=== PATIENT | male | born 1950 | race Caucasian/White ===

== ENCOUNTER 2017-08-14 18:59 | Inpatient (IN) | payer MEDICARE ==
[~2017-08-14] VITALS: Ht 370.8 cm; Wt 135.8 kg
[~2017-08-14 18:59] MED LIST: ASCORBIC ACID500 MG PO; ASPIR 8181 MG PO; AUGMENTIN 875-1 EACH PO; BACTRIM DS TAB1 EACH PO; CIPRO500 MG PO; CLINDAMYCIN HC150 MG PO; CLOPIDOGREL75 MG PO; COLCRYS0.6 MG PO; Calcium Carbonate PO; FAMOTIDINE40 MG PO; FUROSEMIDE40 MG PO; GABAPENTIN300 MG PO; GLIPIZIDE10 MG PO; HYDROCODON-ACE1 EAC9 PO; LISINOPRIL10 MG PO; LISINOPRIL2.5 MG PO; MAGNESIUM OXID400 MG PO; METHADONE HCL10 MG PO; METOPROLOL TART50 MG PO; MULTIPLE VITAM1 EAC1 PO; NEURONTIN400 MG PO; NITROGLYCERIN0.4 MG SL; OXYCONTIN10 MG PO; RIFAMPIN300 MG PO; STOOL SOFTENER50 MG PO; TIZANIDINE HCL4 MG PO; ULTRAM50 MG PO; ZINC SULFATE220 M1 PO
[2017-08-14] MEDS ORDERED: SODIUM CHLORIDE 0.9% 1000ML 1,000 ML IV STA (19:12)
[2017-08-14 19:34] LABS: BASOPHILS % 0.2 % (0.0-1.0); HEMATOCRIT 35.5 % (38.2-49.6); HEMOGLOBIN 11.9 g/dL (14.0-18.0); LYMPHOCYTES # (AUTO) 0.7 (1.0-3.2); LYMPHOCYTES % 3.2 % (18.0-39.1); MEAN CORPUSCULAR HEMOGLOBIN 28.1 pg (28-32); MEAN CORPUSCULAR HGB CONC 33.5 g/dL (31-35); MEAN CORPUSCULAR VOLUME 83.7 fL (81-99); MONOCYTES % 4.7 % (4.4-11.3); NEUTROPHILS # (AUTO) 18.9 (2.1-6.9); NEUTROPHILS % 91.2 % (38.7-80.0); PLATELET COUNT 210 x10e3/uL (140-360); RED BLOOD COUNT 4.24 x10e6/uL (4.3-5.7); RED CELL DISTRIBUTION WIDTH 14.4 % (11.7-14.4)
[2017-08-14] MEDS ORDERED: ONDANSETRON HCL INJ 2 MG/ML VIAL IV STA (19:39)
[2017-08-14] MEDS ORDERED: PANTOPRAZOLE 40 MG 10ML VIAL IV STA (19:39)
[2017-08-14] MEDS ORDERED: PIPER-TAZ 3.375 GM 50 ML IV STA (19:43)
[2017-08-14] MEDS ORDERED: VANCOMYCIN 1GM/NS 250 ML 250 ML IV STA (19:43)
[2017-08-14 19:44] LABS: INR 1.25; PARTIAL THROMBOPLASTIN TIME 32.3 seconds (23.8-35.5); PROTHROMBIN TIME 14.8 seconds (11.9-14.5)
[2017-08-14 19:44] LABS: BILIRUBIN,URINE NEGATIVE (NEGATIVE); CLARITY,URINE CLEAR (CLEAR); COLOR,URINE YELLOW (YELLOW); KETONES,URINE NEGATIVE (NEGATIVE); LEUKOCYTE ESTERASE ,URINE NEGATIVE (NEGATIVE); NITRITE,URINE NEGATIVE (NEGATIVE); PROTEIN,URINE DIPSTICK 3+ (NEGATIVE); URINE UROBILINOGEN 0.2 mg/dL (0.2 - 1)
[2017-08-14 19:54] LABS: ALBUMIN 3.3 g/dL (3.5-5.0); ALBUMIN/GLOBULIN RATIO 0.7 (0.8-2.0); ANION GAP 15.5 mmol/L (8-16); CALCIUM 8.6 mg/dL (8.4-10.2); CREATININE, SERUM 1.59 mg/dL (0.72-1.25); POTASSIUM 4.5 mmol/L (3.5-5.1)
[2017-08-14] MEDS ORDERED: VANCOMYCIN 1GM/NS 250 ML 250 ML ONE (19:54)
[2017-08-14] MEDS ORDERED: MAGNESIUM SULFATE 2GM/50ML 50 ML IV ONE ×2 (19:54→20:00)
[2017-08-14 19:58] LABS: WBC,URINE (MAN) 0-5 /HPF (0-5)
[2017-08-14 19:59] LABS: BACTERIA,URINE FEW /HPF; EPITHELIAL CELLS,URINE RARE /LPF
[2017-08-14 20:00] LABS: CREATINE KINASE MB 0.7 ng/mL (0-5.0)
[2017-08-14 20:01] LABS: TRANSITIONAL EPI CELLS,URINE RARE
--- NOTE | 2017-08-14 20:04 | Diagnostic Imaging Report ---
EXAMINATION: CHEST SINGLE (PORTABLE) INDICATION: Chest pain and fever. COMPARISON: 07/16/2016. FINDINGS: TUBES and LINES: Interval removal of right PICC line. LUNGS: Mild bibasilar subsegmental atelectasis. There is no evidence of pneumonia or pulmonary edema. PLEURA: No pleural effusion or pneumothorax. HEART AND MEDIASTINUM: The cardiac silhouette is mildly enlarged. BONES AND SOFT TISSUES: No acute osseous lesion. Soft tissues are unremarkable. UPPER ABDOMEN: No free air under the diaphragm. IMPRESSION: Bibasilar subsegmental atelectasis. Signed by: Dr. Obed Swann M.D. on 08/14/2017 8:01 PM
[2017-08-14] MEDS ORDERED: SODIUM CHLORIDE 0.9% 1000ML 1,000 ML ONE ×2 (20:25→21:29)
[2017-08-14] MEDS ORDERED: SODIUM CHLORIDE 0.9% 1000ML 1,000 ML IV SCH (20:30)
[2017-08-14] MEDS ORDERED: SODIUM CHLORIDE 0.9% 1000ML 1,000 ML IV ONE (20:45)
--- NOTE | 2017-08-14 20:48 | Diagnostic Imaging Report ---
FOOT LEFT COMPLETE - 3 views HISTORY: Pain. Heel ulcer. COMPARISON: 07/17/2016. FINDINGS: Bones: No acute displaced fracture. Subacute to chronic fracture of the proximal second and third metatarsal bone diaphysis. Status post amputation of the first toe. Joints: Severe valgus deformity of the metatarsophalangeal joints with mild subluxation. Degenerative changes of the tarsal and tarsometatarsal joints. Soft tissues: Approximately 3.8 cm ulcer in the plantar aspect of the heel. Plantar calcaneal enthesophyte. Achilles enthesopathy. Linear metallic densities about the second toe postoperative. IMPRESSION: Approximately 3.8 cm ulcer in the plantar aspect of the heel. No underlying acute osseous abnormality. Signed by: Dr. Obed Swann M.D. on 08/14/2017 8:45 PM
[2017-08-14 21:21] LABS: AMPHETAMINES SCREEN,URINE POSITIVE (NEGATIVE); BENZODIAZEPINES SCREEN,URINE POSITIVE (NEGATIVE); PHENCYCLIDINE SCREEN,URINE NEGATIVE (NEGATIVE)
[2017-08-14 21:28] LABS: ABG HCO3 23 mmol/L (23-28); ABG PCO2 37 mmHg (41-51); ABG PH 7.41 (7.31-7.41); ABG PO2 77 mmHg (80-105)
[2017-08-14] MEDS ORDERED: SODIUM CHLORIDE 0.9% 1000ML 500 ML IV ONE (21:45)
[2017-08-14] MEDS ORDERED: ONDANSETRON HCL INJ 2 MG/ML VIAL IV PRN (22:30)
[2017-08-14] MEDS ORDERED: DEXTROSE 50% SYRINGE 50 ML IV PRN (22:30)
[2017-08-14 22:33] LABS: BASOPHILS % 0.1 % (0.0-1.0); HEMATOCRIT 31.7 % (38.2-49.6); HEMOGLOBIN 10.5 g/dL (14.0-18.0); LYMPHOCYTES # (AUTO) 0.6 (1.0-3.2); LYMPHOCYTES % 3.8 % (18.0-39.1); MEAN CORPUSCULAR HEMOGLOBIN 28.2 pg (28-32); MEAN CORPUSCULAR HGB CONC 33.1 g/dL (31-35); MONOCYTES # (AUTO) 0.7 (0.2-0.8); MONOCYTES % 4.2 % (4.4-11.3); NEUTROPHILS # (AUTO) 14.9 (2.1-6.9); NEUTROPHILS % 90.5 % (38.7-80.0); PLATELET COUNT 176 x10e3/uL (140-360); RED BLOOD COUNT 3.73 x10e6/uL (4.3-5.7); RED CELL DISTRIBUTION WIDTH 14.6 % (11.7-14.4)
[2017-08-14] MEDS ORDERED: AMLODIPINE BESYL5 MG PO (22:34)
[2017-08-14] MEDS ORDERED: BENZONATATE100 MG PO (22:35)
[2017-08-14] MEDS ORDERED: CIPRO500 MG PO (22:36)
[2017-08-14] MEDS ORDERED: DOCUSATE SODIU100 MG PO (22:42)
[2017-08-14] MEDS ORDERED: DAKIN'S473 M1 TOP (22:42)
[2017-08-14] MEDS ORDERED: CYMBALTA20 MG PO (22:44)
[2017-08-14] MEDS ORDERED: GABAPENTIN300 MG PO (22:44)
[2017-08-14 22:45] LABS: ANION GAP 10.5 mmol/L (8-16); CALCIUM 7.2 mg/dL (8.4-10.2); CREATININE, SERUM 1.27 mg/dL (0.72-1.25); POTASSIUM 4.5 mmol/L (3.5-5.1)
[2017-08-14] MEDS ORDERED: GENTAMICIN SULFATE TOP (22:46)
[2017-08-14] MEDS ORDERED: HYDRALAZINE HCL10 MG PO (22:47)
[2017-08-14] MEDS ORDERED: LEVOCETIRIZINE D5 MG PO (22:51)
[2017-08-14] MEDS ORDERED: XOPENEX HFA15 GM INH (22:51)
[2017-08-14] MEDS ORDERED: NOVOLIN 70-30 SQ (22:51)
[2017-08-14] MEDS ORDERED: METFORMIN HCL850 MG PO (22:52)
[2017-08-14] MEDS ORDERED: PRAVASTATIN SOD20 MG PO (22:55)
[2017-08-14] MEDS ORDERED: ROPINIROLE HC0.25 MG PO (22:55)
[2017-08-14] MEDS ORDERED: TEMAZEPAM15 MG PO (22:55)
[2017-08-14 23:04] LABS: CREATINE KINASE MB 0.9 ng/mL (0-5.0)
[2017-08-14] MEDS: INSULIN REGULAR, HUMAN 100 UNIT/1 ML 3ML VIAL SQ SCH (23:16)
--- OUTSIDE RECORDS SUMMARY | 2017-08-14 23:19 | XMS REPORT ---
Author Author [facility] Address Unknown Phone Unavailable Care Team Providers Care Central Scheduler Name Role Phone JM QUICK Unavailable Unavailable Problems This patient has no known problems. Allergies, Adverse Reactions, Alerts This patient has no known allergies or adverse reactions. Medications This patient has no known medications. Results Test Description Test Time Test Comments Text Results Atomic Results Result Comments FOOT LEFT COMPLETE [place] [address] Patient Name: SG ARROYO MR #: [id number] : 1950 Age/Sex: 67/M Req #: [id number] [facility] Physician: Ordered by: JM QUICK MD Report #: [id number] Location: ER Room/Bed: Procedure: [id number] DX/FOOT LEFT COMPLETE Exam Date: 08/14/17 Exam Time : 1946 REPORT STATUS: Signed FOOT LEFT COMPLETE - 3 views HISTORY : Pain. Heel ulcer. COMPARISON: 07/17/2016. FINDINGS: Bones: No acute displaced fracture. Subacute to chronic fracture of the proximal second and third metatarsal bone diaphysis. Status post amputation of the first toe. Joints: Severe valgus deformity of the metatarsophalangeal joints with mild subluxation. Degenerative changes of the tarsal and tarsometatarsal joints. Soft tissues: Approximately 3.8 cm ulcer in the plantar aspect of the heel. Plantar calcaneal enthesophyte. Achilles enthesopathy. Linear metallic densities about the second toe postoperative. IMPRESSION: Approximately 3.8 cm ulcer in the plantar aspect of the heel. No underlying acute osseous abnormality. Signed by: Dr. Obed Flores M.D. on 08/14/2017 8:45 PM Dictated By: TAYLOR FLORES MD, MD 44 Transcribed By: JENNIFER on 08/14/172044 COPY TO: JM QUICK MD CHEST SINGLE (PORTABLE) [place] [address] Patient Name: SG ARROYO MR #: [id number] : 1950 Age/Sex: 67/M Req #: [id number] Adm Physician: Ordered by: CHANTEL CLIFTON PACKAGE WRAPPER Report #: [id number] Location: ER Room/Bed: Procedure: [id number] DX/CHEST SINGLE (PORTABLE) Exam Date: 08/14/17 Exam Time: 1946 REPORT STATUS: Signed EXAMINATION: CHEST SINGLE (PORTABLE) INDICATION: Chest pain and fever. COMPARISON: 07/16/2016. FINDINGS: TUBES and LINES: Interval removal of right PICC line. LUNGS: Mild bibasilar subsegmental atelectasis. There is no evidence of pneumonia or pulmonary edema. PLEURA : No pleural effusion or pneumothorax. HEART AND MEDIASTINUM: The cardiac silhouette is mildly enlarged. BONES AND SOFT TISSUES: No acute osseous lesion. Soft tissues are unremarkable. UPPER ABDOMEN: No free air under the diaphragm. IMPRESSION: Bibasilar subsegmental atelectasis. Signed by: Dr. Obed Flores M.D. on 08/14/2017 8:01 PM Dictated By: TAYLOR FLORES MD, MD 00 Transcribed By: JENNIFER on 08/14/172000 COPY TO: CHANTEL CLIFTON NP
[2017-08-14] MEDS: FAMOTIDINE 20 MG/2 ML VIAL IV SCH (23:20)
[2017-08-14 23:55] VITALS: BP 111/55
[2017-08-14] MEDS: PIPER-TAZ 3.375 GM 50 ML IV SCH (23:56)
[2017-08-15] VITALS (19 sets, daily range): BP systolic 97–164; BP diastolic 56–80
[2017-08-15] MEDS ORDERED: MAGNESIUM SULF 1GRAM/DEXTROSE 100 ML IV ONE (01:00)
[2017-08-15] MEDS ORDERED: OXYCODONE/ACETAMINOPHEN 5-325 1 EACH TABLET PO STA (02:32)
[2017-08-15] MEDS ORDERED: SODIUM CHLORIDE 0.9% 1000ML 1,000 ML IV SCH (02:45)
[2017-08-15 06:15] LABS: BASOPHILS % 0.2 % (0.0-1.0); EOSINOPHILS % 0.2 % (0.0-6.0); HEMATOCRIT 31.4 % (38.2-49.6); HEMOGLOBIN 10.2 g/dL (14.0-18.0); LYMPHOCYTES # (AUTO) 0.8 (1.0-3.2); LYMPHOCYTES % 6.7 % (18.0-39.1); MEAN CORPUSCULAR HEMOGLOBIN 27.7 pg (28-32); MEAN CORPUSCULAR HGB CONC 32.5 g/dL (31-35); MEAN CORPUSCULAR VOLUME 85.3 fL (81-99); MONOCYTES # (AUTO) 0.6 (0.2-0.8); MONOCYTES % 5.1 % (4.4-11.3); NEUTROPHILS # (AUTO) 10.3 (2.1-6.9); NEUTROPHILS % 87.2 % (38.7-80.0); PLATELET COUNT 152 x10e3/uL (140-360); RED BLOOD COUNT 3.68 x10e6/uL (4.3-5.7); RED CELL DISTRIBUTION WIDTH 14.6 % (11.7-14.4)
[2017-08-15] MEDS: PIPER-TAZ 3.375 GM 50 ML IV SCH ×2 (06:24→11:41)
[2017-08-15 06:47] LABS: CREATINE KINASE MB 1.2 ng/mL (0-5.0)
--- NOTE | 2017-08-15 06:58 | Diagnostic Imaging Report ---
CHEST SINGLE (PORTABLE), 08/15/2017 5:00 AM Technique: CHEST SINGLE (PORTABLE) Comparison: 08/14/2017 Clinical history: Hypotension Findings: Left costophrenic angle is excluded. Impression: 1. Stable/normal cardiomediastinal silhouette. 2. Stable bibasilar opacity which may be due to atelectasis/vascular crowding. No effusion or pneumothorax. Signed by: Dr Nadira Owen MD on 08/15/2017 6:54 AM
[2017-08-15 07:21] LABS: ALANINE AMINOTRANSFERASE 18 IU/L (0-55); ALBUMIN 2.7 g/dL (3.5-5.0); ALBUMIN/GLOBULIN RATIO 0.6 (0.8-2.0); ALKALINE PHOSPHATASE 45 IU/L (40-150); ANION GAP 10.7 mmol/L (8-16); BLOOD UREA NITROGEN 17 mg/dL (7-26); BUN/CREATININE RATIO 16 (6-25); CALCIUM 7.7 mg/dL (8.4-10.2); CARBON DIOXIDE 23 mmol/L (22-29); CHLORIDE 106 mmol/L (98-107); CHOL/HDL RATIO 2.9 (3.9-4.7); CHOLESTEROL 97 MD/DL (0-199); CREATININE, SERUM 1.06 mg/dL (0.72-1.25); EST GLOMERULAR FILTRATION RATE > 60 ML/MIN (60-); GLUCOSE 167 mg/dL (74-118); HDL CHOLESTEROL 34 MG/DL (40-60); LDL CHOLESTEROL 47 MG/DL (60-130); MAGNESIUM 1.4 MG/DL (1.3-2.1); POTASSIUM 3.7 mmol/L (3.5-5.1); SODIUM 136 mmol/L (136-145); TRIGLYCERIDES 78 MG/DL (0-149)
[2017-08-15] MEDS ORDERED: INSULIN REGULAR, HUMAN 100 UNIT/1 ML 3ML VIAL SQ SCH (07:30)
[2017-08-15] MEDS: ASPIRIN 81 MG ENTERIC COATED PO SCH (08:10)
[2017-08-15] MEDS ORDERED: GABAPENTIN 100 MG CAP PO SCH (09:00)
[2017-08-15] MEDS: INSULIN REGULAR, HUMAN 100 UNIT/1 ML 3ML VIAL SQ SCH ×4 (09:32→20:51)
[2017-08-15] MEDS: FAMOTIDINE 20 MG/2 ML VIAL IV SCH (09:51)
[2017-08-15] MEDS: OXYCODONE/ACETAMINOPHEN 5-325 1 EACH TABLET PO PRN ×2 (09:52→19:25)
[2017-08-15 13:52] LABS: CREATINE KINASE MB 1.1 ng/mL (0-5.0)
[2017-08-15] MEDS ORDERED: TIZANIDINE HCL 4 MG TAB PO PRN (14:00)
[2017-08-15] MEDS: OXYCODONE HCL 10 MG TAB CR PO SCH (14:54)
[2017-08-15] MEDS: METFORMIN HCL 850 MG TAB PO SCH (16:39)
[2017-08-15] MEDS: ROPINIROLE HCL 0.25 MG TAB PO SCH (20:50)
[2017-08-15] MEDS: DOCUSATE SODIUM 100 MG CAP PO SCH (20:50)
[2017-08-15] MEDS: HEPARIN SOD (PORCINE) 5,000 UNIT/ML VIAL SC SCH (20:50)
[2017-08-15] MEDS: GABAPENTIN 300 MG CAP PO SCH (20:50)
[2017-08-15] MEDS: TEMAZEPAM 15 MG CAP PO PRN (20:51)
[2017-08-15] MEDS ORDERED: GABAPENTIN 400 MG CAP PO SCH (21:00)
[2017-08-15] MEDS ORDERED: TEMAZEPAM 15 MG CAP PO SCH (21:00)
[2017-08-15] MEDS ORDERED: VANCOMYCIN 1GM/NS 250 ML 250 ML IV ONE (21:15)
[2017-08-16] MEDS: METOPROLOL TARTRATE 50 MG TAB PO SCH ×3 (00:06→16:54)
[2017-08-16 00:21] VITALS: BP 151/76
[2017-08-16] MEDS: OXYCODONE HCL 10 MG TAB CR PO SCH ×2 (02:10→14:02)
[2017-08-16 04:48] VITALS: BP 123/59
[2017-08-16 06:37] LABS: BASOPHILS % 0.3 % (0.0-1.0); EOSINOPHILS # (AUTO) 0.3 (0.0-0.4); EOSINOPHILS % 2.4 % (0.0-6.0); HEMATOCRIT 33.7 % (38.2-49.6); HEMOGLOBIN 10.7 g/dL (14.0-18.0); LYMPHOCYTES # (AUTO) 2.1 (1.0-3.2); LYMPHOCYTES % 16.6 % (18.0-39.1); MEAN CORPUSCULAR HEMOGLOBIN 28.1 pg (28-32); MEAN CORPUSCULAR HGB CONC 31.8 g/dL (31-35); MEAN CORPUSCULAR VOLUME 88.5 fL (81-99); MONOCYTES # (AUTO) 0.8 (0.2-0.8); MONOCYTES % 6.7 % (4.4-11.3); NEUTROPHILS # (AUTO) 9.2 (2.1-6.9); NEUTROPHILS % 73.3 % (38.7-80.0); PLATELET COUNT 181 x10e3/uL (140-360); RED BLOOD COUNT 3.81 x10e6/uL (4.3-5.7); RED CELL DISTRIBUTION WIDTH 14.8 % (11.7-14.4)
[2017-08-16 07:08] LABS: ANION GAP 9.1 mmol/L (8-16); BLOOD UREA NITROGEN 15 mg/dL (7-26); BUN/CREATININE RATIO 13 (6-25); CALCIUM 8.4 mg/dL (8.4-10.2); CARBON DIOXIDE 26 mmol/L (22-29); CHLORIDE 104 mmol/L (98-107); CREATININE, SERUM 1.18 mg/dL (0.72-1.25); EST GLOMERULAR FILTRATION RATE > 60 ML/MIN (60-); GLUCOSE 190 mg/dL (74-118); MAGNESIUM 1.6 MG/DL (1.3-2.1); POTASSIUM 4.1 mmol/L (3.5-5.1); SODIUM 135 mmol/L (136-145)
[2017-08-16 08:00] VITALS: BP 131/74
[2017-08-16] MEDS: METFORMIN HCL 850 MG TAB PO SCH ×2 (08:04→16:53)
[2017-08-16] MEDS: INSULIN REGULAR, HUMAN 100 UNIT/1 ML 3ML VIAL SQ SCH ×4 (08:04→23:44)
[2017-08-16] MEDS: ASPIRIN 81 MG ENTERIC COATED PO SCH (08:04)
[2017-08-16] MEDS: DULOXETINE HCL 20 MG DELAYED RELEASE PO SCH (08:04)
[2017-08-16] MEDS: COLCHICINE 0.6 MG TAB PO SCH (08:04)
[2017-08-16] MEDS: GABAPENTIN 300 MG CAP PO SCH ×2 (08:04→21:38)
[2017-08-16] MEDS: HEPARIN SOD (PORCINE) 5,000 UNIT/ML VIAL SC SCH ×2 (08:05→23:43)
--- NOTE | 2017-08-16 10:49 | Cardiology Report ---
DATE OF STUDY: ECHOCARDIOGRAM M-MODE: Dilated left atrium. Left ventricular hypertrophy. Normal contractility. Aortic sclerosis suggestive of stenosis. Normal mitral and tricuspid valves. No pericardial effusion. SECTOR SCAN: Dilated left atrium. Left ventricular hypertrophy. Normal contractility. Ejection fraction is approximately 70%. Aortic valve sclerotic and cannot exclude stenosis. Normal mitral and tricuspid valves. No pericardial effusion. CARDIAC DOPPLER STUDY WITH COLOR: Trace mitral and tricuspid regurgitation. The aortic velocity is 2.5 meters per second. CONCLUSIONS 1. Mild aortic stenosis with aortic velocity 2.5 meters per second. 2. Left ventricular hypertrophy with ejection fraction of approximately 70%. 3. Trace mitral regurgitation with mildly dilated left atrium. 4. Trace tricuspid regurgitation. Job#: [id number] RI cc: DEXTER HOLLAND MD
[2017-08-16] MEDS ORDERED: VANCOMYCIN 1GM/NS 250 ML 250 ML IV ONE (11:30)
[2017-08-16] MEDS ORDERED: CEFTRIAXONE SOD 1 GM VIAL IV SCH (11:30)
[2017-08-16] MEDS ORDERED: SODIUM CHLORIDE 0.9% 250ML 250 ML ONE (11:47)
[2017-08-16 12:00] VITALS: BP_SYST 116; BP_SYST 143; BP_DIAS 53; BP_DIAS 72
[2017-08-16] MEDS: CLINDAMYCIN 600MG/D5W 50ML 50 ML IV SCH ×2 (12:00→16:54)
[2017-08-16] MEDS: ROPINIROLE HCL 0.25 MG TAB PO SCH (14:02)
[2017-08-16] MEDS ORDERED: SODIUM CHLORIDE 0.9% 50ML 50 ML ONE (14:30)
[2017-08-16] MEDS ORDERED: IOPAMIDOL 370 MG/ML 200 ML INFUS..BTL INJ ONE (14:31)
--- NOTE | 2017-08-16 15:54 | Diagnostic Imaging Report ---
TECHNIQUE: Computed tomography imaging of the LEFT lower extremity was performed with injected contrast. 100 cc of Isovue-370 HISTORY: Pain and swelling COMPARISON: None available. FINDINGS: No fracture. No CT finding of osteomyelitis. Circumferential skin thickening and subcutaneous edema of the left lower extremity. No organized abscess. No soft tissue gas. No thickened fascial enhancement. IMPRESSION: Diffuse left lower extremity edema/cellulitis. No abscess or CT findings of osteomyelitis. Signed by: Dr. Joon Pickering M.D. on 08/16/2017 3:51 PM
[2017-08-16 16:00] VITALS: BP 160/81
[2017-08-16] MEDS: OXYCODONE/ACETAMINOPHEN 5-325 1 EACH TABLET PO PRN (16:53)
[2017-08-16] MEDS: ACETAMINOPHEN 325 MG TAB PO PRN ×2 (17:37)
[2017-08-16 20:00] VITALS: BP 158/74
[2017-08-16] MEDS: DOCUSATE SODIUM 100 MG CAP PO SCH (21:38)
[2017-08-17] VITALS (8 sets, daily range): BP systolic 133–160; BP diastolic 70–85
[2017-08-17] MEDS: CLINDAMYCIN 600MG/D5W 50ML 50 ML IV SCH ×2 (00:36→05:31)
[2017-08-17] MEDS: OXYCODONE HCL 10 MG TAB CR PO SCH ×2 (02:00→13:56)
[2017-08-17] MEDS: INSULIN REGULAR, HUMAN 100 UNIT/1 ML 3ML VIAL SQ SCH ×4 (07:30→21:00)
[2017-08-17] MEDS: MUPIROCIN 2% OINT 22 GM TUBE TOP SCH (09:00)
[2017-08-17] MEDS: COLCHICINE 0.6 MG TAB PO SCH (09:45)
[2017-08-17] MEDS: HEPARIN SOD (PORCINE) 5,000 UNIT/ML VIAL SC SCH (09:45)
[2017-08-17] MEDS: GABAPENTIN 300 MG CAP PO SCH ×2 (09:45→21:30)
[2017-08-17] MEDS: METOPROLOL TARTRATE 50 MG TAB PO SCH ×2 (09:45→17:00)
[2017-08-17] MEDS: METFORMIN HCL 850 MG TAB PO SCH ×2 (09:45→17:00)
[2017-08-17] MEDS: DULOXETINE HCL 20 MG DELAYED RELEASE PO SCH (09:45)
[2017-08-17] MEDS: ASPIRIN 81 MG ENTERIC COATED PO SCH (09:45)
[2017-08-17 09:59] LABS: BASOPHILS % 0.3 % (0.0-1.0); EOSINOPHILS # (AUTO) 0.3 (0.0-0.4); EOSINOPHILS % 3.9 % (0.0-6.0); HEMATOCRIT 30.8 % (38.2-49.6); HEMOGLOBIN 9.9 g/dL (14.0-18.0); LYMPHOCYTES # (AUTO) 1.5 (1.0-3.2); LYMPHOCYTES % 18.4 % (18.0-39.1); MEAN CORPUSCULAR HEMOGLOBIN 27.8 pg (28-32); MEAN CORPUSCULAR HGB CONC 32.1 g/dL (31-35); MEAN CORPUSCULAR VOLUME 86.5 fL (81-99); MONOCYTES # (AUTO) 0.5 (0.2-0.8); MONOCYTES % 6.4 % (4.4-11.3); NEUTROPHILS # (AUTO) 5.6 (2.1-6.9); NEUTROPHILS % 70.4 % (38.7-80.0); PLATELET COUNT 159 x10e3/uL (140-360); RED BLOOD COUNT 3.56 x10e6/uL (4.3-5.7); RED CELL DISTRIBUTION WIDTH 14.7 % (11.7-14.4)
[2017-08-17 10:15] LABS: BLOOD UREA NITROGEN 10 mg/dL (7-26); BUN/CREATININE RATIO 9 (6-25); CALCIUM 8.8 mg/dL (8.4-10.2); CARBON DIOXIDE 25 mmol/L (22-29); CHLORIDE 99 mmol/L (98-107); CREATININE, SERUM 1.07 mg/dL (0.72-1.25); EST GLOMERULAR FILTRATION RATE > 60 ML/MIN (60-); GLUCOSE 233 mg/dL (74-118); SODIUM 130 mmol/L (136-145)
[2017-08-17] MEDS: FAMOTIDINE 20 MG TAB PO SCH ×2 (13:52→16:30)
[2017-08-17] MEDS: VANCOMYCIN HCL 1.25 GM in SODIUM CHLORIDE 0.9% 250ML 300 ML IV SCH (15:15)
[2017-08-17] MEDS: ENOXAPARIN SOD INJ 40 MG/0.4 ML SYR SC SCH (17:09)
[2017-08-17] MEDS: DOCUSATE SODIUM 100 MG CAP PO SCH (21:30)
[2017-08-17] MEDS: ROPINIROLE HCL 0.25 MG TAB PO SCH (21:30)
[2017-08-18] VITALS: BP 177/74
[2017-08-18] MEDS: VANCOMYCIN HCL 1.25 GM in SODIUM CHLORIDE 0.9% 250ML 300 ML IV SCH ×2 (00:20→14:00)
[2017-08-18] MEDS: OXYCODONE/ACETAMINOPHEN 5-325 1 EACH TABLET PO PRN ×2 (00:20→23:30)
[2017-08-18] MEDS: OXYCODONE HCL 10 MG TAB CR PO SCH (02:03)
[2017-08-18 04:00] VITALS: BP 130/62
[2017-08-18 08:00] VITALS: BP 118/63
[2017-08-18] MEDS: INSULIN REGULAR, HUMAN 100 UNIT/1 ML 3ML VIAL SQ SCH ×4 (08:30→21:35)
[2017-08-18] MEDS: FAMOTIDINE 20 MG TAB PO SCH ×2 (08:30→16:44)
[2017-08-18] MEDS: DULOXETINE HCL 20 MG DELAYED RELEASE PO SCH (09:00)
[2017-08-18] MEDS: GABAPENTIN 300 MG CAP PO SCH ×2 (09:00→21:28)
[2017-08-18] MEDS: METOPROLOL TARTRATE 50 MG TAB PO SCH ×2 (09:00→17:36)
[2017-08-18] MEDS: COLCHICINE 0.6 MG TAB PO SCH (09:00)
[2017-08-18] MEDS: ASPIRIN 81 MG ENTERIC COATED PO SCH (09:00)
[2017-08-18] MEDS: METFORMIN HCL 850 MG TAB PO SCH ×2 (09:00→17:36)
[2017-08-18] MEDS: MUPIROCIN 2% OINT 22 GM TUBE TOP SCH (09:00)
[2017-08-18] MEDS ORDERED: FUROSEMIDE INJ 10 MG/ML 4 ML VIAL IV SCH (10:30)
[2017-08-18 12:00] VITALS: BP 188/88
[2017-08-18] MEDS ORDERED: OXYCODONE HCL 10 MG TAB CR PO SCH ×2 (16:45→21:00)
[2017-08-18] MEDS: LACTOBACILLUS ACIDOPHILUS CAPSULE PO SCH (17:35)
[2017-08-18] MEDS: ENOXAPARIN SOD INJ 40 MG/0.4 ML SYR SC SCH (17:35)
[2017-08-18 20:00] VITALS: BP 165/77
[2017-08-18] MEDS: ROPINIROLE HCL 0.25 MG TAB PO SCH (21:28)
[2017-08-18] MEDS: DOCUSATE SODIUM 100 MG CAP PO SCH (21:28)
[2017-08-19] VITALS (8 sets, daily range): BP systolic 146–179; BP diastolic 72–81
[2017-08-19] MEDS: VANCOMYCIN HCL 1.25 GM in SODIUM CHLORIDE 0.9% 250ML 300 ML IV SCH ×2 (01:00→12:54)
[2017-08-19] MEDS: OXYCODONE HCL 10 MG TAB CR PO SCH ×2 (04:52→17:01)
[2017-08-19] MEDS: FAMOTIDINE 20 MG TAB PO SCH ×2 (08:01→17:01)
[2017-08-19] MEDS: INSULIN REGULAR, HUMAN 100 UNIT/1 ML 3ML VIAL SQ SCH ×4 (08:01→21:25)
[2017-08-19] MEDS: DULOXETINE HCL 20 MG DELAYED RELEASE PO SCH (08:02)
[2017-08-19] MEDS: MUPIROCIN 2% OINT 22 GM TUBE TOP SCH (08:02)
[2017-08-19] MEDS: ASPIRIN 81 MG ENTERIC COATED PO SCH (08:02)
[2017-08-19] MEDS: METOPROLOL TARTRATE 50 MG TAB PO SCH ×2 (08:02→16:12)
[2017-08-19] MEDS: GABAPENTIN 300 MG CAP PO SCH ×2 (08:02→21:24)
[2017-08-19] MEDS: COLCHICINE 0.6 MG TAB PO SCH (08:02)
[2017-08-19] MEDS: LACTOBACILLUS ACIDOPHILUS CAPSULE PO SCH ×2 (08:02→17:01)
[2017-08-19] MEDS: METFORMIN HCL 850 MG TAB PO SCH ×2 (08:02→17:01)
[2017-08-19] MEDS: ENOXAPARIN SOD INJ 40 MG/0.4 ML SYR SC SCH (17:01)
[2017-08-19] MEDS: DOCUSATE SODIUM 100 MG CAP PO SCH (21:24)
[2017-08-19] MEDS: ROPINIROLE HCL 0.25 MG TAB PO SCH (21:24)
[2017-08-19] MEDS: OXYCODONE/ACETAMINOPHEN 5-325 1 EACH TABLET PO PRN (21:30)
[2017-08-20] MEDS: VANCOMYCIN HCL 1.25 GM in SODIUM CHLORIDE 0.9% 250ML 300 ML IV SCH ×2 (00:52→13:19)
[2017-08-20] MEDS: TEMAZEPAM 15 MG CAP PO PRN (01:12)
[2017-08-20 01:26] VITALS: BP 170/94
[2017-08-20 05:06] VITALS: BP 169/79
[2017-08-20] MEDS: OXYCODONE HCL 10 MG TAB CR PO SCH ×2 (05:22→16:53)
[2017-08-20 06:19] LABS: BASOPHILS # (AUTO) 0.1 (0.0-0.1); BASOPHILS % 0.7 % (0.0-1.0); EOSINOPHILS # (AUTO) 0.3 (0.0-0.4); EOSINOPHILS % 3.9 % (0.0-6.0); HEMATOCRIT 30.8 % (38.2-49.6); HEMOGLOBIN 9.9 g/dL (14.0-18.0); LYMPHOCYTES # (AUTO) 2.5 (1.0-3.2); LYMPHOCYTES % 28.5 % (18.0-39.1); MEAN CORPUSCULAR HEMOGLOBIN 27.7 pg (28-32); MEAN CORPUSCULAR HGB CONC 32.1 g/dL (31-35); MEAN CORPUSCULAR VOLUME 86.3 fL (81-99); MONOCYTES # (AUTO) 0.8 (0.2-0.8); MONOCYTES % 8.6 % (4.4-11.3); NEUTROPHILS # (AUTO) 4.8 (2.1-6.9); NEUTROPHILS % 54.7 % (38.7-80.0); PLATELET COUNT 234 x10e3/uL (140-360); RED BLOOD COUNT 3.57 x10e6/uL (4.3-5.7); RED CELL DISTRIBUTION WIDTH 14.5 % (11.7-14.4)
[2017-08-20 06:40] LABS: ANION GAP 11.7 mmol/L (8-16); BLOOD UREA NITROGEN 9 mg/dL (7-26); BUN/CREATININE RATIO 10 (6-25); CALCIUM 8.7 mg/dL (8.4-10.2); CARBON DIOXIDE 26 mmol/L (22-29); CHLORIDE 103 mmol/L (98-107); CREATININE, SERUM 0.92 mg/dL (0.72-1.25); EST GLOMERULAR FILTRATION RATE > 60 ML/MIN (60-); GLUCOSE 132 mg/dL (74-118); POTASSIUM 3.7 mmol/L (3.5-5.1); SODIUM 137 mmol/L (136-145)
[2017-08-20 07:53] LABS: BAND NEUTROPHILS % (MANUAL) 1 %; EOSINOPHILS % (MANUAL) 6 % (0-7); LYMPHOCYTES % (MANUAL) 35 % (19-48); MONOCYTES % (MANUAL) 5 % (3.4-9.0); NEUTROPHILS % (MANUAL) 52 % (40-74); PLATELET ESTIMATE ADEQUATE; RBC MORPHOLOGY COMMENT NORMAL
[2017-08-20 07:54] LABS: PLATELET MORPHOLOGY COMMENT NORMAL
[2017-08-20 08:00] VITALS: BP 189/84
[2017-08-20] MEDS: COLCHICINE 0.6 MG TAB PO SCH (08:03)
[2017-08-20] MEDS: ASPIRIN 81 MG ENTERIC COATED PO SCH (08:03)
[2017-08-20] MEDS: METFORMIN HCL 850 MG TAB PO SCH ×2 (08:03→16:53)
[2017-08-20] MEDS: FAMOTIDINE 20 MG TAB PO SCH ×2 (08:03→16:53)
[2017-08-20] MEDS: GABAPENTIN 300 MG CAP PO SCH ×2 (08:04→21:39)
[2017-08-20] MEDS: MUPIROCIN 2% OINT 22 GM TUBE TOP SCH (08:04)
[2017-08-20] MEDS: DULOXETINE HCL 20 MG DELAYED RELEASE PO SCH (08:04)
[2017-08-20] MEDS: METOPROLOL TARTRATE 50 MG TAB PO SCH ×2 (08:04→16:53)
[2017-08-20] MEDS: LACTOBACILLUS ACIDOPHILUS CAPSULE PO SCH ×2 (08:04→16:53)
[2017-08-20] MEDS: INSULIN REGULAR, HUMAN 100 UNIT/1 ML 3ML VIAL SQ SCH ×4 (08:07→22:48)
[2017-08-20] MEDS ORDERED: DIPHENHYDRAMINE HCL 25 MG CAP PO PRN (08:30)
[2017-08-20 09:43] VITALS: BP 189/84
[2017-08-20 12:00] VITALS: BP 178/81
[2017-08-20] MEDS ORDERED: MAGNESIUM SULFATE 2GM/50ML 50 ML IV ONE (13:30)
[2017-08-20] MEDS ORDERED: FUROSEMIDE INJ 10 MG/ML 4 ML VIAL IV ONE (14:00)
[2017-08-20] MEDS: DIPHENHYDRAMINE HCL 25 MG CAP PO PRN ×2 (14:50→21:46)
[2017-08-20] MEDS: ENOXAPARIN SOD INJ 40 MG/0.4 ML SYR SC SCH (16:53)
[2017-08-20] MEDS: CLINDAMYCIN 600MG/D5W 50ML 50 ML IV SCH (16:53)
--- NOTE | 2017-08-20 18:45 | Diagnostic Imaging Report ---
PROCEDURE:X-RAY ABDOMEN - KUB COMPARISON:[facility], DX, CHEST SINGLE (PORTABLE), 08/15/2017, 5:40. INDICATIONS:VOMITING, DEHYDRATION FINDINGS: There is a non-obstructed bowel-gas pattern. No air-filled, dilated loops of bowel. Large amount of retained stool in the colon. There are no calcifications projected over the renal shadows, expected course of the ureters or bladder. There are no acute osseous abnormalities. Degenerative disc changes in the lumbosacral spine. CONCLUSION: Nonobstructive bowel gas pattern with large amount of retained stool in the colon suggesting constipation. Timmy Young M.D. Dictated by: Timmy Young M.D. on 08/20/2017 at 18:46 Electronically approved by: Timmy Young M.D. on 08/20/2017 at 18:46
[2017-08-20 20:00] VITALS: BP 171/81
[2017-08-20] MEDS: ROPINIROLE HCL 0.25 MG TAB PO SCH (21:39)
[2017-08-20] MEDS: DOCUSATE SODIUM 100 MG CAP PO SCH (21:39)
[2017-08-21] VITALS: BP 175/83
[2017-08-21] MEDS: CLINDAMYCIN 600MG/D5W 50ML 50 ML IV SCH ×4 (00:42→13:17)
[2017-08-21] MEDS: VANCOMYCIN HCL 1.25 GM in SODIUM CHLORIDE 0.9% 250ML 300 ML IV SCH ×2 (01:30→13:17)
[2017-08-21] MEDS ORDERED: SODIUM CHLORIDE 0.9% 250ML 250 ML ONE (03:49)
[2017-08-21 04:00] VITALS: BP 174/79
[2017-08-21] MEDS: ACETAMINOPHEN 325 MG TAB PO PRN (04:22)
[2017-08-21] MEDS: OXYCODONE HCL 10 MG TAB CR PO SCH ×2 (04:22→17:19)
[2017-08-21] MEDS: INSULIN REGULAR, HUMAN 100 UNIT/1 ML 3ML VIAL SQ SCH ×4 (07:30→21:07)
[2017-08-21 07:38] VITALS: BP 178/97
[2017-08-21] MEDS: METFORMIN HCL 850 MG TAB PO SCH ×2 (08:00→17:19)
[2017-08-21] MEDS: FAMOTIDINE 20 MG TAB PO SCH ×2 (08:01→17:17)
[2017-08-21] MEDS: MUPIROCIN 2% OINT 22 GM TUBE TOP SCH (08:36)
[2017-08-21] MEDS: LACTOBACILLUS ACIDOPHILUS CAPSULE PO SCH ×2 (09:14→17:20)
[2017-08-21] MEDS: ASPIRIN 81 MG ENTERIC COATED PO SCH (09:14)
[2017-08-21] MEDS: GABAPENTIN 300 MG CAP PO SCH ×2 (09:14→21:13)
[2017-08-21] MEDS: COLCHICINE 0.6 MG TAB PO SCH (09:14)
[2017-08-21] MEDS: METOPROLOL TARTRATE 50 MG TAB PO SCH ×2 (09:14→17:20)
[2017-08-21] MEDS: DULOXETINE HCL 20 MG DELAYED RELEASE PO SCH (09:14)
[2017-08-21] MEDS ORDERED: FUROSEMIDE INJ 10 MG/ML 4 ML VIAL IV ONE (14:15)
[2017-08-21] MEDS ORDERED: CITRATE OF MAGNESIA 300ML BOTTLE PO ONE (14:20)
[2017-08-21] MEDS: TRIMETHOPRIM/SULFAMETHOXAZOLE 160-800 MG TAB PO SCH ×2 (14:27→21:13)
[2017-08-21] MEDS: ENOXAPARIN SOD INJ 40 MG/0.4 ML SYR SC SCH (17:20)
[2017-08-21] MEDS: LISINOPRIL 20 MG TAB PO SCH (17:20)
[2017-08-21] MEDS: DOCUSATE SODIUM 100 MG CAP PO SCH (21:13)
[2017-08-21] MEDS: ROPINIROLE HCL 0.25 MG TAB PO SCH (21:13)
[2017-08-21] MEDS: DIPHENHYDRAMINE HCL 25 MG CAP PO PRN (21:13)
[2017-08-22 06:19] VITALS: BP 178/97
[2017-08-22] MEDS: INSULIN REGULAR, HUMAN 100 UNIT/1 ML 3ML VIAL SQ SCH ×2 (07:30→12:31)
[2017-08-22 08:00] VITALS: BP 170/84
[2017-08-22] MEDS: ASPIRIN 81 MG ENTERIC COATED PO SCH (08:37)
[2017-08-22] MEDS: FAMOTIDINE 20 MG TAB PO SCH (08:37)
[2017-08-22] MEDS: METFORMIN HCL 850 MG TAB PO SCH (08:37)
[2017-08-22] MEDS: TRIMETHOPRIM/SULFAMETHOXAZOLE 160-800 MG TAB PO SCH (08:37)
[2017-08-22] MEDS: DULOXETINE HCL 20 MG DELAYED RELEASE PO SCH (08:37)
[2017-08-22] MEDS: COLCHICINE 0.6 MG TAB PO SCH (08:37)
[2017-08-22] MEDS: MUPIROCIN 2% OINT 22 GM TUBE TOP SCH (08:38)
[2017-08-22] MEDS: METOPROLOL TARTRATE 50 MG TAB PO SCH (08:38)
[2017-08-22] MEDS: LISINOPRIL 20 MG TAB PO SCH (08:38)
[2017-08-22] MEDS: GABAPENTIN 300 MG CAP PO SCH (08:38)
[2017-08-22] MEDS: LACTOBACILLUS ACIDOPHILUS CAPSULE PO SCH (08:38)
[2017-08-22] MEDS ORDERED: OXYCODONE HCL 20 MG TAB CR PO STA (10:04)
[2017-08-22 12:00] VITALS: BP 174/87
--- NOTE | 2017-08-22 15:52 | Discharge Summary ---
NO DICTATION, LENGTH 9 SECONDS. DEXTER HOLLAND M.D. Job#: [id number] MH
--- NOTE | 2017-08-22 15:58 | Discharge Summary ---
PRIMARY CARE DOCTOR: Isabel Bliss M.D. FINAL DIAGNOSES 1. Sepsis present on admission due to left leg cellulitis due to chronic venous insufficiency. 2. Acute renal failure, resolved. 3. Chronic pain syndrome. 4. Uncontrolled hypertension, resolved. 5. Uncontrolled diabetes, resolved. 6. Dehydration, resolved. SENIOR ASSOCIATE: None. PROCEDURES/STUDIES PERFORMED: CT of the leg, which did not show any abscess or osteomyelitis. HISTORY: Per [facility] and [facility]. HOSPITAL COURSE: The patient's white count normalized. His fever normalized as well. His creatinine normalized as well. Initially, the patient was put on IV vancomycin. He did well. However, it took a while due to the fact that this is due to chronic venous insufficiency. IV Lasix was also given to help diurese his leg edema. The day prior to discharge, the patient was switched to oral Bactrim, and he tolerated it well. Today, his leg is looking much better. I continued to advise him to elevate his legs if he is not on his feet. He received Lovenox for DVT prophylaxis. CONDITION ON DISCHARGE: Stable. DISCHARGE MEDICATIONS: Please see medication reconciliation form. The patient was seen and examined today. It took 32 minutes total to discharge this patient today. DEXTER HOLLAND M.D. Job#: [id number] cc:ISABEL BLISS M.D.
[2017-08-22 16:00] VITALS: BP 164/87
== END 2017-08-22 17:51 | disposition home health service (06) | DRG 872 ==
LOC: ER 18:59 → ICU 23:15 → MED/SURG2 08-15 16:01
PROVIDERS: ADMIT Internal Medicine; ATTEND Internal Medicine
DX: A41.9 Sepsis, unspecified organism (principal); N17.9 Acute kidney failure, unspecified; E11.51 Type 2 diabetes mellitus with diabetic peripheral angiopathy without gangrene; E11.65 Type 2 diabetes mellitus with hyperglycemia; L03.116 Cellulitis of left lower limb; B95.5 Unspecified streptococcus as the cause of diseases classified elsewhere; E86.0 Dehydration; I87.2 Venous insufficiency (chronic) (peripheral); G89.4 Chronic pain syndrome; I25.10 Atherosclerotic heart disease of native coronary artery without angina pectoris; K59.00 Constipation, unspecified
CPT/HCPCS: 36415; 36600; 51700; 71045; 73701; 74018; 80048; 80053; 80061; 80202; 80307; 80320; 81001; 82550; 82553; 82805; 82948; 83605; 83735; 83880; 84484; 85025; 85610; 85730; 87040; 87071; 87086; 87205; 87400; 93005; 93306; 96372; 99284; J0696; J1644; J1650; J1940; J2405; J2543; J3370; J3475; J7030; J7050; Q9967

== ENCOUNTER 2018-05-01 21:34 | Observation (INO) | payer MEDICARE ==
[~2018-05-01] VITALS: Ht 188 cm; Wt 123.6 kg
[~2018-05-01 21:34] MED LIST changes: +AMLODIPINE BESYL5 MG PO; +BENZONATATE100 MG PO; +CYMBALTA20 MG PO; +DAKIN'S473 M1 TOP; +DOCUSATE SODIU100 MG PO; +GENTAMICIN SULFATE TOP; +HYDRALAZINE HCL10 MG PO; +LEVOCETIRIZINE D5 MG PO; +METFORMIN HCL850 MG PO; +NIFEDIPINE ER30 M1 PO; +NOVOLIN 70-30 SQ; +PRAVASTATIN SOD20 MG PO; +ROPINIROLE HC0.25 MG PO; +TEMAZEPAM15 MG PO; +XOPENEX HFA15 GM INH
[2018-05-01 22:27] LABS: BASOPHILS % 0.5 % (0.0-1.0); EOSINOPHILS # (AUTO) 0.3 (0.0-0.4); EOSINOPHILS % 4.6 % (0.0-6.0); HEMATOCRIT 33.6 % (38.2-49.6); HEMOGLOBIN 10.4 g/dL (14.0-18.0); LYMPHOCYTES # (AUTO) 2.1 (1.0-3.2); LYMPHOCYTES % 31.9 % (18.0-39.1); MEAN CORPUSCULAR HEMOGLOBIN 24.3 pg (28-32); MEAN CORPUSCULAR VOLUME 78.5 fL (81-99); MONOCYTES # (AUTO) 0.5 (0.2-0.8); MONOCYTES % 7.3 % (4.4-11.3); NEUTROPHILS # (AUTO) 3.6 (2.1-6.9); NEUTROPHILS % 55.5 % (38.7-80.0); PLATELET COUNT 236 x10e3/uL (140-360); RED BLOOD COUNT 4.28 x10e6/uL (4.3-5.7); RED CELL DISTRIBUTION WIDTH 15.7 % (11.7-14.4)
[2018-05-01 22:35] LABS: INR 0.94; PARTIAL THROMBOPLASTIN TIME 29.9 seconds (23.8-35.5); PROTHROMBIN TIME 13.4 seconds (11.9-14.5)
[2018-05-01 22:41] LABS: BILIRUBIN,URINE NEGATIVE (NEGATIVE); CLARITY,URINE CLEAR (CLEAR); COLOR,URINE YELLOW (YELLOW); KETONES,URINE NEGATIVE (NEGATIVE); LEUKOCYTE ESTERASE ,URINE NEGATIVE (NEGATIVE); NITRITE,URINE NEGATIVE (NEGATIVE); PROTEIN,URINE DIPSTICK 2+ (NEGATIVE); URINE UROBILINOGEN 0.2 mg/dL (0.2 - 1)
[2018-05-01 22:43] LABS: EPITHELIAL CELLS,URINE FEW /LPF; RBC,URINE 0-5 /HPF (0-5); WBC,URINE (MAN) 0-5 /HPF (0-5)
[2018-05-01 22:45] LABS: ALBUMIN 3.5 g/dL (3.5-5.0); ALBUMIN/GLOBULIN RATIO 0.7 (0.8-2.0); ANION GAP 15.5 mmol/L (8-16); CALCIUM 9.6 mg/dL (8.4-10.2); CREATININE, SERUM 1.34 mg/dL (0.72-1.25); MAGNESIUM 1.9 MG/DL (1.3-2.1); POTASSIUM 3.5 mmol/L (3.5-5.1)
--- NOTE | 2018-05-01 22:47 | Diagnostic Imaging Report ---
EXAM: CHEST 2 VIEWS, PA and lateral INDICATION: Shortness of breath, chest pain COMPARISON: None FINDINGS: LINES/TUBES: None LUNGS: No consolidations or edema. Stable bibasilar vascular crowding. PLEURA: No effusions or pneumothorax. HEART AND MEDIASTINUM: Normal size and contour. Stable mediastinal surgical clips. BONES AND SOFT TISSUES: No acute findings. Degenerative changes of the thoracic spine. IMPRESSION: No acute thoracic abnormality. Signed by: Dr. Gabby Hartman M.D. on 05/01/2018 10:44 PM
[2018-05-01 22:52] LABS: CREATINE KINASE MB 0.9 ng/mL (0-5.0)
[2018-05-02] MEDS ORDERED: ROPINIROLE HCL 2 MG TAB PO ONE ×3 (00:15→06:45)
[2018-05-02] MEDS ORDERED: HYDROCODONE/APAP 10MG-325MG TAB PO ONE (00:15)
[2018-05-02] MEDS ORDERED: SODIUM CHLORIDE 0.9% 500ML 500 ML IV ONE (01:45)
[2018-05-02] MEDS ORDERED: MORPHINE SULFATE 2 MG/ML SYR IV PRN (01:45)
[2018-05-02] MEDS ORDERED: DEXTROSE 50% SYRINGE 50 ML IV PRN (01:45)
[2018-05-02] MEDS ORDERED: HYDROMORPHONE 2MG/ML 2 MG/ML ML IV ONE (01:45)
[2018-05-02] MEDS ORDERED: ENOXAPARIN SODIUM INJ 100 MG/ML SYR SC ONE (01:45)
[2018-05-02 06:30] LABS: CREATINE KINASE MB 0.6 ng/mL (0-5.0)
[2018-05-02] MEDS: INSULIN LISPRO 100 UNIT/1 ML 3ML VIAL SQ SCH ×4 (07:55→20:39)
[2018-05-02] MEDS ORDERED: FAMOTIDINE 20 MG/2 ML VIAL IV SCH (09:00)
[2018-05-02] MEDS ORDERED: TIZANIDINE HCL 4 MG TAB PO PRN (12:00)
[2018-05-02] MEDS ORDERED: METOPROLOL TARTRATE 50 MG TAB PO ONE (12:00)
[2018-05-02] MEDS: MORPHINE SULFATE INJ 4 MG/ML INJ IV PRN ×4 (13:12→21:41)
[2018-05-02] MEDS: OXYCODONE HCL 10 MG TAB CR PO SCH ×3 (13:49→23:00)
--- NOTE | 2018-05-02 14:04 | Diagnostic Imaging Report ---
EXAM: CT Chest WITHOUT contrast INDICATION: Chest pain. COMPARISON: Radiograph 05/01/2018 TECHNIQUE: Chest was scanned utilizing a multidetector helical scanner from the lung apex through the level of the adrenal glands without administration of IV contrast. Absence of intravenous contrast decreases sensitivity for detection of lymphadenopathy and vascular pathology. Coronal and sagittal reformations were obtained. Routine protocol was performed. IV CONTRAST: None COMPLICATIONS: None RADIATION DOSE: Total DLP: 417.73 mGy*cm Estimated effective dose: (DLP x 0.014 x size factor) mSv CTDIvol has been reviewed. It is below the limits set by the Radiation Protocol Committee (RPC). FINDINGS: LINES/ TUBES: None. LUNGS AND AIRWAYS: Patchy groundglass with tree-in-bud opacity in the right upper lung could be due to early pneumonia. No focal consolidation. Punctate calcified granuloma in the posterior right lower lobe. Several other punctate calcified granulomas are seen. Airways are normal. PLEURA: The pleural spaces are clear. HEART AND MEDIASTINUM: The thyroid gland is normal. No mediastinal, hilar or axillary lymphadenopathy. The heart is normal in size. Extensive atherosclerotic calcification in the coronary arteries with what appear to be vascular stents. Postsurgical change to the heart. There is a small pericardial effusion. UPPER ABDOMEN: Fatty atrophy of the pancreas. BONES: Sternal defect with irregularity consistent with prior heart surgery. No sternal wires are seen. SOFT TISSUES: Gynecomastia. IMPRESSION: Postsurgical change to the heart with extensive atherosclerotic calcification in the coronary arteries with what appear to be vascular stents. Sternal defect with irregularity consistent with prior heart surgery. Patchy groundglass with tree-in-bud opacity in the right upper lung could be due to early pneumonia. No focal consolidation. Signed by: Dr. Brigido Garrett M.D. on 05/02/2018 2:00 PM
[2018-05-02] MEDS: ROPINIROLE HCL 2 MG TAB PO SCH (16:52)
[2018-05-02] MEDS: METOPROLOL TARTRATE 50 MG TAB PO SCH (16:52)
[2018-05-02] MEDS ORDERED: ROPINIROLE HCL 0.25 MG TAB PO SCH (17:00)
[2018-05-02 17:40] LABS: ABG HCO3 25 mmol/L (23-28); ABG PCO2 44 mmHg (41-51); ABG PH 7.37 (7.31-7.41); ABG PO2 80 mmHg (80-105)
[2018-05-02 18:30] VITALS: BP 180/88
[2018-05-02 18:38] VITALS: BP 180/88
[2018-05-02 20:00] VITALS: BP 151/77
--- NOTE | 2018-05-02 20:11 | Consultation ---
DATE OF CONSULTATION: PULMONARY CONSULTATION REASON FOR THE CONSULT: Abnormal CT chest. CHIEF COMPLAINT: Generalized weakness and difficulty breathing for a few days. HPI: Mr. Mittal is a 68-year-old male who presented with 3 weeks' history of shortness of breath and fatigue along with chest discomfort. He had a coronary artery bypass surgery in January 2018, complicated by chest wall infection and hardware infection, resulting in prolonged longstanding antibiotic. He had a PICC line, which was just removed 3 days ago when he finished his vancomycin. He reports that he feels extremely fatigue and he is unable to do his regular activity, which he was doing. He was almost in the hospital for more than a month. He denies any nausea or vomiting. He denies any history of smoking, never smoked. He denies any focal weakness. He is off oxygen and he is saturating 99% in the emergency room. I reviewed his CT of the chest, which is showing evidence of previous CABG surgery that showing small area of focal ground glass opacity along with some tree-in-bud opacities, which are very nonspecific. REVIEW OF SYSTEMS GENERAL: Denies any fever or chills. HEAD: Denies any head trauma. ENT: Denies any earache. CV: Denies any severe chest discomfort. RESPIRATORY: Fatigue, shortness of breath. GI: Denies any nausea or vomiting. MUSCULOSKELETAL: Denies any arthralgias or myalgias. NEUROLOGIC: Denies any focal weakness. The rest of the review systems are negative except as in HPI. PAST MEDICAL HISTORY: Coronary artery disease, hypertension, hyperlipidemia, recent bypass surgery complicated by chest wall infection and received prolonged IV antibiotics, diabetic neuropathy, chronic venous stasis and cellulitis of the leg. Also had peripheral arterial disease. PAST SURGICAL HISTORY: Surgeries on the leg where he has lost his toes. Patient is having difficulty walking. FAMILY HISTORY: Denies any family history of heart disease. SOCIAL HISTORY: Never smoked. PHYSICAL EXAMINATION VITAL SIGNS: Temperature 97.4, pulse of 98, blood pressure 145/85, respiratory rate of 18. HEENT: Head atraumatic, normocephalic. NECK: Supple. CHEST: No wheezing, no crackles. HEART: S1, S2 audible. CABG scar. ABDOMEN: Soft, nontender, nondistended. EXTREMITIES: Chronic venous stasis changes and discoloration of the skin. NEUROLOGICAL: Awake, alert. No focal neurologic deficits. LABS: White count of 6000, hemoglobin 10.4, platelets 236. Chemistry; sodium 133, potassium 3.5, chloride 96, BUN 23, creatinine 1.34. Patient was recently discharged from the hospital in November 2017 when he was admitted with lower leg cellulitis and chronic venous stasis. CT of the chest; I have reviewed the images. It is showing a very small area of ground glass and small area of tree-in-bud in right upper lobe, which are generally a nonspecific finding in viral infection. Possibility of pneumonia cannot be ruled out. However, definitely cannot explain the shortness of breath with this small finding. ASSESSMENT/PLAN: Mr. Mittal is a 68-year-old male who presented with fatigue, shortness of breath, underwent a chest CT which showed small areas of ground glass and tree-in-bud opacity in the right upper lobe. This small area does not explain the shortness of breath. It is nonspecific and can be due to viral infection. Early pneumonia cannot be ruled out and early pneumonia as a possibility. He is a nonsmoker, so any ground glass nodule is a low risk nodule in his case. RECOMMENDATIONS 1. I will check an ABG to make sure that he is not hypoxic. 2. We will hold off the antibiotics. Likelihood of pneumonia is less. 3. Influenza screen is negative. 4. Deconditioning and fatigue should also be considered in shortness of breath as patient has a prolonged hospitalization and a rough hospital course after CABG; however, he has not received any rehabilitation. Also, he has amputation of his toes and has chronic venous stasis changes, which also impairs his movement. 5. Patient will need a follow up CT scan in 3 months to document the resolution of these findings. Thank you for this consult. Job#: [id number] CARMITA
[2018-05-02] MEDS: TEMAZEPAM 15 MG CAP PO SCH (20:38)
[2018-05-02] MEDS: PRAVASTATIN 20 MG TAB PO SCH (20:38)
[2018-05-02] MEDS ORDERED: PRAVASTATIN 20 MG TAB PO SCH (21:00)
[2018-05-03] VITALS (7 sets, daily range): BP systolic 143–177; BP diastolic 70–95
[2018-05-03 02:55] LABS: CREATINE KINASE 39 IU/L (30-200)
[2018-05-03 05:13] LABS: BASOPHILS % 0.4 % (0.0-1.0); EOSINOPHILS # (AUTO) 0.3 (0.0-0.4); EOSINOPHILS % 4.1 % (0.0-6.0); HEMOGLOBIN 10.6 g/dL (14.0-18.0); LYMPHOCYTES # (AUTO) 3.1 (1.0-3.2); LYMPHOCYTES % 36.7 % (18.0-39.1); MEAN CORPUSCULAR HEMOGLOBIN 24.1 pg (28-32); MEAN CORPUSCULAR HGB CONC 30.3 g/dL (31-35); MEAN CORPUSCULAR VOLUME 79.5 fL (81-99); MONOCYTES # (AUTO) 0.5 (0.2-0.8); MONOCYTES % 6.1 % (4.4-11.3); NEUTROPHILS # (AUTO) 4.4 (2.1-6.9); NEUTROPHILS % 52.3 % (38.7-80.0); PLATELET COUNT 253 x10e3/uL (140-360); RED CELL DISTRIBUTION WIDTH 15.6 % (11.7-14.4)
[2018-05-03 05:43] LABS: ALANINE AMINOTRANSFERASE 25 IU/L (0-55); ALBUMIN 3.5 g/dL (3.5-5.0); ALBUMIN/GLOBULIN RATIO 0.6 (0.8-2.0); ALKALINE PHOSPHATASE 89 IU/L (40-150); ANION GAP 12.7 mmol/L (8-16); BLOOD UREA NITROGEN 15 mg/dL (7-26); BUN/CREATININE RATIO 14 (6-25); CALCIUM 9.8 mg/dL (8.4-10.2); CARBON DIOXIDE 27 mmol/L (22-29); CHLORIDE 100 mmol/L (98-107); CHOLESTEROL 182 MD/DL (0-199); EST GLOMERULAR FILTRATION RATE > 60 ML/MIN (60-); GLUCOSE 166 mg/dL (74-118); POTASSIUM 3.7 mmol/L (3.5-5.1); SODIUM 136 mmol/L (136-145)
[2018-05-03 06:18] LABS: CHOL/HDL RATIO 3.8 (3.9-4.7); HDL CHOLESTEROL 47 MG/DL (40-60); LDL CHOLESTEROL 81 MG/DL (60-130); TRIGLYCERIDES 251 MG/DL (0-149)
[2018-05-03] MEDS: INSULIN LISPRO 100 UNIT/1 ML 3ML VIAL SQ SCH ×4 (08:59→20:50)
[2018-05-03] MEDS ORDERED: AMLODIPINE BESYLATE 5 MG TAB PO SCH (09:00)
[2018-05-03] MEDS ORDERED: LISINOPRIL 10 MG TAB PO SCH (09:00)
[2018-05-03] MEDS: ASPIRIN 81 MG CHEW TAB PO SCH (09:10)
[2018-05-03] MEDS: DULOXETINE HCL 20 MG DELAYED RELEASE PO SCH (09:10)
[2018-05-03] MEDS: COLCHICINE 0.6 MG TAB PO SCH (09:10)
[2018-05-03] MEDS: ROPINIROLE HCL 2 MG TAB PO SCH ×2 (09:11→16:51)
[2018-05-03] MEDS: LISINOPRIL 20 MG TAB PO SCH (09:11)
[2018-05-03] MEDS: METOPROLOL TARTRATE 50 MG TAB PO SCH (09:11)
[2018-05-03] MEDS: ZINC SULFATE 220 MG CAP PO SCH (09:11)
[2018-05-03] MEDS: OXYCODONE HCL 10 MG TAB CR PO SCH (10:56)
[2018-05-03] MEDS: CARVEDILOL 12.5 MG TAB PO SCH ×2 (15:41→16:51)
[2018-05-03] MEDS: AMLODIPINE BESYLATE 5 MG TAB PO SCH (16:51)
--- NOTE | 2018-05-03 18:45 | Consultation ---
DATE OF CONSULTATION: May 03, 2018 REASON FOR CONSULTATION: Evaluate cardiac status in this complex individual. HISTORY OF PRESENT ILLNESS: Mr. Mittal is a 68-year-old gentleman with past medical history of hypertension, essential type 2 diabetes with complications, hypercholesterolemia, coronary artery disease with prior history of heart attacks in 1994 and 1997, and had been on known 3-vessel CAD, managed medically, who ended up getting cath back in November of 2017, confirming 3-vessel CAD. He underwent subsequent 3-vessel bypass with what seems to be also superimposed endarterectomy of the coronary arteries with Dr. Fallon; however, postoperative course was complicated by sternal wound infection requiring debridement, prolonged IV antibiotic therapy for which he recently just stopped several days ago. He also has a history of severe bilateral infrapopliteal artery disease, who has had nonhealing ulceration of his left heel and underwent successful revascularization in November of 2017. He has also advanced venous insufficiency and venous stasis changes of the bilateral lower extremities for which he intermittently gets local infections on his legs. Nonetheless, the patient has been slowly recuperating from his complicated bypass surgery and had an outpatient CT scan ordered by his cardiothoracic surgeon and while there had complained that he has been having episodes of labile hypertension with malaise, exertional dyspnea and just not feeling quite as energetic. He reports that his blood pressure fluctuates and commonly sees blood pressure in the 190s, 220s, and 230 millimeter range. This information was referred back to his doctors who then advised him to come to the closest local Emergency Room for further optimization. On my visit currently, patient currently feels more or less okay at the present time. He denies any chest pain or discomfort. He reports he has been slowly recuperating from his bypass operation and endorses about class 3 dyspnea that seems to be reasonably stable with periods of worsening and improvement. Upon probing, his dietary and medical history, the patient does not seem to be compliant to any salt restriction diet and in terms of his medications at times he feels that he is on too much medications. He "throw" his medications in the trash and then have to redig them out of the trash and restart them. Overall, suspect maybe an element of medication confusion or medication compliance issues. PAST MEDICAL HISTORY 1. Hypertension, essential. 2. Type 2 diabetes. 3. Hypercholesterolemia. 4. Coronary artery disease with prior history of heart attacks in 1994 and 1997 and had 3-vessel CAD, that most recently is status post 3-vessel bypass operation in the late part of 2018, complicated by sternal wound infection by Dr. Fallon and had to have re-sternotomy debridement. 5. Peripheral artery disease with prior history of bilateral great toe amputations and has had pervious left lower extremity revascularization due to a non-healing ulceration in the heel region. 6. Prior history of bilateral vega venous stasis and previous cellulitis infections. FAMILY HISTORY: Mother at the age 62 from breast cancer. Father at the age of 69 with a heart attack. SOCIAL HISTORY: He is a current nonsmoker, used to drink heavily back 25 years ago, but has long quit. Denies any illicit drug use. ALLERGIES: NO KNOWN DRUG ALLERGIES. HOME MEDICATIONS: According to him has been recently updated and re-updated multiples times would include 1. Colchicine 0.6 mg daily. 2. Metoprolol 50 mg b.i.d. 3. Aspirin 81 mg daily. 4. Plavix 75 mg daily. 5. Pepcid 40 mg daily. 6. Glipizide 10 mg b.i.d. 7. Multivitamin 1 tablet daily. 8. Colace 50 mg p.r.n. 9. Tizanidine 4 mg q. 8 hours p.r.n. 10. Gabapentin 300 mg b.i.d. 11. OxyContin 10 mg b.i.d. 12. Lisinopril 40 mg daily. 13. Amlodipine 5 mg daily. 14. Insulin 70/30, 45 units subcu t.i.d. 15. Xopenex q. 4 hours p.r.n. 16. Metformin 850 mg b.i.d. 17. Pravastatin 20 mg at bedtime. REVIEW OF SYSTEMS GENERAL: Denies any fever, chills currently and reports 50 pounds weight loss in the past 6 months. HEENT: Denies any current headache, visual complaints, no sore throat or stuffy nose. RESPIRATORY: Denies any pleuritic chest pain, has class 3 exertional dyspnea. His chest wall sternal pain has largely resolved at the present time. CARDIOVASCULAR: Denies any typical angina symptoms, but has exercise limitations with class 3 dyspnea, utilizes 2 pillow at night. No PND or no edema. GASTROINTESTINAL: Denies any abdominal pain, bright red blood per rectum, melena, hematemesis. GENITOURINARY: Denies any dysuria or pyuria. Does have urinary frequency. MUSCULOSKELETAL: Has chronic lower back pain, has severe arthritis in the right knee region on account of 3 traumatic injuries in the past with limitation in the range of motion. The left knee hurts, but not as bad as the right and does have severe peripheral neuropathy sensations in his arms and legs particularly below the knee. SKIN: Positive for off and on ulcerations in his bilateral vega regions and with likely to mild sclerotic changes and as well as a healing ulceration in his left heel and an ulceration on the ball of his right foot. NEUROLOGIC: Denies any focal weakness, seizures or headache, does have severe neuropathy as noted above. ENDOCRINE: Positive for complicated diabetes. The remainder of the review of systems is negative, otherwise mentioned. PHYSICAL EXAMINATION VITAL SIGNS: Height of 6 foot 2 inches, weight of 272 pounds. BMI is 35. Temperature of 97.3, pulse of 78, respiratory rate 16, blood pressure of 167/80, and O2 sat 96% on room air. GENERAL: This is a large well-nourished gentleman, who is currently in no apparent distress. HEENT: Pupils are equal, round and reactive to light. Extraocular movements are intact. Oropharynx is clear. NECK: No elevation of jugular venous pulsation. Faint bruit. CARDIOVASCULAR: Regular rate and rhythm. Normal S1 and S2, 2/6 systolic ejection murmur at the right upper sternal border. LUNGS: Shows a midline sternotomy that is healed. Lungs are largely clear to auscultation bilaterally. ABDOMEN: Soft, nontender, obese. Normoactive bowel sounds. No hepatosplenomegaly. BACK: No costovertebral angle tenderness. EXTREMITIES: Warm with 3+ bilateral femoral pulses, 3+ bilateral posterior tibial pulses, diminished dorsalis pedis pulses bilaterally, notable severe dermatoscleotic changes below the knees with small erosions up to 1-2 cm, left more so than the right and notable 1-2 cm healing ulceration in his left heel and 2 cm ulceration on the ball of his right foot and bilateral great toe amputations. NEUROLOGIC: Cranial nerves II through XII are intact. Strength is 5/5, has diminished sensation below his knees. LABORATORY DATA: White count of 8.4, hemoglobin 10.6, hematocrit 35.0, platelets of 253. Sodium 136, potassium 3.7, chloride 100, bicarb 27, BUN 15, creatinine 1.1, glucose of 166, calcium of 9.8. AST 25, ALT 25, alk phos 89, total protein of 9.0, albumin of 3.5. Lipid profile shows total cholesterol of 182, HDL of 47, LDL of 81. Troponin is less than 0.001. INR is 0.94. UA shows 0-5 white cells. ABG reveals pH of 7.37, pCO2 of 44, pO2 of 80. O2 sat 95% on room air. Chest x-rays shows midline sternotomy and no acute abnormalities. Chest CT shows post surgical changes in the sternum of prior CABG and there is patchy ground glass opacity in the right upper lung, but no focal consolidations. EKG reveals sinus rhythm, right bundle branch block and no ST-T wave changes concerning for ischemia. DIAGNOSES 1. Labile hypertension. 2. Coronary artery disease with prior bypass, complicated by post sternal wound infection. 3. Exertional dyspnea. 4. Abnormal EKG. 5. Hypercholesterolemia. 6. Peripheral artery disease with prior history of non-healing ulcerations of the bilateral lower extremities, improved on the left leg post revascularization. 7. Mild anemia. PLAN AND RECOMMENDATIONS 1. From cardiovascular standpoint we will grossly evaluate his heart to reevaluate his left ventricular function postoperatively from his CABG. 2. The patient does not endorse any angina symptoms, we will hold off from any risk stratification or ischemic evaluation at this time. 3. We will go ahead and titrate his anti-hypertensive therapies which is a beta-luis to Coreg and titrate his JOE inhibitor and calcium channel luis therapy. 4. Monitory on telemetry. 5. Continue statin therapy. 6. Aggressive risk modification medical therapy. 7. We will continue to follow this patient. Job#: [id number] SUB MTDD
[2018-05-03] MEDS: ONDANSETRON HCL INJ 2 MG/ML VIAL IV PRN (19:50)
[2018-05-03] MEDS: MORPHINE SULFATE INJ 4 MG/ML INJ IV PRN (19:50)
[2018-05-03] MEDS: PRAVASTATIN 20 MG TAB PO SCH (20:50)
[2018-05-03] MEDS: TEMAZEPAM 15 MG CAP PO SCH (20:50)
[2018-05-04] VITALS: BP 158/75
[2018-05-04 04:00] VITALS: BP 163/74
[2018-05-04] MEDS: MORPHINE SULFATE INJ 4 MG/ML INJ IV PRN (04:15)
[2018-05-04] MEDS: ONDANSETRON HCL INJ 2 MG/ML VIAL IV PRN (04:15)
[2018-05-04] MEDS: ASPIRIN 81 MG CHEW TAB PO SCH (07:33)
[2018-05-04] MEDS: ZINC SULFATE 220 MG CAP PO SCH (07:33)
[2018-05-04] MEDS: DULOXETINE HCL 20 MG DELAYED RELEASE PO SCH (07:33)
[2018-05-04] MEDS: ROPINIROLE HCL 2 MG TAB PO SCH (07:33)
[2018-05-04] MEDS: AMLODIPINE BESYLATE 5 MG TAB PO SCH (07:33)
[2018-05-04] MEDS: COLCHICINE 0.6 MG TAB PO SCH (07:33)
[2018-05-04] MEDS: OXYCODONE HCL 10 MG TAB CR PO SCH (07:34)
[2018-05-04] MEDS: LISINOPRIL 20 MG TAB PO SCH (07:35)
[2018-05-04] MEDS: CARVEDILOL 12.5 MG TAB PO SCH (07:35)
[2018-05-04 07:37] VITALS: BP 174/89
[2018-05-04] MEDS: INSULIN LISPRO 100 UNIT/1 ML 3ML VIAL SQ SCH ×2 (07:57→13:24)
[2018-05-04 12:17] VITALS: BP 132/71
[2018-05-04] MEDS ORDERED: COREG12.5 MG PO (15:20)
[2018-05-04] MEDS ORDERED: LISINOPRIL10 MG PO (15:21)
[2018-05-04] MEDS ORDERED: NORVASC5 MG PO (15:22)
[2018-05-04] MEDS ORDERED: ZANAFLEX4 M1 PO (15:23)
--- NOTE | 2018-05-04 17:01 | Discharge Summary ---
PRIMARY CARE DOCTOR: Dr. Isabel Bliss with [facility]. FINAL DIAGNOSIS: Dyspnea on exertion with uncontrolled hypertension. SECONDARY DIAGNOSES 1. Coronary artery disease with recent coronary artery bypass graft complicated by sternal wound infection, just finished a long course of IV antibiotics. 2. Diabetes. 3. Gout. 4. Chronic pain. 5. Diabetic neuropathy. 6. Peripheral vascular disease. CONSULTANTS 1. Dr. Russell, supply chain engineer. 2. Dr. Eisenberg, cardiology. PROCEDURE/STUDIES PERFORMED: Chest CT. HISTORY: Per H and P. HOSPITAL COURSE: Patient was admitted with dyspnea on exertion and uncontrolled hypertension. Cardiology evaluated the patient and his blood pressure medicines were adjusted. Currently, his dyspnea on exertion is much better, and he is stable for going home. Patient was also found to have patchy ground glass with tree-in-bud opacity in the right upper lung. This was evaluated by supply chain engineer and did not feel that this is the reason why he had shortness of breath. Per recommendation, he will need a repeat chest CT in 3 months to make sure that this is better. Patient was seen and examined today. CONDITION ON DISCHARGE: Stable. DISCHARGE MEDICATIONS: Please see medication reconciliation form. DEXTER HOLLAND M.D. Job#: [id number] LPA cc:ISABEL BLISS MD
== END 2018-05-04 15:49 | disposition home or self-care (01) ==
LOC: ER 21:34 → ERHOLD 05-02 01:39 → IMCU 05-02 18:04
PROVIDERS: ADMIT Internal Medicine; ATTEND Internal Medicine
DX: R06.00 Dyspnea, unspecified (principal); I12.9 Hypertensive chronic kidney disease with stage 1 through stage 4 chronic kidney disease, or unspecified chronic kidney disease; E11.22 Type 2 diabetes mellitus with diabetic chronic kidney disease; N18.3 Chronic kidney disease, stage 3 (moderate); E11.42 Type 2 diabetes mellitus with diabetic polyneuropathy; E11.51 Type 2 diabetes mellitus with diabetic peripheral angiopathy without gangrene; Z79.84 Long term (current) use of oral hypoglycemic drugs; R07.89 Other chest pain; E87.1 Hypo-osmolality and hyponatremia; I25.10 Atherosclerotic heart disease of native coronary artery without angina pectoris; Z95.1 Presence of aortocoronary bypass graft; M10.9 Gout, unspecified; G89.29 Other chronic pain; R91.8 Other nonspecific abnormal finding of lung field; E78.00 Pure hypercholesterolemia, unspecified; R94.31 Abnormal electrocardiogram [ECG] [EKG]; D64.9 Anemia, unspecified; R53.81 Other malaise; R53.83 Other fatigue; I87.8 Other specified disorders of veins; Z87.891 Personal history of nicotine dependence; Z89.429 Acquired absence of other toe(s), unspecified side; I25.2 Old myocardial infarction; Z79.02 Long term (current) use of antithrombotics/antiplatelets; Z79.82 Long term (current) use of aspirin
CPT/HCPCS: 36415 ×4; 36600; 71046; 71250; 80053 ×2; 80061; 81001; 82550 ×3; 82553 ×3; 82805; 82948 ×3; 83735; 83880; 84484 ×3; 85025 ×2; 85379; 85610; 85730; 86140; 87086; 93005; 93306; 99285; G0378 ×3; J1170; J1650; J2270 ×4; J2405 ×2; J7040

== ENCOUNTER 2018-05-13 14:50 | Inpatient (IN) | payer MEDICARE ==
[~2018-05-13] VITALS: Ht 188 cm; Wt 127.5 kg
[~2018-05-13 14:50] MED LIST changes: +COREG12.5 MG PO; +NORVASC5 MG PO; +ZANAFLEX4 M1 PO
[2018-05-13] MEDS ORDERED: ACETAMINOPHEN 1000 MG/100 ML IV STA (15:24)
[2018-05-13] MEDS ORDERED: SODIUM CHLORIDE 0.9% 1000ML 1,000 ML IV ONE ×2 (15:30→15:45)
[2018-05-13] MEDS ORDERED: METOPROLOL TARTRATE INJ 1 MG/ML VIAL IV ONE (15:30)
[2018-05-13] MEDS ORDERED: ONDANSETRON HCL INJ 2 MG/ML VIAL IV NR ×2 (15:39→16:00)
[2018-05-13 15:41] LABS: BASOPHILS % 0.1 % (0.0-1.0); EOSINOPHILS % 0.1 % (0.0-6.0); HEMATOCRIT 37.2 % (38.2-49.6); HEMOGLOBIN 11.5 g/dL (14.0-18.0); LYMPHOCYTES # (AUTO) 0.6 (1.0-3.2); LYMPHOCYTES % 4.5 % (18.0-39.1); MEAN CORPUSCULAR HGB CONC 30.9 g/dL (31-35); MEAN CORPUSCULAR VOLUME 77.5 fL (81-99); MONOCYTES # (AUTO) 0.6 (0.2-0.8); MONOCYTES % 4.8 % (4.4-11.3); NEUTROPHILS # (AUTO) 12.1 (2.1-6.9); NEUTROPHILS % 89.8 % (38.7-80.0); PLATELET COUNT 217 x10e3/uL (140-360); RED CELL DISTRIBUTION WIDTH 15.9 % (11.7-14.4)
[2018-05-13] MEDS ORDERED: PIPER-TAZ 3.375 GM 50 ML IV ONE (15:45)
[2018-05-13 15:51] LABS: BILIRUBIN,URINE NEGATIVE (NEGATIVE); CLARITY,URINE CLEAR (CLEAR); COLOR,URINE YELLOW (YELLOW); KETONES,URINE NEGATIVE (NEGATIVE); LEUKOCYTE ESTERASE ,URINE NEGATIVE (NEGATIVE); NITRITE,URINE NEGATIVE (NEGATIVE); PROTEIN,URINE DIPSTICK 2+ (NEGATIVE); URINE UROBILINOGEN 0.2 mg/dL (0.2 - 1)
[2018-05-13 15:55] LABS: ALBUMIN 3.8 g/dL (3.5-5.0); ALBUMIN/GLOBULIN RATIO 0.6 (0.8-2.0); ANION GAP 17.4 mmol/L (8-16); CREATININE, SERUM 1.41 mg/dL (0.72-1.25); POTASSIUM 3.4 mmol/L (3.5-5.1)
[2018-05-13 15:58] LABS: BACTERIA,URINE RARE /HPF; EPITHELIAL CELLS,URINE RARE /LPF; RBC,URINE 0-5 /HPF (0-5); WBC,URINE (MAN) 0-5 /HPF (0-5)
[2018-05-13] MEDS ORDERED: FAMOTIDINE 20 MG/2 ML VIAL IV ONE (16:00)
[2018-05-13 16:14] LABS: B-TYPE NATRIURETIC PEPTIDE2 234.3 pg/mL (0-100)
[2018-05-13] MEDS ORDERED: SODIUM CHLORIDE 0.9% IV NR (16:30)
[2018-05-13] MEDS ORDERED: VANCOMYCIN HCL IV NR (16:30)
[2018-05-13] MEDS ORDERED: DEXTROSE 50% SYRINGE 50 ML IV PRN (16:45)
[2018-05-13] MEDS ORDERED: ACETAMINOPHEN 1000 MG/100 ML IV PRN (16:45)
[2018-05-13] MEDS ORDERED: SODIUM CHLORIDE FLUSH 10 ML SYR INJ PRN (16:45)
--- NOTE | 2018-05-13 18:02 | Diagnostic Imaging Report ---
EXAMINATION: CHEST 2 VIEWS INDICATION: ^SOB, fever ^[id number] ^[id number] COMPARISON: CT chest 05/02/2018 and chest radiograph 05/01/2018 FINDINGS: PA and lateral views TUBES and LINES: None. LUNGS: Lungs are well inflated. Increased interstitial lung markings in both lung bases. Previously noted groundglass opacity in the right upper lobe is not well-seen on this exam. No lobar consolidations. Surgical clips overlying the left upper chest. PLEURA: No pleural effusion or pneumothorax. HEART AND MEDIASTINUM: Mild enlargement of the cardiac silhouette. BONES AND SOFT TISSUES: No acute osseous lesion. Soft tissues are unremarkable. UPPER ABDOMEN: No free air under the diaphragm. IMPRESSION: No new consolidations. Mild bilateral lower lobe predominant increased interstitial lung markings may relate to edema or viral infection. Signed by: Dr. Nafisa Beverly M.D. on 05/13/2018 5:59 PM
[2018-05-13 18:06] LABS: CHOL/HDL RATIO 3.6 (3.9-4.7)
[2018-05-13] MEDS: FAMOTIDINE 20 MG/2 ML VIAL IV SCH (18:27)
[2018-05-13] MEDS ORDERED: KETOROLAC TROMETHAMINE 30 MG/ML VIAL IV ONE (19:00)
[2018-05-13 20:00] VITALS: BP 138/71
[2018-05-13] MEDS: OXYCODONE HCL 10 MG TAB CR PO SCH (20:40)
[2018-05-13] MEDS: TIZANIDINE HCL 4 MG TAB PO PRN (20:43)
[2018-05-13] MEDS ORDERED: SODIUM CHLORIDE 0.9% 250ML 250 ML ONE (21:38)
[2018-05-13] MEDS: INSULIN REGULAR, HUMAN 100 UNIT/1 ML 3ML VIAL SQ SCH (21:46)
[2018-05-13] MEDS ORDERED: PIPER-TAZ 3.375 GM 50 ML IV SCH (22:00)
[2018-05-14] VITALS (8 sets, daily range): BP systolic 90–133; BP diastolic 47–61
[2018-05-14] MEDS ORDERED: MORPHINE SULFATE 2 MG/ML SYR IV PRN
[2018-05-14] MEDS: MORPHINE SULFATE INJ 4 MG/ML INJ IV PRN ×2 (00:25→03:24)
--- NOTE | 2018-05-14 00:25 | NUR ---
pt with orders for po pain med, continue with c/o pain requesting iv pain medication, Dr. Hoskins called and notified and new orders received
[2018-05-14] MEDS ORDERED: VANCOMYCIN 1GM/NS 250 ML 250 ML IV SCH ×3 (04:00→18:00)
--- NOTE | 2018-05-14 04:00 | NUR ---
pt complaining of unrelieved pain with current pain med order, banging hand against side rails, restless and fidgety, Dr. Hoskins called and notified and new orders received
[2018-05-14] MEDS: HYDROMORPHONE 2MG/ML 2 MG/ML ML IV PRN ×3 (04:25→14:50)
[2018-05-14 05:11] LABS: BASOPHILS % 0.2 % (0.0-1.0); HEMATOCRIT 30.7 % (38.2-49.6); HEMOGLOBIN 9.3 g/dL (14.0-18.0); LYMPHOCYTES # (AUTO) 0.7 (1.0-3.2); LYMPHOCYTES % 5.3 % (18.0-39.1); MEAN CORPUSCULAR HEMOGLOBIN 23.7 pg (28-32); MEAN CORPUSCULAR HGB CONC 30.3 g/dL (31-35); MEAN CORPUSCULAR VOLUME 78.1 fL (81-99); MONOCYTES # (AUTO) 0.7 (0.2-0.8); MONOCYTES % 5.5 % (4.4-11.3); NEUTROPHILS % 88.2 % (38.7-80.0); PLATELET COUNT 162 x10e3/uL (140-360); RED BLOOD COUNT 3.93 x10e6/uL (4.3-5.7); RED CELL DISTRIBUTION WIDTH 16.1 % (11.7-14.4)
--- NOTE | 2018-05-14 06:26 | Diagnostic Imaging Report ---
EXAMINATION: CHEST SINGLE (PORTABLE) INDICATION: Chest pain. COMPARISON: Chest x-ray 05/13/2018, chest CT 05/02/2018 FINDINGS: AP view TUBES and LINES: None. LUNGS: Lungs are well inflated. Central pulmonary venous congestion. No consolidations. PLEURA: No pleural effusion or pneumothorax. HEART AND MEDIASTINUM: Stable moderate enlargement of the cardiac silhouette. CABG clips. BONES AND SOFT TISSUES: No acute osseous lesion. Soft tissues are unremarkable. UPPER ABDOMEN: No free air under the diaphragm. IMPRESSION: Mild cardiomegaly with central pulmonary venous congestion. Signed by: DR. Samson Castro MD on 05/14/2018 6:23 AM
[2018-05-14 06:35] LABS: ALBUMIN 2.8 g/dL (3.5-5.0); ALBUMIN/GLOBULIN RATIO 0.6 (0.8-2.0); ANION GAP 15.5 mmol/L (8-16); CALCIUM 8.4 mg/dL (8.4-10.2); CHOL/HDL RATIO 3.3 (3.9-4.7); CREATININE, SERUM 1.5 mg/dL (0.72-1.25); MAGNESIUM 1.2 MG/DL (1.3-2.1); PHOSPHORUS 2.2 MG/DL (2.3-4.7); POTASSIUM 3.5 mmol/L (3.5-5.1)
--- NOTE | 2018-05-14 07:02 | NUR ---
Received patient mid fowlers position, side rails upx2, call light within reach. AAOX3 to time, person, place. Respirations even and unlabored. Dressing to left foot clean, dry, and intact. Instructed patient to use call light for assistance. Voiced understanding
[2018-05-14 07:03] LABS: CREATINE KINASE MB 0.4 ng/mL (0-5.0)
[2018-05-14] MEDS: INSULIN REGULAR, HUMAN 100 UNIT/1 ML 3ML VIAL SQ SCH (07:30)
[2018-05-14] MEDS ORDERED: PIPER-TAZ 3.375 GM 50 ML IV SCH (08:00)
[2018-05-14] MEDS ORDERED: ASPIRIN 325 MG TAB EC PO SCH (09:00)
[2018-05-14] MEDS: OXYCODONE HCL 10 MG TAB CR PO SCH ×2 (09:45→21:38)
[2018-05-14] MEDS: FAMOTIDINE 20 MG/2 ML VIAL IV SCH (09:45)
[2018-05-14] MEDS ORDERED: MAGNESIUM SULFATE 2GM/50ML 50 ML IV ONE (11:30)
[2018-05-14] MEDS ORDERED: LACTATED RINGER'S 1,000 ML IV ONE (11:30)
--- NOTE | 2018-05-14 11:32 | NUR ---
Strap Cutting Machine Operator to bedside to discuss plan of care with patient/family. CM/SW role and care transitions discussed. Anticipated discharge plan discussed along with duration of care. CM/SW discussed patients right to make decisions in care. CM/SW work hours given. Patient lives: with M[facility] Admit/Transfer: thru ED, from home POA/Emergency contact: janet Waters [phone] Current/Previous Home Health: none PCP/Follow-up Care: Dr. Johana Wolfe Current/Previous DME: uses cane; also has wheelchair, scooter, BSC, shower chair but doesn't use Other Services: none Employment Status: retired Areas of Concerns: none Referral Needs: none Education Needs: none IMM/NARAYANAN given and signed (if applicable): none Goal for discharge: home; or cousin will provide transportation CM/SW left business card at the bedside with contact information. Name and number was also written on the patients whiteboard. Patient verbalized understanding of discussion. CM will follow-up with ongoing discharge and transition of care needs.
[2018-05-14] MEDS: INSULIN LISPRO 100 UNIT/1 ML 3ML VIAL SQ SCH ×3 (12:14→21:38)
[2018-05-14] MEDS: TIZANIDINE HCL 4 MG TAB PO PRN ×2 (14:50→23:45)
[2018-05-14] MEDS: ACETAMINOPHEN 325 MG TAB PO PRN ×2 (14:50→23:45)
[2018-05-14] MEDS ORDERED: NITROGLYCERIN9 MG PO (15:22)
[2018-05-14] MEDS ORDERED: DOXAZOSIN MESYLA2 MG PO (15:22)
[2018-05-14] MEDS ORDERED: GLIPIZIDE5 MG PO (15:22)
[2018-05-14] MEDS ORDERED: METFORMIN HCL850 MG PO (15:22)
[2018-05-14] MEDS ORDERED: ENOXAPARIN SOD INJ 40 MG/0.4 ML SYR SC SCH (17:00)
[2018-05-14] MEDS ORDERED: ROPINIROLE HCL 0.25 MG TAB PO SCH (17:00)
[2018-05-14] MEDS: ENOXAPARIN 30 MG/0.3 ML SYR SC SCH (17:06)
[2018-05-14] MEDS: LACTOBACILLUS ACIDOPHILUS CAPSULE PO SCH (17:06)
--- NOTE | 2018-05-14 17:16 | NUR ---
Nutrition Screen Note RD Recommendation for Physician: -Continue ADA diet as ordered Plan of Care: RD following, monitoring for tolerance and adequacy Nutrition reason for involvement: Nutrition Risk Trigger MST Primary Diagnose(s): Cellulitis of RLE, Sepsis PMH: DM Ht: 74in Wt: 272lb BMI: 34.9kg/m2 IBW: 190lb RD Assessment: (05/14) Chart reviewed. Labs and meds reviewed. 68 yo M, who is admitted for cellulitis of RLE. HbA1c 8.6%. Pt reports no appetite but RN recorded 50-100% meal intake since admission. No GI complains noted at this time. Pt denies any chewing or swallowing difficulty. Pt reports eating less than usual since his heart attack in Jan 2018. Pt states sometimes, I am not hungry. Pt reports of ~60lbs weight loss over a year period. 18% weight loss over a year doesnt meet criteria for malnutrition. Pt appears obese with no physical sign of malnutrition at this time. Will continue to monitor and follow. Current Diet: ADA diet Malnutrition Evaluation (05/14) The patient does not meet criteria for a specified degree of malnutrition at this time. Will re-evaluate at follow-up as appropriate. Weight loss: 18% weight loss in 1 year insignificant Fat loss: none Muscle loss: none Supporting Evidence: Fluid accumulation: unable to evaluate Functional Status: no changes Diet Education Needs Assessment: Diet education not indicated. Nutrition Care Level: low Signed: Margarita Jacome, MS, RD, LD
--- NOTE | 2018-05-14 18:41 | NUR ---
Resting in bed. No s/s of acute distress noted. Report to be given to oncoming nurse
--- NOTE | 2018-05-14 19:25 | NUR ---
Received patient asleep on bed, with ongoing IV fluids, not in distress, no complaints of pain at this time. Call light within reached, at the bedside, advised to call when needed, verbalized understanding. Will continue to monitor
[2018-05-14] MEDS ORDERED: PRAVASTATIN 20 MG TAB PO SCH (21:00)
[2018-05-14] MEDS: TEMAZEPAM 15 MG CAP PO SCH (21:38)
[2018-05-14] MEDS: PIPER-TAZ 3.375 GM 50 ML IV SCH (21:38)
[2018-05-15] VITALS (8 sets, daily range): BP systolic 101–139; BP diastolic 49–72
[2018-05-15 05:01] LABS: BASOPHILS % 0.3 % (0.0-1.0); EOSINOPHILS # (AUTO) 0.1 (0.0-0.4); HEMATOCRIT 28.6 % (38.2-49.6); HEMOGLOBIN 8.5 g/dL (14.0-18.0); LYMPHOCYTES # (AUTO) 1.2 (1.0-3.2); LYMPHOCYTES % 13.2 % (18.0-39.1); MEAN CORPUSCULAR HEMOGLOBIN 23.5 pg (28-32); MEAN CORPUSCULAR HGB CONC 29.7 g/dL (31-35); MONOCYTES # (AUTO) 0.7 (0.2-0.8); MONOCYTES % 8.3 % (4.4-11.3); NEUTROPHILS # (AUTO) 6.9 (2.1-6.9); NEUTROPHILS % 76.8 % (38.7-80.0); PLATELET COUNT 131 x10e3/uL (140-360); RED BLOOD COUNT 3.62 x10e6/uL (4.3-5.7); RED CELL DISTRIBUTION WIDTH 16.4 % (11.7-14.4)
[2018-05-15 05:19] LABS: ANION GAP 14.3 mmol/L (8-16); BLOOD UREA NITROGEN 37 mg/dL (7-26); BUN/CREATININE RATIO 19 (6-25); CALCIUM 8.5 mg/dL (8.4-10.2); CARBON DIOXIDE 22 mmol/L (22-29); CHLORIDE 97 mmol/L (98-107); EST GLOMERULAR FILTRATION RATE 33 ML/MIN (60-); GLUCOSE 165 mg/dL (74-118); MAGNESIUM 1.9 MG/DL (1.3-2.1); POTASSIUM 3.3 mmol/L (3.5-5.1); SODIUM 130 mmol/L (136-145); TOTAL IRON BINDING CAPACITY 272 ug/dL (261-478); TRANSFERRIN 194 mg/dL (174-364)
[2018-05-15 05:22] LABS: % IRON SATURATION 2 % (15-50); IRON < 5 ug/dL (65-175)
--- NOTE | 2018-05-15 07:05 | NUR ---
Received patient resting in bed, side rails upx2, call light within reach. AAOX3 to time, person, place. Respirations even and unlabored. Instructed patient to use call light for assistance. Voiced understanding.
[2018-05-15] MEDS: VANCOMYCIN 1GM/NS 250 ML 250 ML IV SCH (08:00)
[2018-05-15] MEDS: OXYCODONE HCL 10 MG TAB CR PO SCH ×2 (09:00→21:38)
[2018-05-15] MEDS ORDERED: FUROSEMIDE 40 MG TAB PO SCH (09:00)
[2018-05-15] MEDS: DULOXETINE HCL 20 MG DELAYED RELEASE PO SCH (09:00)
[2018-05-15] MEDS: INSULIN LISPRO 100 UNIT/1 ML 3ML VIAL SQ SCH ×4 (09:00→21:57)
[2018-05-15] MEDS ORDERED: COLCHICINE 0.6 MG TAB PO SCH (09:00)
[2018-05-15] MEDS ORDERED: ASPIRIN 325 MG TAB EC PO SCH (09:00)
[2018-05-15] MEDS: PIPER-TAZ 3.375 GM 50 ML IV SCH ×2 (09:00→21:38)
[2018-05-15] MEDS: ASPIRIN 81 MG ENTERIC COATED PO SCH (09:00)
[2018-05-15] MEDS: ZINC SULFATE 220 MG CAP PO SCH (09:00)
[2018-05-15] MEDS: ROPINIROLE HCL 2 MG TAB PO SCH ×2 (09:00→16:00)
[2018-05-15] MEDS: LACTOBACILLUS ACIDOPHILUS CAPSULE PO SCH ×2 (09:00→16:00)
[2018-05-15] MEDS: CLOPIDOGREL BISULFATE 75 MG TAB PO SCH (09:00)
[2018-05-15] MEDS ORDERED: SODIUM CHLORIDE 0.9% 250ML 250 ML ONE (09:15)
--- NOTE | 2018-05-15 09:20 | NUR ---
WOUND CARE CONSULTATION. 68 YEAR OLD MALE ADMITTED TO [facility] WITH DX OF CELLULITIS TO RIGHT LOWER EXTREMITY AND SEPSIS. PT HAS BEEN ADMITTED MULTIPLE TIMES THIS YEAR WITH THE SAME PROBLEM. HE IS NON-COMPLIANT WITH STOCKINGS " STATES IT HURTS TOO MUCH". HEAD TO TOE SKIN ASSESSMENT PERFORMED TODAY, PT PRESENTS WITH CELLULITIS FROM MID THIGH TO DORSAL ASPECT OF THE FOOT. 3+ PITTING EDEMA TO RIGHT LOWER LEG. MULTIPLE DRY AND STABLE ESCHARS TO BILATERAL LOWER EXTREMITIES. 2X1CM CALLUS TO RIGHT PLANTAR FOOT, 1X0.5XCM CALLUS TO LEFT HEEL, 1X1 CALLUS TO LEFT 4TH TOE, AND A 2X1X0.1CM ABRASION TO LEFT SECOND TOE. " STATES A WRENCH FELL ON TOP OF HIS TOE CAUSING TOE FRACTURE AND ABRASION. THERE ARE NO OTHER AREAS OF CONCERN NOTED AT THIS TIME. NO S//S OF INFECTION. LABS: WBC: 8.94 GLUCOSE: 230 HGB A1C: 8.6 ALB: 2.8 BLOOD CX PENDING. RECOMMENDATIONS: APPLY VENELEX TO RIGHT LOWER EXTREMITY, BILATERAL LOWER EXTREMITIES ESCHARS, AND LEFT 2ND TOE. COVER TOE WITH 4X4 GAUZE AND LEAVE THE REST OF THE AFFECTED AREAS OPEN TO AIR AND MONITOR DAILY. MONITOR CALLUS TO RIGHT PLANTAR FOOT, RIGHT HEEL AND RIGHT 4TH TOE DAILY FOR S/S OF INFECTION. CONTINUE WITH ALTERNATING LOW AIR LOSS MATTRESS PROVIDE PT WITH BILATERAL HEEL PROTECTORS. ENCOURAGE PT TO REPOSITION EVERY TWO HOURS AND PRN. THANKS FOR THIS CONSULTATION. Addendum: 05/15/18 at 0934 by Sangeeta Bocanegra RN Amended: Links added.
[2018-05-15] MEDS: ACETAMINOPHEN 325 MG TAB PO PRN (09:59)
[2018-05-15] MEDS: TIZANIDINE HCL 4 MG TAB PO PRN ×2 (09:59→21:39)
[2018-05-15] MEDS ORDERED: POTASSIUM CHLORIDE 20 MEQ TAB CR PO ONE (15:00)
[2018-05-15] MEDS: IRON SUCROSE 100 MG in SODIUM CHLORIDE 0.9% 100 ML 100 ML IV SCH (16:00)
[2018-05-15] MEDS: ENOXAPARIN 30 MG/0.3 ML SYR SC SCH (16:00)
[2018-05-15] MEDS: LACTATED RINGER'S 1,000 ML IV SCH (16:00)
[2018-05-15] MEDS: ONDANSETRON HCL INJ 2 MG/ML VIAL IV PRN ×2 (17:43→21:39)
--- NOTE | 2018-05-15 18:29 | NUR ---
Resting in bed, side rails upx2, call light within reach. No s/s of acute distress noted. Report to be given to oncoming nurse.
--- NOTE | 2018-05-15 19:30 | NUR ---
Received awake on bed, with ongoing IVF, not in distress, no complaints of pain at this time. Call light within reached, advised to call for assistance when needed. Need urine sample, patient is aware and verbalized understanding. Will continue to monitor
--- NOTE | 2018-05-15 20:00 | NUR ---
patient refused pink boots
--- NOTE | 2018-05-15 20:43 | Diagnostic Imaging Report ---
EXAM: Renal Ultrasound INDICATION: ^DEVAUGHN ^[id number] ^[id number] COMPARISON: None TECHNIQUE: Transverse and longitudinal images of the kidneys and bladder were obtained. FINDINGS: Right Kidney: Length: 11.5 cm Appearance: Normal echogenicity. Collecting system: No hydronephrosis Stones: None Cyst/Mass: None Left Kidney: Length: 12.6 cm Appearance: Normal echogenicity. Collecting system: No hydronephrosis Stones: 1.1 cm hyperechoic focus in the interpolar region Cyst/Mass: None Bladder: Normal IMPRESSION: Nonobstructing left nephrolithiasis. Signed by: Dr. Nafisa Beverly M.D. on 05/15/2018 8:40 PM
[2018-05-15] MEDS: TEMAZEPAM 15 MG CAP PO SCH (21:38)
[2018-05-15] MEDS: SIMVASTATIN 20 MG TAB PO SCH (21:39)
[2018-05-15 21:56] LABS: BILIRUBIN,URINE NEGATIVE (NEGATIVE); CLARITY,URINE CLEAR (CLEAR); COLOR,URINE YELLOW (YELLOW); KETONES,URINE NEGATIVE (NEGATIVE); LEUKOCYTE ESTERASE ,URINE NEGATIVE (NEGATIVE); NITRITE,URINE NEGATIVE (NEGATIVE); PROTEIN,URINE DIPSTICK 2+ (NEGATIVE); URINE UROBILINOGEN 0.2 mg/dL (0.2 - 1)
[2018-05-15 22:15] LABS: EPITHELIAL CELLS,URINE MODERATE /LPF
[2018-05-15 22:16] LABS: CREATININE,URINE RANDOM 96.49 mg/dL (63-166)
[2018-05-15 22:17] LABS: WBC,URINE (MAN) 0-5 /HPF (0-5)
[2018-05-15 22:18] LABS: AMORPHOUS SEDIMENT,URINE FEW (FEW); BACTERIA,URINE FEW /HPF
[2018-05-16] VITALS (9 sets, daily range): BP systolic 114–133; BP diastolic 57–77
[2018-05-16] MEDS: LACTATED RINGER'S 1,000 ML IV SCH ×2 (02:46→07:00)
[2018-05-16 05:05] LABS: BASOPHILS % 0.3 % (0.0-1.0); EOSINOPHILS # (AUTO) 0.2 (0.0-0.4); EOSINOPHILS % 2.7 % (0.0-6.0); HEMATOCRIT 27.6 % (38.2-49.6); HEMOGLOBIN 8.4 g/dL (14.0-18.0); LYMPHOCYTES # (AUTO) 1.4 (1.0-3.2); LYMPHOCYTES % 20.5 % (18.0-39.1); MEAN CORPUSCULAR HEMOGLOBIN 24.1 pg (28-32); MEAN CORPUSCULAR HGB CONC 30.4 g/dL (31-35); MEAN CORPUSCULAR VOLUME 79.1 fL (81-99); MONOCYTES # (AUTO) 0.7 (0.2-0.8); MONOCYTES % 10.2 % (4.4-11.3); NEUTROPHILS # (AUTO) 4.5 (2.1-6.9); PLATELET COUNT 133 x10e3/uL (140-360); RED BLOOD COUNT 3.49 x10e6/uL (4.3-5.7); RED CELL DISTRIBUTION WIDTH 16.4 % (11.7-14.4)
[2018-05-16 05:25] LABS: ALBUMIN 2.4 g/dL (3.5-5.0); ALBUMIN/GLOBULIN RATIO 0.5 (0.8-2.0); ANION GAP 12.6 mmol/L (8-16); CALCIUM 8.6 mg/dL (8.4-10.2); CREATININE, SERUM 1.28 mg/dL (0.72-1.25); POTASSIUM 3.6 mmol/L (3.5-5.1)
[2018-05-16] MEDS: INSULIN LISPRO 100 UNIT/1 ML 3ML VIAL SQ SCH ×4 (07:30→21:00)
[2018-05-16] MEDS: VANCOMYCIN 1GM/NS 250 ML 250 ML IV SCH (07:50)
[2018-05-16 07:51] LABS: ANISOCYTOSIS SLIGHT; BAND NEUTROPHILS % (MANUAL) 1 %; EOSINOPHILS % (MANUAL) 7 % (0-7); HYPOCHROMASIA SLIGHT; LYMPHOCYTES % (MANUAL) 21 % (19-48); MONOCYTES % (MANUAL) 9 % (3.4-9.0); NEUTROPHILS % (MANUAL) 60 % (40-74); PLATELET ESTIMATE SLIGHTLY DECREASED; RBC MORPHOLOGY COMMENT NORMAL
[2018-05-16 07:52] LABS: PLATELET MORPHOLOGY COMMENT NORMAL
[2018-05-16] MEDS: TIZANIDINE HCL 4 MG TAB PO PRN (08:15)
[2018-05-16] MEDS: OXYCODONE HCL 10 MG TAB CR PO SCH ×3 (08:30→21:41)
[2018-05-16] MEDS: ONDANSETRON HCL INJ 2 MG/ML VIAL IV PRN ×2 (09:05→17:56)
[2018-05-16] MEDS: ZINC SULFATE 220 MG CAP PO SCH (09:15)
[2018-05-16] MEDS: ROPINIROLE HCL 2 MG TAB PO SCH ×2 (09:15→17:30)
[2018-05-16] MEDS: ASPIRIN 81 MG ENTERIC COATED PO SCH (09:15)
[2018-05-16] MEDS: DULOXETINE HCL 20 MG DELAYED RELEASE PO SCH (09:15)
[2018-05-16] MEDS: CLOPIDOGREL BISULFATE 75 MG TAB PO SCH (09:15)
[2018-05-16] MEDS: LACTOBACILLUS ACIDOPHILUS CAPSULE PO SCH ×2 (09:15→17:30)
--- NOTE | 2018-05-16 09:30 | NUR ---
Pt c/o not feeling well. Vitals rechecked and WNL. Respiratory Therapist called, Pt O2 sat 98% with 2L per NC. Pt placed in the bed with HOB ^45 degrees. Call light in reach.
[2018-05-16] MEDS: PIPER-TAZ 3.375 GM 50 ML IV SCH ×2 (10:00→21:41)
--- NOTE | 2018-05-16 11:41 | Consultation ---
DATE OF CONSULTATION: May 16, 2018 RENAL CONSULT HISTORY OF PRESENT ILLNESS: This is a 68-year-old gentleman, a Robbie patient, follows up with [facility] [employer] primary. Long-standing history of diabetes, at least 5 years' duration but probably has had diabetes much longer than that. History of diabetic neuropathy, peripheral vascular disease. Admitted with cellulitis of the right lower extremity. He has got some toe amputations done because of peripheral ischemia and peripheral vascular disease. Underlying history of hypertension. He denies prior history of any kidney stone disease, prostate enlargement or prostate cancer. Denies any other malignancy. He is currently awake, alert, lying supine, no apparent distress. HOME MEDICATIONS: His home medications include metformin, glipizide, doxazosin, colchicine, carvedilol and aspirin. SOCIAL HISTORY: Does not smoke or drink. FAMILY HISTORY: Significant for diabetes. CURRENT MEDICATIONS: Zinc sulfate once a day, Zanaflex for muscle spasms p.r.n., temazepam 15 mg at bedtime, simvastatin 10 mg at bedtime, Requip 4 mg p.o. b.i.d. He is on oxycodone 30 mg p.o. q.12. He is on lactobacillus, insulin, hydromorphone p.r.n. He is on Cymbalta 20 mg daily, enoxaparin, colchicine 0.6 mg p.o. daily. He is on Plavix 75 mg daily, aspirin 81 mg daily, Tylenol p.r.n. Apparently received 1 dose of vancomycin. He is on piptazo 3.375 g IV q.24. He is on Ringer's lactate for some reason at 125 mL an hour. I have sent some laboratory work on him yesterday. His urine protein is 77, urine creatinine 96. In addition, I had ordered an ultrasound prior to my arrival, shows 11.5 and 12.6 cm kidneys with a nonobstructing left nephrolithiasis. A chest x-ray official report shows mild cardiomegaly with central pulmonary venous congestion. Microbiology, blood cultures no growth. Current labs show urinalysis __1.025 with 2+ protein, 6-10 RBC, 0-5 WBC. Chemistry: Sodium 132, potassium 3.6, bicarbonate 24, BUN 26, creatinine 1.8, total protein 7.1, globulin is elevated 4.7. PHYSICAL EXAMINATION GENERAL: Awake, alert, lying supine. No apparent distress. VITAL SIGNS: Blood pressure 133/69, pulse rate 72, afebrile, respiratory rate 20, oxygen saturation 97% on 2 liters nasal cannula. HEAD AND NECK: Cornea clear. Oral mucosa moist. LUNGS: Relatively clear. HEART: S1 and S2 audible. ABDOMEN: Otherwise soft, nontender. LOWER EXTREMITIES: Show some missing toes both feet with evidence of cellulitis medial aspect of the right calf and extending on medially to anteromedial aspect of the thigh. No edema noted. IMPRESSION/PLAN 1. Elevated globulin. 2. Acute kidney injury. 3. Nonnephrotic proteinuria. 4. Fairly concentrated urine. 5. History of gout. 6. Multiple comorbids. 7. Probable prostatic enlargement until proven otherwise. I will discontinue the colchicine at this point in time. I will not renew his Cardura. Has underlying history of hypertension which is fairly stable. Will start Flomax. Obtain uric acid, intact PTH. Has a nonobstructing nephrolithiasis of left kidney. Serum urine protein electrophoresis with immunofixation. We do not have an option to send kappa-lambda chain here. Last vancomycin level 9.1. Consider infectious disease consultation. On exam has evidence of __gynecomastia. Patient not on any medication which can potentially cause these side effects to my knowledge. Nevertheless, will recommend close followup. Job#: [id number] PAM
[2018-05-16 13:26] LABS: ANION GAP 12.8 mmol/L (8-16); BLOOD UREA NITROGEN 23 mg/dL (7-26); BUN/CREATININE RATIO 20 (6-25); CALCIUM 8.4 mg/dL (8.4-10.2); CARBON DIOXIDE 23 mmol/L (22-29); CHLORIDE 99 mmol/L (98-107); CREATININE, SERUM 1.13 mg/dL (0.72-1.25); EST GLOMERULAR FILTRATION RATE > 60 ML/MIN (60-); GLUCOSE 177 mg/dL (74-118); POTASSIUM 3.8 mmol/L (3.5-5.1); SODIUM 131 mmol/L (136-145)
[2018-05-16] MEDS: BALSAM PERU/CASTOR OIL 60 GM OINT...G. TP SCH (14:19)
[2018-05-16] MEDS: IRON SUCROSE 100 MG in SODIUM CHLORIDE 0.9% 100 ML 100 ML IV SCH (14:51)
[2018-05-16] MEDS: ENOXAPARIN 30 MG/0.3 ML SYR SC SCH (17:30)
[2018-05-16] MEDS: SIMVASTATIN 20 MG TAB PO SCH (21:41)
[2018-05-16] MEDS: TEMAZEPAM 15 MG CAP PO SCH (21:41)
[2018-05-16] MEDS: TAMSULOSIN HCL 0.4 MG CAP PO SCH (21:41)
[2018-05-17] VITALS (8 sets, daily range): BP systolic 112–159; BP diastolic 55–76
[2018-05-17] MEDS: HYDROMORPHONE 2MG/ML 2 MG/ML ML IV PRN (05:27)
[2018-05-17] MEDS: ONDANSETRON HCL INJ 2 MG/ML VIAL IV PRN ×3 (05:27→18:23)
[2018-05-17 05:30] LABS: ALANINE AMINOTRANSFERASE 20 IU/L (0-55); ALBUMIN 2.4 g/dL (3.5-5.0); ALBUMIN/GLOBULIN RATIO 0.5 (0.8-2.0); ALKALINE PHOSPHATASE 130 IU/L (40-150); ANION GAP 13.8 mmol/L (8-16); BLOOD UREA NITROGEN 19 mg/dL (7-26); BUN/CREATININE RATIO 18 (6-25); CALCIUM 8.7 mg/dL (8.4-10.2); CARBON DIOXIDE 24 mmol/L (22-29); CHLORIDE 101 mmol/L (98-107); CREATININE, SERUM 1.07 mg/dL (0.72-1.25); EST GLOMERULAR FILTRATION RATE > 60 ML/MIN (60-); GLUCOSE 156 mg/dL (74-118); POTASSIUM 3.8 mmol/L (3.5-5.1); SODIUM 135 mmol/L (136-145)
--- NOTE | 2018-05-17 07:24 | NUR ---
RECEIVED PATIENT LYING IN BED. ALERT AND VERBAL. ORIENTED TO TIME, PLACE AND PERSONS.
--- NOTE | 2018-05-17 07:38 | Progress Note ---
DATE: May 16, 2018 SUBJECTIVE: Mr. Mittal was seen and examined at bedside. He continues to have slightly decreased pain. His leg is still very red, 2+ right leg edema is still present. According to the family, it has not really gone down substantially. He is on Lactated Ringer's at 125 mL per hour. REVIEW OF SYSTEMS: No bleeding, no chest pain. OBJECTIVE VITAL SIGNS: Afebrile. Vital signs noted per electronic record. GENERAL: In no acute distress, alert and calm, talkative. HEENT: Normocephalic, atraumatic. NECK: Supple. Throat midline. LUNGS: Bilateral air entry, decreased breath sounds, and decreased effort. CARDIOVASCULAR: S1 and S2. No murmurs, rubs, or gallops. ABDOMEN: Soft and nontender. EXTREMITIES: No clubbing. No cyanosis. There is 2+ right leg edema and trace left leg edema. INTEGUMENT: No rash or purpura. LABS: Potassium 3.6, BUN 26, and creatinine 1.3. White count 7, hematocrit 27, and platelets 133. IMPRESSION 1. Severe cellulitis, leg. 2. Mild central venous pulmonary congestion. 3. Acute kidney injury. 4. History of gout. 5. Diabetes. 6. History of multiple toe amputations and peripheral vascular disease. PLAN: Followup on antibiotics. The patient can start to have better diuresis. The patient with renal consult pending. Continue leg elevation. DVT prophylaxis to be continued. We will follow along closely. Job#: [id number] PSO
[2018-05-17] MEDS: BALSAM PERU/CASTOR OIL 60 GM OINT...G. TP SCH (09:00)
[2018-05-17] MEDS: CLOPIDOGREL BISULFATE 75 MG TAB PO SCH (09:12)
[2018-05-17] MEDS: ZINC SULFATE 220 MG CAP PO SCH (09:13)
[2018-05-17] MEDS: ROPINIROLE HCL 2 MG TAB PO SCH ×2 (09:13→17:34)
[2018-05-17] MEDS: LACTOBACILLUS ACIDOPHILUS CAPSULE PO SCH ×2 (09:13→17:34)
[2018-05-17] MEDS: ASPIRIN 81 MG ENTERIC COATED PO SCH (09:13)
[2018-05-17] MEDS: DULOXETINE HCL 20 MG DELAYED RELEASE PO SCH (09:13)
[2018-05-17] MEDS: OXYCODONE HCL 10 MG TAB CR PO SCH ×2 (10:02→21:06)
[2018-05-17] MEDS: TIZANIDINE HCL 4 MG TAB PO PRN (10:03)
[2018-05-17] MEDS: VANCOMYCIN 1GM/NS 250 ML 250 ML IV SCH (10:05)
[2018-05-17] MEDS: INSULIN LISPRO 100 UNIT/1 ML 3ML VIAL SQ SCH ×4 (10:07→21:11)
--- NOTE | 2018-05-17 10:33 | NUR ---
PT COMPLAINT OF LEFT SHOULDER PAIN IN A SCALE OF 8. REQUESTED FOR PAIN MEDICATION. PAIN MEDICATION GIVEN, PT WAS RELIEVED WITH PAIN OF 4 AFTER 30 MINUTES.
[2018-05-17] MEDS: PIPER-TAZ 3.375 GM 50 ML IV SCH ×2 (10:47→21:07)
[2018-05-17] MEDS ORDERED: MAGNESIUM HYDROXIDE 30 ML UDC PO NR (13:45)
[2018-05-17] MEDS: IRON SUCROSE 100 MG in SODIUM CHLORIDE 0.9% 100 ML 100 ML IV SCH (15:41)
--- NOTE | 2018-05-17 16:22 | NUR ---
Nutrition Screen Note RD Recommendation for Physician: - Continue ADA diet as ordered and will provide Glucerna shakes TID with meals Plan of Care: RD following, monitoring for tolerance and adequacy Nutrition reason for involvement: MD consult Primary Diagnose(s): Cellulitis of RLE, Sepsis PMH: DM Ht: 74in Wt: 275.31lb BMI: 35.3kg/m2 IBW: 190lb RD Assessment: 05/17 Pt with C/O not liking the food. Pt also has had a decreased appetite and has some mouth sores. Pt was given Glucerna Shake and likes it and has been drinking at least three a day. Green Lumber Grader to visit patient for food preferences. Will provide Glucerna Shake TID with meals (05/14) Chart reviewed. Labs and meds reviewed. 68 yo M, who is admitted for cellulitis of RLE. HbA1c 8.6%. Pt reports no appetite but RN recorded 50-100% meal intake since admission. No GI complains noted at this time. Pt denies any chewing or swallowing difficulty. Pt reports eating less than usual since his heart attack in Jan 2018. Pt states sometimes, I am not hungry. Pt reports of ~60lbs weight loss over a year period. 18% weight loss over a year doesnt meet criteria for malnutrition. Pt appears obese with no physical sign of malnutrition at this time. Will continue to monitor and follow. Current Diet: ADA diet Malnutrition Evaluation (05/14) The patient does not meet criteria for a specified degree of malnutrition at this time. Will re-evaluate at follow-up as appropriate. Weight loss: 18% weight loss in 1 year insignificant Fat loss: none Muscle loss: none Supporting Evidence: Fluid accumulation: unable to evaluate Functional Status: no changes Diet Education Needs Assessment: Diet education not indicated. Nutrition Care Level: conchita Collazo RD, LD, [facility]
[2018-05-17] MEDS: ENOXAPARIN 30 MG/0.3 ML SYR SC SCH (17:34)
[2018-05-17] MEDS: DOCUSATE SODIUM 100 MG CAP PO SCH (17:35)
[2018-05-17] MEDS: ACETAMINOPHEN 325 MG TAB PO PRN (17:36)
--- NOTE | 2018-05-17 18:02 | NUR ---
PATIENT REFUSED VENELEX, DRESSING AND HEEL PROTECTOR.
--- NOTE | 2018-05-17 18:03 | NUR ---
PT IS TAKING FUROSEMIDE 40 MG 1 TAB DAILY AT HOME AND REQUESTED TO RESUME. PAGED DR. HOLLAND TO NOTIFY THAT AND MESSAGE WAS LEFT.
--- NOTE | 2018-05-17 18:45 | NUR ---
PATIENT COMPLAINT OF NAUSEA. PRN MEDICATION GIVEN. VOICED OUT RELIEF.
--- NOTE | 2018-05-17 18:45 | NUR ---
PT IS ALERT AND ORIENTED. LYING ON BED. ENDORSED TO LICENSE ISSUER NURSE
--- NOTE | 2018-05-17 20:30 | NUR ---
Received patient in bed, introduced self to patient, patient is alert and oriented x 3, cellulitis on legs, patient denies any pain at this time, safety and fall precautions maintained as per hospital protocol: bed in lowest position and locked, needed items beside bed and claire watts placed within patient reach, patient instructed to use it to call nurses for any assistance needed, patient verbalized understanding. patient is currently stable will continue to monitor.
[2018-05-17] MEDS: TEMAZEPAM 15 MG CAP PO SCH (21:06)
[2018-05-17] MEDS: SIMVASTATIN 20 MG TAB PO SCH (21:06)
[2018-05-17] MEDS: TAMSULOSIN HCL 0.4 MG CAP PO SCH (21:07)
--- NOTE | 2018-05-17 21:32 | NUR ---
Violetat Ann for lasix order, patient states he takes lasix at home. Addendum: 05/17/18 at 2133 by Costa Sanchez RN spoke to Xin, the staff at Dr. Ann office
[2018-05-18] VITALS (9 sets, daily range): BP systolic 113–165; BP diastolic 53–80
--- NOTE | 2018-05-18 04:49 | Progress Note ---
DATE: May 17, 2018 INTERNAL MEDICINE PROGRESS NOTE. COVERAGE FOR: Dr. Joon Hoskins. SUBJECTIVE: Mr. Mittal was seen and examined at bedside. He leg is slightly better in terms of receding margins. Very poor p.o. intake. No bowel movement right now. He feels constipated with swelling in the legs. REVIEW OF SYSTEMS: No headaches, no sneezing. OBJECTIVE VITAL SIGNS: Afebrile. Vital signs noted per electronic record. GENERAL: In no acute distress, alert and calm. HEENT: Normocephalic, atraumatic. NECK: Supple. Throat midline. LUNGS: Bilateral air entry, mildly decreased breath sounds but overall mostly clear. CARDIOVASCULAR: S1 and S2. No murmurs, rubs, or gallops. ABDOMEN: Soft and obese. EXTREMITIES: No clubbing. No cyanosis. There is the 1 and 2+ leg edema. INTEGUMENT: No rash on the majority of his body, although he has stasis changes in legs. LABS: BUN 19, creatinine 1.1, and potassium 2.8. White count 10, hematocrit 27. IMPRESSION 1. Severe cellulitis, right leg. 2. Mild pulmonary venous congestion. 3. Mild acute kidney injury. 4. History of gout. 5. Diabetes. 6. History of peripheral vascular disease. PLAN: The patient's condition has gotten better. Make sure vancomycin levels be checked. If there is convincing improvement, we will consider stopping the vancomycin. Medicines ordered to try to promote bowel movements. Continue elevation when feasible. DVT prophylaxis is on. Job#: [id number] PSO
[2018-05-18 05:01] LABS: BASOPHILS % 0.4 % (0.0-1.0); EOSINOPHILS # (AUTO) 0.3 (0.0-0.4); EOSINOPHILS % 4.9 % (0.0-6.0); HEMATOCRIT 27.3 % (38.2-49.6); HEMOGLOBIN 8.1 g/dL (14.0-18.0); LYMPHOCYTES # (AUTO) 1.4 (1.0-3.2); LYMPHOCYTES % 26.8 % (18.0-39.1); MEAN CORPUSCULAR HEMOGLOBIN 23.5 pg (28-32); MEAN CORPUSCULAR HGB CONC 29.7 g/dL (31-35); MEAN CORPUSCULAR VOLUME 79.4 fL (81-99); MONOCYTES # (AUTO) 0.6 (0.2-0.8); MONOCYTES % 11.4 % (4.4-11.3); NEUTROPHILS # (AUTO) 2.9 (2.1-6.9); NEUTROPHILS % 54.1 % (38.7-80.0); PLATELET COUNT 147 x10e3/uL (140-360); RED BLOOD COUNT 3.44 x10e6/uL (4.3-5.7); RED CELL DISTRIBUTION WIDTH 15.9 % (11.7-14.4)
[2018-05-18] MEDS: ONDANSETRON HCL INJ 2 MG/ML VIAL IV PRN (05:08)
[2018-05-18] MEDS: HYDROMORPHONE 2MG/ML 2 MG/ML ML IV PRN (05:08)
[2018-05-18 05:22] LABS: ALANINE AMINOTRANSFERASE 19 IU/L (0-55); ALBUMIN 2.4 g/dL (3.5-5.0); ALBUMIN/GLOBULIN RATIO 0.5 (0.8-2.0); ALKALINE PHOSPHATASE 123 IU/L (40-150); ANION GAP 12.2 mmol/L (8-16); BLOOD UREA NITROGEN 14 mg/dL (7-26); BUN/CREATININE RATIO 13 (6-25); CALCIUM 8.9 mg/dL (8.4-10.2); CARBON DIOXIDE 27 mmol/L (22-29); CHLORIDE 101 mmol/L (98-107); CREATININE, SERUM 1.09 mg/dL (0.72-1.25); EST GLOMERULAR FILTRATION RATE > 60 ML/MIN (60-); GLUCOSE 141 mg/dL (74-118); MAGNESIUM 1.8 MG/DL (1.3-2.1); PHOSPHORUS 3.5 MG/DL (2.3-4.7); POTASSIUM 4.2 mmol/L (3.5-5.1); SODIUM 136 mmol/L (136-145)
[2018-05-18 07:21] LABS: EOSINOPHILS % (MANUAL) 5 % (0-7); LYMPHOCYTES % (MANUAL) 24 % (19-48); MONOCYTES % (MANUAL) 18 % (3.4-9.0); NEUTROPHILS % (MANUAL) 51 % (40-74); PLATELET ESTIMATE ADEQUATE; PLATELET MORPHOLOGY COMMENT NORMAL; RBC MORPHOLOGY COMMENT NORMAL
--- NOTE | 2018-05-18 07:30 | NUR ---
patient endorsed to next shift for continuity of care.
--- NOTE | 2018-05-18 07:53 | NUR ---
RECEIVED PATIENT IN BED. ALERT AND ORIENTED.
[2018-05-18] MEDS: VANCOMYCIN 1GM/NS 250 ML 250 ML IV SCH (08:44)
[2018-05-18] MEDS: BALSAM PERU/CASTOR OIL 60 GM OINT...G. TP SCH (09:00)
[2018-05-18] MEDS: INSULIN LISPRO 100 UNIT/1 ML 3ML VIAL SQ SCH ×4 (09:57→21:35)
[2018-05-18] MEDS: ROPINIROLE HCL 2 MG TAB PO SCH ×2 (09:58→17:00)
[2018-05-18] MEDS: ZINC SULFATE 220 MG CAP PO SCH (09:58)
[2018-05-18] MEDS: OXYCODONE HCL 10 MG TAB CR PO SCH ×2 (09:58→21:30)
[2018-05-18] MEDS: ASPIRIN 81 MG ENTERIC COATED PO SCH (09:58)
[2018-05-18] MEDS: LACTOBACILLUS ACIDOPHILUS CAPSULE PO SCH ×2 (09:58→17:00)
[2018-05-18] MEDS: DOCUSATE SODIUM 100 MG CAP PO SCH ×2 (09:58→17:00)
[2018-05-18] MEDS: DULOXETINE HCL 20 MG DELAYED RELEASE PO SCH (09:58)
[2018-05-18] MEDS: CLOPIDOGREL BISULFATE 75 MG TAB PO SCH (09:58)
[2018-05-18] MEDS: PIPER-TAZ 3.375 GM 50 ML IV SCH ×2 (10:46→22:21)
[2018-05-18] MEDS: TIZANIDINE HCL 4 MG TAB PO PRN ×2 (10:47→21:51)
--- NOTE | 2018-05-18 13:00 | NUR ---
DR. OLEARY SEEN PATIENT. NO NEW ORDER FOR FUROSEMIDE HE SAID TO CALL PROPOSAL DEVELOPMENT MANAGER TO RENEW THE MEDICATION.
--- NOTE | 2018-05-18 13:00 | NUR ---
PT REFUSED THE DRESSING. NOTIFIED DR. BELLA.
--- NOTE | 2018-05-18 14:40 | NUR ---
PAGED TO DR. FLAHERTY TO GET THE ORDER TO RENEW FUROSEMIDE 40 MG 1 TAB DAILY.
--- NOTE | 2018-05-18 14:48 | NUR ---
DR GONZALEZ RETURNED CALL AND GOT THE ORDER TO RENEW.
[2018-05-18] MEDS: FUROSEMIDE 40 MG TAB PO SCH (15:30)
--- NOTE | 2018-05-18 16:55 | Progress Note ---
DATE: May 18, 2018 INTERNAL MEDICINE PROGRESS NOTE COVERAGE FOR: Dr. Eugenia Hoskins. SUBJECTIVE: Mr. Mittal was seen and examined at bedside. Margins continue to prevail close to previous boundaries regarding the cellulitis. There is mild warmth as well. No jeramy weeping, but remains swollen in both legs. He is not having anymore nausea. He is not having signs of systemic sepsis anymore. REVIEW OF SYSTEMS: No bleeding. No diarrhea. OBJECTIVE VITAL SIGNS: Afebrile. Vital signs noted per electronic record. GENERAL: No distress, calm. HEENT: Normocephalic, atraumatic. NECK: Supple. Throat midline. LUNGS: Bilateral air entry, limited but clear. CARDIOVASCULAR: S1, S2. No murmurs, rubs, or gallops. ABDOMEN: Soft, nontender. EXTREMITIES: No clubbing, no cyanosis. There is persistent edema especially in the legs. INTEGUMENT: Generalized rash throughout the body, but he does have the erythematous and warm mildly areas in the legs. IMPRESSION AND PLAN 1. Severe cellulitis with systemic signs of evolving severe sepsis and possibly septicemia, although blood cultures no growth to date so far. 2. Diabetes. 3. Mild central venous congestion on chest x-ray. 4. Acute chronic kidney disease. 5. History of gout. 6. History of peripheral vascular disease. Continue antibiotics. We want to update a vancomycin level today. Continue to optimize nutrition. Fluid status per renal as both kidneys do show signs that they are better. Patient has deferred some of wound care's recommendations and this is noted. Good news is that his white count continues to improve. We will give a dose of Lasix today in the meanwhile as his creatinine continues to improve. Job#: [id number] PKU
[2018-05-18] MEDS: ENOXAPARIN 30 MG/0.3 ML SYR SC SCH (17:00)
[2018-05-18] MEDS: SIMVASTATIN 20 MG TAB PO SCH (21:30)
[2018-05-18] MEDS: TAMSULOSIN HCL 0.4 MG CAP PO SCH (21:30)
[2018-05-18] MEDS: TEMAZEPAM 15 MG CAP PO SCH (21:30)
[2018-05-19] VITALS (8 sets, daily range): BP systolic 132–164; BP diastolic 63–74
[2018-05-19] MEDS: HYDROMORPHONE 2MG/ML 2 MG/ML ML IV PRN ×3 (03:00→14:02)
[2018-05-19] MEDS: PIPER-TAZ 3.375 GM 50 ML IV SCH ×3 (06:42→22:30)
--- NOTE | 2018-05-19 06:47 | Diagnostic Imaging Report ---
EXAMINATION: CHEST SINGLE (PORTABLE) INDICATION: chf COMPARISON: Chest x-ray 05/14/2018. FINDINGS: AP view TUBES and LINES: None. LUNGS: Lungs are well inflated. Stable central pulmonary venous congestion. No focal consolidations. PLEURA: No pleural effusion or pneumothorax. HEART AND MEDIASTINUM: Stable enlargement of the cardiac silhouette. CABG clips. BONES AND SOFT TISSUES: No acute osseous lesion. Soft tissues are unremarkable. UPPER ABDOMEN: No free air under the diaphragm. IMPRESSION: Stable cardiomegaly and central pulmonary venous congestion. Signed by: DR. Samson Castro MD on 05/19/2018 6:44 AM
--- NOTE | 2018-05-19 07:00 | NUR ---
Patient is resting in bed complains of right leg pain. Bedside rounding completed. The patient has a red and edematous right calf. He is receiving antibiotic in the right arm via a 20g PIV.
--- NOTE | 2018-05-19 07:01 | NUR ---
patient endorsed to next shift for continuity of care.
[2018-05-19] MEDS: ONDANSETRON HCL INJ 2 MG/ML VIAL IV PRN ×2 (09:25→14:02)
[2018-05-19] MEDS: VANCOMYCIN 1GM/NS 250 ML 250 ML IV SCH (09:41)
[2018-05-19] MEDS: INSULIN LISPRO 100 UNIT/1 ML 3ML VIAL SQ SCH ×4 (09:42→21:00)
[2018-05-19] MEDS: FUROSEMIDE 40 MG TAB PO SCH (09:43)
[2018-05-19] MEDS: DULOXETINE HCL 20 MG DELAYED RELEASE PO SCH (09:43)
[2018-05-19] MEDS: DOCUSATE SODIUM 100 MG CAP PO SCH ×2 (09:43→19:08)
[2018-05-19] MEDS: ASPIRIN 81 MG ENTERIC COATED PO SCH (09:43)
[2018-05-19] MEDS: BALSAM PERU/CASTOR OIL 60 GM OINT...G. TP SCH (09:45)
[2018-05-19] MEDS: ROPINIROLE HCL 2 MG TAB PO SCH ×2 (09:45→19:07)
[2018-05-19] MEDS: ZINC SULFATE 220 MG CAP PO SCH (09:45)
[2018-05-19] MEDS: LACTOBACILLUS ACIDOPHILUS CAPSULE PO SCH ×2 (09:45→19:07)
[2018-05-19] MEDS: CLOPIDOGREL BISULFATE 75 MG TAB PO SCH (09:45)
[2018-05-19] MEDS: OXYCODONE HCL 10 MG TAB CR PO SCH ×2 (09:45→20:19)
--- NOTE | 2018-05-19 10:55 | NUR ---
The patient is going to CT for a CT of the right lower extremity.
--- NOTE | 2018-05-19 13:39 | Diagnostic Imaging Report ---
CT scan of the RIGHT Leg, WITHOUT injected contrast. TECHNIQUE: Standard departmental protocols were used. Sagittal and coronal reformatted images were obtained. HISTORY: Cellulitis, redness, fever, rule out abscess/gas COMPARISON: None available FINDINGS: Bones: Diffusely decreased mineralization of the osseous structures limits bone detail. No acute displaced fracture. No aggressive osseous lesion. Joints: Tricompartmental degenerative changes of the knee, severe medial compartment predominance. Soft Tissues: Diffuse prominent soft tissue edema. No soft tissue emphysema. No discrete drainable fluid collection, within the limitations of noncontrast enhanced CT. Scattered atherosclerotic vascular calcifications. Diffuse muscle atrophy. IMPRESSION: 1. Diffuse nonspecific soft tissue edema. 2. No evidence of a soft tissue abscess or subcutaneous emphysema. Signed by: Gladis Mulligan.O., M.M.M. on 05/19/2018 1:35 PM
--- NOTE | 2018-05-19 16:00 | NUR ---
Patient is able to walk but has increased edema in right leg. He was instructed to elevate leg to relieve the edema and the pain.
--- NOTE | 2018-05-19 18:00 | NUR ---
The patient is comfortable in bed and has been getting pain medication every 4 hours. He is elevating his right leg at this time.
[2018-05-19] MEDS: CARVEDILOL 3.125 MG TAB PO SCH (19:08)
--- NOTE | 2018-05-19 19:15 | NUR ---
Received patient from day nurse, patient stable, no complains.
[2018-05-19] MEDS: TAMSULOSIN HCL 0.4 MG CAP PO SCH (20:18)
[2018-05-19] MEDS: TEMAZEPAM 15 MG CAP PO SCH (20:19)
[2018-05-19] MEDS: TIZANIDINE HCL 4 MG TAB PO PRN (20:19)
[2018-05-19] MEDS: SIMVASTATIN 20 MG TAB PO SCH (20:19)
[2018-05-20] VITALS (8 sets, daily range): BP systolic 112–172; BP diastolic 58–75
[2018-05-20] MEDS: HYDROMORPHONE 2MG/ML 2 MG/ML ML IV PRN ×2 (04:46→16:09)
[2018-05-20] MEDS: ONDANSETRON HCL INJ 2 MG/ML VIAL IV PRN ×2 (04:46→16:09)
[2018-05-20 05:04] LABS: BASOPHILS % 0.3 % (0.0-1.0); EOSINOPHILS # (AUTO) 0.3 (0.0-0.4); EOSINOPHILS % 4.4 % (0.0-6.0); HEMATOCRIT 28.2 % (38.2-49.6); HEMOGLOBIN 8.4 g/dL (14.0-18.0); LYMPHOCYTES # (AUTO) 1.8 (1.0-3.2); LYMPHOCYTES % 24.8 % (18.0-39.1); MEAN CORPUSCULAR HEMOGLOBIN 23.8 pg (28-32); MEAN CORPUSCULAR HGB CONC 29.8 g/dL (31-35); MEAN CORPUSCULAR VOLUME 79.9 fL (81-99); MONOCYTES # (AUTO) 0.8 (0.2-0.8); MONOCYTES % 10.7 % (4.4-11.3); NEUTROPHILS # (AUTO) 4.1 (2.1-6.9); NEUTROPHILS % 56.5 % (38.7-80.0); PLATELET COUNT 235 x10e3/uL (140-360); RED BLOOD COUNT 3.53 x10e6/uL (4.3-5.7); RED CELL DISTRIBUTION WIDTH 16.3 % (11.7-14.4)
[2018-05-20 05:27] LABS: ANION GAP 14.1 mmol/L (8-16); CALCIUM 9.1 mg/dL (8.4-10.2); CREATININE, SERUM 1.25 mg/dL (0.72-1.25); POTASSIUM 4.1 mmol/L (3.5-5.1)
[2018-05-20] MEDS: PIPER-TAZ 3.375 GM 50 ML IV SCH ×4 (06:30→21:26)
--- NOTE | 2018-05-20 07:41 | NUR ---
patient endorsed to next shift for continuity of care.
--- NOTE | 2018-05-20 07:55 | NUR ---
RECEIVED REPORT AT BEDSIDE PATIENT IS ALERT AND ORIENTED
[2018-05-20] MEDS: VANCOMYCIN 1GM/NS 250 ML 250 ML IV SCH ×2 (08:15→10:05)
[2018-05-20] MEDS: DULOXETINE HCL 20 MG DELAYED RELEASE PO SCH ×2 (09:00→10:07)
[2018-05-20] MEDS: FUROSEMIDE 40 MG TAB PO SCH ×2 (09:00→10:07)
[2018-05-20] MEDS: DOCUSATE SODIUM 100 MG CAP PO SCH ×3 (09:00→17:30)
[2018-05-20] MEDS: ZINC SULFATE 220 MG CAP PO SCH ×2 (09:00→10:08)
[2018-05-20] MEDS: BALSAM PERU/CASTOR OIL 60 GM OINT...G. TP SCH ×2 (09:00→10:08)
[2018-05-20] MEDS: OXYCODONE HCL 10 MG TAB CR PO SCH ×3 (09:00→21:26)
[2018-05-20] MEDS: TIZANIDINE HCL 4 MG TAB PO PRN ×3 (09:00→21:58)
[2018-05-20] MEDS: ASPIRIN 81 MG ENTERIC COATED PO SCH ×2 (09:00→10:05)
[2018-05-20] MEDS: LACTOBACILLUS ACIDOPHILUS CAPSULE PO SCH ×3 (09:00→17:30)
[2018-05-20] MEDS: CLOPIDOGREL BISULFATE 75 MG TAB PO SCH ×2 (09:00→10:08)
[2018-05-20] MEDS: CARVEDILOL 3.125 MG TAB PO SCH ×3 (09:00→17:30)
[2018-05-20] MEDS: ROPINIROLE HCL 2 MG TAB PO SCH ×3 (09:00→17:30)
[2018-05-20] MEDS: INSULIN LISPRO 100 UNIT/1 ML 3ML VIAL SQ SCH ×4 (10:05→21:26)
--- NOTE | 2018-05-20 12:25 | NUR ---
DR HOLLAND MADE NEW ORDER FOR INFECTIOUS DISEASE CONSULTATION.
--- NOTE | 2018-05-20 12:25 | NUR ---
DR. HOLLAND MADE ROUNDS SEEN AND EXAMINE PATIENT. NEW ORDERS RECEIVED TO DO CBC WITH DIFFERENTIAL, BMP AND VANCOMYCIN TROUGH 30 MINS BEFORE THE NEXT DOSE.
--- NOTE | 2018-05-20 13:00 | NUR ---
DR. HANEY TO CHANGE SUPRAPUBIC CATHETER TOMORROW. SUPPLIES GATHERED PER DR. LOTT. Addendum: 05/20/18 at 1710 by Suzanne Erickson RN DISREGARD THIS NOTE. CHARTED ON THE WRONG PATIENT
[2018-05-20] MEDS: SIMVASTATIN 20 MG TAB PO SCH (21:26)
[2018-05-20] MEDS: TEMAZEPAM 15 MG CAP PO SCH (21:26)
[2018-05-20] MEDS: TAMSULOSIN HCL 0.4 MG CAP PO SCH (21:26)
[2018-05-21] VITALS (8 sets, daily range): BP systolic 125–151; BP diastolic 63–76
[2018-05-21] MEDS ORDERED: HYDROMORPHONE 1MG/1ML INJ IV PRN (05:00)
[2018-05-21 05:17] LABS: BASOPHILS % 0.4 % (0.0-1.0); EOSINOPHILS # (AUTO) 0.3 (0.0-0.4); EOSINOPHILS % 4.8 % (0.0-6.0); HEMOGLOBIN 8.9 g/dL (14.0-18.0); LYMPHOCYTES # (AUTO) 2.2 (1.0-3.2); LYMPHOCYTES % 32.1 % (18.0-39.1); MEAN CORPUSCULAR HEMOGLOBIN 24.4 pg (28-32); MEAN CORPUSCULAR HGB CONC 30.7 g/dL (31-35); MEAN CORPUSCULAR VOLUME 79.5 fL (81-99); MONOCYTES # (AUTO) 0.7 (0.2-0.8); MONOCYTES % 9.6 % (4.4-11.3); NEUTROPHILS # (AUTO) 3.5 (2.1-6.9); NEUTROPHILS % 50.8 % (38.7-80.0); PLATELET COUNT 297 x10e3/uL (140-360); RED BLOOD COUNT 3.65 x10e6/uL (4.3-5.7); RED CELL DISTRIBUTION WIDTH 16.4 % (11.7-14.4)
[2018-05-21] MEDS: PIPER-TAZ 3.375 GM 50 ML IV SCH (05:20)
[2018-05-21] MEDS: ONDANSETRON HCL INJ 2 MG/ML VIAL IV PRN ×2 (05:21→18:28)
[2018-05-21 05:40] LABS: CALCIUM 9.2 mg/dL (8.4-10.2); CREATININE, SERUM 1.25 mg/dL (0.72-1.25)
[2018-05-21] MEDS: INSULIN LISPRO 100 UNIT/1 ML 3ML VIAL SQ SCH ×4 (07:30→22:25)
[2018-05-21 07:45] LABS: BAND NEUTROPHILS % (MANUAL) 1 %; EOSINOPHILS % (MANUAL) 9 % (0-7); LYMPHOCYTES % (MANUAL) 23 % (19-48); MONOCYTES % (MANUAL) 13 % (3.4-9.0); MYELOCYTES % (MANUAL) 1 % (0-0); NEUTROPHILS % (MANUAL) 53 % (40-74)
[2018-05-21 07:47] LABS: ANISOCYTOSIS SLIGHT; HYPOCHROMASIA SLIGHT; PLATELET ESTIMATE ADEQUATE; PLATELET MORPHOLOGY COMMENT FEW LARGE; POIKILOCYTOSIS SLIGHT; RBC MORPHOLOGY COMMENT NORMAL
[2018-05-21] MEDS: ASPIRIN 81 MG ENTERIC COATED PO SCH (10:03)
[2018-05-21] MEDS: DOCUSATE SODIUM 100 MG CAP PO SCH ×2 (10:04→18:04)
[2018-05-21] MEDS: ROPINIROLE HCL 2 MG TAB PO SCH ×2 (10:04→18:04)
[2018-05-21] MEDS: BALSAM PERU/CASTOR OIL 60 GM OINT...G. TP SCH (10:04)
[2018-05-21] MEDS: ZINC SULFATE 220 MG CAP PO SCH (10:04)
[2018-05-21] MEDS: CARVEDILOL 3.125 MG TAB PO SCH ×2 (10:04→18:05)
[2018-05-21] MEDS: DULOXETINE HCL 20 MG DELAYED RELEASE PO SCH (10:04)
[2018-05-21] MEDS: OXYCODONE HCL 10 MG TAB CR PO SCH ×2 (10:04→20:10)
[2018-05-21] MEDS: FUROSEMIDE 40 MG TAB PO SCH (10:04)
[2018-05-21] MEDS: LACTOBACILLUS ACIDOPHILUS CAPSULE PO SCH ×2 (10:04→18:04)
[2018-05-21] MEDS: CLOPIDOGREL BISULFATE 75 MG TAB PO SCH (10:04)
[2018-05-21] MEDS: VANCOMYCIN 1GM/NS 250 ML 250 ML IV SCH ×2 (10:04→22:20)
[2018-05-21] MEDS: TIZANIDINE HCL 4 MG TAB PO PRN ×2 (10:05→18:29)
[2018-05-21] MEDS ORDERED: CEFEPIME HCL 1 GM VIAL IV SCH (11:30)
[2018-05-21] MEDS: CEFEPIME 1GM/NS 0.9% 50 ML 50 ML IV SCH ×2 (13:12→23:50)
--- NOTE | 2018-05-21 14:23 | Consultation ---
DATE OF CONSULTATION: May 21, 2018 I would like to thank you for this kind consult. Mr. Mittal is a pleasant 68-year-old male known to infectious disease with multiple admissions with infection of bilateral lower extremities. Apparently, he hit his right leg anteriorly to the bumper of his car about 10 days ago. Shortly after, maybe a day or 2, started getting red and progressively getting worse. Started running some redness, pain and swelling running up his thigh on the medial side on the right lower extremity. The patient reported to [facility] emergency room. PAST MEDICAL HISTORY: Includes diabetes, diabetic neuropathy, peripheral vascular disease, cellulitis of the lower extremities, multiple amputations of the digits, peripheral ischemic and vascular disorders, hypertension, severe debility, hyperlipidemia, electrolyte abnormalities. ALLERGIES: NO KNOWN ALLERGIES. MEDICATIONS: List has been reviewed. As far as infectious disease point of view, the patient is on vancomycin IV and Zosyn. LABORATORY STUDIES: White count 6.88, hemoglobin 8.9 and platelet count 297,000. Creatinine is 1.25. It has been as high as 2 back on May 15, 2018, which is about a week ago pretty much at the time of admission. His vancomycin trough is 7.5. His influenza A and B screen came back negative. Blood cultures negative. Had a CT scan of the right lower extremity that came back with diffuse nonspecific soft tissue edema. No evidence of soft tissue abscess or subcutaneous emphysema. He had a chest x-ray done showing stable cardiomegaly and central pulmonary venous congestion. Renal ultrasound showed nonobstructive left nephrolithiasis. Venous Doppler apparently has been done. The only thing I have access to is the preliminary results on the right leg, which showed no evidence of a DVT. REVIEW OF SYSTEMS: No nausea, vomiting, fever, chills, chest pain, shortness of breath. PHYSICAL EXAMINATION GENERAL: Alert, oriented in bed in supine position. VITALS: Temperature is 98.2. It had reached 99.5 in the past 72 hours. Pulse 66, respirations 20, blood pressure 141/70. CV: S1 and S2. CHEST: Equal expansion. Clear to auscultation. No acute distress. ABDOMEN: Soft, obese and nontender. Bowel sounds positive in all 4 quadrants. HEENT: Moist. No pallor. No JVD. EXTREMITIES: Right lower extremity cellulitis from the ankle pretty much to the thigh on the medial side. Not much tender. The site seems warm and swollen mostly on the lateral side of the tib/fib area right below the knee area. The CT scan was negative for abscess so far. The patient has a right plantar dry wound on his foot, which has some black more like a scab over it. No drainage. No malodorous. He has multiple amputations of the toes and some arthritic deformities, which shows that is compromises his ambulation. ASSESSMENT AND PLAN: This is a pleasant 68-year-old gentleman admitted with cellulitis of the right lower extremity. Computerized tomography did not show any abscess. Seems better overall. Antibiotics noted of vancomycin and Zosyn. Will change to Zosyn to cefepime. Patient also has a history of renal insufficiency. Adjust antibiotics based on kidney function. His vancomycin trough was low at 7.5 this morning at 4 o'clock. This case was discussed with Dr. Alba in detail. I want to thank you for this kind consult, and allowing us to participate in the medical needs of this gentleman. DICTATED BY ALEXANDR LIU Job#: [id number]
[2018-05-21 15:25] LABS: ALPHA 2 GLOBULIN URINE PEP 2.9 % (.)
--- NOTE | 2018-05-21 19:15 | NUR ---
RECEIVED PATIENT AAOX4, STABLE CONDITION, RESTING IN BED WITH AT BEDSIDE. NO NEEDS AT THIS TIME. ENCOURAGED TO CALL FOR ASSISTANCE, PATIENT VERBALIZED UNDERSTANDING. BED LOCKED AND IN LOWEST POSITION, CALL LIGHT WITHIN EASY REACH.
[2018-05-21] MEDS: TAMSULOSIN HCL 0.4 MG CAP PO SCH (20:09)
[2018-05-21] MEDS: SIMVASTATIN 20 MG TAB PO SCH (20:10)
[2018-05-21] MEDS: TEMAZEPAM 15 MG CAP PO SCH (22:20)
[2018-05-22] VITALS (8 sets, daily range): BP systolic 142–163; BP diastolic 74–93
[2018-05-22] MEDS: ONDANSETRON HCL INJ 2 MG/ML VIAL IV PRN ×3 (00:43→16:48)
[2018-05-22] MEDS: HYDROMORPHONE 2MG/ML 2 MG/ML ML IV PRN ×2 (00:43→16:56)
[2018-05-22] MEDS: INSULIN LISPRO 100 UNIT/1 ML 3ML VIAL SQ SCH ×4 (07:30→21:27)
[2018-05-22] MEDS: DOCUSATE SODIUM 100 MG CAP PO SCH ×2 (09:33→16:47)
[2018-05-22] MEDS: OXYCODONE HCL 10 MG TAB CR PO SCH ×2 (09:33→21:27)
[2018-05-22] MEDS: LACTOBACILLUS ACIDOPHILUS CAPSULE PO SCH ×2 (09:33→16:47)
[2018-05-22] MEDS: CLOPIDOGREL BISULFATE 75 MG TAB PO SCH (09:33)
[2018-05-22] MEDS: DULOXETINE HCL 20 MG DELAYED RELEASE PO SCH (09:33)
[2018-05-22] MEDS: ROPINIROLE HCL 2 MG TAB PO SCH ×2 (09:33→16:47)
[2018-05-22] MEDS: VANCOMYCIN 1GM/NS 250 ML 250 ML IV SCH ×2 (09:33→20:51)
[2018-05-22] MEDS: ZINC SULFATE 220 MG CAP PO SCH (09:33)
[2018-05-22] MEDS: BALSAM PERU/CASTOR OIL 60 GM OINT...G. TP SCH (09:33)
[2018-05-22] MEDS: ASPIRIN 81 MG ENTERIC COATED PO SCH (09:33)
[2018-05-22] MEDS: FUROSEMIDE 40 MG TAB PO SCH (09:33)
[2018-05-22] MEDS: CARVEDILOL 3.125 MG TAB PO SCH ×2 (09:34→16:47)
[2018-05-22] MEDS: TIZANIDINE HCL 4 MG TAB PO PRN ×2 (09:34→16:48)
[2018-05-22] MEDS: CEFEPIME 1GM/NS 0.9% 50 ML 50 ML IV SCH (11:52)
--- NOTE | 2018-05-22 20:52 | NUR ---
ORDERS IN EMR TO HOLD NEXT DOSE OF VANCOMYCIN IF TROUGH >16, VANC TROUGH AT THIS TIME IS 18.1. 2100 DOSE HELD.
[2018-05-22] MEDS: SIMVASTATIN 20 MG TAB PO SCH (21:27)
[2018-05-22] MEDS: TEMAZEPAM 15 MG CAP PO SCH (21:27)
[2018-05-22] MEDS: TAMSULOSIN HCL 0.4 MG CAP PO SCH (21:27)
[2018-05-23] VITALS (8 sets, daily range): BP systolic 132–173; BP diastolic 60–91
[2018-05-23] MEDS: ONDANSETRON HCL INJ 2 MG/ML VIAL IV PRN ×5 (00:39→23:42)
[2018-05-23] MEDS: CEFEPIME 1GM/NS 0.9% 50 ML 50 ML IV SCH ×3 (00:39→23:42)
[2018-05-23] MEDS: HYDROMORPHONE 2MG/ML 2 MG/ML ML IV PRN ×5 (00:39→23:42)
[2018-05-23 05:46] LABS: ALBUMIN 2.7 g/dL (3.5-5.0); ALBUMIN/GLOBULIN RATIO 0.5 (0.8-2.0); ANION GAP 15.1 mmol/L (8-16); CALCIUM 9.1 mg/dL (8.4-10.2); CREATININE, SERUM 1.35 mg/dL (0.72-1.25); POTASSIUM 4.1 mmol/L (3.5-5.1)
--- NOTE | 2018-05-23 07:25 | NUR ---
RECEIVED PT FROM OUT GOING NURSE, NO DISTRESS NOTED
[2018-05-23] MEDS: INSULIN LISPRO 100 UNIT/1 ML 3ML VIAL SQ SCH ×4 (07:30→22:04)
[2018-05-23] MEDS: DOCUSATE SODIUM 100 MG CAP PO SCH ×2 (09:18→17:10)
[2018-05-23] MEDS: ASPIRIN 81 MG ENTERIC COATED PO SCH (09:18)
[2018-05-23] MEDS: FUROSEMIDE 40 MG TAB PO SCH (09:19)
[2018-05-23] MEDS: ZINC SULFATE 220 MG CAP PO SCH (09:19)
[2018-05-23] MEDS: CLOPIDOGREL BISULFATE 75 MG TAB PO SCH (09:19)
[2018-05-23] MEDS: OXYCODONE HCL 10 MG TAB CR PO SCH ×2 (09:19→21:31)
[2018-05-23] MEDS: ROPINIROLE HCL 2 MG TAB PO SCH ×2 (09:19→17:11)
[2018-05-23] MEDS: DULOXETINE HCL 20 MG DELAYED RELEASE PO SCH (09:19)
[2018-05-23] MEDS: CARVEDILOL 3.125 MG TAB PO SCH ×2 (09:19→17:11)
[2018-05-23] MEDS: LACTOBACILLUS ACIDOPHILUS CAPSULE PO SCH ×2 (09:19→17:11)
--- NOTE | 2018-05-23 10:38 | NUR ---
VANCO TROUGH 14.[address] STEVENS, ORDERS TO ADMINISTER VANCOMYCIN A/O.
[2018-05-23] MEDS: VANCOMYCIN 1GM/NS 250 ML 250 ML IV SCH ×2 (11:01→21:31)
--- NOTE | 2018-05-23 11:01 | NUR ---
VANCOMYCIN ADMINISTERED AT THIS TIME A/O BY DR. STEVENS.
--- NOTE | 2018-05-23 12:39 | NUR ---
Spoke with Dr. Ho regarding plan of care for pt. He thinks pt would benefit from SNF, but does not think pt would agree. Asked CM to speak with pt. CM spoke with pt at bedside and explained what halfway facilities can offer. Pt stated he was not sure if he wants to go to one or not, but will talk to his when she gets to the hospital this afternoon. CM left pt with business card and asked that he call once he's made a decision.
[2018-05-23] MEDS: BALSAM PERU/CASTOR OIL 60 GM OINT...G. TP SCH (13:31)
[2018-05-23 15:40] LABS: ANION GAP 14.5 mmol/L (8-16); CALCIUM 9.4 mg/dL (8.4-10.2); CREATININE, SERUM 1.33 mg/dL (0.72-1.25); POTASSIUM 4.5 mmol/L (3.5-5.1)
--- NOTE | 2018-05-23 17:59 | NUR ---
PT REMAINED STABLE, CONTINUE ON IV ANTIBIOTICS AND PAIN MANAGEMENT. NO S/S OF DISTRESS NOTED
--- NOTE | 2018-05-23 18:11 | NUR ---
Nutrition Screen Note RD Recommendation for Physician: - Continue ADA diet as ordered - Rec to resume Glucerna order (Notified LEN Bruner) Plan of Care: RD following, monitoring for tolerance and adequacy Nutrition reason for involvement: Follow up Primary Diagnose(s): Cellulitis of RLE, Sepsis PMH: DM Ht: 74in Wt: 275.31lb 05/16; 277lb 05/22 BMI: 35.3kg/m2 IBW: 190lb RD Assessment: 05/23 Chart reviewed. Pt reports of improved appetite since admission. RN recorded ~25-50% PO intake. Family has been bringing outside foods and Glucerna for pt. Pt drinks at least 1 Glucerna shake a day. Pt reports of being nauseated everyday and meds been given. No vomiting episode. LBM 04/23. Glucerna order was discontinued; pt requested Glucerna. Notified LEN Bruner to reorder. Will continue to monitor and follow. 05/17 Pt with C/O not liking the food. Pt also has had a decreased appetite and has some mouth sores. Pt was given Glucerna Shake and likes it and has been drinking at least three a day. Real Estate Executive Assistant to visit patient for food preferences. Will provide Glucerna Shake TID with meals (05/14) Chart reviewed. Labs and meds reviewed. 68 yo M, who is admitted for cellulitis of RLE. HbA1c 8.6%. Pt reports no appetite but RN recorded 50-100% meal intake since admission. No GI complains noted at this time. Pt denies any chewing or swallowing difficulty. Pt reports eating less than usual since his heart attack in Jan 2018. Pt states sometimes, I am not hungry. Pt reports of ~60lbs weight loss over a year period. 18% weight loss over a year doesnt meet criteria for malnutrition. Pt appears obese with no physical sign of malnutrition at this time. Will continue to monitor and follow. Current Diet: ADA diet Malnutrition Evaluation (05/14) The patient does not meet criteria for a specified degree of malnutrition at this time. Will re-evaluate at follow-up as appropriate. Weight loss: 18% weight loss in 1 year insignificant Fat loss: none Muscle loss: none Supporting Evidence: Fluid accumulation: unable to evaluate Functional Status: no changes Diet Education Needs Assessment: Diet education not indicated. Nutrition Care Level: low Margarita Jacome, MS, RD, LD
[2018-05-23] MEDS: TAMSULOSIN HCL 0.4 MG CAP PO SCH (21:31)
[2018-05-23] MEDS: TEMAZEPAM 15 MG CAP PO SCH (21:31)
[2018-05-23] MEDS: SIMVASTATIN 20 MG TAB PO SCH (21:31)
[2018-05-24 02:58] VITALS: BP 125/68
[2018-05-24] MEDS: HYDROMORPHONE 2MG/ML 2 MG/ML ML IV PRN ×2 (04:19→15:10)
[2018-05-24] MEDS: ONDANSETRON HCL INJ 2 MG/ML VIAL IV PRN ×4 (04:20→18:30)
[2018-05-24 06:46] VITALS: BP 109/65
--- NOTE | 2018-05-24 07:51 | NUR ---
REPORT RECEIVED FROM OUT GOING NURSE, PT IN BED NO DISTRESS NOTED
[2018-05-24 08:00] VITALS: BP 146/86
[2018-05-24] MEDS: INSULIN LISPRO 100 UNIT/1 ML 3ML VIAL SQ SCH ×4 (08:15→21:30)
[2018-05-24 08:30] VITALS: BP 146/86
[2018-05-24] MEDS: VANCOMYCIN 1GM/NS 250 ML 250 ML IV SCH (10:03)
[2018-05-24] MEDS: DOCUSATE SODIUM 100 MG CAP PO SCH ×2 (10:03→16:58)
[2018-05-24] MEDS: CARVEDILOL 3.125 MG TAB PO SCH ×2 (10:03→16:59)
[2018-05-24] MEDS: ASPIRIN 81 MG ENTERIC COATED PO SCH (10:03)
[2018-05-24] MEDS: DULOXETINE HCL 20 MG DELAYED RELEASE PO SCH (10:03)
[2018-05-24] MEDS: OXYCODONE HCL 10 MG TAB CR PO SCH ×2 (10:04→22:05)
[2018-05-24] MEDS: ROPINIROLE HCL 2 MG TAB PO SCH ×2 (10:04→16:59)
[2018-05-24] MEDS: ZINC SULFATE 220 MG CAP PO SCH (10:04)
[2018-05-24] MEDS: CLOPIDOGREL BISULFATE 75 MG TAB PO SCH (10:04)
[2018-05-24] MEDS: LACTOBACILLUS ACIDOPHILUS CAPSULE PO SCH ×2 (10:04→16:59)
[2018-05-24] MEDS: BALSAM PERU/CASTOR OIL 60 GM OINT...G. TP SCH (10:04)
[2018-05-24] MEDS: CEFEPIME 1GM/NS 0.9% 50 ML 50 ML IV SCH (11:50)
[2018-05-24 12:00] VITALS: BP 108/77
[2018-05-24] MEDS: LINEZOLID 600 MG/D5W 300ML 300 ML IV SCH (14:45)
[2018-05-24 16:01] LABS: AMYLASE 50 U/L (25-125); LIPASE 44 U/L (8-78)
--- NOTE | 2018-05-24 17:57 | NUR ---
PT CONTINUE WITH PAIN MANAGEMENT AND ANTIBIOTIC THERAPY, NO S/S OF DISTRESS NOTED. ABDOMINAL ULTRASOUND DONE THIS EVENING. PT AMBULATED IN HALLWAY WITH STEADY GAIT. SAFETY PRECAUTION MAINTAINED.
[2018-05-24 20:00] VITALS: BP 125/71
--- NOTE | 2018-05-24 20:31 | Consultation ---
DATE OF CONSULTATION: May 24, 2018 GI CONSULT NOTE REFERRING PHYSICIAN: Raymundo Ho MD REASON FOR CONSULT 1. Intermittently persistent nausea for couple of months. 2. No vomiting. HISTORY OF PRESENT ILLNESS: A 68-year-old white male with poorly controlled type 2 diabetes, coronary artery disease status post CABG, recurrent diabetic foot ulcer status post bilateral greater toe amputation, recurrent right leg cellulitis. He has had 6 to 8 episodes of right leg cellulitis so far. He accidentally hit his right leg with a car bumper. Two days later, his right leg became again red, swollen, hot, and tender to touch. Patient arrived in the emergency room. He was seen by infectious disease service. He has been started on broad-spectrum IV intravenous antibiotic. He got admitted with working diagnosis of right leg cellulitis. On further questioning, patient stated that he had been on intravenous vancomycin for more than about a year. He finished intravenous vancomycin late last month. He used to have a PICC line, which was pulled out last month. Patient stated that the reason he was continued on intravenous vancomycin for about a year due to recurrent leg cellulitis as well as infection of thoracotomy wound after open heart surgery. The GI is being consulted because he has been having nausea for last 2 months. Denies any associated vomiting. No abdominal pain. Regular BM. No dysphagia, odynophagia, early sedation. He does admit to have some chest burning, likely due to reflux. REVIEW OF SYSTEMS: Twelve-point systems reviewed. Symptomatology is limited as per HPI. PAST MEDICAL HISTORY: Type 2 diabetes, diabetic nephropathy, peripheral vascular disease, recurrent cellulitis of both lower extremities more on the right than the left, bilateral big toe amputation, hypertension, hyperlipidemia. PAST SURGICAL HISTORY: Bilateral toe amputation, CABG. FAMILY HISTORY: Noncontributory. SOCIAL HISTORY: . Lives with his . No smoking alcohol or any illicit drug use. HOME MEDICATIONS: Amlodipine, aspirin, carvedilol, clopidogrel, colchicine, docusate sodium, doxazosin, duloxetine, furosemide, glipizide, hydralazine, levocetirizine, lisinopril, metformin, multivitamin, sublingual nitroglycerin, oxycodone, pravastatin, ropinirole, temazepam, tizanidine, zinc sulfate. INPATIENT MEDICATIONS: Reviewed as per AUG. He is on intravenous cefepime, intravenous linezolid, intravenous vancomycin along with other medications. ALLERGIES: NO KNOWN DRUG ALLERGIES. PHYSICAL EXAMINATION VITALS: Temperature 98, pulse 82, respirations 20, blood pressure 108/77, oxygen saturation 96% on room air. GENERAL: Obese body habitus, not in any acute distress. HEENT: Oral mucosa is moist. Anicteric sclerae. CVS: S1, S2 regular. LUNGS: Bilaterally grossly clear. ABDOMEN: Obese, soft, nondistended, nontender. No mass or hernia. Positive bowel sounds. EXTREMITIES: Diffuse erythema from the foot to just below the knee on the right side, left leg is relatively spared. LABORATORY DATA: WBC 6.88, hemoglobin 8.9, hematocrit 29, MCV 79.5, platelet count 297. Sodium 131, potassium 4.5, chloride 95, bicarb 26, BUN 17, creatinine 1.33, glucose 197. Liver enzymes normal. IMAGING DATA 1. CT of the lower extremities showed diffuse nonspecific soft tissue edema. 2. No evidence of soft tissue abscess or subcutaneous emphysema. IMPRESSION 1. Right leg cellulitis, this is a recurrent on multiple intravenous antibiotic. 2. Anemia of chronic disease. 3. Intermittently persistent nausea for 2 months. PLAN: Nausea is most likely due to medication as well as possible underlying reflux. I will put him on trial of PPI daily. Continue antiemetics. I do not suspect any structural cause in the upper GI tract causing nausea. Check iron profile to categorize the type of anemia. Stool for occult blood. Rest of the antibiotic as per primary team. We will defer any endoscopy at this time. Monitor him clinically. Job#: [id number] RTY
[2018-05-24] MEDS: TAMSULOSIN HCL 0.4 MG CAP PO SCH (22:05)
[2018-05-24] MEDS: TEMAZEPAM 15 MG CAP PO SCH (22:05)
[2018-05-24] MEDS: SIMVASTATIN 20 MG TAB PO SCH (22:05)
[2018-05-24] MEDS: TIZANIDINE HCL 4 MG TAB PO PRN (23:39)
[2018-05-25] VITALS (7 sets, daily range): BP systolic 131–168; BP diastolic 69–83
--- NOTE | 2018-05-25 01:16 | NUR ---
PATIENT RECEIVED. PATIENT IS RESTING IN BED, AAOX4. RESP EVEN AND UNLABORED. NO ACUTE DISTRESS NOTED. PATIENT DENIES OF ANY PAIN OR DISCOMFORT. TELE IN PLACE. FAMILY AT BED SIDE. CALL LIGHT WITHIN REACH. INSTRUCT TO CALL FOR ASSISTANCE. BED LOW/LOCKED. CONTINUE TO MONITOR CLOSELY
[2018-05-25] MEDS: LINEZOLID 600 MG/D5W 300ML 300 ML IV SCH ×2 (02:51→15:52)
[2018-05-25] MEDS: HYDROMORPHONE 2MG/ML 2 MG/ML ML IV PRN ×4 (02:51→23:49)
[2018-05-25] MEDS: ONDANSETRON HCL INJ 2 MG/ML VIAL IV PRN ×4 (02:51→23:49)
--- NOTE | 2018-05-25 06:42 | Diagnostic Imaging Report ---
EXAM: US ABDOMEN COMPLETE DATE: 05/24/2018 12:00 AM INDICATION: , Nausea COMPARISON: None TECHNIQUE: Transverse and longitudinal echols scale and color doppler sonographic images of the upper abdomen were obtained. FINDINGS: LIVER 20.2 cm in the right midclavicular line. Increased echogenicity, slightly nodular contour, no masses. SPLEEN 16.5 cm in maximum diameter. GALLBLADDER Cholelithiasis with borderline/slight gallbladder wall thickening, 0.3 cm. No pericholecystic fluid. Negative sonographic Linares's sign. BILE DUCTS No intra nor extra-hepatic biliary dilation. Common bile duct measures 0.4 cm PANCREAS: Not well-visualized. RIGHT KIDNEY: 11.5 cm Echogenicity: Normal Collecting System: No hydronephrosis Stones: None Cyst/Mass: None LEFT KIDNEY: 11.9 cm Echogenicity: Normal Collecting System: No hydronephrosis Stones: Left renal calculus measuring up to 1.2 cm. Cyst/Mass: Left interpolar renal cyst measuring 2.6 x 1.8 x 1.5 cm with layering echogenic material VESSELS: Aorta: Not well seen Inferior Vena Cava: Visualized portions are normal Main Portal Vein: 0.9 cm, normal size with hepatopetal flow. FREE FLUID: None IMPRESSION: 1. Hepatomegaly with hepatic steatosis. Slightly nodular contour raises the possibility of developing cirrhosis. 2. Splenomegaly which could indicate portal hypertension. 3. Mildly complex left renal cyst with suspected layering milk of calcium. 4. Cholelithiasis with nonspecific gallbladder wall thickening but no pericholecystic fluid or Linares's sign. If there is concern for acute cholecystitis, consider follow-up HIDA. Signed by: Dr Nadira Owen MD on 05/25/2018 6:39 AM
[2018-05-25] MEDS: INSULIN LISPRO 100 UNIT/1 ML 3ML VIAL SQ SCH ×4 (08:20→20:27)
[2018-05-25] MEDS: ASPIRIN 81 MG ENTERIC COATED PO SCH (09:43)
[2018-05-25] MEDS: DOCUSATE SODIUM 100 MG CAP PO SCH ×2 (09:43→17:40)
[2018-05-25] MEDS: PANTOPRAZOLE SOD 40 MG TABEC PO SCH (09:44)
[2018-05-25] MEDS: ROPINIROLE HCL 2 MG TAB PO SCH ×2 (09:44→17:40)
[2018-05-25] MEDS: CLOPIDOGREL BISULFATE 75 MG TAB PO SCH (09:44)
[2018-05-25] MEDS: ZINC SULFATE 220 MG CAP PO SCH (09:44)
[2018-05-25] MEDS: DULOXETINE HCL 20 MG DELAYED RELEASE PO SCH (09:44)
[2018-05-25] MEDS: CARVEDILOL 3.125 MG TAB PO SCH ×2 (09:44→17:40)
[2018-05-25] MEDS: OXYCODONE HCL 10 MG TAB CR PO SCH ×2 (09:44→20:45)
[2018-05-25] MEDS: LACTOBACILLUS ACIDOPHILUS CAPSULE PO SCH ×2 (09:44→17:40)
[2018-05-25] MEDS: BALSAM PERU/CASTOR OIL 60 GM OINT...G. TP SCH (09:55)
--- NOTE | 2018-05-25 13:39 | NUR ---
PT RECEIVED FROM OUT GOING NURSE, DURING WALKING ROUNDS, PT ALERT AND NO DISTRESS NOTED.
--- NOTE | 2018-05-25 18:29 | NUR ---
PT IN BED NO DISTRESS NOTED, CONTINUE WITH PAIN MANAGEMENT AND IV ANTIBIOTIC THERAPY.
[2018-05-25] MEDS: TEMAZEPAM 15 MG CAP PO SCH (20:16)
[2018-05-25] MEDS: SIMVASTATIN 20 MG TAB PO SCH (20:16)
[2018-05-25] MEDS: TAMSULOSIN HCL 0.4 MG CAP PO SCH (20:16)
[2018-05-25] MEDS: TIZANIDINE HCL 4 MG TAB PO PRN (20:16)
--- NOTE | 2018-05-25 21:35 | NUR ---
COMPLETED DRESSING CHANGE TO RIGHT FOOT AND LEFT 4TH TOE PER MD ORDER. CONTINUE TO MONITOR CLOSELY
--- NOTE | 2018-05-25 23:24 | Progress Note ---
DATE: May 25, 2018 SUBJECTIVE: Patient reports some improvement in nausea, tolerating oral feeds, has had a good bowel movement last night. No abdominal pain. REVIEW OF SYSTEMS CVS: No chest pain palpitation. GENERAL: No fever or chills. RESPIRATORY: No cough or expectoration. MEDICATIONS: Reviewed as per [facility]. PHYSICAL EXAMINATION VITAL SIGNS: Temperature 97.2, pulse 86, respiration 20, blood pressure 161/77, 265/78, oxygen saturation 96% on room air. GENERAL: Not in any acute distress. HEENT: Oral mucosa is moist. ABDOMEN: Soft, nondistended, nontender, obese. Bowel sounds present. LABS: WBC 6.88, hemoglobin 8.9, hematocrit 29, MCV 79.5, platelet count 297,000. ASSESSMENT 1. Right leg cellulitis, on broad-spectrum intravenous antibiotic. 2. Anemia of chronic disease. 3. Intermittent persistent nausea, which has improved after starting the PPI. PLAN: Continue present medical management. May increase PPI daily if nausea continues to persist. Patient's nausea is definitely improved with 1 dose of PPI. The rest of the care as per primary team. Job#: [id number]
[2018-05-26] VITALS (8 sets, daily range): BP systolic 121–165; BP diastolic 58–84
[2018-05-26] MEDS: LINEZOLID 600 MG/D5W 300ML 300 ML IV SCH ×2 (02:54→15:20)
[2018-05-26] MEDS: PANTOPRAZOLE SOD 40 MG TABEC PO SCH (09:23)
[2018-05-26] MEDS: ASPIRIN 81 MG ENTERIC COATED PO SCH (09:24)
[2018-05-26] MEDS: DULOXETINE HCL 20 MG DELAYED RELEASE PO SCH (09:24)
[2018-05-26] MEDS: DOCUSATE SODIUM 100 MG CAP PO SCH ×2 (09:24→17:11)
[2018-05-26] MEDS: CARVEDILOL 3.125 MG TAB PO SCH ×2 (09:24→17:12)
[2018-05-26] MEDS: INSULIN LISPRO 100 UNIT/1 ML 3ML VIAL SQ SCH ×4 (09:24→21:00)
[2018-05-26] MEDS: BALSAM PERU/CASTOR OIL 60 GM OINT...G. TP SCH (09:25)
[2018-05-26] MEDS: LACTOBACILLUS ACIDOPHILUS CAPSULE PO SCH ×2 (09:25→17:12)
[2018-05-26] MEDS: CLOPIDOGREL BISULFATE 75 MG TAB PO SCH (09:25)
[2018-05-26] MEDS: ZINC SULFATE 220 MG CAP PO SCH (09:25)
[2018-05-26] MEDS: ROPINIROLE HCL 2 MG TAB PO SCH ×2 (09:25→17:12)
[2018-05-26 10:48] LABS: BASOPHILS % 0.3 % (0.0-1.0); EOSINOPHILS # (AUTO) 0.2 (0.0-0.4); EOSINOPHILS % 2.2 % (0.0-6.0); HEMATOCRIT 32.5 % (38.2-49.6); HEMOGLOBIN 9.7 g/dL (14.0-18.0); LYMPHOCYTES # (AUTO) 1.8 (1.0-3.2); LYMPHOCYTES % 19.4 % (18.0-39.1); MEAN CORPUSCULAR HEMOGLOBIN 24.1 pg (28-32); MEAN CORPUSCULAR HGB CONC 29.8 g/dL (31-35); MEAN CORPUSCULAR VOLUME 80.6 fL (81-99); MONOCYTES # (AUTO) 0.6 (0.2-0.8); MONOCYTES % 6.6 % (4.4-11.3); NEUTROPHILS # (AUTO) 6.6 (2.1-6.9); NEUTROPHILS % 71.1 % (38.7-80.0); PLATELET COUNT 339 x10e3/uL (140-360); RED BLOOD COUNT 4.03 x10e6/uL (4.3-5.7); RED CELL DISTRIBUTION WIDTH 16.4 % (11.7-14.4)
[2018-05-26 11:18] LABS: ALBUMIN/GLOBULIN RATIO 0.5 (0.8-2.0); ANION GAP 13.3 mmol/L (8-16); CALCIUM 9.4 mg/dL (8.4-10.2); CREATININE, SERUM 1.27 mg/dL (0.72-1.25); POTASSIUM 4.3 mmol/L (3.5-5.1)
[2018-05-26] MEDS: OXYCODONE HCL 20 MG TAB CR PO SCH ×2 (12:38→22:02)
--- NOTE | 2018-05-26 13:25 | NUR ---
PT CONTINUE WITH PAIN MANAGEMENT, LET THE NURSE CHANGED HIS DRESSINGB ON RT GREAT TOE, NO DRAINAGE NOTED, NO ODOR, DRESSING INTACT.
[2018-05-26] MEDS: ONDANSETRON HCL INJ 2 MG/ML VIAL IV PRN ×2 (16:45→20:28)
--- NOTE | 2018-05-26 18:03 | Progress Note ---
DATE: May 26, 2018 GI PROGRESS REPORT SUBJECTIVE: Patient reports improvement in nausea. No abdominal pain. Tolerating oral feeds. Regular bowel movement. REVIEW OF SYSTEMS GENERAL: No fever or chills. RESPIRATORY: No cough or expectoration. CVS: No chest pain or palpitations. MEDICATIONS: Reviewed as per MAR. He is on pantoprazole 40 mg daily along with intravenous antibiotics. PHYSICAL EXAMINATION VITAL SIGNS: Temperature 98.9, pulse 87, respirations 19, blood pressure 153/75, oxygen saturation 96% on room air. GENERAL: Not in any acute distress. Oral mucosa is moist. ABDOMEN: Obese, soft, nondistended, nontender. No mass or hernia. Positive bowel sound. LABS: WBC 9.35, hemoglobin 9.7 up from 8.9, hematocrit 32.5, and platelet count 339. Sodium 132, potassium 4.3, chloride 99, bicarb 24, BUN 16, creatinine 1.27, glucose 135. Abdominal ultrasound done on May 24, 2018 showed: 1. Hepatomegaly with hepatic steatosis, slightly nodular contour raises the possibility of developing cirrhosis. 2. Splenomegaly, which could indicates portal hypertension. 3. Mildly complex left renal cyst with suspected layering milk of calcium. 4. Cholelithiasis with nonspecific gallbladder wall thickening, but no pericholecystic fluid collection. Sonographic Linares sign is negative. IMPRESSION 1. Nausea has improved with proton pump inhibitor. 2. Compensated nonalcoholic steatohepatitis liver cirrhosis. PLAN: Will increase PPI to twice daily. Continue antibiotic for right leg cellulitis. Patient would need outpatient management for further outpatient workup and management for liver cirrhosis. Job#: [id number] SHARONDA
--- NOTE | 2018-05-26 19:25 | NUR ---
PATIENT RECEIVED. PATIENT IS RESTING IN BED, AAOX4. RESP EVEN AND UNLABORED. PATIENT C/O NAUSEA. WILL MEDICATE PER AUG. TELE IN PLACE. FAMILY AT BED SIDE. CALL LIGHT WITHIN REACH. INSTRUCT TO CALL FOR ASSISTANCE. BED LOW/LOCKED. CONTINUE TO MONITOR CLOSELY
--- NOTE | 2018-05-26 21:40 | NUR ---
SPOKE TO DR MACHADO ABOUT PATIENT C/O NAUSEA. NEW ORDER RECEIVED.
[2018-05-26] MEDS: TAMSULOSIN HCL 0.4 MG CAP PO SCH (22:02)
[2018-05-26] MEDS: TEMAZEPAM 15 MG CAP PO SCH (22:02)
[2018-05-26] MEDS: SIMVASTATIN 20 MG TAB PO SCH (22:02)
[2018-05-26] MEDS: TIZANIDINE HCL 4 MG TAB PO PRN (22:03)
[2018-05-26] MEDS: PROMETHAZINE 25MG/ NS 50ML (IV) IV PRN (22:25)
[2018-05-27] VITALS (7 sets, daily range): BP systolic 121–176; BP diastolic 66–99
[2018-05-27] MEDS: LINEZOLID 600 MG/D5W 300ML 300 ML IV SCH ×2 (03:41→15:35)
--- NOTE | 2018-05-27 07:20 | NUR ---
PT UP IN BED AWAKE,DENIES PAIN,NO DISTRESS NOTED
[2018-05-27] MEDS: PANTOPRAZOLE SOD 40 MG TABEC PO SCH ×3 (07:30→17:35)
[2018-05-27] MEDS: CLOPIDOGREL BISULFATE 75 MG TAB PO SCH (08:30)
[2018-05-27] MEDS: NIFEDIPINE CR 30 MG TAB PO SCH (08:30)
[2018-05-27] MEDS: OXYCODONE HCL 20 MG TAB CR PO SCH ×2 (08:30→20:07)
[2018-05-27] MEDS: ZINC SULFATE 220 MG CAP PO SCH (08:30)
[2018-05-27] MEDS: INSULIN LISPRO 100 UNIT/1 ML 3ML VIAL SQ SCH ×4 (08:30→21:30)
[2018-05-27] MEDS: ASPIRIN 81 MG ENTERIC COATED PO SCH (08:30)
[2018-05-27] MEDS: DULOXETINE HCL 20 MG DELAYED RELEASE PO SCH (08:30)
[2018-05-27] MEDS: DOCUSATE SODIUM 100 MG CAP PO SCH ×2 (08:30→17:36)
[2018-05-27] MEDS: CARVEDILOL 3.125 MG TAB PO SCH ×2 (08:30→17:36)
[2018-05-27] MEDS: LACTOBACILLUS ACIDOPHILUS CAPSULE PO SCH ×2 (08:30→17:37)
[2018-05-27] MEDS: ROPINIROLE HCL 2 MG TAB PO SCH ×2 (08:30→17:37)
--- NOTE | 2018-05-27 10:30 | NUR ---
IV LEAKING ,DCD .RESTARTED TO RT FA 20 GA
[2018-05-27] MEDS: PROMETHAZINE 25MG/ NS 50ML (IV) IV PRN (10:50)
--- NOTE | 2018-05-27 10:50 | NUR ---
PT C/O NAUSEA MEDICATED
--- NOTE | 2018-05-27 11:15 | Progress Note ---
DATE: SUBJECTIVE: Patient had some increased nausea last night. He required Phenergan in addition to his usual Zofran. He has no recurrent fevers. PHYSICAL EXAMINATION GENERAL: The patient is afebrile. VITAL SIGNS: Stable. HEENT: Shows no facial swelling or erythema. The nasal mucosa is normal. The oropharynx is normal. LYMPHATIC: Shows no submandibular, cervical, or supraclavicular adenopathy. CARDIAC: Regular rate and rhythm with normal S1 and S2. There are no murmurs or rubs. LUNGS: Auscultation of lungs reveals clear breath sounds bilaterally. There is no wheezing. ABDOMEN: Soft and nontender. There is no rebound or guarding. EXTREMITIES: Show 2+ edema. There is erythema in the right lower extremity. There is a wound on the plantar aspect of the right foot. IMPRESSION 1. Persistent nausea of unclear etiology. 2. Cellulitis with sepsis, present on admission. 3. Diabetes and diabetic neuropathy. 4. Peripheral vascular disease. PLAN 1. Continue current antibiotics. 2. Continue antiemetics. 3. Discuss case with gastroenterology to see if any further evaluation is required. Job#: [id number]
[2018-05-27] MEDS: BALSAM PERU/CASTOR OIL 60 GM OINT...G. TP SCH (12:00)
--- NOTE | 2018-05-27 17:58 | NUR ---
PT UP IN BED DENIES PAIN NO DISTRESS NOTED,
--- NOTE | 2018-05-27 19:20 | NUR ---
PATIENT RECEIVED. PATIENT IS RESTING IN BED, AAOX3. RESP EVEN AND UNLABORED. NO ACUTE DISTRESS NOTED. PATIENT DENIES OF ANY PAIN OR DISCOMFORT. TELE IN PLACE. CALL LIGHT WITHIN REACH. INSTRUCT TO CALL FOR ASSISTANCE. BED LOW/LOCKED. CONTINUE TO MONITOR CLOSELY
[2018-05-27] MEDS: HYDROMORPHONE 2MG/ML 2 MG/ML ML IV PRN (20:05)
[2018-05-27] MEDS: ONDANSETRON HCL INJ 2 MG/ML VIAL IV PRN (20:06)
[2018-05-27] MEDS: TAMSULOSIN HCL 0.4 MG CAP PO SCH (20:06)
[2018-05-27] MEDS: TEMAZEPAM 15 MG CAP PO SCH (20:07)
[2018-05-27] MEDS: SIMVASTATIN 20 MG TAB PO SCH (20:07)
[2018-05-28] VITALS: BP_SYST 160; BP_SYST 181; BP_DIAS 96; BP_DIAS 99
[2018-05-28] MEDS: HYDROMORPHONE 2MG/ML 2 MG/ML ML IV PRN (00:25)
[2018-05-28] MEDS: ONDANSETRON HCL INJ 2 MG/ML VIAL IV PRN (00:30)
[2018-05-28] MEDS: LINEZOLID 600 MG/D5W 300ML 300 ML IV SCH (03:30)
[2018-05-28 04:00] VITALS: BP 159/83
--- NOTE | 2018-05-28 07:46 | NUR ---
PT RECEIVED IN BED, NO DISTRESS NOTED
[2018-05-28 08:02] VITALS: BP 159/83
[2018-05-28 08:36] VITALS: BP 134/75
[2018-05-28] MEDS: DOCUSATE SODIUM 100 MG CAP PO SCH (09:03)
[2018-05-28] MEDS: PANTOPRAZOLE SOD 40 MG TABEC PO SCH (09:03)
[2018-05-28] MEDS: ASPIRIN 81 MG ENTERIC COATED PO SCH (09:03)
[2018-05-28] MEDS: OXYCODONE HCL 20 MG TAB CR PO SCH (09:04)
[2018-05-28] MEDS: CLOPIDOGREL BISULFATE 75 MG TAB PO SCH (09:04)
[2018-05-28] MEDS: LACTOBACILLUS ACIDOPHILUS CAPSULE PO SCH (09:04)
[2018-05-28] MEDS: NIFEDIPINE CR 30 MG TAB PO SCH (09:04)
[2018-05-28] MEDS: DULOXETINE HCL 20 MG DELAYED RELEASE PO SCH (09:04)
[2018-05-28] MEDS: CARVEDILOL 3.125 MG TAB PO SCH (09:04)
[2018-05-28] MEDS: ZINC SULFATE 220 MG CAP PO SCH (09:04)
[2018-05-28] MEDS: ROPINIROLE HCL 2 MG TAB PO SCH (09:04)
[2018-05-28] MEDS: BALSAM PERU/CASTOR OIL 60 GM OINT...G. TP SCH (09:05)
--- NOTE | 2018-05-28 10:17 | NUR ---
CM spoke with Dr. Alba who stated that pt can go home on oral abx. CM spoke to pt at bedside. Discussed Medicare Rights. Pt verbalized understanding, stated he is ready to go home. Signed copy placed in chart. Copy to pt. Pt stated that he has [facility] for wound care and would like to resume with their services on discharge. Choice letter signed and placed in chart. Copy to pt. CM notified Dr. Ho (covering for Dr. Hoskins) that Dr. Alba stated pt can go home on oral abx. He said he will be back to round on pt.
--- NOTE | 2018-05-28 10:28 | Progress Note ---
DATE: SUBJECTIVE: Mr. Mittal is doing better. There are no new complaints. REVIEW OF SYSTEMS: Nothing new at the present time. PHYSICAL EXAMINATION GENERAL: He is currently alert and oriented, does not seem to be in acute distress. VITAL SIGNS: Stable, afebrile. HEENT: He is not icteric. NECK: Supple. CHEST: Clear. HEART: S1 and S2, no murmur. ABDOMEN: Soft. Bowel sounds present. No tenderness. EXTREMITIES: Distal edema. IMPRESSION: Cellulitis in a patient who has underlying history of venous stasis dermatitis, diabetes mellitus, neuropathy, peripheral vascular disease. Improving. Discharge planning per internal medicine. Cellulitis of the right lower extremity is improving. Can discharge home with oral doxycycline 100 mg p.o. b.i.d. Other medical problems are neuropathy, chronic kidney disease, peripheral vascular disease per internal medicine, seem to be stable. Job#: [id number]
--- NOTE | 2018-05-28 11:00 | NUR ---
CM spoke with Dr. Ho who is concerned about discharging pt due to him being out of pain medication. Pt to call his pain MD to ask for refill.
[2018-05-28] MEDS: INSULIN LISPRO 100 UNIT/1 ML 3ML VIAL SQ SCH (11:36)
[2018-05-28 11:56] VITALS: BP 184/99
--- NOTE | 2018-05-28 14:50 | NUR ---
Pt called his pharmacy in front of CM. They verified that they have received prescription and medication will be ready in a few hrs. CM notified Dr. Ho and pt's nurse LEN Bruner.
--- NOTE | 2018-05-28 15:42 | NUR ---
Home health orders faxed to [facility] [id number] [address] P [phone] F [phone] CM called and informed them that pt will be discharging today.
[2018-05-28 16:49] VITALS: BP 163/83
--- NOTE | 2018-05-28 17:16 | Discharge Summary ---
DISCHARGE DIAGNOSES 1. Cellulitis with sepsis present on admission. 2. Diabetes. 3. Neuropathy. 4. Peripheral vascular disease. 5. Nonalcoholic steatohepatitis. DISCHARGE MEDICATIONS 1. Doxycycline 100 mg p.o. b.i.d. 2. Carvedilol 12.5 mg p.o. b.i.d. 3. Plavix 75 mg p.o. daily. 4. Aspirin 81 mg p.o. daily. 5. Doxazosin 2 mg p.o. daily. 6. Cymbalta 20 mg p.o. daily. 7. Glipizide 10 mg p.o. b.i.d. 8. Lisinopril 40 mg p.o. daily. 9. Metformin 85 mg p.o. b.i.d. 10. Multivitamins. 11. OxyContin 30 mg p.o. q.8. 12. Requip 1 mg p.o. t.i.d. 13. Amlodipine 5 mg p.o. daily. RADIOGRAPHIC DATA 1. Abdominal ultrasound shows hepatosplenomegaly with some possible hepatic steatosis. There was cholelithiasis with nonspecific gallbladder wall thickening, but no pericholecystic fluid. 2. The lower extremity CT scan shows diffuse nonspecific soft tissue edema. There was no evidence of abscess or subcutaneous emphysema. 3. Chest x-ray shows cardiomegaly and mild central venous congestion. 4. Venous duplex shows no deep vein thrombosis. CONSULTING PHYSICIANS 1. Dr. Alcaraz of gastroenterology. 2. Dr. Alba of infectious diseases. 3. Dr. Ann of nephrology. HISTORY OF PRESENT ILLNESS: The patient has a known bilateral lower extremity edema and had prior problems with cellulitis. He came to the hospital complaining of redness and pain in his leg. He has increased swelling. HOSPITAL COURSE: The patient was admitted. He was started on IV antibiotics. A CT scan of the leg was obtained along with a venous duplex. There is no evidence of abscess or deep vein thrombosis. The diagnosis of cellulitis was confirmed. During the hospitalization, he continued to receive narcotic medication for his chronic back pain. He complained of nausea and required Zofran along with Phenergan. He was subsequently seen by gastroenterology, who diagnosed steatotic hepatitis. Patient has improved and was switched to oral IV antibiotics. DISPOSITION: The patient will be discharged home. He should follow up with Dr. Gupta as well as Dr. Alba of infectious disease. PRUDENCIO MACHADO MD Job#: [id number] CQ
--- NOTE | 2018-05-28 18:16 | NUR ---
PT DISCHARGED HOME WITH PRESCRIPTIONS AND WRITTEN INSTRUCTIONS. D/C TEACHING DONE AND PT VERBALIZED UNDERSTANDING. IV TAKEN OUT SITE LOOKS DRY AND INTACT.NO REDNESS OR SWELLING. TREATMENT ON RT FOOT DONE, SLIGHT DRAINAGE NOTED.
[2018-05-28] MEDS ORDERED: NIFEDIPINE CR 30 MG TAB PO SCH (21:00)
--- NOTE | 2018-05-30 15:09 | NUR ---
Received call from Royce at [facility] saying they are unable to accept pts with payer insurance at this time. They're only accepting Medicare. CM called pt to discuss choice for another company. Left VM for pt to call CM back.
== END 2018-05-28 18:14 | disposition home health service (06) | DRG 872 ==
LOC: ER 14:50 → ERHOLD 17:08 → MED/SURG2 19:26
PROVIDERS: ADMIT Internal Medicine; ATTEND Internal Medicine
DX: A41.9 Sepsis, unspecified organism (principal); L03.115 Cellulitis of right lower limb; N17.9 Acute kidney failure, unspecified; E11.42 Type 2 diabetes mellitus with diabetic polyneuropathy; E11.51 Type 2 diabetes mellitus with diabetic peripheral angiopathy without gangrene; Z79.4 Long term (current) use of insulin; K75.81 Nonalcoholic steatohepatitis (NASH); I25.10 Atherosclerotic heart disease of native coronary artery without angina pectoris; Z95.1 Presence of aortocoronary bypass graft; D63.8 Anemia in other chronic diseases classified elsewhere; R77.1 Abnormality of globulin; M1A.9XX0 Chronic gout, unspecified, without tophus (tophi); N40.0 Benign prostatic hyperplasia without lower urinary tract symptoms; E83.42 Hypomagnesemia
CPT/HCPCS: 36415; 71045; 71046; 76700; 76770; 80048; 80053; 80061; 80202; 81001; 82150; 82550; 82553; 82570; 82948; 83036; 83540; 83605; 83690; 83735; 83880; 84100; 84156; 84165; 84166; 84466; 84484; 84550; 85025; 86335; 87040; 87400; 93005; 93971; 96361; 96372; 99284; J0692; J1650; J1756; J1885; J2020; J2270; J2405; J2543; J2550; J3370; J3475; J7030; J7040; J7050; J7120

== ENCOUNTER 2018-08-23 22:33 | Emergency (ER) | payer MEDICARE ==
[~2018-08-23] VITALS: Ht 188 cm; Wt 127.5 kg
[~2018-08-23 22:33] MED LIST changes: +DOXAZOSIN MESYLA2 MG PO; +GLIPIZIDE5 MG PO; +NITROGLYCERIN9 MG PO
[2018-08-23] MEDS ORDERED: VANCOMYCIN 1GM/NS 250 ML 250 ML IV STA (23:07)
[2018-08-23] MEDS ORDERED: SODIUM CHLORIDE 0.9% 1000ML 1,000 ML IV STA (23:07)
[2018-08-23] MEDS ORDERED: ACETAMINOPHEN 325 MG TAB PO ONE (23:15)
[2018-08-23] MEDS ORDERED: CEFEPIME HCL 1 GM VIAL IV SCH (23:15)
[2018-08-23 23:24] LABS: BASOPHILS % 0.4 % (0.0-1.0); EOSINOPHILS # (AUTO) 0.1 (0.0-0.4); EOSINOPHILS % 1.9 % (0.0-6.0); HEMATOCRIT 34.9 % (38.2-49.6); HEMOGLOBIN 11.2 g/dL (14.0-18.0); LYMPHOCYTES # (AUTO) 1.3 (1.0-3.2); LYMPHOCYTES % 24.3 % (18.0-39.1); MEAN CORPUSCULAR HEMOGLOBIN 27.1 pg (28-32); MEAN CORPUSCULAR HGB CONC 32.1 g/dL (31-35); MEAN CORPUSCULAR VOLUME 84.3 fL (81-99); MONOCYTES # (AUTO) 0.6 (0.2-0.8); NEUTROPHILS # (AUTO) 3.2 (2.1-6.9); PLATELET COUNT 182 x10e3/uL (140-360); RED BLOOD COUNT 4.14 x10e6/uL (4.3-5.7); RED CELL DISTRIBUTION WIDTH 16.8 % (11.7-14.4)
[2018-08-23 23:28] LABS: INR 0.94; PROTHROMBIN TIME 13.1 seconds (11.9-14.5)
[2018-08-23 23:29] LABS: PARTIAL THROMBOPLASTIN TIME 32.8 seconds (23.8-35.5)
[2018-08-23 23:35] LABS: ALBUMIN 3.5 g/dL (3.5-5.0); ALBUMIN/GLOBULIN RATIO 0.9 (0.8-2.0); ANION GAP 12.8 mmol/L (8-16); CREATININE, SERUM 1.41 mg/dL (0.72-1.25); POTASSIUM 3.8 mmol/L (3.5-5.1)
[2018-08-24 00:05] LABS: CALCIUM 8.8 mg/dL (8.4-10.2)
--- NOTE | 2018-08-24 00:15 | Diagnostic Imaging Report ---
Examination: Single AP view of the chest. COMPARISON: Portable chest 05/19/2018 INDICATION: chest pain, status post fall and landing on chest IMPRESSION: 1. Lines and Tubes: None 2. Lungs are grossly clear. No consolidation or effusion. 3. Stable enlargement of the cardiac silhouette. Pulmonary vasculature is normal. 4. No acute bony abnormalities in this single AP view. Signed by: Dr. Timmy Young M.D. on 08/24/2018 12:11 AM
[2018-08-24 00:20] LABS: CREATINE KINASE MB 1.7 ng/mL (0-5.0)
[2018-08-24] MEDS ORDERED: CEFEPIME 1GM/NS 0.9% 50 ML 50 ML IV ONE (00:21)
--- NOTE | 2018-08-24 03:55 | Diagnostic Imaging Report ---
Exam: Right Knee Series. History: Status post fall, edema Comparison: None. Findings: 3 views of the right knee. There is decreased bone mineralization, which limits evaluation of the bony structures.. Negative for acute, displaced fracture or dislocation. Marked tricompartmental degenerative joint disease, with osteophytosis and marked joint space narrowing in the medial femoral tibial compartment, with mild subluxation. Vascular calcifications are noted. No suprapatellar effusion. Impression: 1. Generalized osteopenia, which limits evaluation of the bony structures. No acute, displaced fracture or dislocation, within the limitations of the study. 2. Marked tricompartmental degenerative joint disease. Signed by: Dr. Timmy Young M.D. on 08/24/2018 3:51 AM
[2018-08-24 04:36] VITALS: BP 107/63
[2018-08-24] MEDS ORDERED: CEFEPIME 1GM/NS 0.9% 50 ML 50 ML IV SCH (12:00)
== END 2018-08-24 04:45 | disposition home or self-care (01) ==
LOC: ER 22:33
DX: R07.89 Other chest pain (principal); M25.561 Pain in right knee; M25.461 Effusion, right knee; W01.0XXA Fall on same level from slipping, tripping and stumbling without subsequent striking against object, initial encounter; Y93.01 Activity, walking, marching and hiking; Y92.89 Other specified places as the place of occurrence of the external cause; I10 Essential (primary) hypertension; E11.9 Type 2 diabetes mellitus without complications; E78.5 Hyperlipidemia, unspecified; I25.2 Old myocardial infarction; Z86.73 Personal history of transient ischemic attack (TIA), and cerebral infarction without residual deficits
CPT/HCPCS: 36415; 71045; 73562; 80053; 82550; 82553; 83605; 84484; 85025; 85610; 85730; 87040; 87086; 99284; J0692; J3370; J7030

== ENCOUNTER 2018-11-05 14:53 | Emergency (ER) | payer MEDICARE ==
[~2018-11-05] VITALS: Ht 188 cm; Wt 127.5 kg
[2018-11-05] MEDS ORDERED: SODIUM CHLORIDE 0.9% 1000ML 1,000 ML IV STA (15:21)
[2018-11-05 15:53] LABS: BASOPHILS % 0.5 % (0.0-1.0); EOSINOPHILS # (AUTO) 0.3 (0.0-0.4); EOSINOPHILS % 3.5 % (0.0-6.0); HEMATOCRIT 36.9 % (38.2-49.6); HEMOGLOBIN 11.9 g/dL (14.0-18.0); LYMPHOCYTES # (AUTO) 1.9 (1.0-3.2); LYMPHOCYTES % 24.5 % (18.0-39.1); MEAN CORPUSCULAR HEMOGLOBIN 27.3 pg (28-32); MEAN CORPUSCULAR HGB CONC 32.2 g/dL (31-35); MEAN CORPUSCULAR VOLUME 84.6 fL (81-99); MONOCYTES # (AUTO) 0.5 (0.2-0.8); MONOCYTES % 6.7 % (4.4-11.3); NEUTROPHILS # (AUTO) 4.9 (2.1-6.9); NEUTROPHILS % 64.4 % (38.7-80.0); PLATELET COUNT 204 x10e3/uL (140-360); RED BLOOD COUNT 4.36 x10e6/uL (4.3-5.7); RED CELL DISTRIBUTION WIDTH 14.8 % (11.7-14.4)
[2018-11-05 15:56] LABS: BILIRUBIN,URINE NEGATIVE (NEGATIVE); CLARITY,URINE CLEAR (CLEAR); COLOR,URINE YELLOW (YELLOW); KETONES,URINE NEGATIVE (NEGATIVE); LEUKOCYTE ESTERASE ,URINE NEGATIVE (NEGATIVE); NITRITE,URINE NEGATIVE (NEGATIVE); PROTEIN,URINE DIPSTICK 1+ (NEGATIVE); URINE UROBILINOGEN 0.2 mg/dL (0.2 - 1)
[2018-11-05 16:10] LABS: ALBUMIN 3.2 g/dL (3.5-5.0); ALBUMIN/GLOBULIN RATIO 0.6 (0.8-2.0); ANION GAP 12.2 mmol/L (8-16); CALCIUM 9.7 mg/dL (8.4-10.2); CREATININE, SERUM 1.45 mg/dL (0.72-1.25); POTASSIUM 4.2 mmol/L (3.5-5.1)
[2018-11-05 16:11] LABS: BACTERIA,URINE FEW /HPF; EPITHELIAL CELLS,URINE MODERATE /LPF
[2018-11-05] MEDS ORDERED: INSULIN REGULAR, HUMAN 100 UNIT/1 ML 3ML VIAL IV ONE (16:30)
== END 2018-11-05 18:56 | disposition home or self-care (01) ==
LOC: ER 14:53
DX: E11.65 Type 2 diabetes mellitus with hyperglycemia (principal); E11.40 Type 2 diabetes mellitus with diabetic neuropathy, unspecified; Z86.73 Personal history of transient ischemic attack (TIA), and cerebral infarction without residual deficits; I25.2 Old myocardial infarction; Z89.412 Acquired absence of left great toe; Z89.411 Acquired absence of right great toe; I10 Essential (primary) hypertension; E78.5 Hyperlipidemia, unspecified; E11.621 Type 2 diabetes mellitus with foot ulcer
CPT/HCPCS: 36415; 80053; 81001; 82550; 82553; 82948; 84484; 85025; 87086; 93005; 99284; J1817; J7030

== ENCOUNTER 2018-12-02 16:28 | Observation (INO) | payer MEDICARE ==
[~2018-12-02] VITALS: Ht 188 cm; Wt 132.1 kg
--- NOTE | 2018-12-02 19:05 | NUR ---
PATIENT BROUGHT TO TRIAGE FOR EVALUATION PER DR. GERBER
--- NOTE | 2018-12-02 19:06 | NUR ---
PATIENT REMOVED HIS OWN C-COLLAR EVEN AFTER TOLD HE SHOULD KEEP IN ON
--- NOTE | 2018-12-02 19:52 | NUR ---
upon entering room, inquired as to why c-collar was removed by patient, " patient states i do not want it", pt is aware of risks. he assumes risks
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
[2018-12-02] MEDS ORDERED: ENALAPRILAT IV INJ 1.25 MG/ML VIAL IV PRN (21:15)
[2018-12-02] MEDS ORDERED: ACETAMINOPHEN 325 MG TAB PO PRN (21:15)
[2018-12-02] MEDS ORDERED: ZOLPIDEM TARTRATE 5 MG TAB PO PRN (21:15)
[2018-12-02] MEDS ORDERED: IBUPROFEN 200 MG TAB PO PRN (21:15)
[2018-12-02] MEDS ORDERED: DIPHENHYDRAMINE HCL INJ 50 MG/ML VIAL IV PRN (21:15)
[2018-12-02] MEDS: MORPHINE SULFATE INJ 4 MG/ML INJ 1ML IV PRN (21:27)
[2018-12-02 21:31] LABS: BASOPHILS % 0.3 % (0.0-1.0); EOSINOPHILS # (AUTO) 0.1 (0.0-0.4); EOSINOPHILS % 0.9 % (0.0-6.0); HEMATOCRIT 35.8 % (38.2-49.6); HEMOGLOBIN 11.8 g/dL (14.0-18.0); LYMPHOCYTES # (AUTO) 1.6 (1.0-3.2); LYMPHOCYTES % 13.4 % (18.0-39.1); MEAN CORPUSCULAR HEMOGLOBIN 27.8 pg (28-32); MEAN CORPUSCULAR VOLUME 84.2 fL (81-99); MONOCYTES # (AUTO) 0.7 (0.2-0.8); MONOCYTES % 6.3 % (4.4-11.3); NEUTROPHILS # (AUTO) 9.2 (2.1-6.9); NEUTROPHILS % 78.8 % (38.7-80.0); PLATELET COUNT 194 x10e3/uL (140-360); RED BLOOD COUNT 4.25 x10e6/uL (4.3-5.7)
[2018-12-02] MEDS ORDERED: SODIUM CHLORIDE FLUSH 10 ML SYR INJ PRN (21:45)
[2018-12-02] MEDS ORDERED: DEXTROSE 50% SYRINGE 50 ML IV PRN (21:45)
[2018-12-02 21:48] LABS: ALBUMIN 3.2 g/dL (3.5-5.0); ALBUMIN/GLOBULIN RATIO 0.6 (0.8-2.0); ANION GAP 16.4 mmol/L (8-16); CALCIUM 9.3 mg/dL (8.4-10.2); CREATININE, SERUM 1.4 mg/dL (0.72-1.25); POTASSIUM 4.4 mmol/L (3.5-5.1)
[2018-12-02] MEDS: HYDROCODONE/APAP 7.5MG-325MG 1 EA TAB PO PRN (22:41)
[2018-12-02] MEDS: VANCOMYCIN 1GM/NS 250 ML 250 ML IV SCH (22:41)
[2018-12-02] MEDS ORDERED: SODIUM CHLORIDE 0.45% 1,000 ML IV ONE (23:16)
[2018-12-03] MEDS: PIPER-TAZ 3.375 GM 50 ML IV SCH ×2 (00:32→06:43)
[2018-12-03] MEDS: MORPHINE SULFATE INJ 4 MG/ML INJ 1ML IV PRN (04:38)
[2018-12-03] MEDS: HYDROCODONE/APAP 7.5MG-325MG 1 EA TAB PO PRN ×2 (06:16→20:52)
--- NOTE | 2018-12-03 06:44 | NUR ---
bg 228 bedside check
--- NOTE | 2018-12-03 07:25 | NUR ---
report endorsed to freddy you
--- NOTE | 2018-12-03 07:25 | NUR ---
snack provided to patient
[2018-12-03] MEDS ORDERED: INSULIN LISPRO 100 UNIT/1 ML 3ML VIAL SQ SCH (07:30)
[2018-12-03] MEDS: GABAPENTIN 300 MG CAP PO SCH ×2 (08:50→17:10)
[2018-12-03] MEDS: VANCOMYCIN 1GM/NS 250 ML 250 ML IV SCH ×2 (08:50→21:25)
[2018-12-03] MEDS ORDERED: FAMOTIDINE 20 MG/2 ML VIAL IV SCH (09:00)
--- NOTE | 2018-12-03 10:06 | NUR ---
patient arrived to unit via wheelchair, alert and oriented with friend at bedside. call watts within reach and bed in lowest position.
[2018-12-03 10:15] VITALS: BP 122/66
[2018-12-03] MEDS ORDERED: IBUPROFEN 400 MG TAB PO PRN (10:45)
[2018-12-03 12:17] VITALS: BP 122/66
[2018-12-03] MEDS: INSULIN LISPRO 100 UNIT/1 ML 3ML VIAL SQ SCH ×3 (12:30→21:05)
[2018-12-03] MEDS: OXYCODONE HCL 10 MG TAB CR PO SCH ×2 (14:41→22:48)
[2018-12-03] MEDS: ROPINIROLE HCL 0.25 MG TAB PO SCH ×2 (14:42→20:52)
--- NOTE | 2018-12-03 14:52 | NUR ---
PT HAVING EVER CATH TODAY
[2018-12-03 16:11] VITALS: BP 141/75
[2018-12-03] MEDS: METFORMIN HCL 850 MG TAB PO SCH (17:10)
[2018-12-03] MEDS: CARVEDILOL 12.5 MG TAB PO SCH (17:10)
--- NOTE | 2018-12-03 17:20 | NUR ---
WOUND CARE NURSE INITIAL CONSULTATION. 68 YEAR OLD MALE ADMITTED TO [facility] WITH DX OF CELLULITIS TO RIGHT LOWER LEG. HEAD TO TOE SKIN ASSESSMENT PERFORMED TODAY. PT PRESENTS WITH A DIABETIC FOOT ULCER WAGNERS II TO RIGHT PLANTAR FOOT. MEASURES APPROXIMATELY 1.2X1X0.9, CALLUS TO PERIWOUND PER PT ULCER HAS BEEN PRESENT FOR 3 YEARS. PT ALSO PRESENTS WITH A DFU WAGNERS I TO LEFT 3RD TOE. NO S/S OF INFECTION. PT EDUCATED ON PLAN OF CARE. DRESSING CHANGES AND DIABETES CONTROL LABS: WBC: 11.70 ALB: 3.2 TOTAL PROTEIN: 8.3 GLUCOSE: 327 RECOMMENDATIONS: CLEAN BILATERAL FOOT ULCERS WITH NS, APPLY MEDIHONEY AND COVER WITH 4X4 GAUZE, KELIX AND TAPE. CHANGE DRESSING DAILY. THANKS FOR THIS CONSULTATION. Addendum: 12/03/18 at 1748 by Sangeeta Bocanegra RN Amended: Links added.
[2018-12-03 19:45] VITALS: BP 162/93
[2018-12-03] MEDS: PRAVASTATIN 20 MG TAB PO SCH (20:52)
--- NOTE | 2018-12-03 21:42 | NUR ---
IV SITE OBSERVED RED AND PATIENT ITCHING AT THE SITE, IV REMOVED WITH TIP INTACT. IV #20 GAUGE INSERTED TO THE RIGHT HAND, PROCEDURE TOLERATED WELL. VANCOMYCIN INFUSING ORDERED, ASSISTED WITH ADLS, CALL LIGHT WITHIN EASY REACH.
[2018-12-03] MEDS: TEMAZEPAM 15 MG CAP PO SCH (22:48)
[2018-12-04] VITALS (8 sets, daily range): BP systolic 112–154; BP diastolic 66–87
--- NOTE | 2018-12-04 01:15 | NUR ---
PATIENT AMBULATING IN THE [place], HE STATES HE CANNOT SLEEP AND HE REQUESTED SNACKS.
--- NOTE | 2018-12-04 04:23 | NUR ---
ROUNDS MADE, PATIENT OBSERVED SOUNDLY ASLEEP. DRESSINGS INTACT TO BOTH FEET, CALL LIGHT WITHIN EASY REACH.
[2018-12-04] MEDS: OXYCODONE HCL 10 MG TAB CR PO SCH ×3 (06:20→22:19)
[2018-12-04 07:25] LABS: BASOPHILS % 0.6 % (0.0-1.0); EOSINOPHILS # (AUTO) 0.3 (0.0-0.4); EOSINOPHILS % 5.7 % (0.0-6.0); LYMPHOCYTES # (AUTO) 1.9 (1.0-3.2); LYMPHOCYTES % 37.5 % (18.0-39.1); MEAN CORPUSCULAR HEMOGLOBIN 26.9 pg (28-32); MEAN CORPUSCULAR HGB CONC 31.3 g/dL (31-35); MONOCYTES # (AUTO) 0.7 (0.2-0.8); MONOCYTES % 13.6 % (4.4-11.3); NEUTROPHILS # (AUTO) 2.1 (2.1-6.9); NEUTROPHILS % 42.2 % (38.7-80.0); PLATELET COUNT 141 x10e3/uL (140-360); RED BLOOD COUNT 3.72 x10e6/uL (4.3-5.7)
[2018-12-04 08:08] LABS: ANION GAP 12.6 mmol/L (8-16); CREATININE, SERUM 1.27 mg/dL (0.72-1.25); POTASSIUM 4.6 mmol/L (3.5-5.1)
--- NOTE | 2018-12-04 08:13 | NUR ---
critical lab for vanc trough of 12.0, Dr Hoskins notified, per MD clinton to give next dose
[2018-12-04] MEDS ORDERED: SODIUM CHLORIDE 0.9% 250ML 250 ML ONE (08:26)
[2018-12-04] MEDS: ROPINIROLE HCL 0.25 MG TAB PO SCH ×3 (08:30→22:19)
[2018-12-04] MEDS: INSULIN LISPRO 100 UNIT/1 ML 3ML VIAL SQ SCH ×4 (08:30→22:19)
[2018-12-04] MEDS: GABAPENTIN 300 MG CAP PO SCH ×2 (08:30→16:42)
[2018-12-04] MEDS: METFORMIN HCL 850 MG TAB PO SCH ×2 (08:30→16:42)
[2018-12-04] MEDS: VANCOMYCIN 1GM/NS 250 ML 250 ML IV SCH (08:30)
[2018-12-04] MEDS: ASPIRIN 81 MG CHEW TAB PO SCH (08:30)
[2018-12-04] MEDS: CLOPIDOGREL BISULFATE 75 MG TAB PO SCH (08:30)
[2018-12-04] MEDS: CARVEDILOL 12.5 MG TAB PO SCH ×2 (08:30→16:42)
[2018-12-04] MEDS: AMLODIPINE BESYLATE 5 MG TAB PO SCH (08:30)
--- NOTE | 2018-12-04 11:53 | NUR ---
RECEIVED REPORT ON PATIENT. PATIENT IS IN STABLE CONDITION WITH NO S/S OF RESPIRATORY DISTRESS. NO PAIN VOICED. DRESSING TO BLE FEET IS DRY AND INTACT. CALL LIGHT IS WITHIN REACH, PATIENT INSTRUCTED TO CALL FOR ASSISTANCE NEEDED. REPORT GIVEN TO ONCOMING NURSE.
[2018-12-04] MEDS: ONDANSETRON HCL INJ 2MG/ML 2ML 2 MG/ML VIAL IV PRN ×2 (13:32→19:59)
[2018-12-04] MEDS: GLIPIZIDE 5 MG TAB PO SCH (16:42)
[2018-12-04] MEDS ORDERED: ENOXAPARIN SOD INJ 40 MG/0.4 ML SYR SC SCH (17:00)
--- NOTE | 2018-12-04 18:46 | NUR ---
PATIENT IS IN STABLE CONDITION WITH NO S/S OF RESPIRATORY DISTRESS- NO PAIN VOICED. DRESSING INTACT TO BILATERAL FEET- NO DRAINAGE NOTED. CALL LIGHT IS WITHIN REACH, PATIENT INSTRUCTED TO CALL FOR ASSISTANCE NEEDED. REPORT GIVEN TO ONCOMING NURSE.
--- NOTE | 2018-12-04 21:05 | NUR ---
RECEIVED PATIENT FROM OBS UNIT VIA HOSPITAL BED. PATIENT STABLE AT THIS TIME. PAIN REPORTED 7/10, BUT MANAGEABLE. LUNG SOUNDS CLEAR. BOWEL SOUNDS ACTIVE. SKIN INTACT EXCEPT FOR BILATERAL FOOT DIABETIC ULCERS. DRESSING C/D/I. PATIENT REQUESTS SHOWER, WILL DO WOUND CARE AFTER. IV SITE ASYMPTOMATIC, INTACT, AND PATENT. NO S&S OF DISTRESS NOTED AT THIS TIME. PATIENT NOTED STANDING AND AMBULATING, STEADY GAIT NOTED. BED LOCKED IN LOWEST POSITION, SIDE RAILS UPX2, CALL LIGHT IN REACH.
[2018-12-04] MEDS: TEMAZEPAM 15 MG CAP PO SCH (22:19)
[2018-12-04] MEDS: PRAVASTATIN 20 MG TAB PO SCH (22:19)
[2018-12-04] MEDS: VANCOMYCIN HCL 1.25 GM in SODIUM CHLORIDE 0.9% 250ML 250 ML IV SCH (23:00)
[2018-12-05] VITALS: BP 114/70
[2018-12-05 04:00] VITALS: BP 130/80
[2018-12-05] MEDS: OXYCODONE HCL 10 MG TAB CR PO SCH (06:00)
[2018-12-05 07:30] VITALS: BP 165/75
[2018-12-05] MEDS: GLIPIZIDE 5 MG TAB PO SCH (07:30)
[2018-12-05] MEDS: INSULIN LISPRO 100 UNIT/1 ML 3ML VIAL SQ SCH ×2 (07:30→11:30)
--- NOTE | 2018-12-05 07:30 | NUR ---
REC'D PT AAOX3, NO S/S OF DISTRESS, ON ROOM AIR, IV TO RIGHT HAND IS PATENT AND CLEAN. SIDE RAILS UP X2, BED IN LOWEST POSITION, AND CALL MADDEN WITHIN REACH.
[2018-12-05 08:31] VITALS: BP 165/75
[2018-12-05] MEDS: VANCOMYCIN HCL 1.25 GM in SODIUM CHLORIDE 0.9% 250ML 250 ML IV SCH (09:30)
[2018-12-05] MEDS: GABAPENTIN 300 MG CAP PO SCH (10:08)
[2018-12-05] MEDS: CARVEDILOL 12.5 MG TAB PO SCH (10:08)
[2018-12-05] MEDS: ROPINIROLE HCL 0.25 MG TAB PO SCH (10:08)
[2018-12-05] MEDS: METFORMIN HCL 850 MG TAB PO SCH (10:08)
[2018-12-05] MEDS: ASPIRIN 81 MG CHEW TAB PO SCH (10:08)
[2018-12-05] MEDS: AMLODIPINE BESYLATE 5 MG TAB PO SCH (10:08)
[2018-12-05] MEDS: CLOPIDOGREL BISULFATE 75 MG TAB PO SCH (10:08)
[2018-12-05] MEDS: HYDROCODONE/APAP 7.5MG-325MG 1 EA TAB PO PRN (10:41)
[2018-12-05 11:50] VITALS: BP 165/93
[2018-12-05] MEDS ORDERED: ONDANSETRON HCL 4 MG ORAL DISINTEGRATING TAB PO PRN (12:15)
[2018-12-05] MEDS ORDERED: DOXYCYCLINE HY100 MG PO (15:08)
[2018-12-05] MEDS ORDERED: ZOFRAN4 MG SL (15:09)
--- NOTE | 2018-12-05 15:40 | NUR ---
REMOVED IV WITHOUT ANY COMPLICATIONS TO THE SITE. DISCHARGE AND PRESCRIPTIONS GIVEN AND EXPLAINED TO PATIENT. PATIENT UNDERSTOOD. NO S/S OF DISTRESS. ESCORTED PATIENT DOWNSTAIRS AND INTO FAMILY MEMBER'S CAR.
--- NOTE | 2018-12-05 15:40 | NUR ---
DISCUSSED IN ROUNDS, PLAN IS TO SWITCH TO PO ABX AND SEND HOME, NO CM NEEDS.
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
== END 2018-12-05 15:45 | disposition home or self-care (01) ==
LOC: ER 16:28 → ERHOLD 22:03 → INTOOBSV 22:03 → IMCU 12-03 10:07 → MED/SURG3 12-04 21:05
PROVIDERS: ADMIT Internal Medicine; ATTEND Internal Medicine
DX: L03.115 Cellulitis of right lower limb (principal); M54.2 Cervicalgia; E11.42 Type 2 diabetes mellitus with diabetic polyneuropathy; E11.621 Type 2 diabetes mellitus with foot ulcer; V53.5XXA Driver of pick-up truck or van injured in collision with car, pick-up truck or van in traffic accident, initial encounter; Y93.89 Activity, other specified; Y92.410 Unspecified street and highway as the place of occurrence of the external cause; Z86.73 Personal history of transient ischemic attack (TIA), and cerebral infarction without residual deficits; I25.2 Old myocardial infarction; E78.5 Hyperlipidemia, unspecified; Z95.1 Presence of aortocoronary bypass graft; E11.22 Type 2 diabetes mellitus with diabetic chronic kidney disease; I12.9 Hypertensive chronic kidney disease with stage 1 through stage 4 chronic kidney disease, or unspecified chronic kidney disease; N18.3 Chronic kidney disease, stage 3 (moderate); I25.10 Atherosclerotic heart disease of native coronary artery without angina pectoris; Z82.49 Family history of ischemic heart disease and other diseases of the circulatory system; Z80.9 Family history of malignant neoplasm, unspecified; G89.4 Chronic pain syndrome; Z79.891 Long term (current) use of opiate analgesic; E87.1 Hypo-osmolality and hyponatremia; M79.651 Pain in right thigh; Z79.82 Long term (current) use of aspirin; Z79.84 Long term (current) use of oral hypoglycemic drugs
CPT/HCPCS: 36415 ×4; 70450; 72125; 80048; 80053; 80202; 82948 ×3; 85025 ×2; 96365; 96367; 96372; 99284; G0378 ×4; J1650; J2270 ×2; J2405 ×2; J2543; J3370 ×5; J7050 ×2; Q0162

== ENCOUNTER 2018-12-31 19:05 | Inpatient (IN) | payer MEDICARE ==
[~2018-12-31] VITALS: Ht 188 cm; Wt 130.6 kg
[~2018-12-31 19:05] MED LIST changes: +DOXYCYCLINE HY100 MG PO; +ZOFRAN4 MG SL
[2018-12-31] MEDS ORDERED: DEXTROSE 50% SYRINGE 50 ML IV ONE (19:18)
[2018-12-31] MEDS ORDERED: SODIUM CHLORIDE 0.9% 500ML 500 ML IV STA (19:19)
[2018-12-31] MEDS ORDERED: ACETAMINOPHEN 1000 MG/100 ML 100 ML IV ONE (19:22)
[2018-12-31] MEDS ORDERED: ACETAMINOPHEN 1000 MG/100 ML IV STA (19:25)
[2018-12-31 19:43] LABS: BASOPHILS % 0.3 % (0.0-1.0); EOSINOPHILS # (AUTO) 0.1 (0.0-0.4); EOSINOPHILS % 0.6 % (0.0-6.0); HEMATOCRIT 38.6 % (38.2-49.6); HEMOGLOBIN 12.6 g/dL (14.0-18.0); LYMPHOCYTES # (AUTO) 1.5 (1.0-3.2); LYMPHOCYTES % 10.2 % (18.0-39.1); MEAN CORPUSCULAR HEMOGLOBIN 27.6 pg (28-32); MEAN CORPUSCULAR HGB CONC 32.6 g/dL (31-35); MEAN CORPUSCULAR VOLUME 84.5 fL (81-99); MONOCYTES % 6.9 % (4.4-11.3); NEUTROPHILS # (AUTO) 11.6 (2.1-6.9); NEUTROPHILS % 81.4 % (38.7-80.0); PLATELET COUNT 202 x10e3/uL (140-360); RED BLOOD COUNT 4.57 x10e6/uL (4.3-5.7); RED CELL DISTRIBUTION WIDTH 14.8 % (11.7-14.4)
[2018-12-31 20:05] LABS: ALBUMIN 3.5 g/dL (3.5-5.0); ALBUMIN/GLOBULIN RATIO 0.6 (0.8-2.0); ANION GAP 16.6 mmol/L (8-16); CALCIUM 9.3 mg/dL (8.4-10.2); CREATININE, SERUM 1.33 mg/dL (0.72-1.25); POTASSIUM 3.6 mmol/L (3.5-5.1)
[2018-12-31 20:11] LABS: CREATINE KINASE MB 0.4 ng/mL (0-5.0)
--- NOTE | 2018-12-31 20:14 | Diagnostic Imaging Report ---
EXAMINATION: Head CT without contrast. HISTORY:Altered mental status. COMPARISON:CT brain from 12/02/2018. TECHNIQUE: Multidetector axial images were obtained from the foramen magnum to the vertex without contrast. The images were reconstructed using brain and bone algorithms. Thin section brain images were reformatted into coronal and sagittal planes. Dose modulation, iterative reconstruction, and/or weight based adjustment of the mA/kV was utilized to reduce the radiation dose to as low as reasonably achievable. Intravenous contrast: None IMAGE QUALITY: Acceptable. FINDINGS: Skull/scalp: No lytic or blastic. lesions. No surgical changes. Unchanged punctate radiopaque foreign body in superficial mid frontal scalp. Parenchyma: Nonspecific few, scattered supratentorial white matter hypodensity are likely related to chronic small vessel ischemic changes. No acute hemorrhage, mass or acute major vascular territorial infarct. Arteries: No density suggestive of thrombosis. Atherosclerotic calcification in bilateral carotid siphon and V4 segment of left vertebral artery. Dural sinuses: No abnormal density suggestive of thrombosis. Ventricles: No hydrocephalus or displacement. Extra-axial spaces: Unchanged 8 mm linear dystrophic calcification in the anterior aspect of the falx. Brain volume: Normal for age. Craniocervical junction: No mass, Chiari malformation, or basilar invagination. Sella: No mass. Paranasal/mastoid sinuses: Mild mucosal thickening in left sphenoid sinus. IMPRESSION: No acute intracranial abnormality. No change since CT head from 12/02/2018. Chronic findings: Mild supratentorial white matter microvascular ischemic changes. Signed by: Dr. Claudette Katz M.D. on 12/31/2018 8:11 PM
[2018-12-31] MEDS ORDERED: SODIUM CHLORIDE 0.9% 1000ML 1,000 ML IV ONE (20:22)
[2018-12-31] MEDS ORDERED: CEFTRIAXONE SOD 1 GM VIAL IV ONE (20:30)
[2018-12-31] MEDS ORDERED: CEFTRIAXONE SOD 2 GM/NS 100 ML 100 ML IV ONE (20:30)
[2018-12-31] MEDS ORDERED: VANCOMYCIN 1GM/NS 250 ML 250 ML IV ONE ×2 (20:30)
--- NOTE | 2018-12-31 20:59 | Diagnostic Imaging Report ---
A single frontal view of the chest. HISTORY: Sepsis, query pneumonia, effusions COMPARISON: None available. DISCUSSION: Portable technique, limits sensitivity of the exam. Soft tissue attenuation partially limits sensitivity of the exam. Metallic surgical clips project at the left upper thorax. Tubes/Lines: None Lungs and pleura: No evidence of a consolidative pneumonia or pulmonary alveolar edema. No definite pleural effusion or pneumothorax is identified. Heart and mediastinum: The cardiomediastinal silhouette appears unremarkable. Bones and soft tissues: Appear unremarkable, given this limited exam. IMPRESSION: No acute radiographic abnormality. Signed by: Dr. Bayron Olguin D.O., M.M.M. on 12/31/2018 8:56 PM
[2018-12-31 22:03] LABS: BILIRUBIN,URINE NEGATIVE (NEGATIVE); CLARITY,URINE CLEAR (CLEAR); COLOR,URINE YELLOW (YELLOW); KETONES,URINE NEGATIVE (NEGATIVE); LEUKOCYTE ESTERASE ,URINE NEGATIVE (NEGATIVE); NITRITE,URINE NEGATIVE (NEGATIVE); PROTEIN,URINE DIPSTICK 2+ (NEGATIVE); URINE UROBILINOGEN 0.2 mg/dL (0.2 - 1)
[2018-12-31] MEDS ORDERED: SODIUM CHLORIDE 0.9% 1000ML 1,000 ML IV STA (22:10)
[2018-12-31 22:14] LABS: BACTERIA,URINE RARE /HPF; RBC,URINE 0-5 /HPF (0-5); WBC,URINE (MAN) 0-5 /HPF (0-5)
[2018-12-31 22:15] LABS: EPITHELIAL CELLS,URINE RARE /LPF
[2018-12-31] MEDS ORDERED: LIDOCAINE HCL 1% LOCAL INJ 20 ML VIAL ONE (22:59)
--- NOTE | 2018-12-31 23:00 | NUR ---
consent obtained for spinal tap. procedure started with pt leaning on the bedside table. prepped with betadine. pt able to make needs known at this time
--- NOTE | 2018-12-31 23:17 | NUR ---
procedure complete. unable to obtain fluid at this time. pt/spouse updated on poc/pending admit
[2019-01-01] VITALS (8 sets, daily range): BP systolic 129–148; BP diastolic 60–70
[2019-01-01] MEDS ORDERED: IBUPROFEN 200 MG TAB PO PRN
[2019-01-01] MEDS ORDERED: ONDANSETRON HCL INJ 2MG/ML 2ML 2 MG/ML VIAL IV PRN
[2019-01-01] MEDS ORDERED: ZOLPIDEM TARTRATE 5 MG TAB PO PRN
[2019-01-01] MEDS: LACTATED RINGER'S 1,000 ML IV SCH ×2 (00:29→12:54)
--- NOTE | 2019-01-01 00:30 | NUR ---
pt states he "doesnt know his home meds, family will bring it in am"
--- NOTE | 2019-01-01 01:43 | NUR ---
pt placed on tele box 25
[2019-01-01] MEDS ORDERED: DEXTROSE 50% SYRINGE 50 ML IV PRN (01:45)
--- NOTE | 2019-01-01 02:25 | NUR ---
PT RESTING IN BED WITH NO S/S OF DISTRESS.RESPIRATIONS EVEN/NON LABORED.ADMISSION HX,FAMILY HX AND ASSESSMENT DONE.UNABLE TO VERIFY HOME MEDICATIONS AT THIS TIME,PT DOES NOT KNOW THE DOSAGES AND FREQUENCY OF HIS MEDICATIONS,PT DOES NOT HAVE A LIST WITH HIM AT THIS TIME.PT STATED THAT HIS CAN BRING IT TO THE HOSPITAL IN THE MORNING.BED IN THE LOWEST/LOCKED POSITION.BED ALARM ACTIVATED.INSTRUCTED PT TO CALL FOR ASSISTANCE NEEDED BY PRESSING THE CALL LIGHT.PT VERBALIZED UNDERSTANDING.CALL LIGHT WITHIN EASY REACH.
[2019-01-01] MEDS: VANCOMYCIN 1GM/NS 250 ML 250 ML IV SCH ×2 (03:25→15:15)
[2019-01-01 05:33] LABS: BASOPHILS % 0.3 % (0.0-1.0); EOSINOPHILS # (AUTO) 0.3 (0.0-0.4); EOSINOPHILS % 2.7 % (0.0-6.0); HEMATOCRIT 37.9 % (38.2-49.6); LYMPHOCYTES # (AUTO) 2.7 (1.0-3.2); LYMPHOCYTES % 24.8 % (18.0-39.1); MEAN CORPUSCULAR HEMOGLOBIN 27.3 pg (28-32); MEAN CORPUSCULAR HGB CONC 31.7 g/dL (31-35); MEAN CORPUSCULAR VOLUME 86.1 fL (81-99); MONOCYTES % 8.8 % (4.4-11.3); NEUTROPHILS # (AUTO) 6.8 (2.1-6.9); NEUTROPHILS % 62.9 % (38.7-80.0); PLATELET COUNT 157 x10e3/uL (140-360); RED CELL DISTRIBUTION WIDTH 14.9 % (11.7-14.4)
[2019-01-01 05:54] LABS: ANION GAP 15.5 mmol/L (8-16); CALCIUM 8.6 mg/dL (8.4-10.2); CREATININE, SERUM 1.24 mg/dL (0.72-1.25); POTASSIUM 3.5 mmol/L (3.5-5.1)
--- NOTE | 2019-01-01 06:15 | NUR ---
PT'S IV TO LEFT AC CAME OUT,CATH TIP NOTED INTACT.DRESSING APPLIED.NEW IV STARTED TO LEFT FA 20 G.
--- NOTE | 2019-01-01 07:10 | NUR ---
REPORT GIVEN TO ONCOMING NURSE,WALKING ROUNDS MADE.PT RESTING IN BED WITH NO S/S OF DISTRESS.
[2019-01-01] MEDS: INSULIN REGULAR, HUMAN 100 UNIT/1 ML 3ML VIAL SQ SCH ×4 (07:30→21:09)
[2019-01-01 07:44] LABS: EOSINOPHILS % (MANUAL) 2 % (0-7); LYMPHOCYTES % (MANUAL) 25 % (19-48); MONOCYTES % (MANUAL) 8 % (3.4-9.0); NEUTROPHILS % (MANUAL) 65 % (40-74); PLATELET ESTIMATE ADEQUATE; PLATELET MORPHOLOGY COMMENT NORMAL; RBC MORPHOLOGY COMMENT NORMAL
[2019-01-01] MEDS ORDERED: VANCOMYCIN 1GM/NS 250 ML 250 ML IV SCH (09:00)
[2019-01-01] MEDS ORDERED: CEFTRIAXONE SOD 1 GM VIAL IV SCH (09:00)
[2019-01-01] MEDS: FAMOTIDINE 20 MG/2 ML VIAL IV SCH ×2 (09:26→16:53)
[2019-01-01] MEDS: CEFTRIAXONE SOD 1 GM/NS 50 ML 50 ML IV SCH ×2 (10:51→21:33)
[2019-01-01] MEDS ORDERED: NON-FORMULARY MEDICATION (Levocetirizine Dihydrochloride 5 MG) PO PRN (13:45)
[2019-01-01] MEDS ORDERED: NITROGLYCERIN 0.4 MG SUBL SL SCH (13:45)
[2019-01-01] MEDS ORDERED: HYDRALAZINE HCL 10 MG TAB PO PRN (13:45)
[2019-01-01] MEDS ORDERED: LORATADINE 10 MG TAB PO PRN (14:00)
[2019-01-01] MEDS: OXYCODONE HCL 10 MG TAB CR PO SCH ×2 (14:39→23:00)
--- NOTE | 2019-01-01 14:55 | NUR ---
WOUND CARE NURSE INITIAL CONSULTATION. 68 YEAR OLD MALE ADMITTED TO [facility] WITH DX OF DIABETIC FOOT ULCER, SEPSIS AND SKIN INFECTION. HEAD TO TOE SKIN ASSESSMENT PERFORMED TODAY. PT PRESENTS WITH LEFT 2ND TOE ABRASION. 1X0.1X0.3X0.1CM, LEFT 4TH TOE 100% ESCHAR, 0.5X1X0.1CM, BLOOD BLISTER TO LEFT PLANTAR FOOT, WELL WITH 1X0.8X0.7 ULCER TO RIGHT PLANTAR FOOT. DR. KOWALSKI HAS BEEN CONSULTED. CELLULITIS TO LEFT FOOT IS ALSO NOTED. YEAST PRESENT TO RIGHT GROIN. THERE ARE NO OTHER AREAS OF CONCERN NOTED AT THIS TIME. LABS: WBC: 10.76 ALB: 3.5 URINE AND BLOOD CX RESULTS ARE PENDING AT THIS TIME. RECOMMENDATIONS: THANKS FOR THIS CONSULTATION. Addendum: 01/01/19 at 1508 by Sangeeta Bocanegra RN Amended: Links added.
[2019-01-01] MEDS ORDERED: ROPINIROLE HCL 0.25 MG TAB PO SCH (15:00)
--- NOTE | 2019-01-01 15:02 | NUR ---
Nutrition Screen Note RD Recommendation for Physician: -Continue diet as ordered -Rec to obtain HbA1c Plan of Care: RD following, monitoring for tolerance and adequacy Nutrition reason for involvement: Nutrition Risk Trigger MST Primary Diagnose(s): diabetic foot ulcer, sepsis affecting skin PMH: Diabetes, Neuropathy, Peripheral vascular disease, Nonalcoholic steatohepatitis. Ht: 74in Wt: 291lb BMI: 37.4kg/m2 IBW: 190lb +/- 10% RD Assessment: (01/01) Chart reviewed. Labs and meds reviewed. 68yo M, who was admitted for diabetic foot ulcer. Pt had multiple admissions for similar complain in the past. Visited pt in the room. Pt reported good appetite. No GI complains reported. Pt denied any chewing or swallowing difficulty. Weight has been stable. Will continue to monitor and follow. Current Diet: ADA 1800 + Glucerna Malnutrition Evaluation (01/01/2019) The patient does not meet criteria for a specified degree of malnutrition at this time. Will re-evaluate at follow-up as appropriate. Diet Education Needs Assessment: Diet education indicated, pt is not interested. Nutrition Care Level: low Signed: Margarita Jacome, MS, RD, LD
[2019-01-01] MEDS: ROPINIROLE HCL 1 MG TAB PO SCH ×2 (15:15→21:08)
[2019-01-01] MEDS: GLIPIZIDE 5 MG TAB PO SCH (16:53)
[2019-01-01] MEDS: METFORMIN HCL 850 MG TAB PO SCH (16:53)
[2019-01-01] MEDS: CARVEDILOL 12.5 MG TAB PO SCH (16:53)
--- NOTE | 2019-01-01 19:32 | NUR ---
report given to oncoming nurse, pt stable at this time.
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
[2019-01-01] MEDS: PRAVASTATIN 20 MG TAB PO SCH (21:08)
[2019-01-01] MEDS: TEMAZEPAM 15 MG CAP PO SCH (21:08)
[2019-01-01] MEDS: TIZANIDINE HCL 4 MG TAB PO PRN (21:33)
[2019-01-01] MEDS: ACETAMINOPHEN 325 MG TAB PO PRN (22:11)
[2019-01-02] VITALS (8 sets, daily range): BP systolic 107–158; BP diastolic 58–84
[2019-01-02] MEDS: LACTATED RINGER'S 1,000 ML IV SCH ×2 (02:09→15:48)
[2019-01-02] MEDS: VANCOMYCIN 1GM/NS 250 ML 250 ML IV SCH ×2 (03:15→17:35)
[2019-01-02] MEDS: OXYCODONE HCL 10 MG TAB CR PO SCH ×3 (06:40→21:05)
--- NOTE | 2019-01-02 07:10 | NUR ---
REPORT GIVEN TO ONCOMING NURSE.WALKING ROUNDS MADE.PT RESTING IN BED WITH NO S/S OF DISTRESS.
[2019-01-02] MEDS: INSULIN REGULAR, HUMAN 100 UNIT/1 ML 3ML VIAL SQ SCH ×4 (07:30→21:21)
[2019-01-02] MEDS: METFORMIN HCL 850 MG TAB PO SCH (08:00)
[2019-01-02] MEDS: GLIPIZIDE 5 MG TAB PO SCH (08:00)
[2019-01-02] MEDS: ASPIRIN 81 MG CHEW TAB PO SCH (08:39)
[2019-01-02] MEDS: FAMOTIDINE 20 MG/2 ML VIAL IV SCH ×2 (08:39→17:33)
[2019-01-02] MEDS: DOXAZOSIN MESYLATE 2 MG TAB PO SCH (08:40)
[2019-01-02] MEDS: CARVEDILOL 12.5 MG TAB PO SCH ×2 (08:41→17:34)
[2019-01-02] MEDS: DULOXETINE HCL 20 MG DELAYED RELEASE PO SCH (08:41)
[2019-01-02] MEDS: CLOPIDOGREL BISULFATE 75 MG TAB PO SCH (08:45)
[2019-01-02] MEDS: ZINC SULFATE 220 MG CAP PO SCH (08:47)
[2019-01-02] MEDS: NYSTATIN 15 GM POWDER UD BTL TOP SCH (08:47)
[2019-01-02] MEDS: CEFTRIAXONE SOD 1 GM/NS 50 ML 50 ML IV SCH ×2 (08:47→21:03)
[2019-01-02] MEDS: ROPINIROLE HCL 1 MG TAB PO SCH ×3 (08:47→21:03)
[2019-01-02] MEDS: FUROSEMIDE 40 MG TAB PO SCH (08:57)
[2019-01-02] MEDS: DOCUSATE SODIUM 100 MG CAP PO SCH (08:58)
[2019-01-02] MEDS ORDERED: LISINOPRIL 20 MG TAB PO SCH ×2 (09:00→17:00)
[2019-01-02] MEDS ORDERED: DOCUSATE SODIUM 100 MG PO SCH (09:00)
[2019-01-02] MEDS ORDERED: LISINOPRIL 10 MG TAB PO SCH (09:00)
[2019-01-02] MEDS ORDERED: AMLODIPINE BESYLATE 5 MG TAB PO SCH (09:00)
[2019-01-02] MEDS ORDERED: AMLODIPINE BESYLATE 10 MG TAB PO SCH ×2 (09:00→17:00)
[2019-01-02] MEDS ORDERED: GADOBENATE DIMEGLUMINE 1 ML IV ONE (16:05)
[2019-01-02] MEDS: ACETAMINOPHEN 325 MG TAB PO PRN (16:11)
--- NOTE | 2019-01-02 17:40 | Diagnostic Imaging Report ---
TECHNIQUE: Magnetic resonance imaging of the LEFT foot (forefoot) was performed WITH and WITHOUT injected contrast, 20 cc of intravenous MultiHance. HISTORY: Diabetic foot ulcer, toes and ball of foot, red and swollen, broke second toe 2 months ago COMPARISON: Left foot radiographs August 14, 2017. DISCUSSION: Susceptibility artifacts and inhomogeneous fat saturation most notably in the region of the first metatarsophalangeal joint and interspace between the third and fourth metatarsophalangeal joint. Bone: Status post amputation of the first metatarsal bone at the level of the proximal metaphysis. Decreased fatty marrow signal within the distal aspect of the second proximal phalanx and adjacent base of the second middle phalanx, relative paucity of bone marrow edema. Decreased fatty marrow signal of the fourth middle and distal phalanges, with possibly of associated bone marrow edema. Joints: Severe second greater than third metatarsophalangeal valgus deformities. Severe varus deformity at the second proximal interphalangeal joint. Severe arthropathy of the visualized midfoot. Soft Tissues: Diffuse edema and hyperemia of the distal residual forefoot, without a drainable fluid collection. IMPRESSION: 1. Findings involving the distal aspect of the second proximal phalanx, base of the second middle phalanx, middle phalanx of the fourth digit, and distal phalanx of the fourth digit may reflect the sequela of late subacute to chronic osteomyelitis. When allowing for the differences in modalities, these changes have likely progressed since August 2017. 2. No drainable abscess. Signed by: Dr. Bayron Olguin D.O., M.M.M. on 01/02/2019 5:37 PM
[2019-01-02] MEDS ORDERED: GABAPENTIN300 MG PO (17:41)
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
--- NOTE | 2019-01-02 19:15 | NUR ---
Dr. York here to see the patient. Bedside debridement done of left plantar surface near great toe of abscess. Wound culture sent to lab. Patient tolerated well. New wound care instructions given. Updated wound care orders under interventions. Orders received for bilateral xrays to feet. Orders implemented. maintenance technician 2nd shift nurse received patient. Patient in no distress. at bedside. Call watts within reach.
--- NOTE | 2019-01-02 19:45 | NUR ---
Received patient from day nurse, patient is alert and oriented, safety and fall precautions maintained as per hospital protocol: bed in lowest postion and locked, needed items beside bed, call watts close to patient and patient instructed to use it to call nurses for any assistance needed, patient verbalized understanding. patient is currently stable will continue to monitor. Dressing change done by MD with rn at bed side.
--- NOTE | 2019-01-02 19:46 | Diagnostic Imaging Report ---
A single frontal view of the chest. HISTORY: Check line placement COMPARISON: Chest radiograph December 31, 2018. DISCUSSION: Portable technique, limits sensitivity of the exam. Soft tissue attenuation partially limits sensitivity of the exam. Metallic surgical clips project at the left upper thorax. Tubes/Lines: Interval placement of a right upper extremity PICC line, the tip of the catheter projects in the region of the proximal superior vena cava. Lungs and pleura: Low lung volumes result in bibasilar vascular crowding, accentuation of the pulmonary interstitial markings, central pulmonary vasculature, and the cardiac silhouette. Allowing for these limitations, the findings are as follows: No evidence of a consolidative pneumonia or pulmonary alveolar edema. No definite pleural effusion or pneumothorax is identified. Heart and mediastinum: The cardiomediastinal silhouette appears unremarkable. Bones and soft tissues: Appear unremarkable, given this limited exam. IMPRESSION: Status post right upper extremity PICC line placement. Signed by: Dr. Bayron Olguin D.O., M.M.M. on 01/02/2019 7:43 PM
--- NOTE | 2019-01-02 20:38 | Diagnostic Imaging Report ---
BILATERAL FEET - 3 Image(s) HISTORY: Diabetic foot ulcer COMPARISON: MRI of the left foot from earlier the same date. Left foot radiographs August 14, 2017. FINDINGS: Bones: Right: Status post amputation of the right great toe. Second through fifth claw toe deformities. Left: Status post amputation of the left first metatarsal bone at the level of the proximal metaphysis. Subacute to chronic appearing erosions about the second proximal interphalangeal joint and of the tuft of the fourth distal phalanx. Second through fifth claw toe deformities. Joints: Moderate to severe arthropathy of the left midfoot. Soft tissues: Bilateral soft tissue swelling. Multiple small metallic densities projecting at the left distal forefoot. IMPRESSION: 1. Left foot findings about the second proximal interphalangeal joint and of the fourth distal phalanx compatible with osteomyelitis, likely subacute to chronic given the MRI findings. 2. No radiographic evidence of osteomyelitis involving the right foot. Signed by: Dr. Bayron Olguin D.O., M.M.M. on 01/02/2019 8:35 PM
[2019-01-02] MEDS: PRAVASTATIN 20 MG TAB PO SCH (21:03)
--- NOTE | 2019-01-02 22:14 | NUR ---
Dressing reinforced, spots of blood seen on dressing, will continue to monitor.
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
[2019-01-02] MEDS: TEMAZEPAM 15 MG CAP PO SCH (23:51)
[2019-01-03] VITALS (8 sets, daily range): BP systolic 114–167; BP diastolic 58–76
[2019-01-03] MEDS: TIZANIDINE HCL 4 MG TAB PO PRN
--- NOTE | 2019-01-03 01:42 | Consultation ---
DATE OF CONSULTATION: 01/02/2019 REASON FOR CONSULTATION: Cellulitis with multiple grade 2 and 3 ulcerations with an abscess to the forefoot aspect of the left lower extremity with the patient being an insulin-dependent diabetic. HISTORY OF PRESENT ILLNESS: This is a pleasant 68-year-old white male, who was seen accompanied by , who presented through the emergency room Saturday night after suffering from a couple of bouts of fever and chills. The patient relates he has had an ulceration to the plantar aspect of the right foot for more than 6 months and started getting very swollen left lower extremity several weeks ago. PAST MEDICAL HISTORY: Remarkable for insulin-dependent diabetes, hypertension, gout with peripheral arterial disease and diabetic neuropathy. PAST SURGICAL HISTORY: Remarkable for bilateral great toe amputations, 2 hernia surgeries, right knee surgery. ALLERGIES: THE PATIENT DENIES. CURRENT MEDICATIONS: Note listed in the chart including IV vancomycin and ceftriaxone. SOCIAL HISTORY: Stopped drinking 30 years ago, does not drink, do cigarettes, or recreational drug use. Lives with his . FAMILY HISTORY: Noncontributory. REVIEW OF SYSTEMS: CARDIAC: Denies any palpitations or arrhythmias. RESPIRATORY: Denies any shortness of breath or productive cough. GASTROINTESTINAL: Denies any diarrhea or constipation. GENITOURINARY: Denies any problems voiding or hematuria. PHYSICAL EXAMINATION: VITAL SIGNS: Afebrile, pulse rate 74, respirations 18, blood pressure 158/84, and O2 saturation 95%. PODIATRIC: Reveals the following. Vasculature, pedal pulses of both the DP and PT are palpable, but diminished. CFT to all toes less than 5 seconds. Skin temperature warm to touch. NEUROLOGIC: Reveals a complete loss of protective sensation when utilizing Harwood-Sharee 5.07 monofilament wire. MUSCULOSKELETAL: Shows muscle mass to be asymmetrical, some swelling noted to the forefoot aspect of both lower extremities, left worse than right with an abscess formation noted to the plantar aspect with a grade 3 ulcer. DERMATOLOGICAL: There is a grade 2 ulcer, right foot measuring 3 cm in diameter. Has an ulceration with an abscessed in the plantar and lateral aspect of the left foot. LABORATORY DATA: Labs show a white blood cell count of 10.7, dropping from 14.2, hemoglobin 12.0 with a platelet count of 157. ASSESSMENT: Abscess cellulitis of the left foot with a grade 2 ulcer on the right and grade 3 ulcer on the left, measuring more than 3 cm in diameter when debrided. PLAN: Sharp excisional debridement of both ulcerations were done at bedside utilizing a sterile 10 blade. The ulcerations were debrided down to subcutaneous tissue and muscle to the right and left foot respectively. Abscess was encountered and purulent drain was drained and cultured for aerobic and anaerobic growth. Debridement of the ulcers was carried down to good viable bleeding tissue. TheraHoney was then applied followed by diluted wet-to-dry Betadine. We will continue TheraHoney, diluted wet-to-dry Betadine. X-rays of both feet will be ordered to rule out any type of osteomyelitic changes. We will continue to treat conservatively with local wound care and IV. VALENTINA Eric/REYNALDOL /[id number]
[2019-01-03] MEDS: VANCOMYCIN 1GM/NS 250 ML 250 ML IV SCH ×2 (02:36→15:11)
[2019-01-03] MEDS: OXYCODONE HCL 10 MG TAB CR PO SCH ×3 (05:27→22:00)
[2019-01-03 08:18] LABS: ANION GAP 14.8 mmol/L (8-16); BLOOD UREA NITROGEN 12 mg/dL (7-26); BUN/CREATININE RATIO 11 (6-25); CALCIUM 8.6 mg/dL (8.4-10.2); CARBON DIOXIDE 23 mmol/L (22-29); CHLORIDE 99 mmol/L (98-107); CREATININE, SERUM 1.11 mg/dL (0.72-1.25); EST GLOMERULAR FILTRATION RATE > 60 ML/MIN (60-); GLUCOSE 171 mg/dL (74-118); MAGNESIUM 1.7 MG/DL (1.3-2.1); POTASSIUM 3.8 mmol/L (3.5-5.1); SODIUM 133 mmol/L (136-145)
[2019-01-03] MEDS: FAMOTIDINE 20 MG/2 ML VIAL IV SCH ×2 (08:42→17:41)
[2019-01-03] MEDS: ASPIRIN 81 MG CHEW TAB PO SCH (08:42)
[2019-01-03] MEDS: DOCUSATE SODIUM 100 MG CAP PO SCH (08:43)
[2019-01-03] MEDS: DOXAZOSIN MESYLATE 2 MG TAB PO SCH (08:43)
[2019-01-03] MEDS: CLOPIDOGREL BISULFATE 75 MG TAB PO SCH (08:43)
[2019-01-03] MEDS: DULOXETINE HCL 20 MG DELAYED RELEASE PO SCH (08:43)
[2019-01-03] MEDS: CARVEDILOL 12.5 MG TAB PO SCH ×2 (08:43→17:42)
[2019-01-03] MEDS: ROPINIROLE HCL 1 MG TAB PO SCH ×3 (08:44→20:57)
[2019-01-03] MEDS: ZINC SULFATE 220 MG CAP PO SCH (08:44)
[2019-01-03] MEDS: NYSTATIN 15 GM POWDER UD BTL TOP SCH (08:44)
[2019-01-03] MEDS: INSULIN REGULAR, HUMAN 100 UNIT/1 ML 3ML VIAL SQ SCH ×4 (08:44→20:42)
[2019-01-03] MEDS: CEFTRIAXONE SOD 1 GM/NS 50 ML 50 ML IV SCH ×2 (08:44→20:57)
[2019-01-03] MEDS: FUROSEMIDE 40 MG TAB PO SCH (08:58)
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
--- NOTE | 2019-01-03 15:29 | Progress Note ---
DATE: 01/03/2019 SUBJECTIVE: The patient is seen at bedside, doing better. Ulcerations to both lower extremity improving. Denies any history of fever, chills, nausea, or vomiting. OBJECTIVE: VITAL SIGNS: Afebrile, pulse rate 92, respirations 19, blood pressure 133/61, and O2 saturation 98%. EXTREMITIES: Ulcerations to both lower extremities looking better, granular fibrotic base noted. Left ulceration tracking to muscle, had a lot of bleeding yesterday, which was good to flush out the wound. Ulceration right foot also looking better, less than 2 cm in diameter. There is still positive cellulitis and edema in left foot. X-rays were evaluated. No tissue or periosteal reaction. Does have 3 foreign bodies to the left lower extremity consistent with hypodermic insulin needles. Pedal pulses palpable. ASSESSMENT: Grade 3 ulcer, left foot, possible osteo with a grade 2 ulcer, right deep foreign bodies x3, left lower extremity. PLAN: We will continue to treat conservatively. Continue local wound care with TheraHoney, followed by diluted wet-to-dry. Continue IV antibiotics. Foreign bodies may need to be removed depending on how ulcerations starts healing. VALENTINA Eric/VENESSA /[id number]
[2019-01-03] MEDS: LISINOPRIL 20 MG TAB PO SCH (17:42)
[2019-01-03] MEDS: AMLODIPINE BESYLATE 10 MG TAB PO SCH (17:42)
[2019-01-03] MEDS: DIPHENHYDRAMINE HCL INJ 50 MG/ML VIAL IV PRN ×2 (17:49)
--- NOTE | 2019-01-03 19:22 | NUR ---
Patient received sitting up in bed. AAO x 4. Family at bedside. Patient had no complaints of pain. No signs of respiratory distress. Dressing to bilateral feet CDI. Fall precautions implemented. Patient instructed to call for assistance when needed. Call light within reach.
[2019-01-03] MEDS: PRAVASTATIN 20 MG TAB PO SCH (20:57)
[2019-01-03] MEDS: TEMAZEPAM 15 MG CAP PO SCH (20:57)
[2019-01-04] VITALS (7 sets, daily range): BP systolic 100–166; BP diastolic 55–71
--- NOTE | 2019-01-04 02:30 | NUR ---
Blood specimen sent to the lab for analysis of Vancomycin trough level.
[2019-01-04] MEDS: VANCOMYCIN 1GM/NS 250 ML 250 ML IV SCH ×2 (03:00→15:16)
--- NOTE | 2019-01-04 03:45 | NUR ---
general technician called with Vancomycin trough level of 17. Dr. Alba paged. Awaiting call back.
[2019-01-04] MEDS: OXYCODONE HCL 10 MG TAB CR PO SCH ×3 (06:05→22:04)
--- NOTE | 2019-01-04 06:34 | NUR ---
Wound dressing performed on right foot per MD's orders. Patient tolerated well.
--- NOTE | 2019-01-04 06:49 | NUR ---
Shift report given to oncoming nurse.
[2019-01-04] MEDS: FAMOTIDINE 20 MG/2 ML VIAL IV SCH ×2 (08:25→17:04)
[2019-01-04] MEDS: DULOXETINE HCL 20 MG DELAYED RELEASE PO SCH (08:26)
[2019-01-04] MEDS: FUROSEMIDE 40 MG TAB PO SCH (08:26)
[2019-01-04] MEDS: ASPIRIN 81 MG CHEW TAB PO SCH (08:26)
[2019-01-04] MEDS: CARVEDILOL 12.5 MG TAB PO SCH ×2 (08:26→17:00)
[2019-01-04] MEDS: DOCUSATE SODIUM 100 MG CAP PO SCH (08:26)
[2019-01-04] MEDS: DOXAZOSIN MESYLATE 2 MG TAB PO SCH (08:26)
[2019-01-04] MEDS: CLOPIDOGREL BISULFATE 75 MG TAB PO SCH (08:27)
[2019-01-04] MEDS: NYSTATIN 15 GM POWDER UD BTL TOP SCH (08:27)
[2019-01-04] MEDS: CEFTRIAXONE SOD 1 GM/NS 50 ML 50 ML IV SCH ×2 (08:27→22:04)
[2019-01-04] MEDS: ZINC SULFATE 220 MG CAP PO SCH (08:27)
[2019-01-04] MEDS: ROPINIROLE HCL 1 MG TAB PO SCH ×3 (08:27→22:04)
[2019-01-04] MEDS: INSULIN REGULAR, HUMAN 100 UNIT/1 ML 3ML VIAL SQ SCH ×4 (08:29→21:00)
[2019-01-04] MEDS ORDERED: SODIUM CHLORIDE 0.9% 250ML 250 ML ONE (08:40)
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
[2019-01-04] MEDS: AMLODIPINE BESYLATE 10 MG TAB PO SCH (17:00)
[2019-01-04] MEDS: LISINOPRIL 20 MG TAB PO SCH (17:00)
--- NOTE | 2019-01-04 19:25 | NUR ---
Patient received sitting up in bed. AAO x 4. Family at bedside. No acute distress noted. Dressing to Bilateral feet . Call light within reach.
--- NOTE | 2019-01-04 21:45 | Progress Note ---
DATE: 01/04/2019 AGE: 68 years. SUBJECTIVE: The patient at bedside, doing somewhat better. Still has swelling and redness of the left lower extremity, worse than the right. He is denying any history of fever, chills, nausea, or vomiting. OBJECTIVE: VITAL SIGNS: Afebrile, pulse rate 68, respirations 19, blood pressure 119/57, O2 saturation 98%. LABORATORY DATA: Labs noted as a blood glucose of 164. Still cellulitis with a grade 3 ulceration, left foot noted, tracking down to muscle. No bone exposed. Ulceration to the right foot is less than 2 cm in diameter. Some necrosis noted down the subcutaneous tissue, but decreased cellulitis. There is still some drainage to the left lower extremity with negative foul smell. Pedal pulses are palpable. ASSESSMENT: 1. Multiple foreign bodies, left lower extremity including the 4th digit and 2nd metatarsal head x2. 2. Grade 3 ulcer, left. 3. Grade 2 ulcer, right with diabetic neuropathy and possible osteomyelitis. PLAN: Continue IV antibiotics. Continue local wound care. If he does not get any better by Saturday or Saturday, foreign bodies may need to be removed. VALENTINA Eric/VENESSA /[id number]
[2019-01-04] MEDS: PRAVASTATIN 20 MG TAB PO SCH (22:04)
[2019-01-04] MEDS: TEMAZEPAM 15 MG CAP PO SCH (22:04)
[2019-01-04] MEDS: TIZANIDINE HCL 4 MG TAB PO PRN (22:05)
[2019-01-05] VITALS (9 sets, daily range): BP systolic 106–151; BP diastolic 58–83
[2019-01-05] MEDS: VANCOMYCIN 1GM/NS 250 ML 250 ML IV SCH ×2 (03:20→15:00)
--- NOTE | 2019-01-05 03:58 | NUR ---
Wound dressing performed on bilateral feet per MD's orders. No drainage noted. Patient tolerated well.
[2019-01-05] MEDS: OXYCODONE HCL 10 MG TAB CR PO SCH ×3 (06:02→22:08)
--- NOTE | 2019-01-05 07:00 | NUR ---
Walking rounds done. Shift report given to oncoming nurse regarding patient.
--- NOTE | 2019-01-05 07:10 | NUR ---
RCD PT AT BED PT IS ALERT AND ORIENTED RESTING ON BED NO SIGNS OF ANY DISTRESS NOTED IV PATENT BY SALINE FLUSH BED LOW AND LOCKED CALL LIGHT IN REACH
[2019-01-05] MEDS: INSULIN REGULAR, HUMAN 100 UNIT/1 ML 3ML VIAL SQ SCH ×4 (07:30→21:00)
[2019-01-05] MEDS: ASPIRIN 81 MG CHEW TAB PO SCH (09:00)
[2019-01-05] MEDS: NYSTATIN 15 GM POWDER UD BTL TOP SCH (09:00)
[2019-01-05] MEDS: DOXAZOSIN MESYLATE 2 MG TAB PO SCH (09:00)
[2019-01-05] MEDS: DULOXETINE HCL 20 MG DELAYED RELEASE PO SCH (09:00)
[2019-01-05] MEDS: ROPINIROLE HCL 1 MG TAB PO SCH ×3 (09:00→22:08)
[2019-01-05] MEDS: DOCUSATE SODIUM 100 MG CAP PO SCH (09:00)
[2019-01-05] MEDS: FUROSEMIDE 40 MG TAB PO SCH (09:00)
[2019-01-05] MEDS: FAMOTIDINE 20 MG/2 ML VIAL IV SCH (09:00)
[2019-01-05] MEDS: CARVEDILOL 12.5 MG TAB PO SCH ×2 (09:00→16:52)
[2019-01-05] MEDS: ZINC SULFATE 220 MG CAP PO SCH (09:00)
[2019-01-05] MEDS: CLOPIDOGREL BISULFATE 75 MG TAB PO SCH (09:00)
[2019-01-05] MEDS: CEFTRIAXONE SOD 1 GM/NS 50 ML 50 ML IV SCH ×2 (09:30→22:08)
--- NOTE | 2019-01-05 13:26 | NUR ---
CM called and spoke to intake at [facility] and they verified they take pt's insurance. IV antibiotic orders were faxed to [facility].
--- NOTE | 2019-01-05 14:24 | NUR ---
Received call from Sherron at [facility]. She stated they have ran pt's benefits. He will owe $10.71 prior to discharging home from hospital. They will reach out to pt and let him know. She also informed CM that she needs abx order signed by . Will fax once Dr. Parth manzano.
--- NOTE | 2019-01-05 15:15 | NUR ---
Signed abx order faxed to [facility] at [phone]
[2019-01-05] MEDS: FAMOTIDINE 20 MG TAB PO SCH (16:30)
[2019-01-05] MEDS: AMLODIPINE BESYLATE 10 MG TAB PO SCH (16:53)
[2019-01-05] MEDS: LISINOPRIL 20 MG TAB PO SCH (16:53)
--- NOTE | 2019-01-05 19:11 | NUR ---
PT RESTING ON BED BED SIDE REPORT GIVEN TO ONCOMING NURSE
--- NOTE | 2019-01-05 19:15 | NUR ---
Patient received sitting up in bed. AAO x 4. at bedside. No acute distress noted. Call light within reach.
--- NOTE | 2019-01-05 20:25 | Progress Note ---
DATE: 01/05/2019 SUBJECTIVE: The patient at bedside, accompanied by multiple family members. Still concerned the fact that his foot and leg is still red. Denies any history of fever, chills, nausea, or vomiting. OBJECTIVE: VITAL SIGNS: Afebrile, pulse rate 77, respirations 19, blood pressure 151/83, and O2 saturation 96%. EXTREMITIES: He has positive cellulitis noted to both lower extremities with the left being worse than the right. Pedal pulses are diminished. Ulceration healing very slowly. Some drainage noted. Negative foul smell, but very swollen when compared to contralateral side. Ulceration to the plantar aspect of the right foot is getting better. LABORATORY DATA: Labs noted. ASSESSMENT: Grade 3 ulcer left, grade 2 ulcer right with deformed bodies left foot, diabetic neuropathy, and cellulitis with possible osteo. PLAN: We will continue IV antibiotics. Noninvasive arterial Dopplers will be ordered. CBC with diff in a.m. The patient instructed he should possibly consider possible TMA if not any better by the end of the week or removal of foreign bodies. We will continue IV antibiotics, local wound care. Dressings were changed. VALENTINA Eric/VENESSA /[id number]
[2019-01-05] MEDS: PRAVASTATIN 20 MG TAB PO SCH (22:08)
[2019-01-05] MEDS: TEMAZEPAM 15 MG CAP PO SCH (22:08)
[2019-01-05] MEDS: TIZANIDINE HCL 4 MG TAB PO PRN (22:20)
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
--- NOTE | 2019-01-06 01:15 | NUR ---
Patient was desmond from sleep by a sharp pain that felt like 'nerve pain' to his left foot. Patient described it as "stabbing pain" . Motrin 400 mg administered. Patient stated he would need something stronger. Dr. Chela frank. New order received from on-call MD---Jina Hightower ([place]).
[2019-01-06] MEDS: IBUPROFEN 400 MG TAB PO PRN (01:46)
[2019-01-06] MEDS: DIPHENHYDRAMINE HCL INJ 50 MG/ML VIAL IV PRN (03:12)
--- NOTE | 2019-01-06 03:12 | NUR ---
Patient complained of still having pain in his left foot---ankle region (02/10) despite administration of Motrin [address] Jina Dietrich ([facility]) paged. No new orders received. Dr. Muro instructed that dressing on left foot be loosened and patient's left foot be elevated on pillows. Furthermore, Dr.J. York will come and see patient in the morning.
[2019-01-06] MEDS: VANCOMYCIN 1GM/NS 250 ML 250 ML IV SCH ×2 (03:27→15:00)
[2019-01-06 03:40] VITALS: BP 112/59
[2019-01-06 05:42] LABS: BASOPHILS % 0.3 % (0.0-1.0); EOSINOPHILS # (AUTO) 0.3 (0.0-0.4); EOSINOPHILS % 4.5 % (0.0-6.0); HEMATOCRIT 30.2 % (38.2-49.6); HEMOGLOBIN 9.3 g/dL (14.0-18.0); LYMPHOCYTES # (AUTO) 1.7 (1.0-3.2); LYMPHOCYTES % 23.7 % (18.0-39.1); MEAN CORPUSCULAR HEMOGLOBIN 26.6 pg (28-32); MEAN CORPUSCULAR HGB CONC 30.8 g/dL (31-35); MEAN CORPUSCULAR VOLUME 86.3 fL (81-99); MONOCYTES # (AUTO) 0.6 (0.2-0.8); MONOCYTES % 8.2 % (4.4-11.3); NEUTROPHILS # (AUTO) 4.4 (2.1-6.9); NEUTROPHILS % 62.7 % (38.7-80.0); PLATELET COUNT 201 x10e3/uL (140-360); RED CELL DISTRIBUTION WIDTH 14.6 % (11.7-14.4)
[2019-01-06] MEDS: OXYCODONE HCL 10 MG TAB CR PO SCH ×3 (06:00→22:00)
[2019-01-06 06:03] LABS: ANION GAP 14.2 mmol/L (8-16); BLOOD UREA NITROGEN 12 mg/dL (7-26); BUN/CREATININE RATIO 11 (6-25); CALCIUM 8.8 mg/dL (8.4-10.2); CARBON DIOXIDE 25 mmol/L (22-29); CHLORIDE 101 mmol/L (98-107); CREATININE, SERUM 1.06 mg/dL (0.72-1.25); EST GLOMERULAR FILTRATION RATE > 60 ML/MIN (60-); GLUCOSE 154 mg/dL (74-118); POTASSIUM 4.2 mmol/L (3.5-5.1); SODIUM 136 mmol/L (136-145)
--- NOTE | 2019-01-06 07:00 | NUR ---
Patient resting comfortably. Walking rounds done. Shift report given to oncoming nurse.
[2019-01-06] MEDS: FAMOTIDINE 20 MG TAB PO SCH ×2 (07:30→16:30)
[2019-01-06] MEDS: INSULIN REGULAR, HUMAN 100 UNIT/1 ML 3ML VIAL SQ SCH ×4 (07:30→21:00)
[2019-01-06 07:54] VITALS: BP 112/55
[2019-01-06] MEDS: ROPINIROLE HCL 1 MG TAB PO SCH ×3 (09:00→20:50)
[2019-01-06] MEDS: DOXAZOSIN MESYLATE 2 MG TAB PO SCH (09:00)
[2019-01-06] MEDS: ZINC SULFATE 220 MG CAP PO SCH (09:00)
[2019-01-06] MEDS: DULOXETINE HCL 20 MG DELAYED RELEASE PO SCH (09:00)
[2019-01-06] MEDS: CLOPIDOGREL BISULFATE 75 MG TAB PO SCH (09:00)
[2019-01-06] MEDS: CARVEDILOL 12.5 MG TAB PO SCH ×2 (09:00→16:36)
[2019-01-06] MEDS: DOCUSATE SODIUM 100 MG CAP PO SCH (09:00)
[2019-01-06] MEDS: ASPIRIN 81 MG CHEW TAB PO SCH (09:00)
[2019-01-06] MEDS: FUROSEMIDE 40 MG TAB PO SCH (09:00)
[2019-01-06] MEDS: NYSTATIN 15 GM POWDER UD BTL TOP SCH (09:00)
[2019-01-06] MEDS: CEFTRIAXONE SOD 1 GM/NS 50 ML 50 ML IV SCH ×2 (09:03→21:30)
[2019-01-06 09:07] VITALS: BP 112/55
--- NOTE | 2019-01-06 10:00 | NUR ---
DRESSING CHANGED ON BOTH FOOT
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
[2019-01-06 12:00] VITALS: BP 140/84
--- NOTE | 2019-01-06 14:44 | Progress Note ---
DATE: 01/06/2019 SUBJECTIVE: The patient is seen at bedside, doing somewhat better. He was having lot of pain and cramping to the left lower extremity. Yesterday, he was not able to sleep. He is feeling somewhat better now. Denies any history of fever, chills, nausea, or vomiting. OBJECTIVE: VITAL SIGNS: Afebrile, pulse rate 66, respiration 18, blood pressure 112/55, and O2 saturation 96%. EXTREMITIES: Both lower extremities looking somewhat better. Still some positive cellulitis of the left lower extremity with a grade 2 ulceration with some drainage noted. Increased skin temperature all the way up to the mid leg, left foot when compared to the right. Ulceration to the right lower extremity, less than 2 cm in diameter. Granulation tissue noted with no drainage. ASSESSMENT: Grade 2 ulcer right, grade 2/3 ulcer left, cellulitis with also equinus deformity with decreased dorsiflexion with the knee extended opposed to knee flexed. PLAN: We will continue IV antibiotics. The patient relates that he is tending to have a transmetatarsal amputation to try to prevent this from happening again. We will continue to treat with conservatively for now with IV antibiotics, but the cellulitis resolved before any definitive procedure will be done. The patient is instructed he may need to have his Achilles tendon lengthening. We will do a transmetatarsal to ulceration to offload the forefoot aspect of the right foot. We will continue local wound care, IV antibiotics. Continue to follow. VALENTINA Eric/VENESSA /[id number]
[2019-01-06 15:53] VITALS: BP 125/64
[2019-01-06] MEDS: LISINOPRIL 20 MG TAB PO SCH (16:36)
[2019-01-06] MEDS: AMLODIPINE BESYLATE 10 MG TAB PO SCH (16:36)
--- NOTE | 2019-01-06 18:51 | NUR ---
PT RESTING ON BED BED SIDE REPORT GIVEN TO ONCOMING NURSE
--- NOTE | 2019-01-06 19:47 | NUR ---
Received change of shift report from AM nurse. Walking rounds completed.
[2019-01-06 20:14] VITALS: BP 130/63
[2019-01-06] MEDS: PRAVASTATIN 20 MG TAB PO SCH (20:50)
[2019-01-06] MEDS: TEMAZEPAM 15 MG CAP PO SCH (20:56)
[2019-01-06] MEDS: TIZANIDINE HCL 4 MG TAB PO PRN (21:39)
[2019-01-07] VITALS (7 sets, daily range): BP systolic 132–162; BP diastolic 60–77
--- NOTE | 2019-01-07 | NUR ---
Patient received continuous pain meds. Continue monitor.
[2019-01-07] MEDS: VANCOMYCIN 1GM/NS 250 ML 250 ML IV SCH ×2 (03:00→15:22)
[2019-01-07] MEDS: OXYCODONE HCL 10 MG TAB CR PO SCH ×3 (05:51→21:54)
--- NOTE | 2019-01-07 06:00 | NUR ---
Patient resting quitly at this time.
[2019-01-07] MEDS: ASPIRIN 81 MG CHEW TAB PO SCH (09:40)
[2019-01-07] MEDS: CLOPIDOGREL BISULFATE 75 MG TAB PO SCH (09:40)
[2019-01-07] MEDS: DULOXETINE HCL 20 MG DELAYED RELEASE PO SCH (09:40)
[2019-01-07] MEDS: DOCUSATE SODIUM 100 MG CAP PO SCH (09:40)
[2019-01-07] MEDS: FAMOTIDINE 20 MG TAB PO SCH ×2 (09:40→16:35)
[2019-01-07] MEDS: CEFTRIAXONE SOD 1 GM/NS 50 ML 50 ML IV SCH ×2 (09:40→20:44)
[2019-01-07] MEDS: ZINC SULFATE 220 MG CAP PO SCH (09:40)
[2019-01-07] MEDS: INSULIN REGULAR, HUMAN 100 UNIT/1 ML 3ML VIAL SQ SCH ×4 (09:40→20:31)
[2019-01-07] MEDS: NYSTATIN 15 GM POWDER UD BTL TOP SCH (09:40)
[2019-01-07] MEDS: CARVEDILOL 12.5 MG TAB PO SCH ×2 (09:40→16:35)
[2019-01-07] MEDS: ROPINIROLE HCL 1 MG TAB PO SCH ×3 (09:40→20:33)
[2019-01-07] MEDS: DOXAZOSIN MESYLATE 2 MG TAB PO SCH (09:40)
[2019-01-07] MEDS: FUROSEMIDE 40 MG TAB PO SCH (10:04)
--- NOTE | 2019-01-07 15:10 | Progress Note ---
DATE: 01/07/2019 SUBJECTIVE: The patient is seen at bedside, doing somewhat better. Still has cellulitis to both lower extremities, left worse than right. Still some edema present. Denies any history of fever, chills, nausea, or vomiting. OBJECTIVE: VITAL SIGNS: Afebrile, pulse rate 80, respirations 20, blood pressure 162/77, O2 saturation 100%. Labs show white blood cell count of 7.04, hemoglobin 9.3 with a platelet count of 201. Has a blood glucose of 138. Ulcerations to both lower extremities improving, right improving much quicker than the left and some necrosis noted down to muscle, left lower extremity. No bone or tendon exposed. Still some cellulitis surrounding the 1st and 2nd metatarsophalangeal joints with cellulitis up to the mid foot with edema, left also worse than right. Decreased dorsiflexion with the knee extended opposed to knee flexed. A grade 2 ulceration plantar aspect of the right foot, less than 1.5 to 2 cm in diameter. Ulcer to the left lower extremity approximately 3-4 cm in diameter down to muscle. ASSESSMENT: Possible osteomyelitis of left foot, equines deformity foreign bodies x3, with a grade 2 ulcer to the right with diabetic neuropathy. PLAN: We will continue IV antibiotics. Continue local wound care. Continue to let the foot demarcate. Patient is scheduled for definitive procedure sometime on Saturday. VALENTINA Eric/VENESSA /[id number]
[2019-01-07] MEDS: LISINOPRIL 20 MG TAB PO SCH (16:35)
[2019-01-07] MEDS: AMLODIPINE BESYLATE 10 MG TAB PO SCH (16:35)
--- NOTE | 2019-01-07 19:59 | NUR ---
Received change of shift report from AM nurse. Walking rounds completed.
[2019-01-07] MEDS: TEMAZEPAM 15 MG CAP PO SCH (20:33)
[2019-01-07] MEDS: PRAVASTATIN 20 MG TAB PO SCH (20:33)
[2019-01-07] MEDS: TIZANIDINE HCL 4 MG TAB PO PRN (20:38)
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
--- NOTE | 2019-01-07 22:40 | NUR ---
Patient up walking in room with no difficulty noted. Given pain meds that are ordered. Patient states I am ready to go to bed.
[2019-01-08] VITALS (8 sets, daily range): BP systolic 114–145; BP diastolic 61–84
[2019-01-08] MEDS: VANCOMYCIN 1GM/NS 250 ML 250 ML IV SCH ×2 (03:00→15:00)
--- NOTE | 2019-01-08 05:00 | NUR ---
Patient continue to get pain meds around the clock as ordered by MD.
[2019-01-08] MEDS: OXYCODONE HCL 10 MG TAB CR PO SCH (06:00)
--- NOTE | 2019-01-08 07:00 | NUR ---
BEDSIDE SHIFT REPORT RECEIVED FROM THE RIPSAWYER RN. PT DENIES NEEDS AT THIS TIME.
[2019-01-08] MEDS: FAMOTIDINE 20 MG TAB PO SCH ×2 (08:00→17:55)
[2019-01-08] MEDS: INSULIN REGULAR, HUMAN 100 UNIT/1 ML 3ML VIAL SQ SCH ×4 (08:00→21:00)
--- NOTE | 2019-01-08 08:40 | NUR ---
DR. COLE AT BEDSIDE TO SEE THE PT. NEW ORDER RECEIVED. STOP PLAVIX AND ASPIRIN PER DR. COLE FOR THE PROCEDURE ON SATURDAY.
[2019-01-08] MEDS: NYSTATIN 15 GM POWDER UD BTL TOP SCH (09:00)
[2019-01-08] MEDS: CEFTRIAXONE SOD 1 GM/NS 50 ML 50 ML IV SCH ×2 (09:06→22:05)
[2019-01-08] MEDS: DOCUSATE SODIUM 100 MG CAP PO SCH (09:08)
[2019-01-08] MEDS: DULOXETINE HCL 20 MG DELAYED RELEASE PO SCH (09:09)
[2019-01-08] MEDS: CARVEDILOL 12.5 MG TAB PO SCH ×2 (09:09→18:00)
[2019-01-08] MEDS: FUROSEMIDE 40 MG TAB PO SCH (09:10)
[2019-01-08] MEDS: ZINC SULFATE 220 MG CAP PO SCH (09:10)
[2019-01-08] MEDS: ROPINIROLE HCL 1 MG TAB PO SCH ×3 (09:11→22:04)
[2019-01-08] MEDS: DOXAZOSIN MESYLATE 2 MG TAB PO SCH (09:11)
[2019-01-08 09:46] LABS: INR 0.93
[2019-01-08 09:47] LABS: PARTIAL THROMBOPLASTIN TIME 35.6 seconds (23.8-35.5)
--- NOTE | 2019-01-08 15:06 | Progress Note ---
DATE: 01/08/2019 SUBJECTIVE: The patient at bedside, doing somewhat better. Denies any history of fever, chills, nausea, or vomiting. OBJECTIVE: VITAL SIGNS: Afebrile, pulse rate 70, respirations 20, blood pressure 142/80, and O2 saturation 95% percent. EXTREMITIES: Both lower extremities looking a little bit better. Still some cellulitis and increased skin temperature of the left lower extremities. Has a grade 3 ulcer plantar forefoot aspect left lower extremity. No bone or tendon exposed. Some granulation tissue noted. Erythema with an increased skin temperature. Has a grade 2 ulceration plantar aspect right foot, healing less than 2 cm in diameter with necrosis noted down the subcutaneous tissue. Pedal pulse is palpable. Has decreased dorsiflexion with the knee extended opposed to knee flexed. ASSESSMENT: Osteomyelitis, foreign bodies, equinus deformity with a grade 3 ulcer left foot, possible abscess with a grade 2 ulcer right. PLAN: We will continue local wound care and IV antibiotics. The patient will be scheduled for definitive procedure on Saturday morning. We will hold the Plavix and aspirin for now. INR, PT, and PTT ordered. VALENTINA Eric/VENESSA /[id number]
--- NOTE | 2019-01-08 16:32 | NUR ---
Nutrition Follow-up Note RD Recommendation for Physician: - When medically feasible, rec ADA 1800 diet - Rec to obtain HbA1c Plan of Care: RD following, monitoring for tolerance and adequacy Nutrition reason for involvement: Follow up Primary Diagnose(s): Osteomyelitis, foreign bodies, equinus deformity with a grade 3 ulcer left foot, possible abscess with a grade 2 ulcer right. PMH: Diabetes, Neuropathy, Peripheral vascular disease, Nonalcoholic steatohepatitis. Ht: 74in Wt: 291lb; 295.56lb BMI: 37.4kg/m2 IBW: 190lb +/- 10% RD Assessment: (01/08) Pt with fair appetite. PCT recorded 50-100% meal intake. No GI complains reported. Current diet is adequate and appropriate. (01/01) Chart reviewed. Labs and meds reviewed. 68yo M, who was admitted for diabetic foot ulcer. Pt had multiple admissions for similar complain in the past. Visited pt in the room. Pt reported good appetite. No GI complains reported. Pt denied any chewing or swallowing difficulty. Weight has been stable. Will continue to monitor and follow. Current Diet: NPO Malnutrition Evaluation (01/01/2019) The patient does not meet criteria for a specified degree of malnutrition at this time. Will re-evaluate at follow-up as appropriate. Diet Education Needs Assessment: Diet education indicated, pt is not interested. Nutrition Care Level: low Signed: Margarita Jacome, MS, RD, LD
--- NOTE | 2019-01-08 16:45 | NUR ---
GEORGE STEVENS AND INFORMED PT VANC TROUGH LEVEL.
[2019-01-08] MEDS: LISINOPRIL 20 MG TAB PO SCH (18:00)
[2019-01-08] MEDS: AMLODIPINE BESYLATE 10 MG TAB PO SCH (18:00)
--- NOTE | 2019-01-08 19:00 | NUR ---
BEDSIDE SHIFT REPORT GIVEN TO THE CIVIL ENGINEERING PROJECT MANAGER RN. PT DENIES NEEDS AT THIS TIME.
--- NOTE | 2019-01-08 19:32 | NUR ---
Patient received sitting up in bed. AAO x 3. at bedside. No acute distress noted. Dressing to bilateral feet CDI. Call light within reach.
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
[2019-01-08] MEDS: HEPARIN SOD (PORCINE) 5,000 UNIT/ML VIAL SC SCH (21:00)
[2019-01-08] MEDS: PRAVASTATIN 20 MG TAB PO SCH (22:04)
[2019-01-08] MEDS: TIZANIDINE HCL 4 MG TAB PO PRN (22:09)
--- NOTE | 2019-01-08 23:10 | NUR ---
PICC line dressing changed. Patient tolerated well.
[2019-01-09] VITALS (9 sets, daily range): BP systolic 109–150; BP diastolic 55–77
[2019-01-09] MEDS: IBUPROFEN 400 MG TAB PO PRN (02:37)
[2019-01-09] MEDS ORDERED: VANCOMYCIN 1GM/NS 250 ML 250 ML IV SCH (03:00)
[2019-01-09] MEDS ORDERED: SODIUM CHLORIDE 0.9% 250ML 250 ML ONE (04:00)
--- NOTE | 2019-01-09 07:00 | NUR ---
BEDSIDE SHIFT REPORT RECEIVED FROM THE VALIDATION LEADER RN. PT DENIES NEEDS AT THIS TIME.
--- NOTE | 2019-01-09 07:00 | NUR ---
Patient resting comfortably . Walking rounds done. Shift report given to oncoming nurse.
[2019-01-09] MEDS: INSULIN REGULAR, HUMAN 100 UNIT/1 ML 3ML VIAL SQ SCH ×4 (08:00→22:41)
[2019-01-09] MEDS: FAMOTIDINE 20 MG TAB PO SCH ×2 (08:20→17:30)
--- NOTE | 2019-01-09 08:30 | NUR ---
DR. COLE AT BEDSIDE HARRY SEE THE PT. HOLD HEPARIN FROM TOMORROW 01/10/19 PER THE
[2019-01-09] MEDS: DOXAZOSIN MESYLATE 2 MG TAB PO SCH (09:45)
[2019-01-09] MEDS: DULOXETINE HCL 20 MG DELAYED RELEASE PO SCH (09:46)
[2019-01-09] MEDS: FUROSEMIDE 40 MG TAB PO SCH (09:46)
[2019-01-09] MEDS: DOCUSATE SODIUM 100 MG CAP PO SCH (09:46)
[2019-01-09] MEDS: CARVEDILOL 12.5 MG TAB PO SCH ×2 (09:46→17:31)
[2019-01-09] MEDS: CEFTRIAXONE SOD 1 GM/NS 50 ML 50 ML IV SCH ×2 (09:47→20:57)
[2019-01-09] MEDS: ROPINIROLE HCL 1 MG TAB PO SCH ×3 (09:47→20:57)
[2019-01-09] MEDS: ZINC SULFATE 220 MG CAP PO SCH (09:47)
[2019-01-09] MEDS: HEPARIN SOD (PORCINE) 5,000 UNIT/ML VIAL SC SCH ×2 (10:29→21:00)
--- NOTE | 2019-01-09 10:35 | NUR ---
HOLD ON HEPARIN INFORMED DR. HOLLAND PER DR. COLE.
--- NOTE | 2019-01-09 14:32 | Progress Note ---
DATE: 01/09/2019 SUBJECTIVE: The patient at bedside, doing better, having an echocardiogram done. He is denying palpitations, shortness of breath, or chest pain. Denies any history of fever, chills, nausea, or vomiting. OBJECTIVE: VITAL SIGNS: Afebrile, pulse rate 74, respirations 20, blood pressure 147/76, and O2 saturation 96%. EXTREMITIES: Ulcerations to both lower extremity improving. He has a grade 3 ulcer of left foot. Decreased cellulitis to the forefoot aspect of the right lower extremity. There is still some edema and increased skin temperature, left worse than right with a grade 2 ulcer right foot, grade 2 ulcer left. Grade 2 ulcer measuring 1.5 to 2 cm in diameter with some necrosis noted down to the subcutaneous tissue, necrosis noted down to muscle very close to bone and tendon of the left lower extremity with positive forefoot edema and increased skin temperature, with decreased dorsiflexion of the knee extended opposed to knee flexed, left worse than right. LABORATORY DATA: Labs noted, has an INR of 0.93. ASSESSMENT: Equines deformity, grade 3 ulcer and cellulitis with foreign body forefoot aspect right foot and possible osteomyelitis. PLAN: We will continue IV antibiotics for a couple more days. Definitive procedure will be scheduled on Saturday. We will continue IV antibiotics, local wound care, and offloading. VALENTINA Eric/VENESSA /[id number]
[2019-01-09] MEDS: LACTOBACILLUS ACIDOPHILUS CAPSULE PO SCH (17:30)
[2019-01-09] MEDS: AMLODIPINE BESYLATE 10 MG TAB PO SCH (17:30)
[2019-01-09] MEDS: LISINOPRIL 20 MG TAB PO SCH (17:30)
--- NOTE | 2019-01-09 19:00 | NUR ---
BEDSIDE SHIFT REPORT GIVEN TO THE SERGER RN. PT DENIES NEEDS AT THIS TIME.
[2019-01-09] MEDS: PRAVASTATIN 20 MG TAB PO SCH (20:57)
[2019-01-10] VITALS (9 sets, daily range): BP systolic 99–150; BP diastolic 62–98
[2019-01-10] MEDS: VANCOMYCIN 1GM/NS 250 ML 250 ML IV SCH (02:47)
[2019-01-10] MEDS: TIZANIDINE HCL 4 MG TAB PO PRN ×2 (02:48→23:18)
--- NOTE | 2019-01-10 07:00 | NUR ---
BEDSIDE SHIFT REPORT RECEIVED FROM THE RETIREMENT SALES CONSULTANT RN. PT DENIES NEEDS AT THIS TIME.
[2019-01-10] MEDS: INSULIN REGULAR, HUMAN 100 UNIT/1 ML 3ML VIAL SQ SCH ×4 (08:00→21:32)
[2019-01-10] MEDS: FAMOTIDINE 20 MG TAB PO SCH ×2 (08:10→17:30)
[2019-01-10] MEDS: DULOXETINE HCL 20 MG DELAYED RELEASE PO SCH (09:35)
[2019-01-10] MEDS: CARVEDILOL 12.5 MG TAB PO SCH ×2 (09:35→18:00)
[2019-01-10] MEDS: DOCUSATE SODIUM 100 MG CAP PO SCH (09:35)
[2019-01-10] MEDS: DOXAZOSIN MESYLATE 2 MG TAB PO SCH (09:35)
[2019-01-10] MEDS: FUROSEMIDE 40 MG TAB PO SCH (09:36)
[2019-01-10] MEDS: ZINC SULFATE 220 MG CAP PO SCH (09:36)
[2019-01-10] MEDS: ROPINIROLE HCL 1 MG TAB PO SCH ×3 (09:36→21:32)
[2019-01-10] MEDS: CEFTRIAXONE SOD 1 GM/NS 50 ML 50 ML IV SCH ×2 (09:36→21:32)
[2019-01-10] MEDS: LACTOBACILLUS ACIDOPHILUS CAPSULE PO SCH ×2 (09:58→17:55)
--- NOTE | 2019-01-10 13:10 | NUR ---
DR. COLE AT BEDSIDE . PER THE INSTRUCTION FROM DR. COLE, INFORMED CONSENT ORDER PLACED.
--- NOTE | 2019-01-10 14:02 | Progress Note ---
DATE: 01/10/2019 SUBJECTIVE: The patient seen at bedside, doing better, feeling much better. Denies any history of fever, chills, nausea, or vomiting. OBJECTIVE: VITAL SIGNS: Afebrile, pulse rate 74, respirations 18, blood pressure 142/69, O2 saturation 96%. EXTREMITIES: Cellulitis to both lower extremities continue to get better. Still has some cellulitis and edema, left lower extremity compared to the right. Ulceration to the right foot is healing. Has a grade 2 ulcer plantar aspect right foot, less than 1.5 cm in diameter. Has a grade 3 ulcer of the forefoot plantar aspect of the left lower extremity more than 3 cm in diameter with no tendon or bone exposed. There is cellulitis around the metatarsophalangeal joint area medially when compared laterally with cellulitis of the midfoot. Has decreased dorsiflexion with the knee extended as opposed to knee flexed to both lower extremities. LABORATORY DATA: Labs noted. Has an INR of 0.93. ASSESSMENT: Cellulitis, possible abscess with foreign body x3, equinus deformity with osteo. PLAN: We will continue IV antibiotics and local wound care. Definitive procedure will be scheduled for Saturday. Surgery will consist of an I and D, transmetatarsal amputation, Achilles tendon lengthening with rotational flap closure. The patient understands no guarantees can be given. VALENTINA Eric/VENESSA /[id number]
--- NOTE | 2019-01-10 16:38 | Progress Note ---
DATE: SUBJECTIVE: Mr. Shahram Mittal is doing well. REVIEW OF SYSTEMS: HEENT: Negative. PULMONARY: Negative. CARDIAC: Negative. : Negative. PHYSICAL EXAMINATION: GENERAL: He is currently alert, oriented, does not seem in acute distress. VITAL SIGNS: Stable, afebrile. HEENT: Not icteric. NECK: Supple. CHEST: Clear. HEART: S1 and S2. No murmur. ABDOMEN: Soft. Bowel sounds present. EXTREMITIES: No edema. LABORATORY DATA: Reviewed. Chart reviewed. IMPRESSION AND PLAN: 1. Hypertension. 2. Diabetes mellitus. 3. Coronary artery disease. 4. Peripheral vascular disease. 5. Bilateral great toe amputations. 6. Severe neuropathy, mainly [id number]-psi-qcdd. 7. Left partial ray amputation 2016. 8. Abscess of the foot, cellulitis of the foot, concerned about osteomyelitis. The patient is going for debridement on Saturday. Left foot osteo of the second middle phalanx as well as distal phalanx of the 4th digit subacute to chronic dislocation, surgery on Saturday. He is currently on Rocephin and vancomycin. Plan is to obtain intraoperative cultures to finish 14 days of antibiotic post surgery. Depending on the surgical finding, may have to extend the treatment, discussed with the patient. We will follow with you. MD MARVIN Vigil/VENESSA /[id number]
[2019-01-10] MEDS: AMLODIPINE BESYLATE 10 MG TAB PO SCH (17:55)
[2019-01-10] MEDS: LISINOPRIL 20 MG TAB PO SCH (17:55)
--- NOTE | 2019-01-10 19:00 | NUR ---
BEDSIDE SHIFT REPORT GIVEN TO THE MENTAL HEALTH NURSE PRACTITIONER RN. PT FAMILY AT BEDSIDE. PT DENIED FURTHER NEEDS.
[2019-01-10] MEDS: PRAVASTATIN 20 MG TAB PO SCH (21:32)
[2019-01-10] MEDS: TEMAZEPAM 15 MG CAP PO PRN (23:41)
[2019-01-11] VITALS (8 sets, daily range): BP systolic 111–174; BP diastolic 59–81
[2019-01-11] MEDS: VANCOMYCIN 1GM/NS 250 ML 250 ML IV SCH (03:23)
[2019-01-11] MEDS: INSULIN REGULAR, HUMAN 100 UNIT/1 ML 3ML VIAL SQ SCH ×4 (07:30→20:51)
[2019-01-11] MEDS: FAMOTIDINE 20 MG TAB PO SCH ×2 (07:30→16:30)
[2019-01-11] MEDS: DOXAZOSIN MESYLATE 2 MG TAB PO SCH (09:00)
[2019-01-11] MEDS: LACTOBACILLUS ACIDOPHILUS CAPSULE PO SCH ×2 (09:00→17:00)
[2019-01-11] MEDS: CARVEDILOL 12.5 MG TAB PO SCH ×2 (09:00→17:00)
[2019-01-11] MEDS: ZINC SULFATE 220 MG CAP PO SCH (09:00)
[2019-01-11] MEDS: DULOXETINE HCL 20 MG DELAYED RELEASE PO SCH (09:00)
[2019-01-11] MEDS: DOCUSATE SODIUM 100 MG CAP PO SCH (09:00)
[2019-01-11] MEDS: ROPINIROLE HCL 1 MG TAB PO SCH ×3 (09:00→20:51)
[2019-01-11] MEDS: FUROSEMIDE 40 MG TAB PO SCH (09:00)
--- NOTE | 2019-01-11 15:26 | NUR ---
[id number] AND PLAN: 1. Hypertension. 2. Diabetes mellitus. 3. Coronary artery disease. 4. Peripheral vascular disease. 5. Bilateral great toe amputations. 6. Severe neuropathy, mainly kmaah-rce-ajvj. 7. Left partial ray amputation 2016. 8. Abscess of the foot, cellulitis of the foot, concerned about osteomyelitis. The patient is going for debridement on Saturday. Left foot osteo of the second middle phalanx as well as distal phalanx of the 4th digit subacute to chronic dislocation, surgery on Saturday. He is currently on Rocephin and vancomycin. Plan is to obtain intraoperative cultures to finish 14 days of antibiotic post surgery. Depending on the surgical finding, may have to extend the treatment, discussed with the patient. We will follow with laine Damon
--- NOTE | 2019-01-11 16:18 | Progress Note ---
DATE: SUBJECTIVE: Mr. Shahram Mittal is doing well. No complaint. REVIEW OF SYSTEMS: HEENT: Negative. PULMONARY: Negative. CARDIAC: Negative. : Negative. His all other symptoms within normal limit. PHYSICAL EXAMINATION: GENERAL: He is currently alert, oriented, does not seem to be in acute distress. VITAL SIGNS: Stable. Currently afebrile. HEENT: He is not icteric. NECK: Supple. CHEST: Clear. HEART: S1, S2. No S3, S4, or murmur. ABDOMEN: Soft. Bowel sounds present. No tenderness. EXTREMITIES: No edema. IMPRESSION AND PLAN: 1. Osteomyelitis. 2. Obesity. 3. Diabetes mellitus. 4. Neuropathy. 5. Continue with IV antibiotic as ordered. 6. Surgery in the morning. MD MARVIN Vigil/VENESSA /[id number]
[2019-01-11] MEDS: IBUPROFEN 400 MG TAB PO PRN (16:35)
--- NOTE | 2019-01-11 16:59 | Progress Note ---
DATE: 01/11/2019 SUBJECTIVE: The patient is seen at bedside accompanied by and brother, ready for surgical intervention. He is denying any history of fever, chills, nausea, or vomiting. OBJECTIVE: VITAL SIGNS: Afebrile, pulse rate 92, respiration 19, blood pressure 136/74, O2 saturation 97. CHEST: Denies any shortness of breath. No chest pain or palpitations. EXTREMITIES: Cellulitis of the left foot is still positive, has a grade 3 ulceration. No bone or tendon exposed. Has decreased dorsiflexion with the knee extended, opposed any flex, relate some limitation, left worse than right, grade 2 ulcer, right foot, healing with no signs of infection down to subcutaneous tissue. ASSESSMENT: Equinus deformity, osteomyelitis left foot, foreign body x3, grade 3 ulcer with cellulitis and possible abscess. PLAN: The patient will be taken for surgical intervention tomorrow. Proposed surgery plus risks and complications reviewed in great detail. Both the patient and patient's family member were all given time to ask questions. All questions were answered. Consent was signed willingly. Proper postop instructions reviewed including nonweightbearing with the aid of a wheelchair or a knee walker. Procedure to be performed are I and D of abscess, transmetatarsal amputation, Achilles tendon lengthening with rotational flap closure, application of posterior splint will be done. The patient understands no guarantees or warrantees were given. VALENTINA Eric/VENESSA /[id number]
[2019-01-11] MEDS: LISINOPRIL 20 MG TAB PO SCH (17:00)
[2019-01-11] MEDS: AMLODIPINE BESYLATE 10 MG TAB PO SCH (17:00)
--- NOTE | 2019-01-11 19:04 | NUR ---
PT RESTING ON BED BED SIDE REPORT GIVEN TO ONCOMING NURSE
[2019-01-11] MEDS: PRAVASTATIN 20 MG TAB PO SCH (20:51)
[2019-01-11] MEDS: TEMAZEPAM 15 MG CAP PO PRN (22:37)
[2019-01-11] MEDS: TIZANIDINE HCL 4 MG TAB PO PRN (22:37)
[2019-01-12] VITALS: BP 121/66
[2019-01-12] MEDS: VANCOMYCIN 1GM/NS 250 ML 250 ML IV SCH (02:59)
[2019-01-12 04:00] VITALS: BP 127/70
[2019-01-12] MEDS: DIPHENHYDRAMINE HCL INJ 50 MG/ML VIAL IV PRN ×2 (05:09→13:17)
--- NOTE | 2019-01-12 07:00 | NUR ---
Received report from shift engineer. Patient taken for procedure
[2019-01-12] MEDS ORDERED: BETAMETHASONE DISODIUM PHOS 6 MG/ML VIAL ONE (07:03)
[2019-01-12] MEDS ORDERED: BUPIVACAINE HCL 0.5% INJ 30 ML VIAL INJ ONE (07:03)
[2019-01-12] MEDS ORDERED: MUPIROCIN 2% OINT 22 GM TUBE ONE (07:03)
[2019-01-12] MEDS ORDERED: LIDOCAINE HCL 1% LOCAL INJ 20 ML VIAL ONE (07:03)
[2019-01-12] MEDS ORDERED: BACITRACIN 50,000 UNIT VIAL ONE (07:04)
[2019-01-12] MEDS: INSULIN REGULAR, HUMAN 100 UNIT/1 ML 3ML VIAL SQ SCH ×4 (07:30→21:00)
--- NOTE | 2019-01-12 09:40 | NUR ---
Back from procedure. AAOX4 to time, person, place, situation. Respirations even and unlabored. Dressing to Left foot clean, dry, and intact. Elevated with pillows as ordered.
--- NOTE | 2019-01-12 09:43 | Diagnostic Imaging Report ---
EXAMINATION: FOOT LEFT AP LAT INDICATION: Postoperative COMPARISON: Foot radiographs of 01/02/2019 FINDINGS: Postoperative AP and lateral left foot radiographs demonstrate interval postoperative changes of transmetatarsal amputation of the second through fifth rays and prior proximal transmetatarsal first ray application. Alignment is unchanged. No unexpected acute fracture. Overlying gauze material obscures fine bony detail. Degenerative changes at the subtalar joint and midfoot. Achilles enthesopathy. Prominent plantar calcaneal spur. IMPRESSION: Postoperative changes of interval second through fifth ray transmetatarsal amputation. Signed by: Karina Leyva MD on 01/12/2019 9:40 AM
[2019-01-12 10:30] VITALS: BP 141/76
--- NOTE | 2019-01-12 10:30 | NUR ---
" I already have post two post op shoes. My doctor gave them to me a few days ago." Post op shoes noted at bedside
[2019-01-12] MEDS: FAMOTIDINE 20 MG TAB PO SCH ×2 (10:44→16:58)
[2019-01-12] MEDS: FUROSEMIDE 40 MG TAB PO SCH (10:45)
[2019-01-12] MEDS: CARVEDILOL 12.5 MG TAB PO SCH ×2 (10:45→16:57)
[2019-01-12] MEDS: LACTOBACILLUS ACIDOPHILUS CAPSULE PO SCH ×2 (10:45→16:58)
[2019-01-12] MEDS: DULOXETINE HCL 20 MG DELAYED RELEASE PO SCH (10:45)
[2019-01-12] MEDS: MORPHINE SULFATE 2 MG/ML SYR 1ML IV PRN ×3 (10:45→20:35)
[2019-01-12] MEDS: ROPINIROLE HCL 1 MG TAB PO SCH ×3 (10:45→20:29)
[2019-01-12] MEDS: DOXAZOSIN MESYLATE 2 MG TAB PO SCH (10:45)
[2019-01-12] MEDS: DOCUSATE SODIUM 100 MG CAP PO SCH (10:45)
[2019-01-12] MEDS: ZINC SULFATE 220 MG CAP PO SCH (10:45)
[2019-01-12 11:09] LABS: BASOPHILS % 0.4 % (0.0-1.0); EOSINOPHILS # (AUTO) 0.1 (0.0-0.4); EOSINOPHILS % 1.8 % (0.0-6.0); HEMATOCRIT 34.7 % (38.2-49.6); HEMOGLOBIN 10.9 g/dL (14.0-18.0); LYMPHOCYTES # (AUTO) 1.5 (1.0-3.2); LYMPHOCYTES % 18.4 % (18.0-39.1); MEAN CORPUSCULAR HEMOGLOBIN 27.2 pg (28-32); MEAN CORPUSCULAR HGB CONC 31.4 g/dL (31-35); MEAN CORPUSCULAR VOLUME 86.5 fL (81-99); MONOCYTES # (AUTO) 0.2 (0.2-0.8); MONOCYTES % 2.3 % (4.4-11.3); NEUTROPHILS # (AUTO) 6.1 (2.1-6.9); NEUTROPHILS % 76.2 % (38.7-80.0); PLATELET COUNT 221 x10e3/uL (140-360); RED BLOOD COUNT 4.01 x10e6/uL (4.3-5.7); RED CELL DISTRIBUTION WIDTH 14.8 % (11.7-14.4)
[2019-01-12 12:15] VITALS: BP 144/77
--- NOTE | 2019-01-12 12:15 | NUR ---
EDUCATED ABOUT IMM, SIGNED, FILED IN CHART, WITH COPY LEFT WITH FAMILY AT BEDSIDE.
[2019-01-12] MEDS: OXYCODONE HCL 10 MG TAB CR PO SCH ×2 (13:15→22:32)
[2019-01-12] MEDS: OXYCODONE HCL 20 MG TAB CR PO SCH ×2 (13:16→22:32)
[2019-01-12] MEDS ORDERED: OXYCODONE HCL 20 MG TAB CR PO SCH (14:00)
[2019-01-12] MEDS ORDERED: FENTANYL CITRATE/PF 100MCG/2 ML INJ ONE (14:36)
[2019-01-12] MEDS ORDERED: MIDAZOLAM HCL 2 MG/2 ML VIAL ONE (14:36)
--- NOTE | 2019-01-12 15:34 | Operative Report ---
DATE OF PROCEDURE: 01/12/2019 SURGEON: Joce York DPM PREOPERATIVE DIAGNOSES: 1. Cellulitis with abscess, left foot. 2. Osteomyelitis, left foot. 3. Equinus deformity, left foot. 4. Grade 3 ulcer, left foot. POSTOPERATIVE DIAGNOSES: Confirmed. OPERATIVE PROCEDURES: 1. I and D of abscess, left foot. 2. Achilles tendon lengthening, left foot. 3. Transmetatarsal amputation, left foot. 4. Rotational flap closure, left foot. 5. Intraoperative use of fluoroscopy. 6. Application of posterior splint. ANESTHESIA: General. HEMOSTASIS: Pneumatic thigh tourniquet at 350 mmHg. PROCEDURE IN DETAIL: The patient was taken into the operating room and placed on the operative table in supine position. Following induction of general anesthesia by the anesthesiologist, Webril wraps were placed on the patient's left thigh followed by application of left thigh tourniquet. The left lower extremity was then prepped and draped in the usual aseptic manner following procedures then performed. Procedure: #1 Achilles tendon lengthening, left foot: Attention was directed to the posterior aspect of the left leg, where three stab incisions were performed 2 cm from the insertion, proximal to the insertion of the Achilles tendon and 2 cm apart. The stab incisions were entered midline through the Achilles tendon. The most proximal and most distal stab incision were entered midline and exited medially. The middle stab incision was entered midline through the tendon and exited laterally. The foot was then dorsiflexed and passed 90 degrees and the Achilles tendon was felt to lengthen in a V type of fashion. Procedure #2: I and D of abscess, left foot: Attention was then directed to the anterior aspect of the left lower extremity, where incision was carried down to bone, abscess was encountered down to the 2nd metatarsal and the abscess was I and D'd and cultured for aerobic and anaerobic growth secondary to the extent of the abscess, a transmetatarsal was procedure was then performed. Procedure #3: A transmetatarsal amputation was performed: The incision was then carried proximal to the metatarsophalangeal joints in the racquet-shaped type of incision. The incision was deepened down to the metatarsal shaft utilizing a Periosteal Bruce Elevator, the soft tissue attachments to the midshaft area and distal shaft area of metatarsals 2nd through 5th were then freed. Preserving the metatarsal parabola utilizing an oscillating saw, the forefoot was then disarticulated and sent for pathological analysis. Procedure #4: Rotational flap closure: The incision was then carried proximal medially and proximally laterally to create a plantar flap to allow for proper closure. The flap was then dorsally displaced and utilizing 2-0 and 3-0 Vicryl, and 2-0 and 3-0 nylon. The flap was then reapproximated with minimal skin tension and closed after properly cauterizing and lighting all bleeders prior to the flap closure. The thigh tourniquet was released and all pumpers and bleeders were ligated or bovied as necessary. The patient did suffer from pretty good bleeding approximately 50 to 75 mL of blood with blood loss prior to being able to cauterize and Bovie, and ligate all bleeders. All areas were then copiously flushed with sterile antibiotic solution. Prior to the flap being closed, then the flap was then dorsally displaced and utilizing 2-0 and 3-0 Vicryl, and 2-0 and 3-0 nylon for subcutaneous tissue and skin respectively. The flap was then reapproximated with minimal skin tension. Procedure #5: Intraoperative use of fluoroscopy was then used to make sure proper metatarsal parabola was preserved. Procedure #6: Application of posterior splint. A properly placed posterior splint was then applied keeping the foot at 90 degrees with respect to the leg to prevent any type of postoperative complications. Approximately 15 mL of 0.5% plain Marcaine plus 10 mL of 1% Xylocaine plain were then used to achieve local anesthesia of the above-mentioned surgical area. Prior to the application of sterile dressing. The patient will be kept in the hospital for a couple of days for IV antibiotics and local wound care to the right lower extremity and is to remain strict nonweightbearing and the patient understands that no warrantees or guarantees were given, may need a more proximal amputation if not responsive. VALENTINA Eric/VENESSA /[id number]
[2019-01-12 16:00] VITALS: BP 134/67
[2019-01-12] MEDS ORDERED: ONDANSETRON HCL 4 MG ORAL DISINTEGRATING TAB PO PRN (16:30)
[2019-01-12] MEDS: AMLODIPINE BESYLATE 10 MG TAB PO SCH (16:57)
[2019-01-12] MEDS: LISINOPRIL 20 MG TAB PO SCH (16:57)
[2019-01-12] MEDS ORDERED: ONDANSETRON HCL INJ 2MG/ML 2ML 2 MG/ML VIAL ONE (18:32)
[2019-01-12] MEDS ORDERED: DEXAMETHASONE SOD PHOS INJ 4 MG/ML VIAL ONE (18:32)
[2019-01-12] MEDS ORDERED: PROPOFOL IV EMULSION 10 MG/ML 20 ML VIAL ONE (18:32)
[2019-01-12] MEDS ORDERED: SEVOFLURANE INHAL SOLN 250 ML PEN BTL ONE (18:32)
[2019-01-12] MEDS ORDERED: LIDOCAINE HCL 2% LOCAL INJ 5 ML SDV VIAL INJ ONE (18:32)
--- NOTE | 2019-01-12 19:20 | NUR ---
Report given to oncoming nurse of patient's status. Resting in bed. AAOX4 to time, person, place, situation. Respirations even and unlabored. Dressing to LLE clean, dry, and intact. Side rails upx2, call light within reach.
[2019-01-12 20:00] VITALS: BP_SYST 134; BP_SYST 151; BP_DIAS 67; BP_DIAS 83
[2019-01-12] MEDS: PRAVASTATIN 20 MG TAB PO SCH (20:29)
--- NOTE | 2019-01-12 20:37 | NUR ---
RECEIVED PT SITTING ON THE SIDE OF THE BED C/O PAIN .RESPIRATIONS ARE EVEN AND UNLABORED .CALL LIGHT WITH IN REACH .MEDICATED WITH MORPHINE FOR PAIN .CONTINUE TO MONITOR
[2019-01-12] MEDS: TEMAZEPAM 15 MG CAP PO PRN (22:42)
[2019-01-12] MEDS: TIZANIDINE HCL 4 MG TAB PO PRN (22:42)
[2019-01-13] VITALS (7 sets, daily range): BP systolic 103–135; BP diastolic 61–77
[2019-01-13] MEDS: VANCOMYCIN 1GM/NS 250 ML 250 ML IV SCH (04:00)
--- NOTE | 2019-01-13 05:26 | NUR ---
PT C/O PAIN AND GIVEN ORDERED PAIN MEDICATION /PT RESTING .CALL LIGHT WITH IN REACH .CONTINUE TO MONITOR
[2019-01-13 05:28] LABS: BASOPHILS % 0.2 % (0.0-1.0); EOSINOPHILS % 0.2 % (0.0-6.0); HEMATOCRIT 32.4 % (38.2-49.6); HEMOGLOBIN 10.1 g/dL (14.0-18.0); LYMPHOCYTES % 16.7 % (18.0-39.1); MEAN CORPUSCULAR HEMOGLOBIN 27.1 pg (28-32); MEAN CORPUSCULAR HGB CONC 31.2 g/dL (31-35); MEAN CORPUSCULAR VOLUME 86.9 fL (81-99); MONOCYTES # (AUTO) 0.6 (0.2-0.8); MONOCYTES % 5.1 % (4.4-11.3); NEUTROPHILS % 77.1 % (38.7-80.0); PLATELET COUNT 237 x10e3/uL (140-360); RED BLOOD COUNT 3.73 x10e6/uL (4.3-5.7); RED CELL DISTRIBUTION WIDTH 14.9 % (11.7-14.4)
[2019-01-13 05:42] LABS: ANION GAP 12.3 mmol/L (8-16); CALCIUM 9.1 mg/dL (8.4-10.2); CREATININE, SERUM 1.2 mg/dL (0.72-1.25); POTASSIUM 4.3 mmol/L (3.5-5.1)
[2019-01-13] MEDS: OXYCODONE HCL 20 MG TAB CR PO SCH ×3 (06:00→22:16)
[2019-01-13] MEDS: OXYCODONE HCL 10 MG TAB CR PO SCH ×3 (06:00→22:16)
--- NOTE | 2019-01-13 07:21 | NUR ---
BEDSIDE REPORT GIVEN TO THE ONCOMING NURSE
[2019-01-13] MEDS: DULOXETINE HCL 20 MG DELAYED RELEASE PO SCH (08:41)
[2019-01-13] MEDS: ZINC SULFATE 220 MG CAP PO SCH (08:41)
[2019-01-13] MEDS: FAMOTIDINE 20 MG TAB PO SCH ×2 (08:41→16:19)
[2019-01-13] MEDS: DOCUSATE SODIUM 100 MG CAP PO SCH (08:41)
[2019-01-13] MEDS: ROPINIROLE HCL 1 MG TAB PO SCH ×3 (08:41→22:03)
[2019-01-13] MEDS: INSULIN REGULAR, HUMAN 100 UNIT/1 ML 3ML VIAL SQ SCH ×4 (08:41→22:17)
[2019-01-13] MEDS: DOXAZOSIN MESYLATE 2 MG TAB PO SCH (08:42)
[2019-01-13] MEDS: CARVEDILOL 12.5 MG TAB PO SCH ×2 (08:43→16:20)
[2019-01-13] MEDS: LACTOBACILLUS ACIDOPHILUS CAPSULE PO SCH ×2 (08:47→16:20)
[2019-01-13] MEDS: FUROSEMIDE 40 MG TAB PO SCH (08:47)
--- NOTE | 2019-01-13 13:05 | NUR ---
Patient states " As I was heading to [facility] I heard a popping sound to my left foot. I know I have a splint. I don't know if it hurts since I don't have sensation there." Dressing appears clean, dry, and intact. Patient states " I did not put weight into my left foot. Paged Dr.Cuza Shrestha
--- NOTE | 2019-01-13 13:09 | NUR ---
aware of patient's status. States " Have supplies ready, Ill be changing dressing to left foot tomorrow"
--- NOTE | 2019-01-13 13:23 | NUR ---
Updated antibiotic order faxed to [facility] and notified of anticipated discharge for tomorrow.
[2019-01-13] MEDS ORDERED: SODIUM CHLORIDE 0.9% 250ML 250 ML ONE (14:17)
[2019-01-13] MEDS: CEFTRIAXONE SOD 2 GM/NS 100 ML 100 ML IV SCH (14:22)
--- NOTE | 2019-01-13 14:55 | Progress Note ---
DATE: 01/13/2019 Cardiology Progress Note SUBJECTIVE: Patient in bedside, doing well. Denies any history of fever, chills, nausea, or vomiting. PHYSICAL EXAMINATION: VITAL SIGNS: Afebrile, pulse rate 59, respirations 17, blood pressure 122/64, O2 saturation 100%. LABORATORY DATA: Labs noted as a white blood cell count of 11.6, hemoglobin 10.1, hematocrit 32.4 with a platelet count of 237. There was some bloody strike through the dressing of the left lower extremity, ulceration to the right foot continues to improve, less than 2 cm in diameter with some necrosis noted down the subcutaneous tissue. Periwound cellulitis present. No drainage. ASSESSMENT: Grade 2 ulceration right foot with diabetic neuropathy, unrelated to surgery, status post left foot surgery, multiple procedures, doing well. PLAN: Continue nonweightbearing. Continue local wound care to the right foot. Continue IV antibiotics. The patient will possibly be discharged tomorrow. VALENTINA Eric/VENESSA /[id number]
--- NOTE | 2019-01-13 15:28 | NUR ---
supplies left at bedside as ordered by
[2019-01-13] MEDS: LISINOPRIL 20 MG TAB PO SCH (16:20)
[2019-01-13] MEDS: AMLODIPINE BESYLATE 10 MG TAB PO SCH (16:20)
[2019-01-13] MEDS: MORPHINE SULFATE 2 MG/ML SYR 1ML IV PRN (16:20)
--- NOTE | 2019-01-13 19:05 | NUR ---
Bedside shift report received from previous nurse. Call light within reach. at bedside. patient in bed
--- NOTE | 2019-01-13 19:23 | NUR ---
Report given to oncoming nurse of patient's status. Resting in bed. No s/s of acute distress noted. Dressing to Left foot clean, dry, and intact. Side rails upx2, call light within reach, at bedside.
[2019-01-13] MEDS ORDERED: ALTEPLASE RECOMBINANT 2 MG/2 ML VIAL IV NR (20:00)
[2019-01-13] MEDS: TEMAZEPAM 15 MG CAP PO PRN (22:03)
[2019-01-13] MEDS: TIZANIDINE HCL 4 MG TAB PO PRN (22:03)
[2019-01-13] MEDS: PRAVASTATIN 20 MG TAB PO SCH (22:03)
[2019-01-14] VITALS: BP 135/61
[2019-01-14 00:47] VITALS: BP 123/58
[2019-01-14 06:01] VITALS: BP 110/68
[2019-01-14] MEDS: OXYCODONE HCL 10 MG TAB CR PO SCH ×2 (06:07→16:16)
[2019-01-14] MEDS: OXYCODONE HCL 20 MG TAB CR PO SCH ×2 (06:07→16:17)
--- NOTE | 2019-01-14 07:28 | NUR ---
GAVE BEDSHIFT REPORT TO ONCOMING NURSE. PATIENT ASLEEP IN BED. CALL LIGHT WITHIN REACH.
[2019-01-14] MEDS: INSULIN REGULAR, HUMAN 100 UNIT/1 ML 3ML VIAL SQ SCH ×2 (07:30→13:14)
[2019-01-14 08:00] VITALS: BP 128/87
--- NOTE | 2019-01-14 08:30 | NUR ---
Called and spoke with intake at [facility]. Informed that we are anticipating discharge today. They stated they received updated order sent yesterday. Will start processing and will reach out to pt with copay.
[2019-01-14 09:00] VITALS: BP 128/87
[2019-01-14] MEDS ORDERED: HEPARIN SOD (PORCINE) 5,000 UNIT/ML VIAL SC SCH (09:00)
[2019-01-14] MEDS ORDERED: ASPIRIN 81 MG CHEW TAB PO SCH (09:00)
[2019-01-14] MEDS: FUROSEMIDE 40 MG TAB PO SCH (09:08)
[2019-01-14] MEDS: DOCUSATE SODIUM 100 MG CAP PO SCH (09:08)
[2019-01-14] MEDS: ZINC SULFATE 220 MG CAP PO SCH (09:08)
[2019-01-14] MEDS: DULOXETINE HCL 20 MG DELAYED RELEASE PO SCH (09:08)
[2019-01-14] MEDS: CLOPIDOGREL BISULFATE 75 MG TAB PO SCH (09:08)
[2019-01-14] MEDS: ROPINIROLE HCL 1 MG TAB PO SCH ×2 (09:08→16:17)
[2019-01-14] MEDS: LACTOBACILLUS ACIDOPHILUS CAPSULE PO SCH ×2 (09:08→16:17)
[2019-01-14] MEDS: CARVEDILOL 12.5 MG TAB PO SCH ×2 (09:09→16:17)
[2019-01-14] MEDS: DOXAZOSIN MESYLATE 2 MG TAB PO SCH (09:09)
[2019-01-14] MEDS: FAMOTIDINE 20 MG TAB PO SCH ×2 (09:09→16:17)
--- NOTE | 2019-01-14 11:02 | NUR ---
Home health order faxed to [facility] Informed them that pt will discharge home today.
--- NOTE | 2019-01-14 11:06 | NUR ---
EDUCATED ABOUT IMM, SIGNED, FILED IN CHART, WITH COPY LEFT WITH FAMILY AT BEDSIDE.
[2019-01-14 11:53] VITALS: BP 129/87
--- NOTE | 2019-01-14 12:00 | NUR ---
patient noted ambulating and putting weight on left foot. reminded pt of NWB status to left foot and he states MD told him he can walk to restroom and thats it. encouraged use of walker and he refused continuing to walk towards restroom.
--- NOTE | 2019-01-14 12:27 | NUR ---
Called and spoke with Chayo with intake at [facility]. She states pt will be put on schedule to be seen tomorrow. ELMA also called and spoke to Barbara with intake at [facility]. She states they are waiting for pt's to call with credit card information. Once they have that, they can deliver medication tonight. ELMA spoke to pt at bedside. He states that his will call with credit card information when she goes on her lunch break.
--- NOTE | 2019-01-14 13:11 | Progress Note ---
DATE: 01/14/2019 SUBJECTIVE: The patient at bedside, doing well. Denies any history of fever, chills, nausea, or vomiting. OBJECTIVE: VITALS SIGNS: Afebrile, pulse rate 66, respiration 19, blood pressure 128/87, and O2 saturation 99%. EXTREMITIES: Incision site to the left lower extremity inspected. Flap is viable. Good skin color. Skin temperature warm to touch. The patient relates he is doing significantly better and he feels more motion after the Achilles tendon was lengthened. Ulceration to the right lower extremity, unrelated to surgery looking better, less than 2 cm in diameter down to subcutaneous tissue, healing slowly with periwound cellulitis. No signs of infection noted. ASSESSMENT: Diabetic neuropathy grade 2 ulcer, right foot, unrelated to surgery, status post left foot surgery, Achilles tendon lengthening, I and D, transmetatarsal amputation with rotational flap closure with flap viable. PLAN: Sterile dressing was reapplied to the left lower extremity. The patient put back in the posterior splint. Instructed on strict nonweightbearing with crutches or a knee walker. Right foot was also addressed. We will continue Santyl, followed by diluted wet-to-dry Betadine. The patient can be discharged when okay with Dr. Hoskins and the patient instructed upon discharge to follow up in the office next coming Saturday and strict nonweightbearing. VALENTINA Eric/VENESSA /[id number]
[2019-01-14] MEDS: CEFTRIAXONE SOD 2 GM/NS 100 ML 100 ML IV SCH (13:14)
[2019-01-14] MEDS: AMLODIPINE BESYLATE 10 MG TAB PO SCH (16:17)
[2019-01-14] MEDS: LISINOPRIL 20 MG TAB PO SCH (16:17)
--- NOTE | 2019-01-15 02:34 | Discharge Summary ---
PRIMARY CARE DOCTOR: Dr. Johana Wolfe. FINAL DIAGNOSIS: Left toe osteomyelitis with cellulitis. SECONDARY DIAGNOSES: 1. Obesity. 2. Diabetes. 3. Hypertension. 4. Peripheral vascular disease. 5. Coronary artery disease. 6. Chronic pain syndrome. CONSULTANTS: 1. DR. Alba, Infectious Disease. 2. Dr. Eisenberg, Cardiovascular Disease. 3. Dr. Joce York, herb doctor. PROCEDURE/STUDIES PERFORMED: 1. PICC line placement. 2. Head CT. 3. MRI of the foot. 4. Arterial Doppler ultrasound. 5. Left transmetatarsal amputation. HISTORY: Per [facility] HOSPITAL COURSE: The patient was admitted, was started on IV antibiotics. His cellulitis got better; however, on MRI, it also shows that he has osteomyelitis. The decision was made to proceed with left transmetatarsal amputation. A PICC line was placed. Prior to that, the patient was evaluated by Dr. Eisenberg to see about his perfusion for best possible wound healing. After the evaluation, this appears to be adequate. Today is postop day #2 for left transmetatarsal amputation. The patient will be going home with a PICC line and 10 more days of IV Rocephin per ID recommendation. The patient will follow up with Dr. York in 5 days. The patient will also follow up with Infectious Disease doctor. The patient was also told to follow up with his [facility] primary care doctor in 1 week. I have also updated the [facility] primary care doctor about this hospitalization. The patient was seen and examined today. It took 32 minutes total to discharge this patient. CONDITION ON DISCHARGE: Improved. DISCHARGE MEDICATIONS: Please see medication reconciliation form. Yiching MD PETER Quinones/VENESSA /[id number]
== END 2019-01-14 16:43 | disposition home or self-care (01) | DRG 853 ==
LOC: ER 19:05 → ERHOLD 01-01 00:26 → MED/SURG2 01-01 02:01 → UNDODISIN 01-07 14:02
PROVIDERS: ADMIT Internal Medicine; ATTEND Internal Medicine
PROC: 02HV33Z Insertion of Infusion Device into Superior Vena Cava, Percutaneous Approach (ICD-10-PCS; principal; 2019-01-02)
PROC: 0KBV0ZZ Excision of Right Foot Muscle, Open Approach (ICD-10-PCS; 2019-01-03)
PROC: 0KBW0ZZ Excision of Left Foot Muscle, Open Approach (ICD-10-PCS; 2019-01-03)
PROC: 0J9R0ZZ Drainage of Left Foot Subcutaneous Tissue and Fascia, Open Approach (ICD-10-PCS; 2019-01-12)
PROC: 0L8P0ZZ Division of Left Lower Leg Tendon, Open Approach (ICD-10-PCS; 2019-01-12)
PROC: 0Y6N0ZB Detachment at Left Foot, Partial 2nd Ray, Open Approach (ICD-10-PCS; 2019-01-12)
PROC: 0Y6N0ZC Detachment at Left Foot, Partial 3rd Ray, Open Approach (ICD-10-PCS; 2019-01-12)
PROC: 0Y6N0ZD Detachment at Left Foot, Partial 4th Ray, Open Approach (ICD-10-PCS; 2019-01-12)
PROC: 0Y6N0ZF Detachment at Left Foot, Partial 5th Ray, Open Approach (ICD-10-PCS; 2019-01-12)
PROC: 0HXNXZZ Transfer Left Foot Skin, External Approach (ICD-10-PCS; 2019-01-12)
DX: A41.9 Sepsis, unspecified organism (principal); G93.41 Metabolic encephalopathy; L03.115 Cellulitis of right lower limb; M86.8X7 Other osteomyelitis, ankle and foot; L97.518 Non-pressure chronic ulcer of other part of right foot with other specified severity; L97.528 Non-pressure chronic ulcer of other part of left foot with other specified severity; R65.20 Severe sepsis without septic shock; N18.3 Chronic kidney disease, stage 3 (moderate); E11.51 Type 2 diabetes mellitus with diabetic peripheral angiopathy without gangrene; Z79.4 Long term (current) use of insulin; E11.69 Type 2 diabetes mellitus with other specified complication; E78.5 Hyperlipidemia, unspecified; Z89.429 Acquired absence of other toe(s), unspecified side; E11.621 Type 2 diabetes mellitus with foot ulcer; I25.10 Atherosclerotic heart disease of native coronary artery without angina pectoris; Z95.1 Presence of aortocoronary bypass graft; Z79.2 Long term (current) use of antibiotics; I25.2 Old myocardial infarction; E66.9 Obesity, unspecified; Z68.37 Body mass index [BMI] 37.0-37.9, adult; I12.9 Hypertensive chronic kidney disease with stage 1 through stage 4 chronic kidney disease, or unspecified chronic kidney disease; E11.22 Type 2 diabetes mellitus with diabetic chronic kidney disease
CPT/HCPCS: 36415; 36569; 62270; 70450; 71045; 74470; 80048; 80053; 80202; 81001; 82550; 82553; 82948; 83605; 83735; 83880; 84484; 85025; 85610; 85730; 87040; 87071; 87075; 87086; 87205; 87400; 88304; 88307; 88311; 93005; 93306; 93925; 96365; 99284; J0696; J0720; J1100; J1200; J1644; J1817; J2001; J2250; J2270; J2405; J2997; J3010; J3370; J7030; J7040; J7050; J7121; J7799

== ENCOUNTER 2019-02-09 12:34 | Inpatient (IN) | payer MEDICARE ==
[~2019-02-09] VITALS: Ht 188 cm; Wt 133.4 kg
--- OUTSIDE RECORDS SUMMARY | 2019-02-09 12:38 | XMS REPORT | Clinical Summary ---
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 Active nitroglycerin (NITROSTAT) Place 0.4 mg 0 0.4 MG SL tablet under the tongue every 5 (five) minutes as needed for Chest pain Put 1 pill under tongue every 5min as needed for chest pain.No more than 3 doses in 15min.Call 911 if pain is unrelieved 5min after 1st dose . Active oxyCODONE (OXYCONTIN) 10 Take 20 mg by 0 MG 12 hr tablet mouth every 8 hours while awake . Active vancomycin (VANCOCIN) Inject 1,250 0 1250 mg in NS 250 mL mg (V2B) IVPB intravenously every 12 (twelve) hours. Active zinc sulfate (ZINCATE) Take 220 mg 0 220 (50) mg capsule by mouth daily. Active rOPINIRole (REQUIP) 0.25 Take 0.25 mg 0 MG tabletIndications: by mouth Restless Legs Syndrome every night as needed. Active geriatric Take 1 tablet 0 multivitamin-min tablet by mouth daily. 03/06/2019 Active docusate sodium (COLACE) Take 1 0 100 MG capsule capsule (100 8 mg total) by mouth 2 (two) times daily. 03/06/2019 Active gabapentin (NEURONTIN) Take 2 0 300 MG capsule capsules (600 8 mg total) by mouth every morning. 03/06/2019 Active gabapentin (NEURONTIN) Take 3 0 300 MG capsule capsules (900 8 mg total) by mouth nightly. 03/06/2019 Active glipiZIDE (GLUCOTROL) 5 Take 0.5 90 tablet 3 MG tablet tablets (2.5 8 mg total) by mouth 2 (two) times daily before meals. 03/06/2019 Active lisinopril Take 1 tablet 90 tablet 3 (PRINIVIL,ZESTRIL) 2.5 MG (2.5 mg 8 tablet total) by mouth daily. 03/06/2019 Active furosemide (LASIX) 20 MG Take 1 tablet 90 tablet 3 tablet (20 mg total) 8 by mouth daily. 03/06/2019 Active aspirin 81 MG EC tablet Take 1 tablet 90 tablet 3 (81 mg total) 8 by mouth daily. 03/06/2019 Active clopidogrel (PLAVIX) 75 Take 1 tablet 90 tablet 3 mg tablet (75 mg total) 8 by mouth daily. 03/06/2019 Active DULoxetine (CYMBALTA) 20 Take 1 90 capsule 3 MG capsule capsule (20 8 mg total) by mouth daily. 03/06/2019 Active famotidine (PEPCID) 20 MG Take 1 tablet 180 tablet 3 tablet (20 mg total) 8 by mouth 2 (two) times daily. 03/06/2019 Active magnesium oxide (MAG-OX) Take 1 tablet 180 tablet 3 400 mg tablet (400 mg 8 total) by mouth 2 (two) times daily. 03/06/2019 Active metoprolol (LOPRESSOR) 25 Take 1 tablet 180 tablet 3 MG tablet (25 mg total) 8 by mouth 2 (two) times daily. Active oxyCODONE-acetaminophen Take 1 tablet 0 (PERCOCET) 10-325 mg per by mouth 8 tablet every 4 (four) hours as needed for Pain. Max Daily Amount: 6 tablets 03/06/2019 Active polyethylene glycol Take 17 g by 0 (GLYCOLAX) 17 gram packet mouth daily 8 as needed (constipation ). 03/06/2019 Active pravastatin (PRAVACHOL) Take 1 tablet 90 tablet 3 20 MG tablet (20 mg total) 8 by mouth daily. 02/24/2018 Discontinued nitroglycerin (NITROSTAT) Place 0.4 mg 0 0.4 MG SL tablet under the tongue every 5 (five) minutes as needed for Chest pain Put 1 pill under tongue every 5min as needed for chest pain.No more than 3 doses in 15min.Call 911 if pain is unrelieved 5min after 1st dose . 02/24/2018 Discontinued pravastatin (PRAVACHOL) Take 20 mg by 0 20 MG tablet mouth every evening . 02/24/2018 Discontinued clopidogrel (PLAVIX) 75 Take 75 mg by 0 mg tablet mouth daily. 02/24/2018 Discontinued TiZANidine (ZANAFLEX) 4 Take 4 mg by 0 MG capsule mouth 3 (three) times daily Patient took one at 5am and another at 8am today and does not recall how many he took last night due to back pain ("a couple") . 02/24/2018 Discontinued metFORMIN (GLUMETZA) 500 Take 500 mg 0 MG (MOD) 24 hr tablet by mouth nightly. 02/24/2018 Discontinued glipiZIDE (GLUCOTROL) 10 Take 10 mg by 0 MG tablet mouth 2 (two) times daily before meals. 02/08/2018 Discontinued oxyCODONE (OXYCONTIN) 30 Take 10 mg by 0 MG Tb12 mouth 2 (two) times daily . 02/24/2018 Discontinued silver-foam bandage Apply 0 (AQUACEL AG FOAM) 1.2 %- topically. 10" X 12" Bndg 02/24/2018 Discontinued zinc acetate (AMERIGEL) Apply 0 Oint topically. 02/24/2018 Discontinued docusate sodium (COLACE) Take 100 mg 0 100 MG capsule by mouth 2 (two) times daily. 02/18/2018 aspirin 81 MG chewable Take 1 tablet 30 tablet 0 tablet (81 mg total) 8 by mouth daily for 30 days. 02/08/2018 Discontinued colchicine (COLCRYS) 0.6 Take 1 tablet 21 tablet 0 mg tablet (0.6 mg 8 total) by mouth daily for 21 days. 02/18/2018 furosemide (LASIX) 20 MG Take 1 tablet 30 tablet 0 tablet (20 mg total) 8 by mouth daily for 30 days. 02/18/2018 lisinopril Take 1 tablet 30 tablet 0 (PRINIVIL,ZESTRIL) 2.5 MG (2.5 mg 8 tablet total) by mouth daily for 30 days. 02/08/2018 Discontinued oxyCODONE (OXYCONTIN) 30 Take 30 mg by 30 each 0 mg TR12 mouth every 6 8 (six) hours as needed. Max Daily Amount: 120 mg 02/17/2018 metoprolol (LOPRESSOR) 25 Take 1 tablet 60 tablet 0 MG tablet (25 mg total) 8 by mouth 2 (two) times daily for 30 days. 02/24/2018 Discontinued DULoxetine (CYMBALTA) 20 Take 20 mg by 0 MG capsule mouth daily. 02/24/2018 Discontinued oxyCODONE (OXYCONTIN) 10 Take 20 mg by 0 MG 12 hr tablet mouth 3 (three) times daily . 02/08/2018 Discontinued vancomycin (VANCOCIN) Inject 250 0 IVPB 1250 mg in sodium mLs (1,250 mg 8 chloride 0.9% (NS) 250 mL total) intravenously every 12 (twelve) hours. 02/24/2018 Discontinued vancomycin (VANCOCIN) Inject 250 0 IVPB 1250 mg in sodium mLs (1,250 mg 8 chloride 0.9% (NS) 250 mL total) intravenously every 12 (twelve) hours for 36 days. 02/24/2018 Discontinued amLODIPine (NORVASC) 5 MG Take 5 mg by 0 tablet mouth daily . 02/24/2018 Discontinued aspirin 81 MG EC tablet Daily 0 02/24/2018 Discontinued sodium hypochlorite Apply to foot 0 (DAKINS) 0.125 % Soln with dressing 7 external solution change 02/24/2018 Discontinued famotidine (PEPCID) 20 MG TAKE TWO 0 tablet TABLETS BY 8 MOUTH TWICE A DAY 02/24/2018 Discontinued furosemide (LASIX) 40 MG Take 40 mg by 0 tablet mouth every morning . 02/24/2018 Discontinued gabapentin (NEURONTIN) Take 300 mg 0 300 MG capsule by mouth Take 2 capsules in the morning and 3 capsules by mouth in the evening every day. 02/24/2018 Discontinued hydrALAZINE (APRESOLINE) Take 10 mg by 0 10 MG tablet mouth as needed (for high blood pressure) . 02/24/2018 Discontinued insulin 70/30, insulin Inject 45 0 NPH-insulin regular, Units (HUMULIN 70/30) 100 subcutaneousl unit/mL (70-30) injection y. 02/24/2018 Discontinued levocetirizine (XYZAL) 5 TAKE ONE 0 MG tablet TABLET BY 8 MOUTH AT BEDTIME NEEDED FOR ALLERGIES and itching 02/24/2018 Discontinued lisinopril Take 2.5 mg 0 (PRINIVIL,ZESTRIL) 2.5 MG by mouth. tablet 02/24/2018 Discontinued metoprolol (LOPRESSOR) 25 Take 25 mg by 0 MG tablet mouth. 02/24/2018 Discontinued multivitamin per tablet Take by 0 mouth. 02/24/2018 Discontinued oxyCODONE-acetaminophen Take 1 tablet 0 (PERCOCET) 10-325 mg per by mouth. 8 tablet 02/24/2018 Discontinued rOPINIRole (REQUIP) 0.25 Take 0.25 mg 0 MG tablet by mouth. 02/24/2018 Discontinued temazepam (RESTORIL) 15 Take 15 mg by 0 mg capsule mouth. 02/24/2018 Discontinued zinc sulfate (ZINCATE) Take 220 mg 0 220 (50) mg capsule by mouth. 03/06/2018 Discontinued aspirin 81 MG EC tablet Take 81 mg by 0 mouth daily. 03/06/2018 Discontinued clopidogrel (PLAVIX) 75 Take 75 mg by 0 mg tablet mouth daily. 03/06/2018 Discontinued docusate sodium (COLACE) Take 100 mg 0 100 MG capsule by mouth 2 (two) times daily as needed for Constipation. 03/06/2018 Discontinued DULoxetine (CYMBALTA) 20 Take 20 mg by 0 MG capsule mouth daily. 03/06/2018 Discontinued furosemide (LASIX) 20 MG Take 20 mg by 0 tablet mouth daily. 03/06/2018 Discontinued glipiZIDE (GLUCOTROL) 10 Take 20 mg by 0 MG tablet mouth every morning before breakfast. 03/06/2018 Discontinued lisinopril Take 2.5 mg 0 (PRINIVIL,ZESTRIL) 2.5 MG by mouth tablet daily. 03/06/2018 Discontinued metoprolol (LOPRESSOR) 25 Take 25 mg by 0 MG tablet mouth 2 (two) times daily. 03/06/2018 Discontinued pravastatin (PRAVACHOL) Take 20 mg by 0 20 MG tablet mouth daily. 03/06/2018 Discontinued TiZANidine (ZANAFLEX) 4 Take 4 mg by 0 MG capsule mouth 3 (three) times daily as needed for Muscle spasms. 03/06/2018 Discontinued famotidine (PEPCID) 20 MG Take 20 mg by 0 tablet mouth 2 (two) times daily. 03/06/2018 Discontinued gabapentin (NEURONTIN) Take 300 mg 0 300 MG capsule by mouth every morning. 03/06/2018 Discontinued gabapentin (NEURONTIN) Take 900 mg 0 300 MG capsule by mouth nightly. 03/06/2018 Discontinued oxyCODONE-acetaminophen Take 1 tablet 0 (PERCOCET) 10-325 mg per by mouth tablet every 4 (four) hours as needed for Pain. 03/20/2018 bisacodyl (DULCOLAX) 10 Place 1 0 mg suppository suppository 8 (10 mg total) rectally daily as needed (For constipation. Take if you do not have a BM.) for up to 14 days. 04/08/2018 vancomycin (VANCOCIN) Inject 250 70480 mL 0 IVPB 1250 mg in sodium mLs (1,250 mg 8 chloride 0.9% (NS) 250 mL total) intravenously every 12 (twelve) hours for 32 days. 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 Acute blood loss anemia 03/05/2018 CKD stage 2 due to type 2 diabetes mellitus 03/05/2018 GERD (gastroesophageal reflux disease) 03/05/2018 MRSA Mediastinitis 02/26/2018 Postoperative infection of wound of sternum, initial encounter 02/24/2018 Acute on chronic diastolic heart failure 02/24/2018 Coronary artery disease involving coronary bypass graft of [place] heart 02/24/2018 without angina pectoris Chronic anemia 02/24/2018 Acute kidney injury superimposed on CKD 02/24/2018 Chronic back pain greater than 3 months duration 02/24/2018 Hyperlipidemia 02/24/2018 Chronic heel ulcer, left, with unspecified severity 02/24/2018 Acute chest wall pain 01/31/2018 Essential hypertension 05/05/2015 History of CVA (cerebrovascular accident)- 1990s 05/05/2015 Diabetes mellitus type 2, noninsulin dependent 05/05/2015 Resolved Problems Problem Noted Date Resolved Date S/P CABG (coronary artery bypass graft) 01/31/2018 02/24/2018 Fever 01/31/2018 02/24/2018 Nausea & vomiting 01/31/2018 02/24/2018 Bradycardia 07/06/2016 02/24/2018 Hyponatremia 05/09/2015 02/24/2018 Chronic ulcer of leg (HCC)- right, since 201105/05/2015 02/24/2018 History of myocardial infarction- x2; 1990s 05/05/2015 02/24/2018 Chronic pain- on methadone 05/05/2015 02/24/2018 Acute exacerbation of CHF (congestive heart failure) 05/05/2015 02/24/2018 Other hypervolemia 02/24/2018 Hyperglycemia 02/24/2018 Respiratory insufficiency 02/24/2018 Peripheral neuropathic pain 02/24/2018 Encounters Care Team Description Date Type Specialty Reggie Armas MD 02/26/2018 Anesthesia Event Zaki Jones MD DEBRIDEMENT/I&D,STERNUM 02/26/2018 Surgery Mynor Kim MD Quadri, Syed M., MD Mitchell, MD Danita Martinez Tuyen V., MD Chest pain, unspecified type (Primary Dx); Nausea and vomiting, intractability of vomiting not specified, unspecified vomiting type; S/P CABG (coronary artery bypass graft); Mediastinitis 02/24/2018 Hospital Cardiology - Encounter 03/06/2018 02/24/2018 Orders Only General Internal Medicine Rodríguez Marrero MD Mitchell, MD Germaine Martinez, Anu Aaron MD Precordial pain (Primary Dx); S/P CABG (coronary artery bypass graft); Fever, unspecified fever cause 01/31/2018 Hospital Cardiology - Encounter 02/08/2018 after 02/08/2018 Family History Medical History Relation Name Comments Diabetes Father Hypertension Father Relation Name Status Comments Father Social History Date Tobacco Use Types Packs/Day Years Used Never Smoker Smokeless Tobacco: Never Used Alcohol Use Drinks/Week oz/Week Comments No Sex Assigned at Date Recorded Not on file Industry Job Start Date Occupation Not on file Not on file Not on file Travel End Travel History Travel Start No recent travel history available. Last Filed Vital Signs Time Taken Vital Sign Reading 03/06/2018 11:00 AM CDT Blood Pressure 169/81 03/06/2018 11:00 AM CDT Pulse 57 03/06/2018 11:00 AM CDT Temperature 36.3 C (97.4 F) 03/06/2018 11:00 AM CDT Respiratory Rate 20 03/06/2018 11:00 AM CDT Oxygen Saturation 97% 03/04/2018 9:59 PM CDT Inhaled Oxygen 21% Concentration 03/06/2018 7:30 AM CDT Weight 125.1 kg (275 lb 11.2 oz) 02/26/2018 5:06 AM CDT Height 188 cm (6' 2") 03/06/2018 7:30 AM CDT Body Mass Index 35.4 Plan of Treatment Not on file Implants Device Identifier Shelf Expiration Date Model / Serial / Lot Implanted Type Area Manufactur er 08/31/2020 620-010 / / [id number] Bone Putty Stimulan 10 620-010 - Cement/Giovani N/A: Sternum BIOCOMPOSI [id number] ler/Adhesi [id number] Implanted: Qty: 1 on 02/26/2018 by Zaki Cutler MD 08/28/2020 [id number] / / [id number] Hemstas Mph Absorb Hemo 3gr Cement/Giovani N/A: Sternum MEDAFOR [id number] - [id number] ler/Adhesi HEMOSTATIC Implanted: Qty: 1 on 02/26/2018 by Zaki Keller MD ANDREW 10/28/2022 [id number] / / [id number] Patch Vasc [place] 1.65mm 1x6in Graft/Patc Chest CR [id number] - [id number] BARD:PERIP Implanted: Qty: 1 on 01/14/2018 by HERAL Reggie Guardado MD Procedures Comments Procedure Name Priority Date/Time Associated Diagnosis RHYTHM STRIP - SCAN 09/26/2018 10:20 AM CDT TRANSFUSE LEUKO-REDUCED Routine 07/10/2018 RED BLOOD CELLS 5:32 PM ASPHALT STILL OPERATOR RHYTHM STRIP - SCAN 03/10/2018 12:50 PM CDT POCT-GLUCOSE METER Routine 03/06/2018 1:31 PM CDT POCT-GLUCOSE METER Routine 03/06/2018 9:17 AM CDT POCT-GLUCOSE METER Routine 03/05/2018 9:08 PM CDT POCT-GLUCOSE METER Routine 03/05/2018 7:03 PM CDT TRANSFUSION SERVICE 03/05/2018 REPORT - SCAN 6:01 PM CDT POCT-GLUCOSE METER Routine 03/05/2018 5:35 PM CDT POCT-GLUCOSE METER Routine 03/05/2018 12:58 PM CDT POCT-GLUCOSE METER Routine 03/05/2018 9:13 AM CDT HEMOGLOBIN AND HEMATOCRIT Routine 03/05/2018 5:30 AM CDT PREPARE LEUKO-REDUCED RBC Routine 03/04/2018 11:54 PM CDT POCT-GLUCOSE METER Routine 03/04/2018 9:10 PM CDT TRANSFUSION SERVICE 03/04/2018 REPORT - SCAN 6:00 PM CDT POCT-GLUCOSE METER Routine 03/04/2018 5:43 PM CDT POCT-GLUCOSE METER Routine 03/04/2018 1:59 PM CDT POCT-GLUCOSE METER Routine 03/04/2018 9:00 AM CDT BASIC METABOLIC PANEL (7) Routine 03/04/2018 5:14 AM CDT HEMOGLOBIN AND HEMATOCRIT Routine 03/04/2018 5:14 AM CDT POCT-GLUCOSE METER Routine 03/03/2018 9:09 PM CDT POCT-GLUCOSE METER Routine 03/03/2018 4:34 PM CDT TYPE AND SCREEN, Routine 03/03/2018 AUTOMATED 12:03 PM CDT POCT-GLUCOSE METER Routine 03/03/2018 10:23 AM CDT CBC W/PLT COUNT & AUTO Routine 03/03/2018 DIFFERENTIAL 5:00 AM CDT PHOSPHORUS Routine 03/03/2018 5:00 AM CDT MAGNESIUM Routine 03/03/2018 5:00 AM CDT CBC W/PLT COUNT & AUTO Routine 03/03/2018 DIFFERENTIAL 5:00 AM CDT BASIC METABOLIC PANEL (7) Routine 03/03/2018 5:00 AM CDT POCT-GLUCOSE METER Routine 03/02/2018 9:31 PM CDT POCT-GLUCOSE METER Routine 03/02/2018 5:50 PM CDT POCT-GLUCOSE METER Routine 03/02/2018 5:31 PM CDT POCT-GLUCOSE METER Routine 03/02/2018 1:08 PM CDT POCT-GLUCOSE METER Routine 03/02/2018 9:20 AM CDT CBC W/PLT COUNT & AUTO Routine 03/02/2018 DIFFERENTIAL 5:40 AM CDT CBC W/PLT COUNT & AUTO Routine 03/02/2018 DIFFERENTIAL 5:40 AM CDT MAGNESIUM Routine 03/02/2018 5:40 AM CDT BASIC METABOLIC PANEL (7) Routine 03/02/2018 5:40 AM CDT POCT-GLUCOSE METER Routine 03/01/2018 8:55 PM CDT VANCOMYCIN LEVEL, TROUGH Timed 03/01/2018 8:43 PM CDT POCT-GLUCOSE METER Routine 03/01/2018 6:13 PM CDT POCT-GLUCOSE METER Routine 03/01/2018 1:30 PM CDT POCT-GLUCOSE METER Routine 03/01/2018 8:44 AM CDT HEMOGLOBIN Routine 03/01/2018 7:26 AM CDT CBC W/PLT COUNT & AUTO Routine 03/01/2018 DIFFERENTIAL 6:17 AM CDT CBC W/PLT COUNT & AUTO Routine 03/01/2018 DIFFERENTIAL 6:17 AM CDT MAGNESIUM Routine 03/01/2018 6:17 AM CDT BASIC METABOLIC PANEL (7) Routine 03/01/2018 6:17 AM CDT POCT-GLUCOSE METER Routine 02/28/2018 9:35 PM CDT POCT-GLUCOSE METER Routine 02/28/2018 6:30 PM CDT POCT-GLUCOSE METER Routine 02/28/2018 1:32 PM CDT POCT-GLUCOSE METER Routine 02/28/2018 10:01 AM CDT CBC W/PLT COUNT & AUTO Routine 02/28/2018 DIFFERENTIAL 4:55 AM CDT B-TYPE NATRIURETIC FACTOR Routine 02/28/2018 (BNP) 4:55 AM CDT CBC W/PLT COUNT & AUTO Routine 02/28/2018 DIFFERENTIAL 4:55 AM CDT MAGNESIUM Routine 02/28/2018 4:55 AM CDT BASIC METABOLIC PANEL (7) Routine 02/28/2018 4:55 AM CDT POCT-GLUCOSE METER Routine 02/27/2018 9:28 PM CDT TRANSFUSION SERVICE 02/27/2018 REPORT - SCAN 6:00 PM CDT POCT-GLUCOSE METER Routine 02/27/2018 12:35 PM CDT POCT-GLUCOSE METER Routine 02/27/2018 8:57 AM CDT CBC W/PLT COUNT & AUTO Routine 02/27/2018 DIFFERENTIAL 5:39 AM CDT B-TYPE NATRIURETIC FACTOR Routine 02/27/2018 (BNP) 5:39 AM CDT MAGNESIUM Routine 02/27/2018 5:39 AM CDT BASIC METABOLIC PANEL (7) Routine 02/27/2018 5:39 AM CDT CBC W/PLT COUNT & AUTO Routine 02/27/2018 DIFFERENTIAL 5:39 AM CDT POCT-GLUCOSE METER Routine 02/26/2018 9:23 PM CDT TRANSFUSION SERVICE 02/26/2018 REPORT - SCAN 6:00 PM CDT PREPARE RBC STAT 02/26/2018 4:01 PM CDT SURGICALLY OBTAINED Routine 02/26/2018 CULTURE + GRAM STAIN 3:35 PM CDT FUNGUS CULTURE + SMEAR Routine 02/26/2018 3:35 PM CDT ANAEROBIC CULTURE Routine 02/26/2018 3:35 PM CDT AFB CULTURE + SMEAR Routine 02/26/2018 3:35 PM CDT SURGICALLY OBTAINED Routine 02/26/2018 CULTURE + GRAM STAIN 3:34 PM CDT FUNGUS CULTURE + SMEAR Routine 02/26/2018 3:34 PM CDT ANAEROBIC CULTURE Routine 02/26/2018 3:34 PM CDT AFB CULTURE + SMEAR Routine 02/26/2018 3:34 PM CDT HGB/HCT (H&H) - STAT LAB STAT 02/26/2018 3:08 PM CDT TISSUE EXAM AP Routine 02/26/2018 2:58 PM CDT HEMATOCRIT-STAT LAB STAT 02/26/2018 2:22 PM CDT HEMOGLOBIN-STAT LAB STAT 02/26/2018 2:22 PM CDT POTASSIUM-STAT LAB STAT 02/26/2018 2:00 PM CDT HGB/HCT (H&H) - STAT LAB STAT 02/26/2018 2:00 PM CDT CALCIUM, IONIZED STAT 02/26/2018 2:00 PM CDT PH, VENOUS STAT 02/26/2018 2:00 PM CDT PLACEMENT,WOUND VAC 02/26/2018 Infection 1:00 PM CDT CLOSURE,STERNAL 02/26/2018 Infection 1:00 PM CDT DEBRIDEMENT/I&D,STERNUM 02/26/2018 Infection 1:00 PM CDT POCT-GLUCOSE METER Routine 02/26/2018 8:23 AM CDT CBC W/PLT COUNT & AUTO Routine 02/26/2018 DIFFERENTIAL 5:05 AM CDT PT/APTT Routine 02/26/2018 5:05 AM CDT MAGNESIUM Routine 02/26/2018 5:05 AM CDT B-TYPE NATRIURETIC FACTOR Routine 02/26/2018 (BNP) 5:05 AM CDT BASIC METABOLIC PANEL (7) Routine 02/26/2018 5:05 AM CDT CBC W/PLT COUNT & AUTO Routine 02/26/2018 DIFFERENTIAL 5:05 AM CDT POCT-GLUCOSE METER Routine 02/25/2018 9:27 PM CDT TYPE AND SCREEN, Routine 02/25/2018 AUTOMATED 8:24 PM CDT APTT Routine 02/25/2018 8:24 PM CDT PROTHROMBIN TIME/INR Routine 02/25/2018 8:24 PM CDT POCT-GLUCOSE METER Routine 02/25/2018 5:58 PM CDT POCT-GLUCOSE METER Routine 02/25/2018 12:52 PM CDT URINALYSIS W/ MICROSCOPIC Routine 02/25/2018 11:53 AM CDT POCT-GLUCOSE METER Routine 02/25/2018 10:25 AM CDT CBC W/PLT COUNT & AUTO Routine 02/25/2018 DIFFERENTIAL 5:45 AM CDT CREATINE KINASE (CK) Routine 02/25/2018 5:45 AM CDT HEPATIC FUNCTION PANEL Routine 02/25/2018 5:45 AM CDT HEMOGLOBIN A1C Routine 02/25/2018 5:45 AM CDT CBC W/PLT COUNT & AUTO Routine 02/25/2018 DIFFERENTIAL 5:45 AM CDT B-TYPE NATRIURETIC FACTOR Routine 02/25/2018 (BNP) 5:45 AM CDT MAGNESIUM Routine 02/25/2018 5:45 AM CDT BASIC METABOLIC PANEL (7) Routine 02/25/2018 5:45 AM CDT POCT-GLUCOSE METER Routine 02/24/2018 8:51 PM CDT POCT-GLUCOSE METER Routine 02/24/2018 6:21 PM CDT ECG 12-LEAD Routine 02/24/2018 6:05 PM CDT Procedure Note - Interface, External Ris In - 02/24/2018 6:10 PM CDT Ventricula r Rate 71 BPM Atrial Rate 71 BPM P-R Interval 146 ms QRS Duration 136 ms Q-T Interval 420 ms QTC Calculatio n(Bazett) 456 ms P Oss[place] 25 degrees R Oss[place] -44 degrees T [place]ss[place] -17 degrees Normal sinus rhythm Left axis deviation Right bundle branch block Moderate voltage criteria for LVH, may be normal variant Abnormal ECG When compared with ECG of 8 11:54, No significan t change was found ECG 12-LEAD Routine 02/24/2018 6:05 PM CDT TROPONIN I Routine 02/24/2018 5:46 PM CDT WOUND CULTURE + GRAM Routine 02/24/2018 STAIN 5:[address] CHEST WITHOUT IV STAT 02/24/2018 CONTRAST 2:41 PM CDT XR CHEST 1 VIEW STAT 02/24/2018 PORTABLE/BEDSIDE 12:43 PM CDT BLOOD CULTURE STAT 02/24/2018 12:30 PM CDT CBC W/PLT COUNT & AUTO STAT 02/24/2018 DIFFERENTIAL 12:13 PM CDT CBC W/PLT COUNT & AUTO STAT 02/24/2018 DIFFERENTIAL 12:13 PM CDT TROPONIN I STAT 02/24/2018 12:13 PM CDT B-TYPE NATRIURETIC FACTOR STAT 02/24/2018 (BNP) 12:13 PM CDT MAGNESIUM STAT 02/24/2018 12:13 PM CDT BASIC METABOLIC PANEL (7) STAT 02/24/2018 12:13 PM CDT BLOOD CULTURE STAT 02/24/2018 12:13 PM CDT ECG 12-LEAD Routine 02/24/2018 11:50 AM CDT Procedure Note - Interface, External Ris In - 02/24/2018 6:20 PM CDT Ventricula r Rate 77 BPM Atrial Rate 77 BPM P-R Interval 142 ms QRS Duration 134 ms Q-T Interval 410 ms QTC Calculatio n(Bazett) 463 ms P [place] 23 degrees R [place]ssian -46 degrees T [place] -7 degrees Normal sinus rhythm Right bundle branch block Left anterior fascicular block Bifascicul ar block Left ventricula r hypertroph y with QRS widening Abnormal ECG When compared with ECG of 8 11:54, No significan t change was found ECG 12-LEAD STAT 02/24/2018 11:50 AM CDT RHYTHM STRIP - SCAN 02/11/2018 8:10 AM CDT POCT-GLUCOSE METER Routine 02/08/2018 7:43 AM CDT CBC W/PLT COUNT & AUTO Routine 02/08/2018 DIFFERENTIAL 5:25 AM CDT CBC W/PLT COUNT & AUTO Routine 02/08/2018 DIFFERENTIAL 5:25 AM CDT BASIC METABOLIC PANEL (7) Routine 02/08/2018 5:25 AM CDT after 02/08/2018 Results * RHYTHM STRIP - SCAN (09/26/2018 10:20 AM CDT) Only the most recent of 3 results within the time period is included. Narrative Performed At * Transfuse Leuko-Red RBC (07/10/2018 5:32 PM ASPHALT STILL OPERATOR) Only the most recent of 2 results within the time period is included. * POC-Glucose meter (03/06/2018 1:31 PM CDT) Only the most recent of 39 results within the time period is included. POC-Glucose Meter 131 (H)Comment: TESTED AT 70 - 110 mg/dL [address] [address] Specimen Blood Performing Organization Address City/State/Zipcode Phone Number [address] [address] [phone] * TRANSFUSION SERVICE REPORT - SCAN (03/05/2018 6:01 PM CDT) Only the most recent of 4 results within the time period is included. Narrative Performed At * Hemoglobin and hematocrit (03/05/2018 5:30 AM CDT) Only the most recent of 2 results within the time period is included. Hemoglobin 7.3 (L) 13.7 - 17.5 GM/DL [facility] Hematocrit 24.3 (L) 40.1 - 51.0 % [facility] Specimen Blood Performing Organization Address City/State/Zipcode Phone Number [address] [address] [facility] * Prepare Leuko-Red RBC (03/04/2018 11:54 PM CDT) CROSSMATCH COMPATIBLE SAFETRACE TX Unit ABO A Pos SAFETRACE TX UNIT NUMBER [id number] SAFETRACE TX Status TRANSFUSED SAFETRACE TX Blood Bank Product RED BLOOD CELLS SAFETRACE TX PRODUCT CODE [id number] SAFETRACE TX Specimen Other Performing Organization Address [facility] [place] Phone Number SAFETRACE TX * Basic Metabolic Panel (03/04/2018 5:14 AM CDT) Only the most recent of 10 results within the time period is included. Sodium 137 136 - 145 meq/L [facility] Potassium 4.1 3.5 - 5.1 meq/L [facility] Chloride 105 98 - 107 meq/L [facility] CO2 23 22 - 29 meq/L [facility] BUN 16 7 - 21 mg/dL [facility] Creatinine 1.09 0.57 - 1.25 mg/dL [facility] Glucose 145 (H) 70 - 105 mg/dL [facility] Calcium 9.0 8.4 - 10.2 mg/dL [facility] EGFR 67Comment: ESTIMATED GFR IS mL/min/1.73 sq m [facility] NOT ACCURATE CREATININE [facility] CLEARANCE IN PREDICTING GLOMERULAR FILTRATION RATE. ESTIMATED GFR IS NOT APPLICABLE FOR DIALYSIS PATIENTS. Specimen Blood Performing Organization Address [facility] [place] Phone Number [address] [address] [facility] * Type and screen, automated (03/03/2018 12:03 PM CDT) Only the most recent of 2 results within the time period is included. ABO/RH AUTOMATED (BEAKER) A POSITIVE [facility] Ab Scrn NEGATIVE [facility] Specimen Blood Performing Organization Address City/[facility] Phone Number [address] [address] [phone] [place] [address] * CBC with platelet count + automated diff (03/03/2018 5:00 AM CDT) Only the most recent of 9 results within the time period is included. WBC 8.3 3.5 - 10.5 K/L [facility] RBC 2.80 (L) 4.63 - 6.08 M/L [facility] Hemoglobin 7.1 (L) 13.7 - 17.5 GM/DL [facility] Hematocrit 23.8 (L) 40.1 - 51.0 % [facility] MCV 85.0 79.0 - 92.2 fL [facility] MCH 25.4 (L) 25.7 - 32.2 pg [facility] MCHC 29.8 (L) 32.3 - 36.5 GM/DL [facility] RDW 15.1 (H) 11.6 - 14.4 % [facility] Platelets 272 150 - 450 K/CU MM [facility] MPV 9.7 9.4 - 12.4 fL [facility] nRBC 0 0 - 0 /100 WBC [facility] % Neutros 57 % [facility] % Lymphs 28 % [facility] % Monos 8 % [facility] % Eos 6 % [facility] % Baso 1 % [facility] # Neutros 4.73 1.78 - 5.38 K/L [facility] # Lymphs 2.34 1.32 - 3.57 K/L [facility] # Monos 0.69 0.30 - 0.82 K/L [facility] # Eos 0.47 0.04 - 0.54 K/L [facility] # Baso 0.04 0.01 - 0.08 K/L [facility] Immature 0 0 - 1 % [facility] Granulocytes-Relative [facility] Specimen Blood Performing Organization Address City[facility] Phone Number [address] * Phosphorus (03/03/2018 5:00 AM CDT) Phosphorus 3.9 2.3 - 4.7 mg/dL [facility] Specimen Blood Performing Organization Address [facility] Phone Number [address] * Magnesium (03/03/2018 5:00 AM CDT) Only the most recent of 8 results within the time period is included. Magnesium 1.8 1.6 - 2.6 mg/dL [facility] Specimen Blood Performing Organization Address [facility] Phone Number [address] * Vancomycin level, trough (03/01/2018 8:43 PM CDT) Vancomycin Tr 18.0 10.0 - 20.0 ug/mL [facility] Specimen Blood Performing Organization Address [facility] Phone Number [address] * Hemoglobin (03/01/2018 7:26 AM CDT) Hemoglobin 7.1 (L) 13.7 - 17.5 GM/DL [facility] Specimen Blood Performing Organization Address [facility] Phone Number [address] * B-type Natriuretic Factor (BNP) (02/28/2018 4:55 AM CDT) Only the most recent of 5 results within the time period is included. BNP 148 (H) 0 - 100 pg/mL [facility] Specimen Blood Performing Organization Address City/[facility] Phone Number [address] [address] [phone] [address] * Prepare RBC (02/26/2018 4:01 PM CDT) CROSSMATCH COMPATIBLE SAFETRACE TX Unit ABO A Pos SAFETRACE TX UNIT NUMBER [id number] [facility] [place] Status RETURNED FROM ISSUE SAFETRACE TX Blood Bank Product RED BLOOD CELLS SAFETRACE TX PRODUCT CODE [id number] SAFETRACE TX CROSSMATCH COMPATIBLE SAFETRACE TX Unit ABO A Pos SAFETRACE TX UNIT NUMBER [id number] [facility]ET[facility] TX Status RETURNED FROM ISSUE SAFETRACE TX Blood Bank Product RED BLOOD CELLS [facility] TX PRODUCT CODE [id number] [facility] [place] Performing Organization Address [facility] Phone Number [place] * AFB culture + smear (02/26/2018 3:35 PM CDT) Only the most recent of 2 results within the time period is included. Result No acid-fast bacilli isolated [facility] in 42 days [facility] AFB Smear No acid fast bacilli seen [facility] Specimen Tissue Performing Organization Address [facility] Phone Number [phone] [place] [address] * Anaerobic culture (02/26/2018 3:35 PM CDT) Only the most recent of 2 results within the time period is included. Result No anaerobes isolated [facility] Specimen Tissue Performing Organization Address [facility] Phone Number [address] [address] [facility] * Surgically obtained culture + gram stain (02/26/2018 3:35 PM CDT) Only the most recent of 2 results within the time period is included. Result No growth [facility] Gram Stain Result No WBCs [facility] Gram Stain Result No organisms seen [facility] Specimen Tissue Performing Organization Address City/[facility]/Zipcode Phone Number [address] [address] [facility] * Fungus culture + smear (02/26/2018 3:35 PM CDT) Only the most recent of 2 results within the time period is included. Result No fungus isolated in 28 days [facility] Fungus Smear No fungi seen [facility] Specimen Tissue Performing Organization Address [facility] Phone Number [address] [address] [facility] * HGB/HCT (H&H)-Stat Lab (02/26/2018 3:08 PM CDT) Only the most recent of 2 results within the time period is included. Hemoglobin 8.9 (L) 13.0 - 16.8 g/dL [facility] Hematocrit 26.0 (L) 40.0 - 50.0 % [facility] Specimen Blood, Arterial Performing Organization Address [facility] Phone Number [address] [address] [facility] * Tissue Exam (02/26/2018 2:58 PM CDT) Case Report Surgical Pathology [facility] Report [facility] Case: [id number] Authorizing Provider:Zaki Jones MDCollecte d: 02/26/2018 1458 Ordering Location: [facility] Received: 02/26/2018 1612 PERIOPERATIVE SERVICES Pathologist: Darling Morse MD Specimen:Bone, bone tissue (rule out osteomyelitis) DIAGNOSIS SOFT TISSUE AND BONE FROM [facility] STERNUM, LABELED "BONE" [facility] BIOPSY: - PREDOMINANTLY DENSE FIBROTIC CONNECTIVE TISSUE WITH GRANULATION TISSUE EFFECT - 2MM FRAGMENT OF CARTILAGE AND BONE, WITH OSTEOMYELITIS (SEE MICROSCOPIC SECTION) Signing Pathologist Direct Phone Line: [phone] CPT Code(s) [address] [facility] [address] [facility] CLINICAL HISTORY Sternal wound infection, rule [facility] out osteomyelitis [facility] SPECIMEN SOURCE Bone tissue [facility] GROSS DESCRIPTION Received fresh labeled "bone [facility] tissue" is a 1.2 x 1.0 x 0.2 [facility] cm aggregate of dark red rubbery bone and soft tissue. The specimen is entirely submitted in cassette A1 for decalcification. DB/pl MICROSCOPIC DESCRIPTION The initial slide in this case [facility] shows only soft tissue.Two [facility] recut slides with multiple sections show a fragment, 2 mm, including cartilage and bone. The bone shows ischemic and fragmented changes in multiple elements. There is also an acute and chronic inflammatory infiltrate associated with some bone destruction in these fragments, consistent with osteomyelitis. Specimen Tissue Performing Organization Address City/[facility] Cent[facility] [place] [address] [phone] [place] [address] * Hemoglobin-Stat Lab (02/26/2018 2:22 PM CDT) Hemoglobin 9.0 (L) 13.0 - 16.8 g/dL [facility] Specimen Blood, Arterial Performing Organization Address [facility] [place] [address] [phone] [address] * HEMATOCRIT-STAT LAB (02/26/2018 2:22 PM CDT) Hematocrit 26.0 (L) 40.0 - 50.0 % [facility] Specimen Blood, Arterial Performing Organization Address City/[facility] Phone Number [address] [address] [phone] [place] [address] * Potassium-Stat Lab (02/26/2018 2:00 PM CDT) Potassium 3.6 3.6 - 5.5 meq/L [facility] Specimen Blood, Arterial Performing Organization Address [facility] Phone Number [address] [address] [phone] [address] * Calcium, Ionized (02/26/2018 2:00 PM CDT) Calcium, Ion 1.06 (L) 1.12 - 1.27 mmol/L [facility] pH, Blood 7.42 [facility] Specimen Blood Performing Organization Address City/[facility] [address] [facility] * pH, venous (02/26/2018 2:00 PM CDT) pH, Valdo 7.43 (H) 7.32 - 7.42 [facility] Specimen Blood Performing Organization Address [facility] [place] [address] [phone] [place] [address] * PT/aPTT (02/26/2018 5:05 AM CDT) Protime 15.5 (H) 11.7 - 14.7 seconds [facility] INR 1.2 <=5.9 [facility] PTT 33.1 22.5 - 36.0 seconds [facility] Specimen Blood Narrative Performed At RECOMMENDED COUMADIN/WARFARIN INR THERAPY RANGES [facility] STANDARD DOSE: 2.0 - 3.0 Includes: PROPHYLAXIS for venous thrombosis, [facility] systemic embolization; TREATMENT for venous thrombosis and/or pulmonary embolus. HIGH RISK: Target INR is 2.5-3.5 for patients with mechanical heart valves. Performing Organization Address City/[facility] Phone Number [address] [address] [phone] [place] [address] * aPTT (02/25/2018 8:24 PM CDT) PTT 33.1 22.5 - 36.0 seconds [facility] Specimen Blood Performing Organization Address [facility] Phone Number [address] [address] [facility] * Prothrombin time/INR (02/25/2018 8:24 PM CDT) Protime 14.6 11.7 - 14.7 seconds [facility] INR 1.1 <=5.9 [facility] Specimen Blood Narrative Performed At RECOMMENDED COUMADIN/WARFARIN INR THERAPY RANGES [facility] STANDARD DOSE: 2.0 - 3.0 Includes: PROPHYLAXIS for venous thrombosis, [facility] systemic embolization; TREATMENT for venous thrombosis and/or pulmonary embolus. HIGH RISK: Target INR is 2.5-3.5 for patients with mechanical heart valves. Performing Organization Address City/State/Zipcode Phone Number [facility] [address] [place] [address] [facility] * Urinalysis w/Microscopic (02/25/2018 11:53 AM CDT) Color, UA Light Yellow [facility] Clarity, UA Clear [facility] Specific [place], UA 1.006 1.001 - 1.035 [facility] pH, UA 5.0 5.0 - 8.0 [facility] Protein, UA Negative Negative [facility] Glucose, UA Negative Negative [facility] Ketones, UA Negative Negative [facility] Bilirubin, UA Negative Negative [facility] Blood, UA Negative Negative [facility] Nitrite, UA Negative Negative [facility] Leukocytes, UA Negative Negative [facility] Urobilinogen, UA 0.2 0.2 - 1.0 mg/dL [facility] RBC, UA 0 /HPF [facility] WBC, UA <1 /HPF [facility] Bacteria, UA Rare [facility] Squam Epithel, UA <1 /HPF [facility] Hyaline Casts, UA 2 /LPF [facility] Specimen Source Urine, Voided [facility] Specimen Urine Performing Organization Address City/[facility] Phone Number [address] * Hemoglobin A1c, if diabetic (02/25/2018 5:45 AM CDT) Hemoglobin A1C 7.0 (H) 4.3 - 6.1 % [facility] Specimen Blood Narrative Performed At if diabetic. [facility] Performing Organization Address City/[facility] Phone Number [address] * Creatine Kinase (CK) (02/25/2018 5:45 AM CDT) Total CK 14 (L) 29 - 200 U/L [facility] Specimen Blood Performing Organization Address City/[facility] Phone Number [address] * Hepatic function panel (02/25/2018 5:45 AM CDT) Protein, Total 8.5 (H) 6.0 - 8.3 gm/dL [facility] Albumin 3.2 (L) 3.5 - 5.0 g/dL [facility] Total Bilirubin 0.3 0.2 - 1.2 mg/dL [facility] Bilirubin, Direct 0.2 0.1 - 0.5 mg/dL [facility] Alkaline Phosphatase 54 40 - 150 U/L [facility] AST 10 5 - 34 U/L [facility] ALT 7 6 - 55 U/L [facility] Specimen Blood Performing Organization Address City/[facility]/[place] [address] [facility] * ECG 12 lead (02/24/2018 6:05 PM CDT) Only the most recent of 2 results within the time period is included. Specimen Narrative Performed At Ventricular Rate 71 BPM GE MUSE Atrial Rate 71 BPM P-R Interval 146 ms QRS Duration 136 ms Q-T Interval 420 ms QTC Calculation(Bazett) 456 ms P Ossian 25 degrees R Ossian -44 degrees T Ossian -17 degrees Normal sinus rhythm Left axis deviation Right bundle branch block Moderate voltage criteria for LVH, may be normal variant Abnormal ECG When compared with ECG of 01-FEB-2018 11:54, No significant change was found Confirmed by MD KEBEDE JOSEPH P ([id number]) on 02/25/2018 6:06:21 AM Procedure Note Interface, External Ris In - 02/25/2018 6:06 AM CDT Ventricular Rate 71 BPM Atrial Rate 71 BPM P-R Interval 146 ms QRS Duration 136 ms Q-T Interval 420 ms QTC Calculation(Bazett) 456 ms P Oss[place] 25 degrees R Ossian -44 degrees T Oss[place] -17 degrees Normal sinus rhythm Left axis deviation Right bundle branch block Moderate voltage criteria for LVH, may be normal variant Abnormal ECG When compared with ECG of 01-FEB-2018 11:54, No significant change was found Confirmed by MD KEBEDE JOSEPH P ([id number]) on 02/25/2018 6:06:21 AM Performing Organization Address City[facility] Phone Number [facility] * Troponin I (02/24/2018 5:46 PM CDT) Only the most recent of 2 results within the time period is included. Troponin I <0.01 0.00 - 0.03 ng/mL [facility] Specimen Blood Narrative Performed At Troponin I (TnI) levels must be interpreted in the context of the presenting [facility] symptoms and the clinical findings. Elevated TnI levels indicate myocardial [facility] damage, but are not specific for ischemic heart disease. Elevated TnI levels are seen in patients with other cardiac conditions (including myocarditis and congestive heart failure), and slight TnI elevations occur in patients with other conditions, including sepsis, renal failure, acidosis, acute neurological disease, and persistent tachyarrhythmia. Performing Organization Address City/[facility]/[employer] Phone Number [facility] [address] [place] [address] [facility] * Wound culture + gram stain (02/24/2018 5:04 PM CDT) Result 1+ Methicillin resistant [facility] Staphylococcus aureus (A) [facility] Gram Stain Result 2+ WBCs [facility] Gram Stain Result No organisms seen [facility] Specimen Wound Narrative Performed At <1+ Skin shayy [facility] Antibiotic Method Susceptibility Organism Clindamycin 0.25: Susceptible Methicillin resistant Staphylococcus aureus Erythromycin 0.5: Susceptible Methicillin resistant Staphylococcus aureus Linezolid 2: Susceptible Methicillin resistant Staphylococcus aureus Oxacillin >=4: Resistant Methicillin resistant Staphylococcus aureus Rifampin <=0.5: Susceptible Methicillin resistant Staphylococcus aureus Tetracycline <=1: Susceptible Methicillin resistant Staphylococcus aureus Trimethoprim + Sulfamethoxazole <=10: Susceptible Methicillin resistant Staphylococcus aureus Vancomycin 1: Susceptible Methicillin resistant Staphylococcus aureus Performing Organization Address City/State/Zipcode Phone Number [address] [address] [facility] * CT chest without contrast (02/24/2018 2:41 PM CDT) Specimen Narrative Performed At FINAL REPORT [employer] TECHNIQUE: CT scan of the chest WITHOUT intravenous contrast. Dose modulation, iterative reconstruction, and/or weight-based adjustment of the mA/kV was utilized to reduce the radiation dose to as low as reasonably achievable. INDICATION: Chest pain, known mediastinitis. COMPARISON: Chest CT from 02/03/2018. FINDINGS: ABSENCE OF INTRAVENOUS CONTRAST DECREASES SENSITIVITY FOR DETECTION OF FOCAL LESIONS AND VASCULAR PATHOLOGY. LINES/TUBES: Left PICC line with tip over the mid SVC. LUNGS AND AIRWAYS: Right lower lobe calcified granuloma. There is also likely a small scar in the right lower lobe with some calcification as well. Unchanged left upper lobe calcified renal mass. Mild annular atelectasis PLEURA: Unchanged small left pleural effusion with pleural calcifications. The right pleural effusion has decreased in size and is now trace. HEART AND MEDIASTINUM: The visualized thyroid gland is normal. No significant mediastinal, hilar, or axillary lymphadenopathy. There are several prominent mediastinal lymph nodes which are likely reactive to the mediastinitis. Small pericardial effusion. Mild stranding in the anterior mediastinum. Severe coronary artery calcifications with prior CABG. SOFT TISSUES AND BONES: Bilateral gynecomastia. Moderate degenerative changes of the thoracic spine. Slightly increased erosion of the sternum around the sternotomy. There is a small amount of fat stranding in the anterior chest subcutaneous tissues tissues. UPPER ABDOMEN: The spleen is mildly enlarged at 13.6 cm. Otherwise, the upper abdomen is unremarkable. IMPRESSION: 1.The inflammation surrounding the sternum has decreased, likely due to improving mediastinitis. 2.The erosion of the sternum around the sternotomy has mildly increased from the prior. 3.The small left pleural effusion is unchanged, and the right pleural effusion has decreased in size, now trace. 4.Mild splenomegaly. Signed: Drew Escobar MD Report Verified Date/Time:02/24/2018 15:13:17 Reading Location: [facility] Diagnostic Imaging Reading Room - [place] [address] Procedure Note Interface, External Ris In - 02/24/2018 3:15 PM CDT FINAL REPORT TECHNIQUE: CT scan of the chest WITHOUT intravenous contrast. Dose modulation, iterative reconstruction, and/or weight-based adjustment of the mA/kV was utilized to reduce the radiation dose to as low as reasonably achievable. INDICATION: Chest pain, known mediastinitis. COMPARISON: Chest CT from 02/03/2018. FINDINGS: ABSENCE OF INTRAVENOUS CONTRAST DECREASES SENSITIVITY FOR DETECTION OF FOCAL LESIONS AND VASCULAR PATHOLOGY. LINES/TUBES: Left PICC line with tip over the mid SVC. LUNGS AND AIRWAYS: Right lower lobe calcified granuloma. There is also likely a small scar in the right lower lobe with some calcification as well. Unchanged left upper lobe calcified renal mass. Mild annular atelectasis PLEURA: Unchanged small left pleural effusion with pleural calcifications. The right pleural effusion has decreased in size and is now trace. HEART AND MEDIASTINUM: The visualized thyroid gland is normal. No significant mediastinal, hilar, or axillary lymphadenopathy. There are several prominent mediastinal lymph nodes which are likely reactive to the mediastinitis. Small pericardial effusion. Mild stranding in the anterior mediastinum. Severe coronary artery calcifications with prior CABG. SOFT TISSUES AND BONES: Bilateral gynecomastia. Moderate degenerative changes of the thoracic spine. Slightly increased erosion of the sternum around the sternotomy. There is a small amount of fat stranding in the anterior chest subcutaneous tissues tissues. UPPER ABDOMEN: The spleen is mildly enlarged at 13.6 cm. Otherwise, the upper abdomen is unremarkable. IMPRESSION: 1.The inflammation surrounding the sternum has decreased, likely due to improving mediastinitis. 2.The erosion of the sternum around the sternotomy has mildly increased from the prior. 3.The small left pleural effusion is unchanged, and the right pleural effusion has decreased in size, now trace. 4.Mild splenomegaly. Signed: Drew Escobar MD Report Verified Date/Time: 02/24/2018 15:13:17 Reading Location: [facility] Diagnostic Imaging Reading Room - [facility] F1 1120 Performing Organization Address City/State/Zipcode Phone Number [facility] * XR chest 1 view portable / bedside (02/24/2018 12:43 PM CDT) Specimen Narrative Performed At FINAL REPORT [facility] EXAM: Frontal chest radiograph HISTORY PROVIDED: Chest pain COMPARISON: 02/07/2018 IMPRESSION: The tip of the left upper extremity PICC line remains projecting over the SVC. There is pulmonary vascular congestion and bilateral interstitial and airspace opacities compatible with edema, however pneumonitis should be excluded clinically. Left basilar opacities likely represent a combination of a small left pleural effusion and atelectasis or consolidation. The cardiac silhouette remains enlarged. Median sternotomy wires are again seen. Surgical clips are seen in the left hemithorax. No acute osseous abnormality. Signed: Easu Tolbert MD Report Verified Date/Time:02/24/2018 13:30:44 Reading Location: [facility] Mammo Reading Room Procedure Note Interface, External Ris In - 02/24/2018 1:32 PM CDT FINAL REPORT EXAM: Frontal chest radiograph HISTORY PROVIDED: Chest pain COMPARISON: 02/07/2018 IMPRESSION: The tip of the left upper extremity PICC line remains projecting over the SVC. There is pulmonary vascular congestion and bilateral interstitial and airspace opacities compatible with edema, however pneumonitis should be excluded clinically. Left basilar opacities likely represent a combination of a small left pleural effusion and atelectasis or consolidation. The cardiac silhouette remains enlarged. Median sternotomy wires are again seen. Surgical clips are seen in the left hemithorax. No acute osseous abnormality. Signed: Esau Tolbert MD Report Verified Date/Time: 02/24/2018 13:30:44 Reading Location: [facility] Mamm Reading Room Performing Organization Address City/State/Zipcode Phone Number [facility] * Blood culture (02/24/2018 12:30 PM CDT) Only the most recent of 2 results within the time period is included. Result No growth in 5 days [facility] Specimen Blood Performing Organization Address City/[facility]/Zipcode Phone Number [facility] [address] [place] [address] [facility] after 02/08/2018 Insurance Payer Benefit Subscriber ID Type Phone Address Plan / Group [employer] xxxxxxxxxxx MEDICARE ADV Advance Directives For more information, please contact: [address] [address] Date Inactivated Comments Code Status Date Activated 03/06/2018 6:16 PM Full Code 02/24/2018 4:31 PM This code status was determined by: Patient 02/08/2018 2:45 PM Full Code 01/31/2018 5:59 AM This code status was determined by: Patient 01/18/2018 8:26 PM Full Code 01/14/2018 11:07 AM This code status was determined by: Patient 01/14/2018 11:07 AM Full Code 01/14/2018 5:36 AM This code status was determined by: Patient 07/07/2016 5:54 PM Full Code 07/06/2016 2:59 PM This code status was determined by: Patient
[2019-02-09] MEDS ORDERED: ASPIRIN 81 MG CHEW TAB PO ONE (15:15)
[2019-02-09 15:51] LABS: BILIRUBIN,URINE NEGATIVE (NEGATIVE); CLARITY,URINE SL CLOUDY (CLEAR); COLOR,URINE YELLOW (YELLOW); KETONES,URINE NEGATIVE (NEGATIVE); LEUKOCYTE ESTERASE ,URINE NEGATIVE (NEGATIVE); NITRITE,URINE NEGATIVE (NEGATIVE); PROTEIN,URINE DIPSTICK TRACE (NEGATIVE); URINE UROBILINOGEN 0.2 mg/dL (0.2 - 1)
[2019-02-09 16:27] LABS: BACTERIA,URINE RARE /HPF; WBC,URINE (MAN) 0-5 /HPF (0-5)
[2019-02-09 23:12] LABS: BASOPHILS % 0.3 % (0.0-1.0); EOSINOPHILS # (AUTO) 0.3 (0.0-0.4); EOSINOPHILS % 2.3 % (0.0-6.0); HEMOGLOBIN 11.2 g/dL (14.0-18.0); LYMPHOCYTES % 17.2 % (18.0-39.1); MEAN CORPUSCULAR HEMOGLOBIN 27.2 pg (28-32); MEAN CORPUSCULAR HGB CONC 31.1 g/dL (31-35); MEAN CORPUSCULAR VOLUME 87.4 fL (81-99); MONOCYTES # (AUTO) 0.9 (0.2-0.8); MONOCYTES % 7.1 % (4.4-11.3); NEUTROPHILS # (AUTO) 8.6 (2.1-6.9); NEUTROPHILS % 72.6 % (38.7-80.0); PLATELET COUNT 222 x10e3/uL (140-360); RED BLOOD COUNT 4.12 x10e6/uL (4.3-5.7); RED CELL DISTRIBUTION WIDTH 15.1 % (11.7-14.4)
[2019-02-09] MEDS: PIPER-TAZ 3.375 GM 50 ML IV SCH (23:21)
[2019-02-09 23:24] LABS: INR 0.92; PARTIAL THROMBOPLASTIN TIME 32.4 seconds (23.8-35.5); PROTHROMBIN TIME 12.8 seconds (11.9-14.5)
[2019-02-09 23:36] LABS: ALBUMIN 3.2 g/dL (3.5-5.0); ALBUMIN/GLOBULIN RATIO 0.6 (0.8-2.0); ANION GAP 16.3 mmol/L (8-16); CALCIUM 9.4 mg/dL (8.4-10.2); CREATININE, SERUM 1.72 mg/dL (0.72-1.25); POTASSIUM 4.3 mmol/L (3.5-5.1)
[2019-02-09 23:43] LABS: CREATINE KINASE MB 0.7 ng/mL (0-5.0)
[2019-02-09] MEDS ORDERED: ACETAMINOPHEN 325 MG TAB PO PRN (23:45)
[2019-02-09] MEDS ORDERED: DEXTROSE 50% SYRINGE 50 ML IV PRN (23:45)
--- OUTSIDE RECORDS SUMMARY | 2019-02-09 23:55 | XMS REPORT | Clinical Summary ---
Author Author MICHELLE [facility] Address Unknown Phone Unavailable Care Team Providers Care Front End Web Developer Name Role Phone Johana Wolfe MD PCP [...] 14 days. 04/08/2018 vancomycin (VANCOCIN) Inject 250 [id number] mL 0 IVPB 1250 mg in sodium [...] artery disease involving coronary bypass graft of [place] heart 02/24/2018 without angina pectoris Chronic anemia [...] 10 [id number] - Cement/Giovani N/A: Sternum BIOCOMPOSI [id number] ler/Adhesi DEEPIKA Implanted: Qty: 1 on 02/26/2018 by Zaki Cutler MD 08/28/2020 [id number] / / [id number] Hemstas Mph Absorb Hemo 3gr Cement/Giovani N/A: Sternum MEDAFOR [id number] - [id number] ler/Adhesi HEMOSTATIC Implanted: Qty: 1 on 02/26/2018 by Zaki Keller MD ANDREW 10/28/2022 [id number] / / [id number] Patch Vasc Edelstein 1.65mm 1x6in Graft/Patc Chest CR [id number] - [id number] BARD:PERIP Implanted: Qty: 1 on 01/14/2018 by HERAL Reggie Guardado MD Procedures Comments Procedure Name Priority Date/Time Associated Diagnosis RHYTHM STRIP - SCAN 09/26/2018 10:20 AM CDT TRANSFUSE LEUKO-REDUCED Routine 07/10/2018 RED BLOOD CELLS 5:32 PM STONE POLISHER HAND RHYTHM STRIP - SCAN 03/10/2018 12:50 PM [...] ms QTC Calculatio n(Bazett) 456 ms P [place] 25 degrees R [place] -44 degrees T [place] -17 degrees Normal sinus rhythm Left axis [...] ms QTC Calculatio n(Bazett) 463 ms P [place] 23 degrees R [place] -46 degrees T [place] -7 degrees Normal sinus rhythm Right bundle [...] * Transfuse Leuko-Red RBC (07/10/2018 5:32 PM ST[employer]ER HAND) Only the most recent of 2 results within the time period is included. * POC-Glucose meter (03/06/2018 1:31 PM CDT) Only the most recent of 39 results within the time period is included. POC-Glucose Meter 131 (H)Comment: TESTED AT 70 - 110 mg/dL [address] [address] Specimen Blood Performing Organization Address City/State/Zipcode Phone Number [address] [address] [phone] [address] * TRANSFUSION SERVICE REPORT - SCAN (03/05/2018 6:01 PM CDT) Only the most recent of 4 results within the time period is included. Narrative Performed At * Hemoglobin and hematocrit (03/05/2018 5:30 AM CDT) Only the most recent of 2 results within the time period is included. Hemoglobin 7.3 (L) 13.7 - 17.5 GM/DL [facility] Hematocrit 24.3 (L) 40.1 - 51.0 % [facility] Specimen Blood Performing Organization Address City/State/Zipcode Phone Number [address] [address] [facility] * Prepare Leuko-Red RBC (03/04/2018 11:54 PM CDT) CROSSMATCH COMPATIBLE [place]AFET[place] Unit ABO A Pos SAFET[place]ACE [place] UNIT NUMBER [id number] [place] Status TRANSFUSED [place] Blood Bank Product RED BLOOD CELLS [place] PRODUCT CODE [id number] [place] Specimen Other Performing Organization Address [facility] Phone Number [place] * Basic Metabolic Panel (03/04/2018 5:14 AM CDT) Only the most recent of 10 results within the time period is included. Sodium 137 136 - 145 meq/L [facility] Potassium 4.1 3.5 - 5.1 meq/L [facility] Chloride 105 98 - 107 meq/L [facility] CO2 23 22 - 29 meq/L [facility] BUN 16 7 - 21 mg/dL [facility] Creatinine 1.09 0.57 - 1.25 mg/dL [facility] Glucose 145 (H) 70 - 105 mg/dL [facility] Calcium 9.0 8.4 - 10.2 mg/dL [facility] EGFR 67Comment: ESTIMATED GFR IS mL/min/1.73 sq m [facility] NOT ACCURATE CREATININE [facility] CLEARANCE IN PREDICTING GLOMERULAR FILTRATION RATE. ESTIMATED GFR IS NOT APPLICABLE FOR DIALYSIS PATIENTS. Specimen Blood Performing Organization Address [facility] Phone Number [address] [address] [facility] * Type and screen, automated (03/03/2018 12:03 PM CDT) Only the most recent of 2 results within the time period is included. ABO/RH AUTOMATED (BEAKER) A POSITIVE [facility] Ab Scrn NEGATIVE [facility] Specimen Blood Performing Organization Address City/[facility] Phone Number [address] [address] [phone] [place] [address] * CBC with platelet count + automated diff (03/03/2018 5:00 AM CDT) Only the most recent of 9 results within the time period is included. WBC 8.3 3.5 - 10.5 K/L [facility] RBC 2.80 (L) 4.63 - 6.08 M/L [facility] Hemoglobin 7.1 (L) 13.7 - 17.5 GM/DL [facility] Hematocrit 23.8 (L) 40.1 - 51.0 % [facility] MCV 85.0 79.0 - 92.2 fL [facility] MCH 25.4 (L) 25.7 - 32.2 pg [facility] MCHC 29.8 (L) 32.3 - 36.5 GM/DL [facility] RDW 15.1 (H) 11.6 - 14.4 % [facility] Platelets 272 150 - 450 K/CU MM [facility] MPV 9.7 9.4 - 12.4 fL [facility] nRBC 0 0 - 0 /100 WBC [facility] % Neutros 57 % [facility] % Lymphs 28 % [facility] % Monos 8 % [facility] % Eos 6 % [facility] % Baso 1 % [facility] # Neutros 4.73 1.78 - 5.38 K/L [facility] # Lymphs 2.34 1.32 - 3.57 K/L [facility] # Monos 0.69 0.30 - 0.82 K/L [facility] # Eos 0.47 0.04 - 0.54 K/L [facility] # Baso 0.04 0.01 - 0.08 K/L [facility] Immature 0 0 - 1 % [facility] Granulocytes-Relative [facility] Specimen Blood Performing Organization Address City/[facility] Phone Number [address] * Phosphorus (03/03/2018 5:00 AM CDT) Phosphorus 3.9 2.3 - 4.7 mg/dL [facility] Specimen Blood Performing Organization Address City/[facility] Phone Number [address] * Magnesium (03/03/2018 5:00 AM CDT) Only the most recent of 8 results within the time period is included. Magnesium 1.8 1.6 - 2.6 mg/dL [facility] Specimen Blood Performing Organization Address City/[facility] Phone Number [address] * Vancomycin level, trough (03/01/2018 8:43 PM CDT) Vancomycin Tr 18.0 10.0 - 20.0 ug/mL [facility] Specimen Blood Performing Organization Address City/[facility] Phone Number [address] * Hemoglobin (03/01/2018 7:26 AM CDT) Hemoglobin 7.1 (L) 13.7 - 17.5 GM/DL [facility] Specimen Blood Performing Organization Address [facility] Phone Number [address] * B-type Natriuretic Factor (BNP) (02/28/2018 4:55 AM CDT) Only the most recent of 5 results within the time period is included. BNP 148 (H) 0 - 100 pg/mL [facility] Specimen Blood Performing Organization Address City/[facility] Phone Number [address] [address] [phone] [address] * Prepare RBC (02/26/2018 4:01 PM CDT) CROSSMATCH COMPATIBLE SAFETRACE TX Unit ABO A Pos SAFETRACE TX UNIT NUMBER [id number] [place] Status RETURNED FROM ISSUE [place] Blood Bank Product RED BLOOD CELLS [place] PRODUCT CODE [id number] [place] CROSSMATCH COMPATIBLE SAFETRACE TX Unit ABO A Pos [place] UNIT NUMBER [id number] [place] Status RETURNED FROM ISSUE [place] Blood Bank Product RED BLOOD CELLS [place] PRODUCT CODE [id number] [place] Performing Organization Address City/[facility] Phone Number [place] * AFB culture + smear (02/26/2018 3:35 PM CDT) Only the most recent of 2 results within the time period is included. Result No acid-fast bacilli isolated [facility] in 42 days [facility] AFB Smear No acid fast bacilli seen [facility] Specimen Tissue Performing Organization Address City/[facility] Phone Number [phone] [place] [address] * Anaerobic culture (02/26/2018 3:35 PM CDT) Only the most recent of 2 results within the time period is included. Result No anaerobes isolated [facility] Specimen Tissue Performing Organization Address [facility] Phone Number [address] [address] [facility] * Surgically obtained culture + gram stain (02/26/2018 3:35 PM CDT) Only the most recent of 2 results within the time period is included. Result No growth [facility] Gram Stain Result No WBCs [facility] Gram Stain Result No organisms seen [facility] Specimen Tissue Performing Organization Address City/[facility]/Zipcode Phone Number [address] [address] [facility] * Fungus culture + smear (02/26/2018 3:35 PM CDT) Only the most recent of 2 results within the time period is included. Result No fungus isolated in 28 days [facility] Fungus Smear No fungi seen [facility] Specimen Tissue Performing Organization Address City/[facility] Phone Number [address] [address] [facility] * HGB/HCT (H&H)-Stat Lab (02/26/2018 3:08 PM CDT) Only the most recent of 2 results within the time period is included. Hemoglobin 8.9 (L) 13.0 - 16.8 g/dL [facility] Hematocrit 26.0 (L) 40.0 - 50.0 % [facility] Specimen Blood, Arterial Performing Organization Address City/[facility] Phone Number [address] [address] [facility] * Tissue Exam (02/26/2018 2:58 PM CDT) Case Report Surgical Pathology [facility] Report [facility] Case: [id number] Authorizing Provider:Zaki Jones MDCollecte d: 02/26/2018 1458 Ordering Location: [facility] CAN Received: 02/26/2018 1612 PERIOPERATIVE SERVICES Pathologist: Darling Morse MD Specimen:Bone, bone tissue (rule out osteomyelitis) DIAGNOSIS SOFT TISSUE AND BONE FROM [facility] STERNUM, LABELED "BONE" [facility] BIOPSY: - PREDOMINANTLY DENSE FIBROTIC CONNECTIVE TISSUE WITH GRANULATION TISSUE EFFECT - 2MM FRAGMENT OF CARTILAGE AND BONE, WITH OSTEOMYELITIS (SEE MICROSCOPIC SECTION) Signing Pathologist Direct Phone Line: [phone] CPT Code(s) 49799 [facility] [address] [facility] CLINICAL HISTORY Sternal wound infection, rule [facility] out osteomyelitis [facility] SPECIMEN SOURCE Bone tissue [facility] GROSS DESCRIPTION Received fresh labeled "bone [facility] tissue" is a 1.2 x 1.0 x 0.2 [facility] cm aggregate of dark red rubbery bone and soft tissue. The specimen is entirely submitted in cassette A1 for decalcification. DB/pl MICROSCOPIC DESCRIPTION The initial slide in this case [facility] shows only soft tissue.Two [facility] recut slides with multiple sections show a fragment, 2 mm, including cartilage and bone. The bone shows ischemic and fragmented changes in multiple elements. There is also an acute and chronic inflammatory infiltrate associated with some bone destruction in these fragments, consistent with osteomyelitis. Specimen Tissue Performing Organization Address City/[facility] [place] [phone] [place] [address] * Hemoglobin-Stat Lab (02/26/2018 2:22 PM CDT) Hemoglobin 9.0 (L) 13.0 - 16.8 g/dL [facility] Specimen Blood, Arterial Performing Organization Address City/[facility] [place] [address] [phone] [address] * HEMATOCRIT-STAT LAB (02/26/2018 2:22 PM CDT) Hematocrit 26.0 (L) 40.0 - 50.0 % [facility] Specimen Blood, Arterial Performing Organization Address City/[facility] Phone Number [address] [address] [phone] [place] [address] * Potassium-Stat Lab (02/26/2018 2:00 PM CDT) Potassium 3.6 3.6 - 5.5 meq/L [facility] Specimen Blood, Arterial Performing Organization Address [facility] Phone Number [address] [address] [phone] [address] * Calcium, Ionized (02/26/2018 2:00 PM CDT) Calcium, Ion 1.06 (L) 1.12 - 1.27 mmol/L [facility] pH, Blood 7.42 [facility] Specimen Blood Performing Organization Address City/[facility] [place] [address] [facility] * pH, venous (02/26/2018 2:00 PM CDT) pH, Valdo 7.43 (H) 7.32 - 7.42 [facility] Specimen Blood Performing Organization Address [facility] [place] [address] [phone] [place] [address] * PT/aPTT (02/26/2018 5:05 AM CDT) Protime 15.5 (H) 11.7 - 14.7 seconds [facility] INR 1.2 <=5.9 [facility] PTT 33.1 22.5 - 36.0 seconds [facility] Specimen Blood Narrative Performed At RECOMMENDED COUMADIN/WARFARIN INR THERAPY RANGES [facility] STANDARD DOSE: 2.0 - 3.0 Includes: PROPHYLAXIS for venous thrombosis, [facility] systemic embolization; TREATMENT for venous thrombosis and/or pulmonary embolus. HIGH RISK: Target INR is 2.5-3.5 for patients with mechanical heart valves. Performing Organization Address City/[facility] Phone Number [address] [address] [phone] [place] [address] * aPTT (02/25/2018 8:24 PM CDT) PTT 33.1 22.5 - 36.0 seconds [facility] Specimen Blood Performing Organization Address City/[facility] Phone Number [address] [address] [facility] * Prothrombin time/INR (02/25/2018 8:24 PM CDT) Protime 14.6 11.7 - 14.7 seconds [facility] INR 1.1 <=5.9 [facility] Specimen Blood Narrative Performed At RECOMMENDED COUMADIN/WARFARIN INR THERAPY RANGES [facility] STANDARD DOSE: 2.0 - 3.0 Includes: PROPHYLAXIS for venous thrombosis, [facility] systemic embolization; TREATMENT for venous thrombosis and/or pulmonary embolus. HIGH RISK: Target INR is 2.5-3.5 for patients with mechanical heart valves. Performing Organization Address City/State/Zipcode Phone Number [facility] [address] [place] [address] [facility] * Urinalysis w/Microscopic (02/25/2018 11:53 AM CDT) Color, UA Light Yellow [facility] Clarity, UA Clear [facility] Specific [place], UA 1.006 1.001 - 1.035 [facility] pH, UA 5.0 5.0 - 8.0 [facility] Protein, UA Negative Negative [facility] Glucose, UA Negative Negative [facility] Ketones, UA Negative Negative [facility] Bilirubin, UA Negative Negative [facility] Blood, UA Negative Negative [facility] Nitrite, UA Negative Negative [facility] Leukocytes, UA Negative Negative [facility] Urobilinogen, UA 0.2 0.2 - 1.0 mg/dL [facility] RBC, UA 0 /HPF [facility] WBC, UA <1 /HPF [facility] Bacteria, UA Rare [facility] Squam Epithel, UA <1 /HPF [facility] Hyaline Casts, UA 2 /LPF [facility] Specimen Source Urine, Voided [facility] Specimen Urine Performing Organization Address City/[facility] Phone Number [address] * Hemoglobin A1c, if diabetic (02/25/2018 5:45 AM CDT) Hemoglobin A1C 7.0 (H) 4.3 - 6.1 % [facility] Specimen Blood Narrative Performed At if diabetic. [facility] Performing Organization Address City/[facility] Phone Number [address] * Creatine Kinase (CK) (02/25/2018 5:45 AM CDT) Total CK 14 (L) 29 - 200 U/L [facility] Specimen Blood Performing Organization Address City/[facility] Phone Number [address] * Hepatic function panel (02/25/2018 5:45 AM CDT) Protein, Total 8.5 (H) 6.0 - 8.3 gm/dL [facility] Albumin 3.2 (L) 3.5 - 5.0 g/dL [facility] Total Bilirubin 0.3 0.2 - 1.2 mg/dL [facility] Bilirubin, Direct 0.2 0.1 - 0.5 mg/dL [facility] Alkaline Phosphatase 54 40 - 150 U/L [facility] AST 10 5 - 34 U/L [facility] ALT 7 6 - 55 U/L [facility] Specimen Blood Performing Organization Address City/[facility]/[place] [address] [facility] * ECG 12 lead (02/24/2018 6:05 PM CDT) Only the most recent of 2 results within the time period is included. Specimen Narrative Performed At Ventricular Rate 71 BPM GE MUSE Atrial Rate 71 BPM P-R Interval 146 ms QRS Duration 136 ms Q-T Interval 420 ms QTC Calculation(Bazett) 456 ms P [place] 25 degrees R [place] -44 degrees T [place] -17 degrees Normal sinus rhythm Left axis deviation Right bundle branch block Moderate voltage criteria for LVH, may be normal variant Abnormal ECG When compared with ECG of 01-FEB-2018 11:54, No significant change was found Confirmed by MD KEBEDE JOSEPH P ([id number]) on 02/25/2018 6:06:21 AM Procedure Note Interface, External Ris In - 02/25/2018 6:06 AM CDT Ventricular Rate 71 BPM Atrial Rate 71 BPM P-R Interval 146 ms QRS Duration 136 ms Q-T Interval 420 ms QTC Calculation(Bazett) 456 ms P [place] 25 degrees R [place] -44 degrees T [place] -17 degrees Normal sinus rhythm Left axis deviation Right bundle branch block Moderate voltage criteria for LVH, may be normal variant Abnormal ECG When compared with ECG of 01-FEB-2018 11:54, No significant change was found Confirmed by MD KEBEDE JOSEPH P ([id number]) on 02/25/2018 6:06:21 AM Performing Organization Address City/[facility] Phone Number [place] [place] * Troponin I (02/24/2018 5:46 PM CDT) Only the most recent of 2 results within the time period is included. Troponin I <0.01 0.00 - 0.03 ng/mL [facility] Specimen Blood Narrative Performed At Troponin I (TnI) levels must be interpreted in the context of the presenting [facility] symptoms and the clinical findings. Elevated TnI levels indicate myocardial [facility] damage, but are not specific for ischemic heart disease. Elevated TnI levels are seen in patients with other cardiac conditions (including myocarditis and congestive heart failure), and slight TnI elevations occur in patients with other conditions, including sepsis, renal failure, acidosis, acute neurological disease, and persistent tachyarrhythmia. Performing Organization Address City/[facility] Phone Number [facility] [address] [place] [address] [facility] * Wound culture + gram stain (02/24/2018 5:04 PM CDT) Result 1+ Methicillin resistant [facility] Staphylococcus aureus (A) [facility] Gram Stain Result 2+ WBCs [facility] Gram Stain Result No organisms seen [facility] Specimen Wound Narrative Performed At <1+ Skin shayy [facility] Antibiotic Method Susceptibility Organism Clindamycin 0.25: Susceptible [...] aureus Performing Organization Address City/State/Zipcode Phone Number [address] [address] [facility] * CT chest without contrast (02/24/2018 2:41 PM CDT) Specimen Narrative Performed At FINAL REPORT Pact TECHNIQUE: CT scan of the chest WITHOUT [...] MD Report Verified Date/Time:02/24/2018 15:13:17 Reading Location: [facility] Diagnostic Imaging Reading Room - [place] [id number] Procedure Note Interface, External Ris In - [...] Report Verified Date/Time: 02/24/2018 15:13:17 Reading Location: [facility] Diagnostic Imaging Reading Room - [facility] F1 1120 Performing Organization Address City/State/Zipcode Phone Number [facility] * XR chest 1 view portable / bedside (02/24/2018 12:43 PM CDT) Specimen Narrative Performed At FINAL REPORT [facility] [place] EXAM: Frontal chest radiograph HISTORY PROVIDED: Chest [...] abnormality. Signed: Esau Tolbert MD Report Verified Date/Time:02/24/2018 13:30:44 Reading Location: [facility] Mammo Reading Room Procedure Note Interface, External [...] Report Verified Date/Time: 02/24/2018 13:30:44 Reading Location: [facility] Mamm Reading Room Performing Organization Address City/State/Zipcode Phone Number [facility] * Blood culture (02/24/2018 12:30 PM CDT) Only the most recent of 2 results within the time period is included. Result No growth in 5 days [facility] Specimen Blood Performing Organization Address City/[facility] [facility]/Zipcode Phone Number [facility] [address] [place] [address] [facility] after 02/08/2018 Insurance Payer Benefit Subscriber ID Type Phone Address Plan / Group [employer] xxxxxxxxxxx MEDICARE ADV Advance Directives For more information, please contact: [address] [address] Date Inactivated Comments Code Status Date Activated [...]
[2019-02-10] VITALS (9 sets, daily range): BP systolic 131–151; BP diastolic 64–81
--- NOTE | 2019-02-10 00:32 | NUR ---
Received report from ER nurse. Patient into room 289.
--- NOTE | 2019-02-10 01:20 | NUR ---
Patient arrived to floor via w/c.
[2019-02-10] MEDS ORDERED: SODIUM CHLORIDE 0.9% 250ML 250 ML ONE (01:50)
[2019-02-10] MEDS: SODIUM CHLORIDE 0.9% 1000ML 1,000 ML IV SCH ×2 (02:03→11:39)
[2019-02-10] MEDS: VANCOMYCIN 1GM/NS 250 ML 250 ML IV SCH ×2 (02:04→11:39)
[2019-02-10] MEDS: ONDANSETRON HCL INJ 2MG/ML 2ML 2 MG/ML VIAL IV PRN ×2 (02:15→06:36)
[2019-02-10] MEDS: MORPHINE SULFATE INJ 4 MG/ML INJ 1ML IV PRN ×3 (02:15→11:19)
--- NOTE | 2019-02-10 04:45 | NUR ---
Patient requested pain meds . 6-7. Meds given as ordered by .
[2019-02-10] MEDS: PIPER-TAZ 3.375 GM 50 ML IV SCH ×3 (05:43→22:00)
[2019-02-10] MEDS ORDERED: INSULIN REGULAR, HUMAN 100 UNIT/1 ML 3ML VIAL SQ SCH (07:30)
[2019-02-10 08:25] LABS: BASOPHILS # (AUTO) 0.1 (0.0-0.1); BASOPHILS % 0.6 % (0.0-1.0); EOSINOPHILS # (AUTO) 0.3 (0.0-0.4); EOSINOPHILS % 3.2 % (0.0-6.0); HEMATOCRIT 35.2 % (38.2-49.6); HEMOGLOBIN 10.9 g/dL (14.0-18.0); LYMPHOCYTES # (AUTO) 2.1 (1.0-3.2); LYMPHOCYTES % 23.2 % (18.0-39.1); MEAN CORPUSCULAR HEMOGLOBIN 27.3 pg (28-32); MONOCYTES # (AUTO) 0.8 (0.2-0.8); MONOCYTES % 9.2 % (4.4-11.3); NEUTROPHILS # (AUTO) 5.7 (2.1-6.9); NEUTROPHILS % 63.1 % (38.7-80.0); PLATELET COUNT 191 x10e3/uL (140-360)
[2019-02-10 08:34] LABS: ALBUMIN 2.9 g/dL (3.5-5.0); ALBUMIN/GLOBULIN RATIO 0.6 (0.8-2.0); ANION GAP 14.1 mmol/L (8-16); CREATININE, SERUM 1.36 mg/dL (0.72-1.25); POTASSIUM 4.1 mmol/L (3.5-5.1)
[2019-02-10] MEDS: OXYCODONE HCL 10 MG TAB CR PO SCH ×2 (12:34→22:00)
[2019-02-10] MEDS: CLOPIDOGREL BISULFATE 75 MG TAB PO SCH (14:14)
[2019-02-10] MEDS: GABAPENTIN 300 MG CAP PO SCH ×2 (14:14→22:00)
[2019-02-10] MEDS: ROPINIROLE HCL 1 MG TAB PO SCH ×2 (14:14→22:00)
[2019-02-10] MEDS: ASPIRIN 81 MG CHEW TAB PO SCH (14:14)
[2019-02-10] MEDS: INSULIN GLARGINE 100 UNITS/ML VIAL SQ SCH (14:15)
--- NOTE | 2019-02-10 15:05 | NUR ---
Visit made by the Spiritual Care Department Pastoral Visitor, Claudia Millan. Pt sleeping soundly and no family present. Pastoral Visitor left a card describing availability of manager biostatistics and instructions on how to contact a manager biostatistics. ALEJO RODRIGUEZ Straightedge Machine Operator Helper Spiritual Care Department O: [phone] Pager: [phone] ([phone] number calling from)
[2019-02-10] MEDS: CARVEDILOL 12.5 MG TAB PO SCH (18:12)
[2019-02-10] MEDS: LACTOBACILLUS ACIDOPHILUS CAPSULE PO SCH (18:12)
[2019-02-10] MEDS: ENOXAPARIN SOD INJ 40 MG/0.4 ML SYR SC SCH (18:16)
[2019-02-10] MEDS: INSULIN LISPRO 100 UNIT/1 ML 3ML VIAL SQ SCH ×2 (18:45→22:00)
[2019-02-10] MEDS: TEMAZEPAM 15 MG CAP PO SCH (22:00)
[2019-02-10] MEDS: PRAVASTATIN 20 MG TAB PO SCH (22:00)
[2019-02-11] VITALS (8 sets, daily range): BP systolic 107–142; BP diastolic 57–91
--- NOTE | 2019-02-11 00:07 | NUR ---
Picc line is in proper position in the SVC per radiology report by Dr Gaxiola. Picc is ok to use
[2019-02-11] MEDS: VANCOMYCIN 1GM/NS 250 ML 250 ML IV SCH ×2 (00:30→12:45)
--- NOTE | 2019-02-11 00:55 | Diagnostic Imaging Report ---
EXAMINATION: CHEST XRAY LINE PLACEMENT INDICATION: PICC placement COMPARISON: Chest radiograph 12/31/2018 FINDINGS: AP view TUBES and LINES: Right upper extremity PICC tip terminates at the superior aspect of the superior vena cava.. LUNGS: Lungs are well inflated. Lungs are clear. There is no evidence of pneumonia or pulmonary edema. PLEURA: No pleural effusion or pneumothorax. HEART AND MEDIASTINUM: The cardiomediastinal silhouette is unremarkable. BONES AND SOFT TISSUES: No acute osseous lesion. Soft tissues are unremarkable. Degenerative changes in the spine UPPER ABDOMEN: No free air under the diaphragm. IMPRESSION: Right upper extremity PICC tip terminates at the superior aspect of the superior vena cava. No acute thoracic abnormality. Signed by: Ricky Gaxiola DO on 02/11/2019 12:52 AM
[2019-02-11] MEDS: OXYCODONE HCL 10 MG TAB CR PO SCH ×3 (05:45→22:20)
[2019-02-11] MEDS: PIPER-TAZ 3.375 GM 50 ML IV SCH (05:45)
[2019-02-11 06:13] LABS: BASOPHILS # (AUTO) 0.1 (0.0-0.1); BASOPHILS % 0.6 % (0.0-1.0); EOSINOPHILS # (AUTO) 0.3 (0.0-0.4); EOSINOPHILS % 3.9 % (0.0-6.0); HEMATOCRIT 32.6 % (38.2-49.6); HEMOGLOBIN 10.3 g/dL (14.0-18.0); LYMPHOCYTES # (AUTO) 2.7 (1.0-3.2); LYMPHOCYTES % 31.6 % (18.0-39.1); MEAN CORPUSCULAR HEMOGLOBIN 27.7 pg (28-32); MEAN CORPUSCULAR HGB CONC 31.6 g/dL (31-35); MEAN CORPUSCULAR VOLUME 87.6 fL (81-99); MONOCYTES # (AUTO) 0.7 (0.2-0.8); MONOCYTES % 7.9 % (4.4-11.3); NEUTROPHILS # (AUTO) 4.8 (2.1-6.9); NEUTROPHILS % 55.2 % (38.7-80.0); PLATELET COUNT 199 x10e3/uL (140-360); RED BLOOD COUNT 3.72 x10e6/uL (4.3-5.7)
[2019-02-11 06:16] LABS: INR 0.95; PROTHROMBIN TIME 13.2 seconds (11.9-14.5)
[2019-02-11 06:17] LABS: PARTIAL THROMBOPLASTIN TIME 31.9 seconds (23.8-35.5)
[2019-02-11 06:28] LABS: ALBUMIN 2.8 g/dL (3.5-5.0); ALBUMIN/GLOBULIN RATIO 0.6 (0.8-2.0); ANION GAP 13.5 mmol/L (8-16); CALCIUM 9.2 mg/dL (8.4-10.2); CREATININE, SERUM 1.47 mg/dL (0.72-1.25); POTASSIUM 4.5 mmol/L (3.5-5.1)
[2019-02-11] MEDS: INSULIN LISPRO 100 UNIT/1 ML 3ML VIAL SQ SCH ×4 (08:00→21:10)
[2019-02-11] MEDS: ASPIRIN 81 MG CHEW TAB PO SCH (08:43)
[2019-02-11] MEDS: COLCHICINE 0.6 MG TAB PO SCH (08:44)
[2019-02-11] MEDS: DOXAZOSIN MESYLATE 2 MG TAB PO SCH (08:44)
[2019-02-11] MEDS: GABAPENTIN 300 MG CAP PO SCH ×3 (08:45→21:10)
[2019-02-11] MEDS: CARVEDILOL 12.5 MG TAB PO SCH ×2 (08:45→17:26)
[2019-02-11] MEDS: MORPHINE SULFATE INJ 4 MG/ML INJ 1ML IV PRN (08:45)
[2019-02-11] MEDS: DULOXETINE HCL 20 MG DELAYED RELEASE PO SCH (08:45)
[2019-02-11] MEDS: LACTOBACILLUS ACIDOPHILUS CAPSULE PO SCH ×2 (08:46→17:26)
[2019-02-11] MEDS: CLOPIDOGREL BISULFATE 75 MG TAB PO SCH (08:46)
[2019-02-11] MEDS: AMLODIPINE BESYLATE 5 MG TAB PO SCH (08:46)
[2019-02-11] MEDS: LISINOPRIL 10 MG TAB PO SCH (08:46)
[2019-02-11] MEDS: ROPINIROLE HCL 1 MG TAB PO SCH ×3 (08:47→21:25)
[2019-02-11] MEDS: INSULIN GLARGINE 100 UNITS/ML VIAL SQ SCH (09:00)
[2019-02-11] MEDS: MUPIROCIN 2% OINT 22 GM TUBE TOP SCH (09:06)
[2019-02-11] MEDS: CADEXOMER IODINE 30 GM TUBE TOP SCH (09:06)
--- NOTE | 2019-02-11 11:22 | NUR ---
feb 10 Mr. Mittal is a 68-year-old male with past medical history of hypertension, essential; type 2 diabetes with complications; hypercholesteremia; and coronary artery disease with prior history of [place] back in 1994 and 1997, who had a heart catheterization back in November of 2017 showing three-vessel disease and subsequently underwent three-vessel CABG at [facility] with Dr. Fallon. The patient has longstanding history of severe bilateral lower extremity PAD with nonhealing ulceration of the bilateral lower extremities. He has had repeated hospitalizations with fevers, chills, and sepsis and has had multiple prolonged antibiotic courses to treat infections. He has had previous left toe osteomyelitis in August 2016, where he has had first tarsal metaphalangeal joint resection with partial ray resection and flap closure. On account of his lower extremities, the patient has significantly no sensation below his knees. He used to douse his legs with carburetor oil, which is naphthalene based and has subsequently developed severe nerve injury. Over the years, he may have stepped on multiple foreign objects and underwent MRI of the left foot this time around after his recurrent sepsis, fevers, chills, typical to his previous hospitalizations. There is an MRI of the left foot performed with and without contrast done on January 02, 2019, which showed extensive late cdxqyxvl-rr-rgkvslv osteomyelitic changes in the second middle phalanx of the fourth digit and distal phalanx of the fourth digit, which has progressed substantially since August of 2017. In light of these findings, Podiatry has been consulted and is now planning to proceed with left transmetatarsal amputation for source control of his infection. He understands the risks and benefits for this procedure. He reports that he has had no problems with chest pains or discomfort. He denies any orthopnea, PND, or any lower extremity edema. He has had no issues with prior operations in the past and no issues with anesthesia. We discussed cardiac risks for him today. In terms of his flow to his leg, we reviewed his left lower extremity arterial duplex, which appears to have a triphasic appearing waveform in his infrapopliteal vessels on the left leg, however, baseline is pulled up and technically is monophasic, likely secondary to vessel dilatation from infection. I reviewed his previous peripheral angiogram and revascularization from November of 2017, which showed a patent right anterior tibial artery with just a 40% proximal stenosis and a mid left posterior tibial artery disease that was successfully revascularized with a CSI atherectomy and angioplasty. Based on waveforms, I suspect anatomy is largely unchanged. PAST MEDICAL HISTORY: 1. Hypertension, essential. 2. Type 2 diabetes. 3. Hypercholesteremia. 4. Coronary artery disease with prior history of [place] in 1994 and 1997 and found to have three-vessel CAD, where he underwent CABG in [address] Fallon at [facility]. 5. PAD with prior history of angiogram and revascularization of the left posterior tibial artery on November 11, 2017. 6. History of bilateral great toe amputations surgery. 7. 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 8. History of left partial ray amputation in 2017. 9. History of osteomyelitis and nonhealing ulceration of the left lower extremity. FAMILY HISTORY: Mother at age 62 from breast cancer. Father at age 69 from a heart attack. SOCIAL HISTORY: He denies smoking. He used to drink heavily back 25 years ago. Denies any current alcohol or illicit drug use. ALLERGIES: NO KNOWN DRUG ALLERGIES. [id number]
--- NOTE | 2019-02-11 12:01 | Progress Note ---
DATE: SUBJECTIVE: Mr. Mittal is doing well. There are no new complaints at the present time. His leg seems to be a little better. REVIEW OF SYSTEMS: HEENT: Negative. PULMONARY: Negative. CARDIAC: Negative. : Negative, otherwise. SKIN: Better. LABORATORY DATA: Reviewed today. PHYSICAL EXAMINATION: GENERAL: Alert, oriented, does not seem to be in acute distress. VITAL SIGNS: Stable, currently afebrile. HEENT: Not icteric. NECK: Supple. CHEST: Clear. HEART: S1, S2. No murmurs. ABDOMEN: Soft. IMPRESSION: 1. Cellulitis of the leg, better. Concerned about osteomyelitis. We will get MRI bilateral feet. Discontinue Zosyn, put cefepime. Follow vancomycin trough. 2. Chronic kidney disease. 3. Diabetes with neuropathy. 4. We will follow. MD MARVIN Vigil/VENESSA /[id number]
[2019-02-11] MEDS: CEFTRIAXONE SOD 2 GM/NS 100 ML 100 ML IV SCH (12:15)
--- NOTE | 2019-02-11 12:40 | Consultation ---
DATE OF CONSULTATION: 02/10/2019 HISTORY OF PRESENT ILLNESS: Mr. Mittal is well known to me from previous admission. He is a 68-year-old, who has history of obesity, chronic diabetic foot ulcers bilateral, history of peripheral vascular disease, history of hypercholesteremia, diabetes type 2 with neuropathy, coronary artery disease, myocardial infarction 1994, and heart catheterization in November 2017. The patient was recently in the hospital with cellulitis. The patient was treated with IV antibiotic, then oral antibiotic and was discharged home with oral antibiotic. The patient was seen and examined as mentioned above. Apparently, he is coming back with recurrent redness and swelling of his legs. The patient denies any history of trauma. He states he has been taking care of his wound, but he was taking oral antibiotic, but he came here with worsening redness and swelling going up his right leg, feeling feverish. The patient, who does have bilateral feet ulcers, hypertension, diabetes mellitus, peripheral vascular disease, and neuropathy. The patient was admitted, started on IV vancomycin and Zosyn. Infectious Disease was asked to see the patient. REVIEW OF SYSTEMS: HEENT: Negative. PULMONARY: Negative. CARDIAC: Negative. : Negative. GI: Negative. SKIN: There are no other rashes except bilateral lower extremities as mentioned above. He does have ulcers. There is redness and swelling. PHYSICAL EXAMINATION: GENERAL: He is currently alert and oriented. Does not seem to be in acute distress. VITAL SIGNS: Stable. Currently afebrile. HEENT: He is not icteric. NECK: Supple. CHEST: Clear. HEART: S1 and S2. No S3, S4, or murmur. ABDOMEN: Soft. Possible tenderness. EXTREMITIES: There is erythema and edema on the right leg involving the whole leg from the foot to below the knee. There are several ulcers noted. IMPRESSION: 1. Cellulitis, recurrent of the right leg. I am concerned about underlying osteo. 2. Diabetes mellitus, neuropathy. 3. Chronic kidney disease. Agree with vancomycin. We will discontinue Zosyn. We will put him on cefepime. We will get a sedimentation rate and C-reactive protein. We will get an MRI of bilateral feet. We will continue other medication. Discussed with Internal Medicine at length. Other medical problems as above seem to be stable. MD MARVIN Vigil/VENESSA /[id number]
[2019-02-11] MEDS ORDERED: GADOBENATE DIMEGLUMINE 1 ML IV ONE (13:17)
--- NOTE | 2019-02-11 14:01 | NUR ---
WOUND CARE NURSE CONSULTATION. 68 YEAR OLD MALE ADMITTED TO [facility] WITH DX OF CELLULITIS, LEFT LOWER EXTREMITY. HEAD TO TOE SKIN ASSESSMENT PERFORMED TODAY. PT PRESENTS WITH 3-4 WEEKS OLD LEFT TMA, SKIN TEAR TO LEFT COX, AND DIABETIC FOOT ULCER, RIGHT PLANTAR FOOT. SEE ASSESSMENT FOR MEASUREMENTS. DR. COLE IN THE CASE. ORDERS FOR WOUND CARE IN PLACE. PT AWARE OF PLAN OF CARE. NO S/S OF INFECTION. THERE ARE NO OTHER AREAS OF CONCERN NOTED AT THIS TIME. LABS: WBC:8.64 ALB: 2.8 GLUCOSE: 295 BLOOD AND URINE CX RESULTS ARE PENDING. NURSING TO CONTINUE WITH CURRENT WOUND CARE ORDERS BY DR. COLE. RECONSULT WOUND CARE PRN. Addendum: 02/11/19 at 1407 by Sangeeta Bocanegra RN Amended: Links added.
--- NOTE | 2019-02-11 14:07 | Consultation ---
DATE OF CONSULTATION: 02/11/2019 REASON FOR CONSULTATION: Cellulitis with a nonhealing ulceration to the right foot with the patient being an insulin-dependent diabetic. HISTORY OF PRESENT ILLNESS: This is a pleasant 68-year-old white male, who is very well known to me from previous admission, just had a TMA to the left lower extremity three weeks ago and is doing very well from that procedure. He presented with a new complaint, had cellulitis to the right lower extremity with a nonhealing ulceration and developed severe redness this past Saturday. He is denying any history of fever, chills, nausea, or vomiting. Also has some redness to the left leg to the pretibial area with some multiple grade 1 lesions. PAST MEDICAL HISTORY: Remarkable for insulin-dependent diabetes, hypertension, and gout with neuropathy. PAST SURGICAL HISTORY: Remarkable for left TMA, status post three weeks ago and right great toe amputation. ALLERGIES: THE PATIENT DENIES. SOCIAL HISTORY: He is to be a heavy drinker. Does not smoke or do any type of recreational drug use. FAMILY HISTORY: Noncontributory. CURRENT MEDICATIONS: Note listed in chart including IV vancomycin and Zosyn. LABORATORY DATA: Noted as a white blood cell count dropping from 11.8 to 8.6 since he has been on IV antibiotics. REVIEW OF SYSTEMS: CARDIAC: Denies any palpitations or arrhythmias. RESPIRATORY: Denies any shortness of breath or productive cough. GASTROINTESTINAL: Denies any diarrhea or constipation. GENITOURINARY: Denies any problems with voiding or hematuria. PHYSICAL EXAMINATION: VITAL SIGNS: Afebrile, pulse rate 83, respirations 19, blood pressure 124/65, and O2 saturation 95%. VASCULATURE: Pedal pulses of both the DP and PT are palpable. CFT to all toes of the right lower extremity less than 4 seconds. NEUROLOGIC: Complete loss of protective sensation when utilizing Allouez-Sharee 5% monofilament wire. MUSCULOSKELETAL: Muscle mass to be asymmetrical. Some swelling noted to the right foot when compared to the left. Cellulitis up to the pretibial area almost knee to the right lower extremity compared to left lower extremity. Cellulitis to the mid calf and pretibial area midway through the leg of the left foot. DERMATOLOGICAL: Reveals a grade 2/3 ulceration on plantar aspect right foot measuring 1.5 to 2 cm in diameter. Some necrosis noted down to subcutaneous tissue. No bone or tendon exposed. Incision site to the left lower extremity flap is viable. ASSESSMENT: Cellulitis in both lower extremities, grade 2/3 ulceration in right foot with edema, diabetic neuropathy. LABORATORY DATA: Show a white blood cell count of 8.6 with a hemoglobin of 10.3 with a platelet count of 199. PLAN: We will continue IV antibiotics. We will start Iodosorb to the right foot ulcer daily, covered by light dry dressing, Bactroban ointment to the pretibial ulcerations of the left lower extremity and to the incision site every day. We will continue to follow. Continue IV antibiotics. Ulceration may need to be debrided at bedside. VALENTINA Eric/VENESSA /[id number]
--- NOTE | 2019-02-11 14:10 | NUR ---
EDUCATED ABOUT IMM, SIGNED, FILED IN CHART, WITH COPY LEFT WITH FAMILY AT BEDSIDE.
--- NOTE | 2019-02-11 15:14 | NUR ---
pt came back to floor from radiology via wheelchair. pt in stable condition.
--- NOTE | 2019-02-11 15:53 | Diagnostic Imaging Report ---
TECHNIQUE: Magnetic resonance imaging of the RIGHT foot (forefoot) was performed WITH and WITHOUT injected contrast, 20 cc of intravenous MultiHance. HISTORY: Cellulitis, redness, swelling COMPARISON: Right foot radiographs January 02, 2019. DISCUSSION: Bone: Status post amputation of the great toe at the level of the first metatarsophalangeal joint. No no evidence of acute osteomyelitis. Subtle heterogeneous bone marrow edema involving the distal aspect of the third proximal phalanx, third middle phalanx, and third distal phalanx, could reflect the sequela of prior osteomyelitis. Joints: Scattered degenerative changes, most notably mild to moderate of the second through fifth tarsometatarsal joints. Second through fifth hammertoe deformities. Soft Tissues: A plantar soft tissue defect underlying the region of the second metatarsophalangeal joint. Regional edema and hyperemia, without a drainable fluid collection. IMPRESSION: 1. No evidence of acute osteomyelitis. 2. No soft tissue abscess. 3. Plantar soft tissue ulcer with regional cellulitis. Signed by: Dr. Bayron Olguin D.O., M.M.M. on 02/11/2019 3:50 PM
--- NOTE | 2019-02-11 16:15 | Diagnostic Imaging Report ---
TECHNIQUE: Magnetic resonance imaging of the LEFT foot (forefoot) was performed WITH and WITHOUT injected contrast, 20 cc of intravenous MultiHance. HISTORY: Cellulitis, redness, swelling COMPARISON: Left foot radiographs August 14, 2017, January 02, 2019, and January 12, 2019. MRI of the left foot January 02, 2019. DISCUSSION: Susceptibility artifacts and inhomogeneous fat saturation most notably in the region of the residual distal third metatarsal bone. Bone: Stable chronic changes status post post amputation of the first metatarsal bone at the level of the proximal metaphysis. Recent transmetatarsal amputations of the second through fifth metatarsal bones at the level of the distal diaphyses. Mild nonspecific bone marrow edema and hyperemia adjacent to the resection margins of the second through fifth metatarsal bones, the amount is similar between all for resection margins, within the stated limitation. Joints: Stable appearing severe arthropathy of the visualized tarsometatarsal joints. Soft Tissues: Diffuse edema and hyperemia of the distal residual forefoot, without a drainable fluid collection. IMPRESSION: 1. Evolving postsurgical changes, status post transmetatarsal amputation of the second through fifth metatarsal bones. Nonspecific edema and hyperemia along the resection margins, without specific evidence of superimposed acute osteomyelitis. In the setting of poor wound healing, recommend close clinical follow-up and short-term follow-up radiographs for surveillance, such as in 4-6 weeks, sooner as warranted. 2. No soft tissue abscess. Signed by: Dr. Bayron Olguin D.O., M.M.M. on 02/11/2019 4:12 PM
[2019-02-11] MEDS: ENOXAPARIN SOD INJ 40 MG/0.4 ML SYR SC SCH (17:28)
[2019-02-11] MEDS: TIZANIDINE HCL 4 MG TAB PO PRN (21:10)
--- NOTE | 2019-02-11 21:10 | NUR ---
PATIENT AOX3 NO RESPIRATORY DISTRESS NOTED. PATIENT RESTING IN BED, BOTH SIDE RAILS UP. DRESSING CLEAN AND DRY ON BILATERAL FEET AND PATIENT COMPLAINS OF PAIN AT A LEVEL OF 7. BED IS LOCKED IN LOWEST POSITION, CALL LIGHT WITHIN REACH, WILL CONTINUE TO MONITOR.
[2019-02-11] MEDS: PRAVASTATIN 20 MG TAB PO SCH (21:25)
[2019-02-11] MEDS: TEMAZEPAM 15 MG CAP PO SCH (21:25)
[2019-02-12] VITALS (9 sets, daily range): BP systolic 105–146; BP diastolic 56–69
[2019-02-12] MEDS: OXYCODONE HCL 10 MG TAB CR PO SCH ×3 (06:15→22:26)
--- NOTE | 2019-02-12 07:50 | NUR ---
completed walking rounds and patient is awake watching TV, he has a right upper arm PICC that is saline locked, chronic back pain patient is on scheduled pain med
[2019-02-12] MEDS: DOXAZOSIN MESYLATE 2 MG TAB PO SCH (08:55)
[2019-02-12] MEDS: ASPIRIN 81 MG CHEW TAB PO SCH (08:55)
[2019-02-12] MEDS: INSULIN LISPRO 100 UNIT/1 ML 3ML VIAL SQ SCH ×4 (08:55→20:50)
[2019-02-12] MEDS: COLCHICINE 0.6 MG TAB PO SCH (08:55)
[2019-02-12] MEDS: LACTOBACILLUS ACIDOPHILUS CAPSULE PO SCH ×2 (08:56→16:33)
[2019-02-12] MEDS: GABAPENTIN 300 MG CAP PO SCH ×3 (08:56→20:49)
[2019-02-12] MEDS: ROPINIROLE HCL 1 MG TAB PO SCH ×3 (08:56→20:49)
[2019-02-12] MEDS: CARVEDILOL 12.5 MG TAB PO SCH ×2 (08:56→16:33)
[2019-02-12] MEDS: CLOPIDOGREL BISULFATE 75 MG TAB PO SCH (08:56)
[2019-02-12] MEDS: LISINOPRIL 10 MG TAB PO SCH (08:56)
[2019-02-12] MEDS: DULOXETINE HCL 20 MG DELAYED RELEASE PO SCH (08:56)
[2019-02-12] MEDS: AMLODIPINE BESYLATE 5 MG TAB PO SCH (08:56)
[2019-02-12] MEDS: INSULIN GLARGINE 100 UNITS/ML VIAL SQ SCH (08:57)
[2019-02-12] MEDS: CADEXOMER IODINE 30 GM TUBE TOP SCH (08:57)
[2019-02-12] MEDS: MUPIROCIN 2% OINT 22 GM TUBE TOP SCH (08:57)
--- NOTE | 2019-02-12 12:00 | NUR ---
Patient rec's Rocephin via PICC, one side of DL was clotted but managed to unclot with saline flush and small amount of turbulence, both flush well now and have good blood return. Patient to be getting Vanco and Rocephin at home when discharged. Both dressing changes done to both feet, patient tolerated well.
--- NOTE | 2019-02-12 12:09 | NUR ---
Received IV abx order. Spoke to patient at bedside. He has previously used [facility] and gave choice to use them again. Pt also currently on service with [facility] and would like to resume services on discharge. Choice letter signed for both companies and placed in chart. Copy to pt. CM business card given to pt for any questions/concerns. IV abx order faxed to [facility] at [phone] [facility]
[2019-02-12] MEDS: VANCOMYCIN 1GM/NS 250 ML 250 ML IV SCH (12:25)
[2019-02-12] MEDS: CEFTRIAXONE SOD 2 GM/NS 100 ML 100 ML IV SCH (12:25)
--- NOTE | 2019-02-12 14:22 | Progress Note ---
DATE: 02/12/2019 SUBJECTIVE: The patient is seen at bedside, doing better. Denies any history of fever, chills, nausea, or vomiting. OBJECTIVE: VITAL SIGNS: Afebrile. Vital signs stable with pulse rate 78, respirations 20, blood pressure 121/56, and O2 saturation 96%. EXTREMITIES: Ulceration to the right lower extremity is improving, is down to subcutaneous tissue, measuring 2 to 2.5 cm in diameter. No bone or tendon exposed. Cellulitis to both lower extremities also seemed to resolving. ASSESSMENT: Grade 2 ulcer, right foot, unrelated surgery with cellulitis bilaterally with the patient being diabetic neuropathy. PLAN: We will continue IV antibiotics. Continue local wound care. Continue with the foot demarcate. VALENTINA Eric/VENESSA /[id number]
--- NOTE | 2019-02-12 14:30 | NUR ---
Spoke with Amanda ([phone]) at [facility]. Stated pt would have copay of $209.56 / week. She spoke with pt who states that he cannot afford it. ELMA reached out to Dr. Alba and informed him that pt cannot afford the medications. He states to change order to just Rocephin 2gm daily x 4 weeks. New order faxed to [facility]. ELMA informed Vanessa of new order.
[2019-02-12] MEDS: ENOXAPARIN SOD INJ 40 MG/0.4 ML SYR SC SCH (16:33)
--- NOTE | 2019-02-12 20:45 | NUR ---
PATIENT AOX3 NO RESPIRATORY DISTRESS NOTED. PATIENT RESTING IN BED, BOTH SIDE RAILS UP. DRESSING CLEAN AND DRY ON BILATERAL FEET AND PATIENT COMPLAINS OF PAIN AT A LEVEL OF 6. BED IS LOCKED IN LOWEST POSITION, CALL LIGHT WITHIN REACH, WILL CONTINUE TO MONITOR.
[2019-02-12] MEDS: TEMAZEPAM 15 MG CAP PO SCH (20:49)
[2019-02-12] MEDS: PRAVASTATIN 20 MG TAB PO SCH (20:49)
[2019-02-12] MEDS: TIZANIDINE HCL 4 MG TAB PO PRN (20:49)
--- NOTE | 2019-02-12 20:59 | NUR ---
walking rounds done and patient is visiting with
[2019-02-13] VITALS (7 sets, daily range): BP systolic 116–166; BP diastolic 63–80
[2019-02-13] MEDS: OXYCODONE HCL 10 MG TAB CR PO SCH ×3 (06:28→22:00)
--- NOTE | 2019-02-13 08:00 | NUR ---
PT UP IN BED NO DISTRESS NOPTED,DENIES PAIN
[2019-02-13] MEDS: ASPIRIN 81 MG CHEW TAB PO SCH (08:49)
[2019-02-13] MEDS: DOXAZOSIN MESYLATE 2 MG TAB PO SCH (08:50)
[2019-02-13] MEDS: COLCHICINE 0.6 MG TAB PO SCH (08:50)
[2019-02-13] MEDS: GABAPENTIN 300 MG CAP PO SCH ×3 (08:51→21:00)
[2019-02-13] MEDS: CARVEDILOL 12.5 MG TAB PO SCH ×2 (08:51→16:48)
[2019-02-13] MEDS: DULOXETINE HCL 20 MG DELAYED RELEASE PO SCH (08:51)
[2019-02-13] MEDS: ROPINIROLE HCL 1 MG TAB PO SCH ×3 (08:52→21:00)
[2019-02-13] MEDS: LISINOPRIL 20 MG TAB PO SCH (08:52)
[2019-02-13] MEDS: INSULIN GLARGINE 100 UNITS/ML VIAL SQ SCH (08:52)
[2019-02-13] MEDS: AMLODIPINE BESYLATE 5 MG TAB PO SCH (08:52)
[2019-02-13] MEDS: CLOPIDOGREL BISULFATE 75 MG TAB PO SCH (08:52)
[2019-02-13] MEDS: LACTOBACILLUS ACIDOPHILUS CAPSULE PO SCH ×2 (08:52→16:48)
[2019-02-13] MEDS: INSULIN LISPRO 100 UNIT/1 ML 3ML VIAL SQ SCH ×4 (08:54→21:00)
--- NOTE | 2019-02-13 09:22 | NUR ---
Received call from Amanda at [facility]. States pt's new copay is $130/week, will owe $11.12 today. She has notified pt of copay and was here this morning to see pt and provide teaching. or pt need to provide credit card to place on file for payment. Once they get that, they will be able to deliver medications this evening. Pt was instructed to call [facility] when he gets discharged for delivery.
[2019-02-13] MEDS: CEFTRIAXONE SOD 2 GM/NS 100 ML 100 ML IV SCH (12:07)
[2019-02-13] MEDS: VANCOMYCIN 1GM/NS 250 ML 250 ML IV SCH (13:00)
[2019-02-13] MEDS: MUPIROCIN 2% OINT 22 GM TUBE TOP SCH (14:49)
[2019-02-13] MEDS: CADEXOMER IODINE 30 GM TUBE TOP SCH (14:49)
--- NOTE | 2019-02-13 15:23 | Progress Note ---
DATE: 02/13/2019 SUBJECTIVE: The patient at bedside, doing better. Relates the ulceration to the right foot is getting better. Decreased cellulitis to both lower extremities. OBJECTIVE: VITAL SIGNS: Afebrile, pulse rate 79, respirations 20, blood pressure 140/70, and O2 saturation 97%. EXTREMITIES: Ulceration to the right great toe is less than 2 cm in diameter. Granulation tissue noted down to the subcutaneous tissue. Periwound cellulitis present. Negative drainage. Flap and incision site to the left lower extremity looks good. Small area of surgical dehiscence, measuring 2 cm x 0.5 cm in diameter. Cellulitis to both lower extremities. LABORATORY DATA: White blood cell count of 8.6. ASSESSMENT: Grade 2 ulcer, right foot, unrelated to surgery with cellulitis bilaterally, unrelated to surgery, doing very well status post left foot surgery with rotational flap closure, Achilles tendon lengthening, I and D, and transmetatarsal amputation. PLAN: We will continue IV antibiotics such as Vancomycin and ceftriaxone. We will continue local wound care. Continue offloading. We will continue to follow. VALENTINA Eric/VENESSA /[id number]
--- NOTE | 2019-02-13 15:33 | Diagnostic Imaging Report ---
Exam: Right thigh ultrasound next Clinical history: Abscess Findings: Sonographic evaluation of the right posterior thigh reveal no evidence of fluid collection or mass. No other significant findings noted. Impression: 1. No sonographic evidence of abscess formation in the right posterior thigh. Signed by: Dr. Star Lang MD on 02/13/2019 3:30 PM
[2019-02-13] MEDS: ENOXAPARIN SOD INJ 40 MG/0.4 ML SYR SC SCH (16:48)
--- NOTE | 2019-02-13 18:50 | NUR ---
PT IN BED DRSG TO RT/LT FOOT CHANGED,DENIES PAIN,
--- NOTE | 2019-02-13 19:20 | NUR ---
Patient visited in room during nursing rounds. Patient alert and oriented x3. No distress or discomfort noted. at bedside. Some redness note on right inner thigh and left leg. Pt on antibiotic treatment. Call watts within reach. Will monitor closely.
--- NOTE | 2019-02-13 19:35 | Diagnostic Imaging Report ---
RIGHT KNEE X-RAY - 3 VIEWS HISTORY: ^pain ^[id number] ^[id number] COMPARISON: Right knee x-ray 08/24/2018 FINDINGS: Bones: No acute displaced fracture. Osseous alignment is within normal limits. Joints: Severe tricompartmental degenerative changes, stable. Soft tissues: Few metallic densities overlying the soft tissue posterior to the knee are unchanged. Diffuse vascular calcifications. IMPRESSION: Severe degenerative changes of the right knee, unchanged when compared to 08/24/2018. Signed by: Dr. Nafisa Beverly M.D. on 02/13/2019 7:31 PM
[2019-02-13] MEDS: TIZANIDINE HCL 4 MG TAB PO PRN (21:00)
[2019-02-13] MEDS: TEMAZEPAM 15 MG CAP PO SCH (21:00)
[2019-02-13] MEDS: PRAVASTATIN 20 MG TAB PO SCH (21:00)
[2019-02-14] VITALS (7 sets, daily range): BP systolic 120–157; BP diastolic 68–88
[2019-02-14 06:00] LABS: BASOPHILS # (AUTO) 0.1 (0.0-0.1); BASOPHILS % 0.9 % (0.0-1.0); EOSINOPHILS # (AUTO) 0.3 (0.0-0.4); EOSINOPHILS % 5.4 % (0.0-6.0); HEMATOCRIT 32.8 % (38.2-49.6); HEMOGLOBIN 10.4 g/dL (14.0-18.0); LYMPHOCYTES # (AUTO) 2.1 (1.0-3.2); LYMPHOCYTES % 34.9 % (18.0-39.1); MEAN CORPUSCULAR HEMOGLOBIN 27.2 pg (28-32); MEAN CORPUSCULAR HGB CONC 31.7 g/dL (31-35); MEAN CORPUSCULAR VOLUME 85.9 fL (81-99); MONOCYTES # (AUTO) 0.5 (0.2-0.8); MONOCYTES % 7.8 % (4.4-11.3); NEUTROPHILS # (AUTO) 2.9 (2.1-6.9); NEUTROPHILS % 49.8 % (38.7-80.0); PLATELET COUNT 200 x10e3/uL (140-360); RED BLOOD COUNT 3.82 x10e6/uL (4.3-5.7); RED CELL DISTRIBUTION WIDTH 14.8 % (11.7-14.4)
[2019-02-14] MEDS: OXYCODONE HCL 10 MG TAB CR PO SCH ×3 (06:10→22:11)
[2019-02-14 06:21] LABS: ANION GAP 13.1 mmol/L (8-16); BLOOD UREA NITROGEN 15 mg/dL (7-26); BUN/CREATININE RATIO 14 (6-25); CARBON DIOXIDE 25 mmol/L (22-29); CHLORIDE 101 mmol/L (98-107); CREATININE, SERUM 1.08 mg/dL (0.72-1.25); EST GLOMERULAR FILTRATION RATE > 60 ML/MIN (60-); GLUCOSE 244 mg/dL (74-118); POTASSIUM 4.1 mmol/L (3.5-5.1); SODIUM 135 mmol/L (136-145)
--- NOTE | 2019-02-14 07:30 | NUR ---
PT UP IN BED SLEEPING,DRSG TO FEET CD&I,
[2019-02-14] MEDS: ASPIRIN 81 MG CHEW TAB PO SCH (08:27)
[2019-02-14] MEDS: AMLODIPINE BESYLATE 5 MG TAB PO SCH (08:28)
[2019-02-14] MEDS: CLOPIDOGREL BISULFATE 75 MG TAB PO SCH (08:28)
[2019-02-14] MEDS: DULOXETINE HCL 20 MG DELAYED RELEASE PO SCH (08:28)
[2019-02-14] MEDS: CARVEDILOL 12.5 MG TAB PO SCH ×2 (08:28→16:43)
[2019-02-14] MEDS: DOXAZOSIN MESYLATE 2 MG TAB PO SCH (08:28)
[2019-02-14] MEDS: GABAPENTIN 300 MG CAP PO SCH ×3 (08:28→20:40)
[2019-02-14] MEDS: COLCHICINE 0.6 MG TAB PO SCH (08:28)
[2019-02-14] MEDS: LISINOPRIL 20 MG TAB PO SCH (08:29)
[2019-02-14] MEDS: INSULIN GLARGINE 100 UNITS/ML VIAL SQ SCH (08:29)
[2019-02-14] MEDS: ROPINIROLE HCL 1 MG TAB PO SCH ×3 (08:29→20:40)
[2019-02-14] MEDS: LACTOBACILLUS ACIDOPHILUS CAPSULE PO SCH ×2 (08:29→16:42)
[2019-02-14] MEDS: INSULIN LISPRO 100 UNIT/1 ML 3ML VIAL SQ SCH ×4 (08:30→20:40)
[2019-02-14] MEDS: CEFTRIAXONE SOD 2 GM/NS 100 ML 100 ML IV SCH (12:00)
[2019-02-14] MEDS: VANCOMYCIN 1GM/NS 250 ML 250 ML IV SCH (12:30)
[2019-02-14] MEDS: CADEXOMER IODINE 30 GM TUBE TOP SCH (13:51)
[2019-02-14] MEDS: MUPIROCIN 2% OINT 22 GM TUBE TOP SCH (13:51)
[2019-02-14] MEDS: TIZANIDINE HCL 4 MG TAB PO PRN ×2 (15:30→20:40)
[2019-02-14] MEDS: ENOXAPARIN SOD INJ 40 MG/0.4 ML SYR SC SCH (16:42)
--- NOTE | 2019-02-14 17:34 | NUR ---
NO CHANGE IN STATUS,PT RESTING ,PAIN LEVEL 3
--- NOTE | 2019-02-14 17:43 | NUR ---
Nutrition Screen Note RD Recommendation for Physician: 1.Continue with current diet order Plan of Care: Patient has been screened and assessed for nutrition risk. At this time, the patient does not pose any nutrition risk. No further nutrition intervention is warranted at this time. Will re-evaluate if consulted by medical staff. Nutrition reason for involvement: LOS Primary Diagnose(s): Cellulitis of left lower extremity PMH: HTN, DM2, CAD, PAD Ht:74 in Wt: 296lb BMI: 38kg/m2 IBW:190lb+/- 10% RD Assessment: (02/14) Chart reviewed. Labs and meds reviewed. 68 y/o M patient with longstanding history of severe bilateral lower extremity PAD and nonhealing ulceration of the bilateral lower extremities. Patient eating lunch during time of visit, reported good appetite and intake during admission and at home. PTC showed ~ 75-100% meal intake. Patient with no acute nutrition related concerns, denied ant N/V/D/C or any difficulties with chewing/swallowing. Reports mostly stable weight and refused any diet education at this time. Will continue to monitor and follow as needed . Current Diet: ADA Diet Malnutrition Evaluation (02/14) The patient does not meet criteria for a specified degree of malnutrition at this time. Will re-evaluate at follow-up as appropriate. Diet Education Needs Assessment: Diet education not indicated, pt denied. Nutrition Care Level: LOW Signed: Marcia Wolfe, MS, RDN, LD
--- NOTE | 2019-02-14 19:15 | NUR ---
Patient visited in room during nursing rounds. Patient alert and oriented x3. No distress or discomfort noted. Some redness note on right inner thigh, wound under right foot, skin tears on left vega and wounds on surgical incision sites of left foot (post TMA of all left toes). Pt on antibiotic treatment. Call watts within reach. Will monitor closely.
--- NOTE | 2019-02-14 19:45 | Progress Note ---
DATE: SUBJECTIVE: Mr. Mittal is doing better. No new complaints. REVIEW OF SYSTEMS: HEENT: Negative. PULMONARY: Negative. CARDIAC: Negative. His cultures remain negative. LABORATORY DATA: Reviewed. White count 5.8, hemoglobin 10.4. Sodium 135, potassium 4.1. PHYSICAL EXAMINATION: GENERAL: He is currently alert, oriented, does not seem to be in acute distress. VITAL SIGNS: Stable, currently afebrile. HEENT: He is not icteric. NECK: Supple. CHEST: Clear. HEART: S1 and S2, no murmurs. ABDOMEN: Soft. EXTREMITIES: Bilateral lower extremities erythema have subsided. IMPRESSION: 1. Recurrent leg infections. 2. Right foot stage 2 ulcer. 3. Status post left foot surgery with rotational flap closure, status post Achilles tendon lengthening. 4. Recurrent infection, concerned about a focus, which keeps hitting the leg. PLAN: We will try extended treatment. We do not have any antibiotic, he can probably go home with Rocephin 2 g daily for 4 weeks for presumptive infected focus, discussed with the patient and discussed with the medical team. We will follow up as an outpatient. MD MARVIN Vigil/VENESSA /[id number]
--- NOTE | 2019-02-14 20:30 | NUR ---
Dr. Joce Yokr came and saw pt in room. MD aware of patient condition and has informed pt he plans to change dressing tomorrow morning.
[2019-02-14] MEDS: PRAVASTATIN 20 MG TAB PO SCH (20:40)
[2019-02-14] MEDS: TEMAZEPAM 15 MG CAP PO SCH (20:40)
[2019-02-14] MEDS ORDERED: INSULIN GLARGINE 100 UNITS/ML VIAL SQ SCH (21:00)
--- NOTE | 2019-02-14 21:00 | NUR ---
Pt taking a shower bath at this time. All dressing of wounds were taken off prior to shower bath.
--- NOTE | 2019-02-14 22:20 | NUR ---
Dressing change done on wounds under right foot, left vega area, and left foot. Iodosorb medication applied to wound under right foot and mupirocin medication applied to wound on left foot.
[2019-02-14] MEDS ORDERED: SODIUM CHLORIDE 0.9% 250ML 250 ML ONE (23:57)
[2019-02-15] VITALS (8 sets, daily range): BP systolic 114–156; BP diastolic 69–85
--- NOTE | 2019-02-15 04:57 | Progress Note ---
DATE: 02/14/2019 SUBJECTIVE: The patient is seen at bedside, no distress. Denies any history of fever, chills, nausea, or vomiting. OBJECTIVE: VITAL SIGNS: Afebrile. Vital signs stable. EXTREMITIES: Ulceration to the leg and foot continues to improve. Less than 2 cm in diameter with some granulation tissue noted on the subcutaneous tissue. Periwound cellulitis present. Cellulitis to both lower extremities improving. Dressing dry and intact on the left lower extremity. LABORATORY DATA: Revealed white blood cell count of 5.8, hemoglobin 10.4 with a blood glucose of 245. ASSESSMENT: Grade 2 ulceration, unrelated to surgery, right foot. Doing very well status post left foot surgery with cellulitis to both lower extremities, also unrelated to surgery. PLAN: Continue IV antibiotics. Continue local wound care to the right foot. Continue offloading and continue to follow. VALENTINA Eric/VENESSA /[id number]
[2019-02-15] MEDS: OXYCODONE HCL 10 MG TAB CR PO SCH ×3 (06:10→22:00)
--- NOTE | 2019-02-15 07:45 | NUR ---
PT UP IN BED NO DSITRESS NOTED.
[2019-02-15] MEDS: ASPIRIN 81 MG CHEW TAB PO SCH (08:10)
[2019-02-15] MEDS: CARVEDILOL 12.5 MG TAB PO SCH ×2 (08:11→17:48)
[2019-02-15] MEDS: COLCHICINE 0.6 MG TAB PO SCH (08:11)
[2019-02-15] MEDS: DOXAZOSIN MESYLATE 2 MG TAB PO SCH (08:11)
[2019-02-15] MEDS: LACTOBACILLUS ACIDOPHILUS CAPSULE PO SCH ×2 (08:12→16:44)
[2019-02-15] MEDS: LISINOPRIL 20 MG TAB PO SCH (08:12)
[2019-02-15] MEDS: GABAPENTIN 300 MG CAP PO SCH ×3 (08:12→21:00)
[2019-02-15] MEDS: DULOXETINE HCL 20 MG DELAYED RELEASE PO SCH (08:12)
[2019-02-15] MEDS: AMLODIPINE BESYLATE 5 MG TAB PO SCH (08:12)
[2019-02-15] MEDS: ROPINIROLE HCL 1 MG TAB PO SCH ×3 (08:12→21:00)
[2019-02-15] MEDS: CLOPIDOGREL BISULFATE 75 MG TAB PO SCH (08:12)
[2019-02-15] MEDS: INSULIN GLARGINE 100 UNITS/ML VIAL SQ SCH (08:13)
[2019-02-15] MEDS: INSULIN LISPRO 100 UNIT/1 ML 3ML VIAL SQ SCH ×4 (08:30→21:00)
[2019-02-15] MEDS: CEFTRIAXONE SOD 2 GM/NS 100 ML 100 ML IV SCH (12:00)
[2019-02-15] MEDS: VANCOMYCIN 1GM/NS 250 ML 250 ML IV SCH ×2 (12:45)
[2019-02-15] MEDS: ENOXAPARIN SOD INJ 40 MG/0.4 ML SYR SC SCH (16:44)
[2019-02-15] MEDS: CADEXOMER IODINE 30 GM TUBE TOP SCH (17:48)
[2019-02-15] MEDS: MUPIROCIN 2% OINT 22 GM TUBE TOP SCH (17:48)
--- NOTE | 2019-02-15 17:48 | NUR ---
PT UP ON SIDE BED,DENIES PAIN.
--- NOTE | 2019-02-15 18:29 | Progress Note ---
DATE: SUBJECTIVE: Mr. Mittal is doing well. REVIEW OF SYSTEMS: HEENT: Negative. PULMONARY: Negative. CARDIAC: Negative. All within normal limit. PHYSICAL EXAMINATION: GENERAL: Currently alert, oriented, does not seem to be in acute distress. VITAL SIGNS: Stable, afebrile. HEENT: Normocephalic. NECK: Supple. No JVD. No lymphadenopathy. No thyromegaly. CHEST: Clear bilateral. HEART: S1, S2. No S3, S4, or murmur. ABDOMEN: Soft. Bowel sounds present. No tenderness. EXTREMITIES: No edema. IMPRESSION: 1. History of recurrent cellulitis of the right leg. 2. Morbidly obese patient. Continue Rocephin for 4 weeks, concerned about a focus, which could reinfect the patient such as small abscess, etc. as an outpatient. Unfortunately his insurance will not allow him to come and see me as outpatient. MD MARVIN Vigil/VENESSA /[id number]
--- NOTE | 2019-02-15 19:54 | Progress Note ---
DATE: 02/15/2019 SUBJECTIVE: The patient is doing better. Denying history of fever, chills, nausea, or vomiting. OBJECTIVE: VITAL SIGNS: Afebrile, pulse rate 66, respirations 18, blood pressure 153/85, and O2 saturation 97%. EXTREMITIES: Ulceration to the right foot continues to improve, less than 1.5 to 2 cm in diameter with necrosis noted down the subcutaneous tissue. Periwound cellulitis present. No drainage. Incision site to the left lower extremity closing nicely. Has a small area of surgical dehiscence. There is cellulitis to both lower extremities, also unrelated to surgery. LABORATORY DATA: Noted. Has a blood glucose of 273. ASSESSMENT: Grade 2 ulcer, right foot, unrelated to surgery with cellulitis bilateral lower extremities with some surgical dehiscence of the left foot. PLAN: We will continue Bactroban ointment to the left lower extremity. Continue Iodosorb followed by diluted wet-to-dry Betadine to the right. Continue offloading. Continue IV antibiotics such as ceftriaxone. We will continue to ceftriaxone and vancomycin IV. We will continue to follow. VALENTINA Eric/VENESSA /[id number]
[2019-02-15] MEDS ORDERED: INSULIN GLARGINE 100 UNITS/ML VIAL SQ SCH (21:00)
[2019-02-15] MEDS: TEMAZEPAM 15 MG CAP PO SCH (21:00)
[2019-02-15] MEDS: TIZANIDINE HCL 4 MG TAB PO PRN (21:00)
[2019-02-15] MEDS: PRAVASTATIN 20 MG TAB PO SCH (21:00)
[2019-02-16] MEDS: VANCOMYCIN 1GM/NS 250 ML 250 ML IV SCH ×2 (00:20→12:57)
[2019-02-16 04:32] VITALS: BP 125/74
[2019-02-16] MEDS: OXYCODONE HCL 10 MG TAB CR PO SCH ×2 (06:09→15:24)
[2019-02-16 07:31] VITALS: BP 155/78
[2019-02-16 08:00] VITALS: BP 155/78
[2019-02-16] MEDS: ASPIRIN 81 MG CHEW TAB PO SCH (08:04)
[2019-02-16] MEDS: DOXAZOSIN MESYLATE 2 MG TAB PO SCH (08:05)
[2019-02-16] MEDS: CARVEDILOL 12.5 MG TAB PO SCH ×2 (08:05→16:27)
[2019-02-16] MEDS: LISINOPRIL 20 MG TAB PO SCH (08:05)
[2019-02-16] MEDS: LACTOBACILLUS ACIDOPHILUS CAPSULE PO SCH ×2 (08:05→16:26)
[2019-02-16] MEDS: AMLODIPINE BESYLATE 5 MG TAB PO SCH (08:05)
[2019-02-16] MEDS: COLCHICINE 0.6 MG TAB PO SCH (08:05)
[2019-02-16] MEDS: MUPIROCIN 2% OINT 22 GM TUBE TOP SCH (08:05)
[2019-02-16] MEDS: CADEXOMER IODINE 30 GM TUBE TOP SCH (08:05)
[2019-02-16] MEDS: ROPINIROLE HCL 1 MG TAB PO SCH ×2 (08:05→15:24)
[2019-02-16] MEDS: CLOPIDOGREL BISULFATE 75 MG TAB PO SCH (08:05)
[2019-02-16] MEDS: GABAPENTIN 300 MG CAP PO SCH ×2 (08:05→15:24)
[2019-02-16] MEDS: DULOXETINE HCL 20 MG DELAYED RELEASE PO SCH (08:05)
[2019-02-16] MEDS: INSULIN GLARGINE 100 UNITS/ML VIAL SQ SCH (08:06)
[2019-02-16] MEDS: INSULIN LISPRO 100 UNIT/1 ML 3ML VIAL SQ SCH ×3 (08:06→16:29)
[2019-02-16 08:17] LABS: ANION GAP 12.2 mmol/L (8-16); BLOOD UREA NITROGEN 15 mg/dL (7-26); BUN/CREATININE RATIO 14 (6-25); CALCIUM 9.5 mg/dL (8.4-10.2); CARBON DIOXIDE 27 mmol/L (22-29); CHLORIDE 103 mmol/L (98-107); CREATININE, SERUM 1.06 mg/dL (0.72-1.25); EST GLOMERULAR FILTRATION RATE > 60 ML/MIN (60-); GLUCOSE 147 mg/dL (74-118); POTASSIUM 4.2 mmol/L (3.5-5.1); SODIUM 138 mmol/L (136-145)
[2019-02-16] MEDS ORDERED: HYDROCHLOROTHIAZIDE 25 MG TAB PO SCH (10:45)
[2019-02-16 11:16] VITALS: BP 136/65
--- NOTE | 2019-02-16 12:04 | NUR ---
HOME HEALTH DISCHARGE NOTE PATIENT ADDRESS WHERE SERVICE WILL BE RECEIVED: [id number] [place] [address] PATIENT CONTACT NUMBER: [phone] NAME OF HOME HEALTH COMPANY: [facility] TELEPHONE/FAX NUMBER OF COMPANY: OFF: [phone] / FAX: [phone] ADDRESS OF COMPANY: [id number] [place] [address] SERVICES TO RECEIVE: IV ROCEPHIN 2GM IV DAILY TIMES 4 WEEKS. LABS: CBC, BMP EVERY SATURDAY AND CALL LABS TO [facility] OFFICE. IV TO BE DC'D AFTER ANTIBIOTICS ARE COMPLETE. ANTICIPATED DATE SERVICES WILL BEGIN: 02/17/2019 PT WILL ALSO RESUME SERVICES W [facility]. OFF: [phone] Please call the company above if you have not received a call to schedule a home visit within 24 hours of discharge. Addendum: 02/16/19 at 1315 by Rosalinda Jeter CM THE ABOVE NOTE WAS ENTERED IN ERROR. PLEASE SEE NEXT HOME HEALTH NOTE
[2019-02-16] MEDS: CEFTRIAXONE SOD 2 GM/NS 100 ML 100 ML IV SCH (12:57)
--- NOTE | 2019-02-16 13:12 | NUR ---
HOME HEALTH DISCHARGE NOTE PATIENT ADDRESS WHERE SERVICE WILL BE RECEIVED: [id number] [place] [address] PATIENT CONTACT NUMBER: [phone] NAME OF HOME HEALTH COMPANY: [facility] TELEPHONE/FAX NUMBER OF COMPANY: OFF: [phone] / FAX: [phone] ADDRESS OF COMPANY: [id number] [place] [address] SERVICES TO RECEIVE: IV ROCEPHIN 2GM IV DAILY TIMES 4 WEEKS. LABS: CBC, BMP EVERY SATURDAY AND CALL LABS TO [facility] OFFICE. IV TO BE DC'D AFTER ANTIBIOTICS ARE COMPLETE. ANTICIPATED DATE SERVICES WILL BEGIN: 02/17/2019 PT WILL ALSO RESUME SERVICES W [facility]. OFF: [phone] Please call the company above if you have not received a call to schedule a home visit within 24 hours of discharge.
--- NOTE | 2019-02-16 13:19 | Progress Note ---
DATE: 02/16/2019 SUBJECTIVE: The patient is seen at bedside, doing better. Ulcer related, he has decreased swelling, decreased pain to the right lower extremity. OBJECTIVE: VITAL SIGNS: Afebrile, pulse rate 67, respirations 18, blood pressure 155/78, and O2 saturation 99%. EXTREMITIES: Ulceration to the right lower extremity continues to improve, less than 1.5 cm in diameter. Necrosis noted down the subcutaneous tissue. Periwound cellulitis present unrelated to surgery. Cellulitis to both lower extremities also resolving, also unrelated to surgery. Surgical site looks pristine. There is some mild surgical dehiscence of the medial aspect of the flap, otherwise looking okay with no signs of infection. LABORATORY DATA: Labs show white blood cell count of 5.8, hemoglobin 10.4 with a platelet count of 200. ASSESSMENT: Cellulitis both lower extremities with a grade 2 ulceration, unrelated to surgery right foot, doing well from the surgical intervention left lower extremity. PLAN: We will continue IV antibiotics. The patient instructed on proper offloading. Continue Iodosorb to the right, Bactroban ointment to the left, and all open lesions with IV vancomycin. VALENTINA Eric/VENESSA /[id number]
[2019-02-16 15:25] VITALS: BP 117/57
[2019-02-16] MEDS: ENOXAPARIN SOD INJ 40 MG/0.4 ML SYR SC SCH (16:26)
--- NOTE | 2019-02-17 08:44 | Discharge Summary ---
PCP: Dr. Johana Wolfe with [facility]. CONSULTANTS: Dr. Annalise Alba with Infectious Disease and Dr. Joce York, Podiatry. FINAL DIAGNOSES: 1. Recurrent cellulitis. 2. Acute kidney injury, now resolved. 3. Diabetes type 2. 4. Coronary artery disease, status post coronary artery bypass grafting. 5. Recent left transmetatarsal amputation. PROCEDURES: None. HISTORY: Per [facility] and [facility]. HOSPITAL COURSE: This is a 68-year-old male with past medical history of diabetes, CAD, and recurrent cellulitis, presented to the ER with bilateral lower extremity cellulitis. Infectious Disease, Dr. Alba and Podiatry, Dr. York were consulted. MRI of bilateral lower extremities were done, which showed evolving postsurgical changes with no evidence of acute osteomyelitis. He was started on vancomycin and Rocephin for recurrent cellulitis after the insertion of PICC line. X-ray of the right knee showed severe degenerative changes when compared to the images on 08/24/2018. Case management was consulted and arranged Rocephin for the completion of 4 weeks of treatment. Today, he is afebrile, no pain, was discharged home with home health to follow up with his club concierge and PCP in 1 to 2 weeks. PHYSICAL EXAMINATION: VITAL SIGNS: Temperature 95.5, pulse is 67, blood pressure 155/78, respirations 18, SpO2 is 99% on room air. GENERAL: No acute distress. HEENT: Normocephalic. NECK: Supple. LUNGS: Clear to auscultation. CARDIOVASCULAR: S1 and S2. No murmur. ABDOMEN: Soft and nontender. NEUROLOGIC: Alert, awake, and oriented x3. MUSCULOSKELETAL: Left TMA and right great toe amputation, up with assistance. SKIN: Bilateral lower extremity ulcers and cellulitis noted. CONDITION AT DISCHARGE: Improved and stable. DISCHARGE MEDICATIONS: See medication reconciliation list. FOLLOWUP: Follow up with Dr. Johana Wolfe in 1 to 2 weeks. Follow up with club concierge at [facility] in 1 to 2 weeks. at [facility]. Dictated by KRISTEN Currie Eugenia Hoskins MD MY/MODL /[id number] cc: MD Allyson DesouzaSenait The patient was seen and examined. Agree with the findings and plan as documented by KRISTEN Jimenez. THI
== END 2019-02-16 17:04 | disposition home or self-care (01) | DRG 603 ==
LOC: ER 12:34 → ERHOLD 23:51 → MED/SURG3 02-10 01:28
PROVIDERS: ADMIT Internal Medicine; ATTEND Internal Medicine
PROC: 02HV33Z Insertion of Infusion Device into Superior Vena Cava, Percutaneous Approach (ICD-10-PCS; principal; 2019-02-10)
DX: L03.116 Cellulitis of left lower limb (principal); N17.9 Acute kidney failure, unspecified; L03.115 Cellulitis of right lower limb; I25.10 Atherosclerotic heart disease of native coronary artery without angina pectoris; Z95.1 Presence of aortocoronary bypass graft; E11.9 Type 2 diabetes mellitus without complications
CPT/HCPCS: 36415; 36569; 71045; 76882; 80048; 80053; 80202; 81001; 82550; 82553; 82948; 84484; 85025; 85610; 85730; 87040; 87086; 99284; J0696; J1650; J1815; J1817; J2270; J2405; J2543; J3370; J7030; J7050

== ENCOUNTER 2019-03-11 17:01 | Emergency (ER) | payer MEDICARE ==
[~2019-03-11] VITALS: Ht 188 cm; Wt 133.4 kg
[2019-03-11 18:11] LABS: BILIRUBIN,URINE NEGATIVE (NEGATIVE); CLARITY,URINE SL CLOUDY (CLEAR); COLOR,URINE YELLOW (YELLOW); KETONES,URINE NEGATIVE (NEGATIVE); LEUKOCYTE ESTERASE ,URINE NEGATIVE (NEGATIVE); NITRITE,URINE NEGATIVE (NEGATIVE); PROTEIN,URINE DIPSTICK 2+ (NEGATIVE); URINE UROBILINOGEN 0.2 mg/dL (0.2 - 1)
[2019-03-11 18:18] LABS: BASOPHILS # (AUTO) 0.1 (0.0-0.1); BASOPHILS % 0.7 % (0.0-1.0); EOSINOPHILS # (AUTO) 0.3 (0.0-0.4); EOSINOPHILS % 3.4 % (0.0-6.0); HEMATOCRIT 38.4 % (38.2-49.6); HEMOGLOBIN 12.5 g/dL (14.0-18.0); LYMPHOCYTES # (AUTO) 2.5 (1.0-3.2); LYMPHOCYTES % 29.8 % (18.0-39.1); MEAN CORPUSCULAR HEMOGLOBIN 27.4 pg (28-32); MEAN CORPUSCULAR HGB CONC 32.6 g/dL (31-35); MONOCYTES # (AUTO) 0.6 (0.2-0.8); MONOCYTES % 7.6 % (4.4-11.3); NEUTROPHILS # (AUTO) 4.9 (2.1-6.9); NEUTROPHILS % 57.9 % (38.7-80.0); PLATELET COUNT 278 x10e3/uL (140-360); RED BLOOD COUNT 4.57 x10e6/uL (4.3-5.7); RED CELL DISTRIBUTION WIDTH 14.4 % (11.7-14.4)
[2019-03-11 18:25] LABS: BACTERIA,URINE FEW /HPF; EPITHELIAL CELLS,URINE MODERATE /LPF
[2019-03-11 18:27] LABS: ALBUMIN 3.2 g/dL (3.5-5.0); ALBUMIN/GLOBULIN RATIO 0.6 (0.8-2.0); ANION GAP 12.6 mmol/L (8-16); CALCIUM 9.7 mg/dL (8.4-10.2); CREATININE, SERUM 1.47 mg/dL (0.72-1.25); POTASSIUM 3.6 mmol/L (3.5-5.1)
[2019-03-11 18:44] LABS: CREATINE KINASE MB 0.9 ng/mL (0-5.0)
[2019-03-11 19:19] LABS: INR 0.9; PROTHROMBIN TIME 12.6 seconds (11.9-14.5)
[2019-03-11 19:20] LABS: PARTIAL THROMBOPLASTIN TIME 25.9 seconds (23.8-35.5)
== END 2019-03-11 20:48 | disposition home or self-care (01) ==
LOC: ER 17:01
DX: E11.65 Type 2 diabetes mellitus with hyperglycemia (principal); R53.83 Other fatigue; I10 Essential (primary) hypertension; E78.5 Hyperlipidemia, unspecified; F32.9 Major depressive disorder, single episode, unspecified; Z86.73 Personal history of transient ischemic attack (TIA), and cerebral infarction without residual deficits
CPT/HCPCS: 36415; 80053; 81001; 82550; 82553; 82948; 84484; 85025; 85610; 85730; 93005; 99283

== ENCOUNTER 2020-12-22 11:05 | Inpatient (IN) | payer MEDICARE ==
[~2020-12-22] VITALS: Ht 188 cm; Wt 120.2 kg
[~2020-12-22 11:05] MED LIST changes: +ATORVASTATIN CA10 MG PO; +FLOMAX0.4 MG PO; +LYRICA50 MG PO; +OXYCODONE-ACET1 EAC3 PO
[2020-12-22] MEDS ORDERED: Vancomycin IV 1 GM in SODIUM CHLORIDE 0.9% 250ML 250 ML IV STA (11:23)
[2020-12-22 11:31] LABS: BASOPHILS # (AUTO) 0.1 (0.0-0.1); BASOPHILS % 0.3 % (0.0-1.0); EOSINOPHILS % 0.1 % (0.0-6.0); HEMATOCRIT 42.2 % (38.2-49.6); HEMOGLOBIN 13.3 g/dL (14.0-18.0); LYMPHOCYTES % 5.1 % (18.0-39.1); MEAN CORPUSCULAR HEMOGLOBIN 26.8 pg (28-32); MEAN CORPUSCULAR HGB CONC 31.5 g/dL (31-35); MEAN CORPUSCULAR VOLUME 85.1 fL (81-99); MONOCYTES # (AUTO) 0.9 (0.2-0.8); MONOCYTES % 4.4 % (4.4-11.3); NEUTROPHILS # (AUTO) 17.9 (2.1-6.9); NEUTROPHILS % 89.5 % (38.7-80.0); PLATELET COUNT 222 x10e3/uL (140-360); RED BLOOD COUNT 4.96 x10e6/uL (4.3-5.7); RED CELL DISTRIBUTION WIDTH 14.8 % (11.7-14.4)
[2020-12-22 11:51] LABS: ALBUMIN 3.5 g/dL (3.5-5.0); ALBUMIN/GLOBULIN RATIO 0.6 (0.8-2.0); ANION GAP 13.3 mmol/L (8-16); CALCIUM 9.5 mg/dL (8.4-10.2); CREATININE, SERUM 1.45 mg/dL (0.72-1.25); POTASSIUM 4.3 mmol/L (3.5-5.1)
[2020-12-22 11:59] LABS: CREATINE KINASE MB 1.5 ng/mL (0-5.0)
[2020-12-22 12:24] LABS: INR 0.95; PROTHROMBIN TIME 13.3 seconds (11.9-14.5)
[2020-12-22 12:30] LABS: PARTIAL THROMBOPLASTIN TIME 32.8 seconds (23.8-35.5)
[2020-12-22] MEDS: CEFEPIME 1 GM in SODIUM CHLORIDE 0.9% 50ML 50 ML IV SCH (13:13)
[2020-12-22] MEDS ORDERED: MORPHINE SULFAT30 M2 PO (16:04)
[2020-12-22] MEDS ORDERED: BACLOFEN10 MG PO (16:04)
[2020-12-22] MEDS ORDERED: LISINOPRIL10 MG PO (16:05)
[2020-12-22] MEDS ORDERED: FLUOXETINE HCL40 MG PO (16:05)
[2020-12-22] MEDS ORDERED: BUPROPION HCL75 MG PO (16:05)
[2020-12-22] MEDS ORDERED: GABAPENTIN800 MG PO (16:06)
[2020-12-22] MEDS ORDERED: OXYCODONE/ACETAMINOPHEN 5-325 1 EACH TABLET PO STA (16:11)
[2020-12-22 21:30] LABS: CREATINE KINASE MB 1.4 ng/mL (0-5.0)
[2020-12-22] MEDS ORDERED: ACETAMINOPHEN 325 MG TAB PO PRN (22:00)
[2020-12-22] MEDS ORDERED: VANCOMYCIN 1GM/NS 250 ML 250 ML IV SCH (22:00)
[2020-12-22] MEDS ORDERED: NON-FORMULARY MEDICATION (Oxycodone Hcl/Acetaminophen (Oxycodone-Acetaminophen 10-325) 1 T PO PRN (22:00)
[2020-12-22] MEDS ORDERED: OXYCODONE HCL IR 5 MG TAB PO PRN (22:30)
[2020-12-22] MEDS ORDERED: OXYCODONE/ACETAMINOPHEN 5-325 1 EACH TABLET PO PRN (22:30)
[2020-12-22] MEDS ORDERED: Vancomycin IV 1 GM VIAL ONE (22:50)
[2020-12-22] MEDS ORDERED: SODIUM CHLORIDE 0.9% 250ML 250 ML ONE (22:50)
[2020-12-22] MEDS: MORPHINE SULFATE 30 MG TAB ER PO SCH (22:51)
[2020-12-22] MEDS: ENOXAPARIN SOD INJ 40 MG/0.4 ML SYR SC SCH (22:51)
[2020-12-23] MEDS: GABAPENTIN 400 MG CAP PO SCH ×3 (00:29→17:00)
[2020-12-23] MEDS: LACTATED RINGER'S 1,000 ML INJ SCH ×2 (00:29→12:00)
[2020-12-23] MEDS: CEFEPIME 1 GM in SODIUM CHLORIDE 0.9% 50ML 50 ML IV SCH ×2 (00:29→13:00)
[2020-12-23 00:41] VITALS: BP 122/78
[2020-12-23 04:48] LABS: BASOPHILS # (AUTO) 0.1 (0.0-0.1); BASOPHILS % 0.5 % (0.0-1.0); EOSINOPHILS # (AUTO) 0.1 (0.0-0.4); EOSINOPHILS % 1.4 % (0.0-6.0); HEMOGLOBIN 12.1 g/dL (14.0-18.0); LYMPHOCYTES # (AUTO) 1.7 (1.0-3.2); LYMPHOCYTES % 16.8 % (18.0-39.1); MEAN CORPUSCULAR HEMOGLOBIN 27.3 pg (28-32); MEAN CORPUSCULAR HGB CONC 31.8 g/dL (31-35); MEAN CORPUSCULAR VOLUME 85.8 fL (81-99); MONOCYTES # (AUTO) 0.9 (0.2-0.8); MONOCYTES % 9.2 % (4.4-11.3); NEUTROPHILS # (AUTO) 7.1 (2.1-6.9); NEUTROPHILS % 71.5 % (38.7-80.0); PLATELET COUNT 186 x10e3/uL (140-360); RED BLOOD COUNT 4.43 x10e6/uL (4.3-5.7); RED CELL DISTRIBUTION WIDTH 14.8 % (11.7-14.4)
[2020-12-23 05:16] LABS: ALBUMIN 2.9 g/dL (3.5-5.0); ALBUMIN/GLOBULIN RATIO 0.6 (0.8-2.0); ANION GAP 11.7 mmol/L (8-16); CALCIUM 8.6 mg/dL (8.4-10.2); CREATININE, SERUM 1.4 mg/dL (0.72-1.25); POTASSIUM 3.7 mmol/L (3.5-5.1)
[2020-12-23 05:20] VITALS: BP 142/76
[2020-12-23] MEDS: INSULIN LISPRO 100 UNIT/1 ML 3ML VIAL SQ SCH ×4 (07:30→21:00)
[2020-12-23 07:55] VITALS: BP 153/78
[2020-12-23] MEDS ORDERED: MORPHINE SULFATE 30 MG TAB ER PO SCH (09:00)
[2020-12-23] MEDS: MORPHINE SULFATE 30 MG TAB ER PO SCH ×2 (09:10→17:00)
[2020-12-23] MEDS: AMLODIPINE BESYLATE 5 MG TAB PO SCH (09:39)
[2020-12-23] MEDS: FLUOXETINE HCL 20 MG CAP PO SCH (09:39)
[2020-12-23] MEDS: CLOPIDOGREL BISULFATE 75 MG TAB PO SCH (09:39)
[2020-12-23] MEDS: BACLOFEN 10 MG TAB PO SCH (09:39)
[2020-12-23] MEDS: Vancomycin IV 1 GM in SODIUM CHLORIDE 0.9% 250ML 250 ML IV SCH ×2 (10:00→22:00)
[2020-12-23] MEDS: BUPROPION HCL 75 MG TAB PO SCH (10:00)
[2020-12-23 11:55] VITALS: BP 134/80
[2020-12-23 16:00] VITALS: BP 125/82
[2020-12-23 20:36] VITALS: BP_SYST 125; BP_SYST 147; BP_DIAS 78; BP_DIAS 82
[2020-12-23] MEDS: ENOXAPARIN SOD INJ 40 MG/0.4 ML SYR SC SCH (21:27)
[2020-12-23] MEDS ORDERED: Vancomycin IV 1 GM VIAL ONE (21:35)
[2020-12-24] VITALS (9 sets, daily range): BP systolic 130–151; BP diastolic 67–86
[2020-12-24] MEDS: LACTATED RINGER'S 1,000 ML INJ SCH ×4 (00:37→23:22)
[2020-12-24] MEDS: INSULIN LISPRO 100 UNIT/1 ML 3ML VIAL SQ SCH ×4 (07:30→21:33)
[2020-12-24 08:48] LABS: CALCIUM 8.5 mg/dL (8.4-10.2); CREATININE, SERUM 1.12 mg/dL (0.72-1.25)
[2020-12-24] MEDS: MORPHINE SULFATE 30 MG TAB ER PO SCH ×2 (09:00→17:00)
[2020-12-24] MEDS: BACLOFEN 10 MG TAB PO SCH (09:12)
[2020-12-24] MEDS: AMLODIPINE BESYLATE 5 MG TAB PO SCH (09:13)
[2020-12-24] MEDS: CLOPIDOGREL BISULFATE 75 MG TAB PO SCH (09:13)
[2020-12-24] MEDS: GABAPENTIN 400 MG CAP PO SCH ×2 (09:13→17:06)
[2020-12-24] MEDS: FLUOXETINE HCL 20 MG CAP PO SCH (09:13)
[2020-12-24] MEDS: BUPROPION HCL 75 MG TAB PO SCH (09:13)
[2020-12-24] MEDS: Vancomycin IV 1 GM in SODIUM CHLORIDE 0.9% 250ML 250 ML IV SCH ×2 (10:02→21:19)
[2020-12-24] MEDS: CEFEPIME 1 GM in SODIUM CHLORIDE 0.9% 50ML 50 ML IV SCH ×4 (12:09→23:22)
[2020-12-24] MEDS: ENOXAPARIN SOD INJ 40 MG/0.4 ML SYR SC SCH (21:32)
[2020-12-25] VITALS (7 sets, daily range): BP systolic 130–156; BP diastolic 67–89
[2020-12-25] MEDS: LACTATED RINGER'S 1,000 ML INJ SCH ×2 (05:07→19:44)
[2020-12-25] MEDS: INSULIN LISPRO 100 UNIT/1 ML 3ML VIAL SQ SCH ×4 (07:30→21:00)
[2020-12-25] MEDS: MORPHINE SULFATE 30 MG TAB ER PO SCH ×2 (09:00→17:05)
[2020-12-25] MEDS: BACLOFEN 10 MG TAB PO SCH (09:33)
[2020-12-25] MEDS: FLUOXETINE HCL 20 MG CAP PO SCH (09:34)
[2020-12-25] MEDS: BUPROPION HCL 75 MG TAB PO SCH (09:34)
[2020-12-25] MEDS: GABAPENTIN 400 MG CAP PO SCH ×2 (09:34→17:20)
[2020-12-25] MEDS: AMLODIPINE BESYLATE 5 MG TAB PO SCH (09:34)
[2020-12-25] MEDS: CLOPIDOGREL BISULFATE 75 MG TAB PO SCH (09:34)
[2020-12-25] MEDS: Vancomycin IV 1 GM in SODIUM CHLORIDE 0.9% 250ML 250 ML IV SCH ×2 (10:00→21:11)
[2020-12-25] MEDS: CEFEPIME 1 GM in SODIUM CHLORIDE 0.9% 50ML 50 ML IV SCH ×2 (12:32→23:27)
[2020-12-25] MEDS: ENOXAPARIN SOD INJ 40 MG/0.4 ML SYR SC SCH (21:11)
[2020-12-26] VITALS (7 sets, daily range): BP systolic 115–159; BP diastolic 78–97
[2020-12-26 05:44] LABS: BASOPHILS % 0.6 % (0.0-1.0); EOSINOPHILS # (AUTO) 0.3 (0.0-0.4); HEMATOCRIT 36.6 % (38.2-49.6); HEMOGLOBIN 11.5 g/dL (14.0-18.0); LYMPHOCYTES # (AUTO) 2.2 (1.0-3.2); LYMPHOCYTES % 33.6 % (18.0-39.1); MEAN CORPUSCULAR HEMOGLOBIN 27.1 pg (28-32); MEAN CORPUSCULAR HGB CONC 31.4 g/dL (31-35); MEAN CORPUSCULAR VOLUME 86.3 fL (81-99); MONOCYTES # (AUTO) 0.5 (0.2-0.8); MONOCYTES % 7.1 % (4.4-11.3); NEUTROPHILS # (AUTO) 3.4 (2.1-6.9); NEUTROPHILS % 52.6 % (38.7-80.0); PLATELET COUNT 198 x10e3/uL (140-360); RED BLOOD COUNT 4.24 x10e6/uL (4.3-5.7); RED CELL DISTRIBUTION WIDTH 14.6 % (11.7-14.4)
[2020-12-26 06:17] LABS: ANION GAP 12.9 mmol/L (8-16); CALCIUM 8.8 mg/dL (8.4-10.2); CREATININE, SERUM 1.03 mg/dL (0.72-1.25); POTASSIUM 3.9 mmol/L (3.5-5.1)
[2020-12-26] MEDS ORDERED: Vancomycin IV 1 GM VIAL ONE (07:28)
[2020-12-26] MEDS: INSULIN LISPRO 100 UNIT/1 ML 3ML VIAL SQ SCH ×4 (08:30→21:00)
[2020-12-26] MEDS: MORPHINE SULFATE 30 MG TAB ER PO SCH ×2 (09:15→16:57)
[2020-12-26] MEDS: AMLODIPINE BESYLATE 5 MG TAB PO SCH (09:16)
[2020-12-26] MEDS ORDERED: SODIUM CHLORIDE 0.9% 250ML 250 ML ONE (09:16)
[2020-12-26] MEDS: FLUOXETINE HCL 20 MG CAP PO SCH (09:17)
[2020-12-26] MEDS: BACLOFEN 10 MG TAB PO SCH (09:17)
[2020-12-26] MEDS: GABAPENTIN 400 MG CAP PO SCH ×2 (09:17→16:57)
[2020-12-26] MEDS: BUPROPION HCL 75 MG TAB PO SCH (09:17)
[2020-12-26] MEDS: ASPIRIN 81 MG ENTERIC COATED PO SCH (11:00)
[2020-12-26] MEDS: Vancomycin IV 1 GM in SODIUM CHLORIDE 0.9% 250ML 250 ML IV SCH ×2 (11:00→21:37)
[2020-12-26] MEDS: CEFEPIME 1 GM in SODIUM CHLORIDE 0.9% 50ML 50 ML IV SCH (12:00)
[2020-12-26] MEDS: ATORVASTATIN 40 MG TAB PO SCH (21:36)
[2020-12-26] MEDS: ENOXAPARIN SOD INJ 40 MG/0.4 ML SYR SC SCH (21:36)
[2020-12-27] VITALS (8 sets, daily range): BP systolic 112–158; BP diastolic 68–95
[2020-12-27] MEDS: CEFEPIME 1 GM in SODIUM CHLORIDE 0.9% 50ML 50 ML IV SCH ×3 (00:12→23:25)
[2020-12-27] MEDS: ONDANSETRON HCL INJ 2MG/ML 2ML 2 MG/ML VIAL IV PRN (05:09)
[2020-12-27 05:39] LABS: BASOPHILS % 0.5 % (0.0-1.0); EOSINOPHILS # (AUTO) 0.3 (0.0-0.4); EOSINOPHILS % 4.1 % (0.0-6.0); HEMATOCRIT 37.6 % (38.2-49.6); HEMOGLOBIN 11.8 g/dL (14.0-18.0); LYMPHOCYTES # (AUTO) 2.4 (1.0-3.2); LYMPHOCYTES % 28.6 % (18.0-39.1); MEAN CORPUSCULAR HEMOGLOBIN 26.9 pg (28-32); MEAN CORPUSCULAR HGB CONC 31.4 g/dL (31-35); MEAN CORPUSCULAR VOLUME 85.6 fL (81-99); MONOCYTES # (AUTO) 0.6 (0.2-0.8); MONOCYTES % 6.7 % (4.4-11.3); NEUTROPHILS % 59.1 % (38.7-80.0); PLATELET COUNT 216 x10e3/uL (140-360); RED BLOOD COUNT 4.39 x10e6/uL (4.3-5.7); RED CELL DISTRIBUTION WIDTH 14.4 % (11.7-14.4)
[2020-12-27 06:01] LABS: ALBUMIN/GLOBULIN RATIO 0.6 (0.8-2.0); CALCIUM 8.9 mg/dL (8.4-10.2); CREATININE, SERUM 1.14 mg/dL (0.72-1.25)
[2020-12-27 06:23] LABS: THYROID STIMULATING HORMONE 1.711 uIU/mL (0.350-4.940)
[2020-12-27] MEDS: ASPIRIN 81 MG ENTERIC COATED PO SCH (08:20)
[2020-12-27] MEDS: BACLOFEN 10 MG TAB PO SCH (08:20)
[2020-12-27] MEDS: FLUOXETINE HCL 20 MG CAP PO SCH (08:21)
[2020-12-27] MEDS: AMLODIPINE BESYLATE 5 MG TAB PO SCH (08:21)
[2020-12-27] MEDS: MORPHINE SULFATE 30 MG TAB ER PO SCH ×2 (08:21→17:00)
[2020-12-27] MEDS: GABAPENTIN 400 MG CAP PO SCH ×2 (08:21→17:00)
[2020-12-27] MEDS: SILVER ANTIMICROBIAL WOUND GEL 45ML TOP SCH (08:22)
[2020-12-27] MEDS: BUPROPION HCL 75 MG TAB PO SCH (08:22)
[2020-12-27] MEDS: INSULIN LISPRO 100 UNIT/1 ML 3ML VIAL SQ SCH ×4 (08:26→21:16)
[2020-12-27] MEDS: Vancomycin IV 1 GM in SODIUM CHLORIDE 0.9% 250ML 250 ML IV SCH ×2 (10:00→22:00)
[2020-12-27] MEDS: ATORVASTATIN 40 MG TAB PO SCH (21:15)
[2020-12-27] MEDS: ENOXAPARIN SOD INJ 40 MG/0.4 ML SYR SC SCH (21:15)
[2020-12-28] VITALS (8 sets, daily range): BP systolic 129–175; BP diastolic 74–87
[2020-12-28] MEDS: INSULIN LISPRO 100 UNIT/1 ML 3ML VIAL SQ SCH ×4 (07:30→21:00)
[2020-12-28] MEDS: ONDANSETRON HCL INJ 2MG/ML 2ML 2 MG/ML VIAL IV PRN (08:07)
[2020-12-28] MEDS ORDERED: CLONIDINE HCL 0.1 MG TAB PO PRN (08:30)
[2020-12-28] MEDS: ASPIRIN 81 MG ENTERIC COATED PO SCH (09:48)
[2020-12-28] MEDS: BACLOFEN 10 MG TAB PO SCH (09:48)
[2020-12-28] MEDS: GABAPENTIN 400 MG CAP PO SCH ×2 (09:49→17:30)
[2020-12-28] MEDS: MORPHINE SULFATE 30 MG TAB ER PO SCH ×2 (09:49→17:30)
[2020-12-28] MEDS: AMLODIPINE BESYLATE 5 MG TAB PO SCH (09:49)
[2020-12-28] MEDS: SILVER ANTIMICROBIAL WOUND GEL 45ML TOP SCH (09:49)
[2020-12-28] MEDS: FLUOXETINE HCL 20 MG CAP PO SCH (09:49)
[2020-12-28] MEDS: BUPROPION HCL 75 MG TAB PO SCH (09:49)
[2020-12-28] MEDS: Vancomycin IV 1 GM in SODIUM CHLORIDE 0.9% 250ML 250 ML IV SCH ×2 (10:18→21:21)
[2020-12-28] MEDS: CEFEPIME 1 GM in SODIUM CHLORIDE 0.9% 50ML 50 ML IV SCH (11:39)
[2020-12-28] MEDS: ATORVASTATIN 40 MG TAB PO SCH (21:21)
[2020-12-28] MEDS: ENOXAPARIN SOD INJ 40 MG/0.4 ML SYR SC SCH (21:21)
[2020-12-29] VITALS (8 sets, daily range): BP systolic 122–156; BP diastolic 67–78
[2020-12-29] MEDS: INSULIN LISPRO 100 UNIT/1 ML 3ML VIAL SQ SCH ×4 (07:30→21:00)
[2020-12-29] MEDS: ASPIRIN 81 MG ENTERIC COATED PO SCH (09:18)
[2020-12-29] MEDS: BACLOFEN 10 MG TAB PO SCH (09:18)
[2020-12-29] MEDS: GABAPENTIN 400 MG CAP PO SCH ×2 (09:19→16:25)
[2020-12-29] MEDS: AMLODIPINE BESYLATE 5 MG TAB PO SCH (09:19)
[2020-12-29] MEDS: BUPROPION HCL 75 MG TAB PO SCH (09:19)
[2020-12-29] MEDS: FLUOXETINE HCL 20 MG CAP PO SCH (09:19)
[2020-12-29] MEDS: SILVER ANTIMICROBIAL WOUND GEL 45ML TOP SCH (09:19)
[2020-12-29] MEDS: MORPHINE SULFATE 30 MG TAB ER PO SCH ×2 (09:19→16:25)
[2020-12-29] MEDS: Vancomycin IV 1 GM in SODIUM CHLORIDE 0.9% 250ML 250 ML IV SCH ×2 (11:17→22:09)
[2020-12-29] MEDS: CEFEPIME 1 GM in SODIUM CHLORIDE 0.9% 50ML 50 ML IV SCH ×3 (13:06)
[2020-12-29] MEDS: ATORVASTATIN 40 MG TAB PO SCH (22:09)
[2020-12-30] VITALS (8 sets, daily range): BP systolic 140–155; BP diastolic 67–95
[2020-12-30] MEDS: CEFEPIME 1 GM in SODIUM CHLORIDE 0.9% 50ML 50 ML IV SCH ×3 (00:47→23:25)
[2020-12-30 06:44] LABS: BASOPHILS # (AUTO) 0.1 (0.0-0.1); BASOPHILS % 0.5 % (0.0-1.0); EOSINOPHILS # (AUTO) 0.3 (0.0-0.4); EOSINOPHILS % 2.9 % (0.0-6.0); HEMATOCRIT 39.6 % (38.2-49.6); HEMOGLOBIN 12.5 g/dL (14.0-18.0); LYMPHOCYTES # (AUTO) 3.4 (1.0-3.2); MEAN CORPUSCULAR HEMOGLOBIN 27.1 pg (28-32); MEAN CORPUSCULAR HGB CONC 31.6 g/dL (31-35); MEAN CORPUSCULAR VOLUME 85.7 fL (81-99); MONOCYTES # (AUTO) 0.7 (0.2-0.8); NEUTROPHILS # (AUTO) 6.7 (2.1-6.9); NEUTROPHILS % 59.2 % (38.7-80.0); PLATELET COUNT 260 x10e3/uL (140-360); RED BLOOD COUNT 4.62 x10e6/uL (4.3-5.7); RED CELL DISTRIBUTION WIDTH 14.5 % (11.7-14.4)
[2020-12-30] MEDS ORDERED: DEXAMETHASONE SOD PHOS INJ 4 MG/ML VIAL ONE (06:47)
[2020-12-30] MEDS ORDERED: BUPIVACAINE HCL 0.5% INJ 30 ML VIAL INJ ONE (06:47)
[2020-12-30] MEDS ORDERED: NEOSTIGMINE 1 MG/ML 10ML VIAL ONE (06:48)
[2020-12-30 07:09] LABS: INR 0.9; PROTHROMBIN TIME 12.3 seconds (11.9-14.5)
[2020-12-30 07:21] LABS: ALBUMIN 3.3 g/dL (3.5-5.0); ALBUMIN/GLOBULIN RATIO 0.7 (0.8-2.0); ANION GAP 12.3 mmol/L (8-16); CALCIUM 8.7 mg/dL (8.4-10.2); CREATININE, SERUM 1.19 mg/dL (0.72-1.25); POTASSIUM 4.3 mmol/L (3.5-5.1)
[2020-12-30] MEDS: INSULIN LISPRO 100 UNIT/1 ML 3ML VIAL SQ SCH ×4 (07:30→21:06)
[2020-12-30] MEDS: SILVER ANTIMICROBIAL WOUND GEL 45ML TOP SCH (09:00)
[2020-12-30] MEDS: FLUOXETINE HCL 20 MG CAP PO SCH (10:56)
[2020-12-30] MEDS: GABAPENTIN 400 MG CAP PO SCH ×2 (10:56→16:24)
[2020-12-30] MEDS: ASPIRIN 81 MG ENTERIC COATED PO SCH (10:56)
[2020-12-30] MEDS: AMLODIPINE BESYLATE 5 MG TAB PO SCH (10:56)
[2020-12-30] MEDS: BACLOFEN 10 MG TAB PO SCH (10:56)
[2020-12-30] MEDS: BUPROPION HCL 75 MG TAB PO SCH (10:57)
[2020-12-30] MEDS: Vancomycin IV 1 GM in SODIUM CHLORIDE 0.9% 250ML 250 ML IV SCH ×2 (10:57→21:04)
[2020-12-30] MEDS ORDERED: FENTANYL CITRATE/PF 100MCG/2 ML INJ ONE (13:09)
[2020-12-30] MEDS ORDERED: ESMOLOL HCL 100MG/10ML 10 MG/ML VIAL ONE (13:26)
[2020-12-30] MEDS ORDERED: POVIDONE IODINE 0.05% 0.05 % ML PO ONE (13:26)
[2020-12-30] MEDS ORDERED: LIDOCAINE HCL 2% LOCAL INJ 5 ML SDV VIAL INJ ONE (13:26)
[2020-12-30] MEDS ORDERED: PHENYLEPHRINE HCL 1% 10 MG/ML VIAL ONE (13:26)
[2020-12-30] MEDS ORDERED: DESFLURANE 240 ML BTL INH ONE (13:26)
[2020-12-30] MEDS ORDERED: EPHEDRINE SULFATE INJ 50 MG/ML VIAL ONE (13:26)
[2020-12-30] MEDS ORDERED: GLYCOPYRROLATE INJ 0.2 MG/ML VIAL ONE (13:26)
[2020-12-30] MEDS ORDERED: PROPOFOL IV EMULSION 10 MG/ML 20 ML VIAL ONE (13:26)
[2020-12-30] MEDS ORDERED: ONDANSETRON HCL INJ 2MG/ML 2ML 2 MG/ML VIAL ONE (13:26)
[2020-12-30] MEDS: MORPHINE SULFATE 30 MG TAB ER PO SCH (16:24)
[2020-12-30] MEDS: ATORVASTATIN 40 MG TAB PO SCH (21:04)
[2020-12-31] VITALS (7 sets, daily range): BP systolic 115–157; BP diastolic 73–91
[2020-12-31] MEDS: OXYCODONE/ACETAMINOPHEN 5-325 1 EACH TABLET PO PRN ×3 (05:50→19:01)
[2020-12-31 06:20] LABS: BASOPHILS % 0.4 % (0.0-1.0); EOSINOPHILS # (AUTO) 0.3 (0.0-0.4); EOSINOPHILS % 2.9 % (0.0-6.0); HEMATOCRIT 36.8 % (38.2-49.6); HEMOGLOBIN 11.5 g/dL (14.0-18.0); LYMPHOCYTES # (AUTO) 2.4 (1.0-3.2); LYMPHOCYTES % 24.6 % (18.0-39.1); MEAN CORPUSCULAR HEMOGLOBIN 26.9 pg (28-32); MEAN CORPUSCULAR HGB CONC 31.3 g/dL (31-35); MEAN CORPUSCULAR VOLUME 86.2 fL (81-99); MONOCYTES # (AUTO) 0.7 (0.2-0.8); MONOCYTES % 6.9 % (4.4-11.3); NEUTROPHILS # (AUTO) 6.2 (2.1-6.9); NEUTROPHILS % 64.2 % (38.7-80.0); PLATELET COUNT 207 x10e3/uL (140-360); RED BLOOD COUNT 4.27 x10e6/uL (4.3-5.7); RED CELL DISTRIBUTION WIDTH 14.4 % (11.7-14.4)
[2020-12-31 06:47] LABS: ANION GAP 13.4 mmol/L (8-16); CALCIUM 8.3 mg/dL (8.4-10.2); CREATININE, SERUM 1.03 mg/dL (0.72-1.25); POTASSIUM 4.4 mmol/L (3.5-5.1)
[2020-12-31] MEDS: INSULIN LISPRO 100 UNIT/1 ML 3ML VIAL SQ SCH ×4 (07:30→20:39)
[2020-12-31] MEDS: SILVER ANTIMICROBIAL WOUND GEL 45ML TOP SCH (09:00)
[2020-12-31] MEDS: MORPHINE SULFATE 30 MG TAB ER PO SCH ×2 (09:26→17:49)
[2020-12-31] MEDS: BACLOFEN 10 MG TAB PO SCH (09:26)
[2020-12-31] MEDS: ASPIRIN 81 MG ENTERIC COATED PO SCH (09:26)
[2020-12-31] MEDS: FLUOXETINE HCL 20 MG CAP PO SCH (09:27)
[2020-12-31] MEDS: GABAPENTIN 400 MG CAP PO SCH ×2 (09:27→17:49)
[2020-12-31] MEDS: BUPROPION HCL 75 MG TAB PO SCH (09:27)
[2020-12-31] MEDS: AMLODIPINE BESYLATE 5 MG TAB PO SCH (09:27)
[2020-12-31] MEDS: Vancomycin IV 1 GM in SODIUM CHLORIDE 0.9% 250ML 250 ML IV SCH ×2 (10:19→21:20)
[2020-12-31] MEDS ORDERED: Vancomycin IV 1 GM VIAL ONE (10:28)
[2020-12-31] MEDS: CEFEPIME 1 GM in SODIUM CHLORIDE 0.9% 50ML 50 ML IV SCH (12:02)
[2020-12-31] MEDS: ATORVASTATIN 40 MG TAB PO SCH (20:37)
[2021-01-01] VITALS (7 sets, daily range): BP systolic 130–156; BP diastolic 68–87
[2021-01-01] MEDS ORDERED: SODIUM CHLORIDE 0.9% 50ML 50 ML ONE (03:19)
[2021-01-01] MEDS: OXYCODONE/ACETAMINOPHEN 5-325 1 EACH TABLET PO PRN (04:00)
[2021-01-01] MEDS: INSULIN LISPRO 100 UNIT/1 ML 3ML VIAL SQ SCH ×4 (07:30→21:00)
[2021-01-01] MEDS: SILVER ANTIMICROBIAL WOUND GEL 45ML TOP SCH (09:00)
[2021-01-01] MEDS: BACLOFEN 10 MG TAB PO SCH (09:13)
[2021-01-01] MEDS: ASPIRIN 81 MG ENTERIC COATED PO SCH (09:13)
[2021-01-01] MEDS: GABAPENTIN 400 MG CAP PO SCH ×2 (09:14→16:53)
[2021-01-01] MEDS: MORPHINE SULFATE 30 MG TAB ER PO SCH ×2 (09:14→16:52)
[2021-01-01] MEDS: FLUOXETINE HCL 20 MG CAP PO SCH (09:14)
[2021-01-01] MEDS: BUPROPION HCL 75 MG TAB PO SCH (09:15)
[2021-01-01] MEDS: Vancomycin IV 1 GM in SODIUM CHLORIDE 0.9% 250ML 250 ML IV SCH (09:15)
[2021-01-01] MEDS: AMLODIPINE BESYLATE 5 MG TAB PO SCH (09:18)
[2021-01-01] MEDS: CARVEDILOL 12.5 MG TAB PO SCH (16:52)
[2021-01-01] MEDS: ATORVASTATIN 40 MG TAB PO SCH (21:00)
[2021-01-01] MEDS: CEFEPIME 1 GM in SODIUM CHLORIDE 0.9% 50ML 50 ML IV SCH ×3 (21:00)
[2021-01-01] MEDS ORDERED: Vancomycin IV 1 GM in SODIUM CHLORIDE 0.9% 250ML 250 ML IV SCH (22:00)
[2021-01-02] VITALS (8 sets, daily range): BP systolic 126–158; BP diastolic 65–86
[2021-01-02 06:13] LABS: BASOPHILS # (AUTO) 0.1 (0.0-0.1); BASOPHILS % 0.5 % (0.0-1.0); EOSINOPHILS # (AUTO) 0.3 (0.0-0.4); EOSINOPHILS % 3.6 % (0.0-6.0); HEMATOCRIT 38.3 % (38.2-49.6); HEMOGLOBIN 11.9 g/dL (14.0-18.0); LYMPHOCYTES # (AUTO) 2.3 (1.0-3.2); LYMPHOCYTES % 24.7 % (18.0-39.1); MEAN CORPUSCULAR HEMOGLOBIN 26.7 pg (28-32); MEAN CORPUSCULAR HGB CONC 31.1 g/dL (31-35); MEAN CORPUSCULAR VOLUME 85.9 fL (81-99); MONOCYTES # (AUTO) 0.6 (0.2-0.8); MONOCYTES % 6.3 % (4.4-11.3); PLATELET COUNT 202 x10e3/uL (140-360); RED BLOOD COUNT 4.46 x10e6/uL (4.3-5.7); RED CELL DISTRIBUTION WIDTH 14.6 % (11.7-14.4)
[2021-01-02] MEDS: OXYCODONE/ACETAMINOPHEN 5-325 1 EACH TABLET PO PRN ×2 (06:30→17:40)
[2021-01-02 06:34] LABS: ANION GAP 15.3 mmol/L (8-16); CREATININE, SERUM 1.08 mg/dL (0.72-1.25); POTASSIUM 4.3 mmol/L (3.5-5.1)
[2021-01-02] MEDS ORDERED: Vancomycin IV 1 GM in SODIUM CHLORIDE 0.9% 250ML 250 ML IV SCH (09:00)
[2021-01-02] MEDS: ASPIRIN 81 MG ENTERIC COATED PO SCH (09:07)
[2021-01-02] MEDS: CEFEPIME 1 GM in SODIUM CHLORIDE 0.9% 50ML 50 ML IV SCH ×2 (09:07→22:37)
[2021-01-02] MEDS: DOXAZOSIN MESYLATE 2 MG TAB PO SCH (09:08)
[2021-01-02] MEDS: CARVEDILOL 12.5 MG TAB PO SCH ×2 (09:08→16:26)
[2021-01-02] MEDS: TAMSULOSIN HCL 0.4 MG CAP PO SCH (09:09)
[2021-01-02] MEDS: CLOPIDOGREL BISULFATE 75 MG TAB PO SCH (09:09)
[2021-01-02] MEDS: AMLODIPINE BESYLATE 5 MG TAB PO SCH (09:09)
[2021-01-02] MEDS: LOSARTAN POTASSIUM 100 MG TAB PO SCH (09:09)
[2021-01-02] MEDS: BACLOFEN 10 MG TAB PO SCH (09:09)
[2021-01-02] MEDS: MORPHINE SULFATE 30 MG TAB ER PO SCH ×2 (09:09→16:26)
[2021-01-02] MEDS: BUPROPION HCL 75 MG TAB PO SCH (09:10)
[2021-01-02] MEDS: FLUOXETINE HCL 20 MG CAP PO SCH (09:10)
[2021-01-02] MEDS: SILVER ANTIMICROBIAL WOUND GEL 45ML TOP SCH (11:12)
[2021-01-02] MEDS: INSULIN LISPRO 100 UNIT/1 ML 3ML VIAL SQ SCH ×4 (11:30→21:00)
[2021-01-02] MEDS: ATORVASTATIN 40 MG TAB PO SCH (22:37)
[2021-01-03] VITALS (8 sets, daily range): BP systolic 142–156; BP diastolic 69–85
[2021-01-03] MEDS ORDERED: DIPHENHYDRAMINE HCL 25 MG CAP PO PRN (03:30)
[2021-01-03] MEDS: INSULIN LISPRO 100 UNIT/1 ML 3ML VIAL SQ SCH ×4 (07:30→20:10)
[2021-01-03] MEDS: SILVER ANTIMICROBIAL WOUND GEL 45ML TOP SCH (09:00)
[2021-01-03] MEDS: CEFEPIME 1 GM in SODIUM CHLORIDE 0.9% 50ML 50 ML IV SCH ×2 (10:13→20:14)
[2021-01-03] MEDS: TAMSULOSIN HCL 0.4 MG CAP PO SCH (10:15)
[2021-01-03] MEDS: ASPIRIN 81 MG ENTERIC COATED PO SCH (10:15)
[2021-01-03] MEDS: BACLOFEN 10 MG TAB PO SCH (10:15)
[2021-01-03] MEDS: CLOPIDOGREL BISULFATE 75 MG TAB PO SCH (10:16)
[2021-01-03] MEDS: BUPROPION HCL 75 MG TAB PO SCH (10:16)
[2021-01-03] MEDS: AMLODIPINE BESYLATE 5 MG TAB PO SCH (10:16)
[2021-01-03] MEDS: MORPHINE SULFATE 30 MG TAB ER PO SCH ×2 (10:16→18:18)
[2021-01-03] MEDS: FLUOXETINE HCL 20 MG CAP PO SCH (10:16)
[2021-01-03] MEDS: LOSARTAN POTASSIUM 100 MG TAB PO SCH (10:20)
[2021-01-03] MEDS: CARVEDILOL 12.5 MG TAB PO SCH ×2 (10:21→18:18)
[2021-01-03] MEDS: DOXAZOSIN MESYLATE 2 MG TAB PO SCH (10:21)
[2021-01-03] MEDS: Vancomycin IV 1 GM in SODIUM CHLORIDE 0.9% 250ML 250 ML IV SCH (10:21)
[2021-01-03] MEDS ORDERED: CARVEDILOL 12.5 MG TAB PO SCH (17:00)
[2021-01-03] MEDS: ATORVASTATIN 40 MG TAB PO SCH (20:14)
[2021-01-04] VITALS (8 sets, daily range): BP systolic 125–154; BP diastolic 66–90
[2021-01-04] MEDS: ASPIRIN 81 MG ENTERIC COATED PO SCH (08:12)
[2021-01-04] MEDS: CARVEDILOL 12.5 MG TAB PO SCH ×2 (08:13→16:25)
[2021-01-04] MEDS: INSULIN LISPRO 100 UNIT/1 ML 3ML VIAL SQ SCH ×4 (08:13→20:15)
[2021-01-04] MEDS: DOXAZOSIN MESYLATE 2 MG TAB PO SCH (08:13)
[2021-01-04] MEDS: LOSARTAN POTASSIUM 100 MG TAB PO SCH (08:13)
[2021-01-04] MEDS: BACLOFEN 10 MG TAB PO SCH (08:14)
[2021-01-04] MEDS: TAMSULOSIN HCL 0.4 MG CAP PO SCH (08:14)
[2021-01-04] MEDS: CLOPIDOGREL BISULFATE 75 MG TAB PO SCH (08:15)
[2021-01-04] MEDS: AMLODIPINE BESYLATE 5 MG TAB PO SCH (08:15)
[2021-01-04] MEDS: MORPHINE SULFATE 30 MG TAB ER PO SCH ×2 (08:15→16:26)
[2021-01-04] MEDS: BUPROPION HCL 75 MG TAB PO SCH (08:16)
[2021-01-04] MEDS: FLUOXETINE HCL 20 MG CAP PO SCH (08:16)
[2021-01-04] MEDS: CEFEPIME 1 GM in SODIUM CHLORIDE 0.9% 50ML 50 ML IV SCH ×2 (08:17→20:12)
[2021-01-04] MEDS: OXYCODONE/ACETAMINOPHEN 5-325 1 EACH TABLET PO PRN ×4 (09:06→21:13)
[2021-01-04] MEDS: SILVER ANTIMICROBIAL WOUND GEL 45ML TOP SCH (13:42)
[2021-01-04] MEDS: ENOXAPARIN SOD INJ 40 MG/0.4 ML SYR SC SCH (16:26)
[2021-01-04] MEDS: ATORVASTATIN 40 MG TAB PO SCH (20:12)
[2021-01-05] VITALS (7 sets, daily range): BP systolic 104–159; BP diastolic 59–80
[2021-01-05] MEDS: OXYCODONE/ACETAMINOPHEN 5-325 1 EACH TABLET PO PRN ×3 (05:02→19:10)
[2021-01-05] MEDS: ASPIRIN 81 MG ENTERIC COATED PO SCH (08:13)
[2021-01-05] MEDS: CARVEDILOL 12.5 MG TAB PO SCH ×2 (08:14→16:01)
[2021-01-05] MEDS: DOXAZOSIN MESYLATE 2 MG TAB PO SCH (08:14)
[2021-01-05] MEDS: TAMSULOSIN HCL 0.4 MG CAP PO SCH (08:15)
[2021-01-05] MEDS: BACLOFEN 10 MG TAB PO SCH (08:15)
[2021-01-05] MEDS: LOSARTAN POTASSIUM 100 MG TAB PO SCH (08:15)
[2021-01-05] MEDS: AMLODIPINE BESYLATE 5 MG TAB PO SCH (08:16)
[2021-01-05] MEDS: CLOPIDOGREL BISULFATE 75 MG TAB PO SCH (08:16)
[2021-01-05] MEDS: MORPHINE SULFATE 30 MG TAB ER PO SCH ×2 (08:16→16:01)
[2021-01-05] MEDS: INSULIN LISPRO 100 UNIT/1 ML 3ML VIAL SQ SCH ×4 (08:16→21:43)
[2021-01-05] MEDS: FLUOXETINE HCL 20 MG CAP PO SCH (08:16)
[2021-01-05] MEDS: CEFEPIME 1 GM in SODIUM CHLORIDE 0.9% 50ML 50 ML IV SCH ×2 (08:17→21:29)
[2021-01-05] MEDS: BUPROPION HCL 75 MG TAB PO SCH (08:17)
[2021-01-05] MEDS: Vancomycin IV 1 GM in SODIUM CHLORIDE 0.9% 250ML 250 ML IV SCH (10:16)
[2021-01-05] MEDS: SILVER ANTIMICROBIAL WOUND GEL 45ML TOP SCH (13:51)
[2021-01-05] MEDS: GABAPENTIN 300 MG CAP PO SCH (16:01)
[2021-01-05] MEDS: ENOXAPARIN SOD INJ 40 MG/0.4 ML SYR SC SCH (16:01)
[2021-01-05] MEDS: ATORVASTATIN 40 MG TAB PO SCH (21:29)
[2021-01-06] VITALS: BP 142/71
[2021-01-06 04:00] VITALS: BP 148/68
[2021-01-06] MEDS: INSULIN LISPRO 100 UNIT/1 ML 3ML VIAL SQ SCH ×3 (07:30→16:28)
[2021-01-06] MEDS: OXYCODONE/ACETAMINOPHEN 5-325 1 EACH TABLET PO PRN (07:48)
[2021-01-06 08:08] VITALS: BP 154/89
[2021-01-06 08:23] VITALS: BP 154/89
[2021-01-06] MEDS: CARVEDILOL 12.5 MG TAB PO SCH ×2 (09:00→17:00)
[2021-01-06] MEDS: CLOPIDOGREL BISULFATE 75 MG TAB PO SCH (09:00)
[2021-01-06] MEDS: FLUOXETINE HCL 20 MG CAP PO SCH (09:00)
[2021-01-06] MEDS: LOSARTAN POTASSIUM 100 MG TAB PO SCH (09:00)
[2021-01-06] MEDS: ASPIRIN 81 MG ENTERIC COATED PO SCH (09:00)
[2021-01-06] MEDS: BUPROPION HCL 75 MG TAB PO SCH (09:00)
[2021-01-06] MEDS: AMLODIPINE BESYLATE 5 MG TAB PO SCH (09:00)
[2021-01-06] MEDS: BACLOFEN 10 MG TAB PO SCH (09:00)
[2021-01-06] MEDS: TAMSULOSIN HCL 0.4 MG CAP PO SCH (09:00)
[2021-01-06] MEDS: GABAPENTIN 300 MG CAP PO SCH ×2 (09:00→17:24)
[2021-01-06] MEDS: DOXAZOSIN MESYLATE 2 MG TAB PO SCH (09:00)
[2021-01-06] MEDS: CEFEPIME 1 GM in SODIUM CHLORIDE 0.9% 50ML 50 ML IV SCH (09:00)
[2021-01-06] MEDS: MORPHINE SULFATE 30 MG TAB ER PO SCH ×2 (09:15→17:24)
[2021-01-06 11:19] VITALS: BP 130/86
[2021-01-06] MEDS ORDERED: COZAAR100 MG PO (12:18)
[2021-01-06] MEDS ORDERED: COREG12.5 MG PO (12:18)
[2021-01-06] MEDS ORDERED: VANCOMYCIN1 GM/2001 IV (12:18)
[2021-01-06] MEDS ORDERED: Diphenhydramine Hcl PO (12:18)
[2021-01-06] MEDS ORDERED: GABAPENTIN300 MG PO (12:18)
[2021-01-06] MEDS: SILVER ANTIMICROBIAL WOUND GEL 45ML TOP SCH (12:30)
[2021-01-06] MEDS ORDERED: ONDANSETRON HCL 4 MG ORAL DISINTEGRATING TAB PO PRN (13:00)
[2021-01-06 15:27] VITALS: BP 119/65
[2021-01-06] MEDS: ENOXAPARIN SOD INJ 40 MG/0.4 ML SYR SC SCH (17:00)
== END 2021-01-06 19:05 | DRG 854 ==
LOC: ER 11:35 → ERHOLD 13:10 → MED/SURG3 23:01
PROVIDERS: ADMIT Internal Medicine; ATTEND Internal Medicine
PROC: 02HV33Z Insertion of Infusion Device into Superior Vena Cava, Percutaneous Approach (ICD-10-PCS; 2020-12-24)
PROC: 0Y6M0ZC Detachment at Right Foot, Partial 3rd Ray, Open Approach (ICD-10-PCS; principal; 2020-12-30 07:00)
DX: A41.9 Sepsis, unspecified organism (principal); N17.9 Acute kidney failure, unspecified; M62.82 Rhabdomyolysis; L03.115 Cellulitis of right lower limb; M86.171 Other acute osteomyelitis, right ankle and foot; E11.69 Type 2 diabetes mellitus with other specified complication; E11.40 Type 2 diabetes mellitus with diabetic neuropathy, unspecified; Z79.899 Other long term (current) drug therapy; G89.4 Chronic pain syndrome; E11.51 Type 2 diabetes mellitus with diabetic peripheral angiopathy without gangrene; E78.00 Pure hypercholesterolemia, unspecified; I25.2 Old myocardial infarction; E66.01 Morbid (severe) obesity due to excess calories; Z68.34 Body mass index [BMI] 34.0-34.9, adult; F32.9 Major depressive disorder, single episode, unspecified; E11.65 Type 2 diabetes mellitus with hyperglycemia; I12.9 Hypertensive chronic kidney disease with stage 1 through stage 4 chronic kidney disease, or unspecified chronic kidney disease; N18.30 Chronic kidney disease, stage 3 unspecified; I25.10 Atherosclerotic heart disease of native coronary artery without angina pectoris; Z20.822 Contact with and (suspected) exposure to COVID-19
CPT/HCPCS: 36415; 36569; 71045; 80048; 80053; 80061; 80202; 82550; 82553; 82948; 83036; 83605; 84443; 84484; 85025; 85610; 85730; 87040; 88304; 88311; 93005; 93306; 93925; 93971; 96367; 96372; 96376; 97139; 99251; 99285; J0692; J1100; J1650; J2001; J2370; J2405; J2710; J3010; J3370; J7050; J7121; U0002

== ENCOUNTER 2021-04-09 10:52 | Inpatient (IN) | payer MEDICARE ==
[~2021-04-09] VITALS: Ht 188 cm; Wt 131.5 kg
[~2021-04-09 10:52] MED LIST changes: +BACLOFEN10 MG PO; +BUPROPION HCL75 MG PO; +COZAAR100 MG PO; +Diphenhydramine Hcl PO; +FLUOXETINE HCL40 MG PO; +GABAPENTIN800 MG PO; +MORPHINE SULFAT30 M2 PO; +VANCOMYCIN1 GM/2001 IV
[2021-04-09 11:36] LABS: BASOPHILS # (AUTO) 0.1 (0.0-0.1); BASOPHILS % 0.6 % (0.0-1.0); EOSINOPHILS # (AUTO) 0.3 (0.0-0.4); EOSINOPHILS % 3.4 % (0.0-6.0); HEMATOCRIT 35.1 % (38.2-49.6); HEMOGLOBIN 10.7 g/dL (14.0-18.0); LYMPHOCYTES # (AUTO) 1.8 (1.0-3.2); LYMPHOCYTES % 23.2 % (18.0-39.1); MEAN CORPUSCULAR HEMOGLOBIN 26.8 pg (28-32); MEAN CORPUSCULAR HGB CONC 30.5 g/dL (31-35); MEAN CORPUSCULAR VOLUME 87.8 fL (81-99); MONOCYTES # (AUTO) 0.6 (0.2-0.8); MONOCYTES % 7.2 % (4.4-11.3); NEUTROPHILS % 65.2 % (38.7-80.0); PLATELET COUNT 234 x10e3/uL (140-360); RED CELL DISTRIBUTION WIDTH 14.4 % (11.7-14.4)
[2021-04-09 12:00] LABS: INR 1.05; PROTHROMBIN TIME 14.5 seconds (11.9-14.5)
[2021-04-09 12:09] LABS: ALBUMIN/GLOBULIN RATIO 0.6 (0.8-2.0); ANION GAP 14.9 mmol/L (8-16); CALCIUM 8.7 mg/dL (8.4-10.2); CREATININE, SERUM 1.35 mg/dL (0.72-1.25); POTASSIUM 3.9 mmol/L (3.5-5.1)
[2021-04-09 12:16] LABS: CREATINE KINASE MB 2.8 ng/mL (0-5.0)
[2021-04-09] MEDS ORDERED: SODIUM CHLORIDE 0.9% 500ML 500 ML IV ONE (12:45)
[2021-04-09 12:54] LABS: CLARITY,URINE CLEAR (CLEAR); COLOR,URINE YELLOW (YELLOW); KETONES,URINE NEGATIVE (NEGATIVE); LEUKOCYTE ESTERASE ,URINE NEGATIVE (NEGATIVE); MUCUS,URINE FEW (RARE); NITRITE,URINE NEGATIVE (NEGATIVE); PROTEIN,URINE DIPSTICK >=300 (NEGATIVE); RBC,URINE 0-5 /HPF (0-5); URINE UROBILINOGEN 0.2 mg/dL (0.2 - 1); WBC,URINE (MAN) 0-5 /HPF (0-5)
[2021-04-09] MEDS: HYDROCODONE/APAP 10MG-325MG TAB PO PRN (13:03)
[2021-04-09] MEDS: CEFEPIME 1 GM in SODIUM CHLORIDE 0.9% 50ML 50 ML IV SCH ×2 (13:08→20:35)
[2021-04-09] MEDS ORDERED: DEXTROSE 50% SYRINGE 50 ML IV PRN (13:30)
[2021-04-09] MEDS ORDERED: ACETAMINOPHEN 325 MG TAB PO PRN (13:30)
[2021-04-09] MEDS ORDERED: ONDANSETRON HCL INJ 2MG/ML 2ML 2 MG/ML VIAL IV PRN ×2 (13:30)
[2021-04-09] MEDS ORDERED: Vancomycin IV 1 GM in SODIUM CHLORIDE 0.9% 250ML 250 ML IV ONE (13:30)
[2021-04-09 15:30] VITALS: BP 130/67
[2021-04-09 15:40] VITALS: BP 130/67
[2021-04-09] MEDS: INSULIN LISPRO 100 UNIT/1 ML 3ML VIAL SQ SCH ×2 (15:44→21:00)
[2021-04-09] MEDS: CARVEDILOL 12.5 MG TAB PO SCH (16:01)
[2021-04-09] MEDS ORDERED: GABAPENTIN 300 MG CAP PO SCH (17:00)
[2021-04-09 18:04] LABS: CREATINE KINASE MB 2.1 ng/mL (0-5.0)
[2021-04-09] MEDS: FUROSEMIDE INJ 10 MG/ML 4 ML VIAL IV SCH (20:35)
[2021-04-09 20:47] VITALS: BP 131/69
[2021-04-09] MEDS ORDERED: SODIUM CHLORIDE 0.9% 250ML 250 ML ONE (20:55)
[2021-04-09 21:00] VITALS: BP 131/69
[2021-04-09] MEDS: HEPARIN SOD (PORCINE) 5,000 UNIT/ML VIAL SC SCH (21:00)
[2021-04-09] MEDS ORDERED: ATORVASTATIN 10 MG TAB PO SCH (21:00)
[2021-04-09] MEDS ORDERED: FUROSEMIDE INJ 10 MG/ML 4 ML VIAL IV SCH (21:00)
[2021-04-09 23:51] VITALS: BP 151/82
[2021-04-10] VITALS (7 sets, daily range): BP systolic 128–158; BP diastolic 61–68
[2021-04-10] MEDS: CEFEPIME 1 GM in SODIUM CHLORIDE 0.9% 50ML 50 ML IV SCH ×3 (05:00→21:50)
[2021-04-10 07:06] LABS: BASOPHILS % 0.4 % (0.0-1.0); EOSINOPHILS # (AUTO) 0.3 (0.0-0.4); EOSINOPHILS % 4.2 % (0.0-6.0); HEMOGLOBIN 9.7 g/dL (14.0-18.0); LYMPHOCYTES # (AUTO) 1.9 (1.0-3.2); LYMPHOCYTES % 28.6 % (18.0-39.1); MEAN CORPUSCULAR HEMOGLOBIN 26.9 pg (28-32); MEAN CORPUSCULAR HGB CONC 30.3 g/dL (31-35); MEAN CORPUSCULAR VOLUME 88.6 fL (81-99); MONOCYTES # (AUTO) 0.5 (0.2-0.8); MONOCYTES % 7.3 % (4.4-11.3); NEUTROPHILS % 59.1 % (38.7-80.0); PLATELET COUNT 212 x10e3/uL (140-360); RED BLOOD COUNT 3.61 x10e6/uL (4.3-5.7); RED CELL DISTRIBUTION WIDTH 14.3 % (11.7-14.4)
[2021-04-10 07:28] LABS: ALBUMIN 2.7 g/dL (3.5-5.0); ALBUMIN/GLOBULIN RATIO 0.6 (0.8-2.0); ANION GAP 14.5 mmol/L (8-16); CALCIUM 8.6 mg/dL (8.4-10.2); CREATININE, SERUM 1.25 mg/dL (0.72-1.25); POTASSIUM 4.5 mmol/L (3.5-5.1)
[2021-04-10 07:45] LABS: CHOL/HDL RATIO 2.6 (3.9-4.7)
[2021-04-10 07:52] LABS: CREATINE KINASE MB 1.5 ng/mL (0-5.0)
[2021-04-10] MEDS: FUROSEMIDE INJ 10 MG/ML 4 ML VIAL IV SCH ×2 (08:38→16:17)
[2021-04-10] MEDS: DOXAZOSIN MESYLATE 2 MG TAB PO SCH (08:39)
[2021-04-10] MEDS: BACLOFEN 10 MG TAB PO SCH (08:40)
[2021-04-10] MEDS: ASPIRIN 81 MG CHEW TAB PO SCH (08:40)
[2021-04-10] MEDS: TAMSULOSIN HCL 0.4 MG CAP PO SCH (08:40)
[2021-04-10] MEDS: CARVEDILOL 12.5 MG TAB PO SCH ×2 (08:41→16:18)
[2021-04-10] MEDS: CLOPIDOGREL BISULFATE 75 MG TAB PO SCH (08:41)
[2021-04-10] MEDS: BUPROPION HCL 75 MG TAB PO SCH (08:45)
[2021-04-10] MEDS: HEPARIN SOD (PORCINE) 5,000 UNIT/ML VIAL SC SCH ×2 (08:47→21:50)
[2021-04-10] MEDS: INSULIN LISPRO 100 UNIT/1 ML 3ML VIAL SQ SCH ×4 (08:47→21:50)
[2021-04-10] MEDS ORDERED: AMLODIPINE BESYLATE 5 MG TAB PO SCH (09:00)
[2021-04-10] MEDS: GABAPENTIN 100 MG CAP PO SCH ×2 (10:35→16:18)
[2021-04-10 12:54] LABS: CREATINE KINASE MB 1.3 ng/mL (0-5.0)
[2021-04-10] MEDS: HYDROCODONE/APAP 10MG-325MG TAB PO PRN (14:00)
[2021-04-10] MEDS ORDERED: Morphine 4mg Syringe 4 MG/ML INJ IV PRN (17:00)
[2021-04-10] MEDS ORDERED: ATORVASTATIN 10 MG TAB PO SCH (21:00)
[2021-04-10] MEDS ORDERED: ATORVASTATIN 40 MG TAB PO SCH (21:00)
[2021-04-11 01:35] VITALS: BP 132/67
[2021-04-11] MEDS: CEFEPIME 1 GM in SODIUM CHLORIDE 0.9% 50ML 50 ML IV SCH ×2 (04:40→13:00)
[2021-04-11 05:41] LABS: BASOPHILS % 0.6 % (0.0-1.0); EOSINOPHILS # (AUTO) 0.3 (0.0-0.4); EOSINOPHILS % 4.8 % (0.0-6.0); HEMOGLOBIN 10.2 g/dL (14.0-18.0); LYMPHOCYTES # (AUTO) 1.8 (1.0-3.2); MEAN CORPUSCULAR HGB CONC 30.9 g/dL (31-35); MEAN CORPUSCULAR VOLUME 87.3 fL (81-99); MONOCYTES # (AUTO) 0.5 (0.2-0.8); MONOCYTES % 8.3 % (4.4-11.3); NEUTROPHILS # (AUTO) 3.6 (2.1-6.9); NEUTROPHILS % 56.8 % (38.7-80.0); PLATELET COUNT 219 x10e3/uL (140-360); RED BLOOD COUNT 3.78 x10e6/uL (4.3-5.7); RED CELL DISTRIBUTION WIDTH 14.2 % (11.7-14.4)
[2021-04-11 05:52] VITALS: BP 148/71
[2021-04-11 06:14] LABS: ALBUMIN 2.8 g/dL (3.5-5.0); ALBUMIN/GLOBULIN RATIO 0.6 (0.8-2.0); ANION GAP 14.3 mmol/L (8-16); CALCIUM 8.6 mg/dL (8.4-10.2); CREATININE, SERUM 1.47 mg/dL (0.72-1.25); POTASSIUM 4.3 mmol/L (3.5-5.1)
[2021-04-11] MEDS: INSULIN LISPRO 100 UNIT/1 ML 3ML VIAL SQ SCH ×2 (07:30→11:30)
[2021-04-11 08:02] VITALS: BP 161/87
[2021-04-11 09:00] VITALS: BP 161/87
[2021-04-11] MEDS ORDERED: AMLODIPINE BESYLATE 5 MG TAB PO SCH (09:00)
[2021-04-11] MEDS: FUROSEMIDE INJ 10 MG/ML 4 ML VIAL IV SCH (09:04)
[2021-04-11] MEDS: ASPIRIN 81 MG CHEW TAB PO SCH (09:04)
[2021-04-11] MEDS: DOXAZOSIN MESYLATE 2 MG TAB PO SCH (09:04)
[2021-04-11] MEDS: CARVEDILOL 12.5 MG TAB PO SCH (09:05)
[2021-04-11] MEDS: TAMSULOSIN HCL 0.4 MG CAP PO SCH (09:05)
[2021-04-11] MEDS: BUPROPION HCL 75 MG TAB PO SCH (09:05)
[2021-04-11] MEDS: GABAPENTIN 100 MG CAP PO SCH (09:05)
[2021-04-11] MEDS: BACLOFEN 10 MG TAB PO SCH (09:05)
[2021-04-11] MEDS: CLOPIDOGREL BISULFATE 75 MG TAB PO SCH (09:05)
[2021-04-11] MEDS: HYDROCODONE/APAP 10MG-325MG TAB PO PRN (09:23)
[2021-04-11] MEDS ORDERED: ONDANSETRON HCL 4 MG ORAL DISINTEGRATING TAB PO PRN (09:45)
[2021-04-11] MEDS: HEPARIN SOD (PORCINE) 5,000 UNIT/ML VIAL SC SCH (11:31)
[2021-04-11 11:36] VITALS: BP 119/88
[2021-04-11] MEDS ORDERED: LASIX40 MG PO (14:49)
[2021-04-11] MEDS ORDERED: ZYVOX600 MG PO (14:49)
[2021-04-11 15:36] VITALS: BP 121/77
[2021-04-12] MEDS ORDERED: FUROSEMIDE INJ 10 MG/ML 4 ML VIAL IV SCH (09:00)
== END 2021-04-11 16:35 | disposition home or self-care (01) | DRG 300 ==
LOC: ER 11:11 → ERHOLD 13:37 → MED/SURG3 15:16
PROVIDERS: ADMIT Internal Medicine; ATTEND Internal Medicine
DX: E11.51 Type 2 diabetes mellitus with diabetic peripheral angiopathy without gangrene (principal); L03.116 Cellulitis of left lower limb; N17.9 Acute kidney failure, unspecified; I13.0 Hypertensive heart and chronic kidney disease with heart failure and stage 1 through stage 4 chronic kidney disease, or unspecified chronic kidney disease; L97.919 Non-pressure chronic ulcer of unspecified part of right lower leg with unspecified severity; L03.115 Cellulitis of right lower limb; N40.0 Benign prostatic hyperplasia without lower urinary tract symptoms; F32.A Depression, unspecified; Z20.822 Contact with and (suspected) exposure to COVID-19; I25.10 Atherosclerotic heart disease of native coronary artery without angina pectoris; Z95.5 Presence of coronary angioplasty implant and graft; E11.40 Type 2 diabetes mellitus with diabetic neuropathy, unspecified; Z79.899 Other long term (current) drug therapy; Z89.432 Acquired absence of left foot; Z89.431 Acquired absence of right foot; R29.6 Repeated falls; T42.6X5A Adverse effect of other antiepileptic and sedative-hypnotic drugs, initial encounter; E78.00 Pure hypercholesterolemia, unspecified; I25.2 Old myocardial infarction; G47.33 Obstructive sleep apnea (adult) (pediatric); Z68.37 Body mass index [BMI] 37.0-37.9, adult; I50.9 Heart failure, unspecified; E66.01 Morbid (severe) obesity due to excess calories; N18.9 Chronic kidney disease, unspecified; E11.22 Type 2 diabetes mellitus with diabetic chronic kidney disease; I87.2 Venous insufficiency (chronic) (peripheral); R41.82 Altered mental status, unspecified; Z95.1 Presence of aortocoronary bypass graft; D63.8 Anemia in other chronic diseases classified elsewhere
CPT/HCPCS: 36415; 70450; 71045; 72125; 80053; 80061; 81001; 82550; 82553; 82948; 83605; 83735; 83880; 84484; 85025; 85610; 85730; 87040; 87086; 93005; 93970; 94799; 99251; 99284; J0692; J1644; J1940; J2270; J3370; J7040; J7050; U0002

== ENCOUNTER 2021-05-22 17:49 | Inpatient (IN) | payer MEDICARE, OTHER ==
[~2021-05-22] VITALS: Ht 188 cm; Wt 131.5 kg
[~2021-05-22 17:49] MED LIST changes: +LASIX40 MG PO; +ZYVOX600 MG PO
[2021-05-22] MEDS ORDERED: SODIUM CHLORIDE 0.9% 1000ML 2,000 ML IV ONE (19:15)
[2021-05-22 19:29] LABS: BASOPHILS % 0.2 % (0.0-1.0); HEMATOCRIT 35.9 % (38.2-49.6); HEMOGLOBIN 11.2 g/dL (14.0-18.0); LYMPHOCYTES # (AUTO) 0.9 (1.0-3.2); LYMPHOCYTES % 4.9 % (18.0-39.1); MEAN CORPUSCULAR HEMOGLOBIN 26.5 pg (28-32); MEAN CORPUSCULAR HGB CONC 31.2 g/dL (31-35); MEAN CORPUSCULAR VOLUME 84.9 fL (81-99); MONOCYTES # (AUTO) 0.7 (0.2-0.8); MONOCYTES % 3.6 % (4.4-11.3); NEUTROPHILS % 90.4 % (38.7-80.0); PLATELET COUNT 242 x10e3/uL (140-360); RED BLOOD COUNT 4.23 x10e6/uL (4.3-5.7); RED CELL DISTRIBUTION WIDTH 15.2 % (11.7-14.4)
[2021-05-22 19:47] LABS: ALBUMIN 3.2 g/dL (3.5-5.0); ALBUMIN/GLOBULIN RATIO 0.7 (0.8-2.0); ANION GAP 15.9 mmol/L (8-16); CALCIUM 8.6 mg/dL (8.4-10.2); CREATININE, SERUM 1.99 mg/dL (0.72-1.25); POTASSIUM 3.9 mmol/L (3.5-5.1)
[2021-05-22] MEDS: Vancomycin IV 1 GM in SODIUM CHLORIDE 0.9% 250ML 250 ML IV SCH (20:44)
[2021-05-22 23:00] VITALS: BP 101/50
[2021-05-23] VITALS (7 sets, daily range): BP systolic 103–136; BP diastolic 55–74
[2021-05-23 06:20] LABS: BASOPHILS % 0.2 % (0.0-1.0); EOSINOPHILS % 0.2 % (0.0-6.0); HEMATOCRIT 33.2 % (38.2-49.6); HEMOGLOBIN 10.3 g/dL (14.0-18.0); LYMPHOCYTES % 8.3 % (18.0-39.1); MEAN CORPUSCULAR HEMOGLOBIN 26.2 pg (28-32); MEAN CORPUSCULAR VOLUME 84.5 fL (81-99); MONOCYTES # (AUTO) 0.9 (0.2-0.8); MONOCYTES % 7.3 % (4.4-11.3); NEUTROPHILS # (AUTO) 10.2 (2.1-6.9); NEUTROPHILS % 83.4 % (38.7-80.0); PLATELET COUNT 187 x10e3/uL (140-360); RED BLOOD COUNT 3.93 x10e6/uL (4.3-5.7); RED CELL DISTRIBUTION WIDTH 15.1 % (11.7-14.4)
[2021-05-23 06:37] LABS: ANION GAP 14.6 mmol/L (8-16); CALCIUM 8.3 mg/dL (8.4-10.2); CREATININE, SERUM 1.81 mg/dL (0.72-1.25); POTASSIUM 3.6 mmol/L (3.5-5.1)
[2021-05-23] MEDS: Vancomycin IV 1 GM in SODIUM CHLORIDE 0.9% 250ML 250 ML IV SCH (08:55)
[2021-05-23] MEDS ORDERED: SODIUM CHLORIDE 0.9% 250ML 250 ML ONE (09:07)
[2021-05-23] MEDS ORDERED: OXYCODONE/ACETAMINOPHEN 5-325 1 EACH TABLET PO PRN (10:00)
[2021-05-23] MEDS ORDERED: LINEZOLID 600 MG TAB PO SCH (10:45)
[2021-05-23] MEDS: MORPHINE SULFATE 30 MG TAB ER PO SCH ×2 (10:55→17:00)
[2021-05-23] MEDS: BACLOFEN 10 MG TAB PO SCH (10:55)
[2021-05-23] MEDS: BUPROPION HCL 75 MG TAB PO SCH (10:56)
[2021-05-23] MEDS: BALSAM PERU/CASTOR OIL 60 GM OINT...G. TP SCH (14:00)
[2021-05-23] MEDS ORDERED: DEXTROSE 50% SYRINGE 50 ML IV PRN (14:15)
[2021-05-23] MEDS ORDERED: Vancomycin IV 1.25 GM in SODIUM CHLORIDE 0.9% 250ML 250 ML IV SCH (15:00)
[2021-05-23] MEDS: INSULIN LISPRO 100 UNIT/1 ML 3ML VIAL SQ SCH ×2 (16:30→20:17)
[2021-05-23] MEDS: CARVEDILOL 3.125 MG TAB PO SCH (17:22)
[2021-05-23] MEDS: ATORVASTATIN 10 MG TAB PO SCH (20:28)
[2021-05-23] MEDS: Vancomycin IV 1.25 GM in SODIUM CHLORIDE 0.9% 250ML 250 ML IV SCH (22:00)
[2021-05-24] VITALS (8 sets, daily range): BP systolic 114–142; BP diastolic 55–70
[2021-05-24 05:30] LABS: BASOPHILS % 0.3 % (0.0-1.0); EOSINOPHILS # (AUTO) 0.2 (0.0-0.4); EOSINOPHILS % 2.5 % (0.0-6.0); HEMATOCRIT 32.7 % (38.2-49.6); HEMOGLOBIN 10.2 g/dL (14.0-18.0); LYMPHOCYTES # (AUTO) 1.6 (1.0-3.2); LYMPHOCYTES % 16.8 % (18.0-39.1); MEAN CORPUSCULAR HEMOGLOBIN 26.3 pg (28-32); MEAN CORPUSCULAR HGB CONC 31.2 g/dL (31-35); MEAN CORPUSCULAR VOLUME 84.3 fL (81-99); MONOCYTES # (AUTO) 0.8 (0.2-0.8); MONOCYTES % 8.1 % (4.4-11.3); NEUTROPHILS % 71.9 % (38.7-80.0); PLATELET COUNT 196 x10e3/uL (140-360); RED BLOOD COUNT 3.88 x10e6/uL (4.3-5.7); RED CELL DISTRIBUTION WIDTH 15.2 % (11.7-14.4)
[2021-05-24 05:40] LABS: INR 0.99; PROTHROMBIN TIME 13.9 seconds (11.9-14.5)
[2021-05-24 05:41] LABS: PARTIAL THROMBOPLASTIN TIME 34.7 seconds (23.8-35.5)
[2021-05-24 05:59] LABS: ANION GAP 12.7 mmol/L (8-16); CALCIUM 7.9 mg/dL (8.4-10.2); CREATININE, SERUM 1.39 mg/dL (0.72-1.25); POTASSIUM 3.7 mmol/L (3.5-5.1)
[2021-05-24] MEDS: INSULIN LISPRO 100 UNIT/1 ML 3ML VIAL SQ SCH ×4 (07:32→20:45)
[2021-05-24] MEDS: BALSAM PERU/CASTOR OIL 60 GM OINT...G. TP SCH (08:37)
[2021-05-24] MEDS: ASPIRIN 81 MG CHEW TAB PO SCH (08:37)
[2021-05-24] MEDS: Vancomycin IV 1.25 GM in SODIUM CHLORIDE 0.9% 250ML 250 ML IV SCH (08:37)
[2021-05-24] MEDS: BUPROPION HCL 75 MG TAB PO SCH (08:37)
[2021-05-24] MEDS: CLOPIDOGREL BISULFATE 75 MG TAB PO SCH (08:38)
[2021-05-24] MEDS: BACLOFEN 10 MG TAB PO SCH (08:38)
[2021-05-24] MEDS: MORPHINE SULFATE 30 MG TAB ER PO SCH ×2 (08:38→16:27)
[2021-05-24] MEDS: FLUOXETINE HCL 20 MG CAP PO SCH (08:38)
[2021-05-24] MEDS: CARVEDILOL 3.125 MG TAB PO SCH ×2 (08:39→17:01)
[2021-05-24] MEDS: CEFTRIAXONE 2 GM in SODIUM CHLORIDE 0.9% 100 ML IV SCH (16:26)
[2021-05-24] MEDS: ENOXAPARIN 30 MG/0.3 ML SYR SC SCH (16:27)
[2021-05-24] MEDS: ATORVASTATIN 10 MG TAB PO SCH (20:45)
[2021-05-24] MEDS ORDERED: Vancomycin IV 1 GM in SODIUM CHLORIDE 0.9% 250ML 250 ML IV SCH (21:00)
[2021-05-24] MEDS: Clindamycin INJ 900 MG 900 MG in SODIUM CHLORIDE 0.9% 50ML 50 ML IV SCH (21:30)
[2021-05-25] VITALS: BP 133/63
[2021-05-25 04:00] VITALS: BP 143/72
[2021-05-25] MEDS: Clindamycin INJ 900 MG 900 MG in SODIUM CHLORIDE 0.9% 50ML 50 ML IV SCH (06:37)
[2021-05-25 07:33] VITALS: BP 154/75
[2021-05-25] MEDS: INSULIN LISPRO 100 UNIT/1 ML 3ML VIAL SQ SCH ×3 (07:44→15:26)
[2021-05-25] MEDS: CLOPIDOGREL BISULFATE 75 MG TAB PO SCH (08:36)
[2021-05-25] MEDS: BACLOFEN 10 MG TAB PO SCH (08:36)
[2021-05-25] MEDS: FLUOXETINE HCL 20 MG CAP PO SCH (08:36)
[2021-05-25] MEDS: ASPIRIN 81 MG CHEW TAB PO SCH (08:36)
[2021-05-25] MEDS: BUPROPION HCL 75 MG TAB PO SCH (08:36)
[2021-05-25] MEDS: CARVEDILOL 3.125 MG TAB PO SCH ×2 (08:37→17:40)
[2021-05-25] MEDS: MORPHINE SULFATE 30 MG TAB ER PO SCH ×2 (08:37→17:40)
[2021-05-25] MEDS: BALSAM PERU/CASTOR OIL 60 GM OINT...G. TP SCH (09:29)
[2021-05-25 10:00] VITALS: BP 154/75
[2021-05-25] MEDS ORDERED: CLINDAMYCIN PHOS 900MG/ 50ML 50 ML IV SCH (14:00)
[2021-05-25 15:36] VITALS: BP 135/69
[2021-05-25] MEDS: CEFTRIAXONE 2 GM in SODIUM CHLORIDE 0.9% 100 ML IV SCH (16:05)
[2021-05-25] MEDS: ENOXAPARIN 30 MG/0.3 ML SYR SC SCH (17:40)
== END 2021-05-25 17:44 | disposition home or self-care (01) | DRG 638 ==
LOC: ER 19:08 → ERHOLD 20:28 → MED/SURG3 23:04
PROVIDERS: ADMIT Internal Medicine; ATTEND Internal Medicine
PROC: 02HV33Z Insertion of Infusion Device into Superior Vena Cava, Percutaneous Approach (ICD-10-PCS; principal; 2021-05-25)
DX: E11.628 Type 2 diabetes mellitus with other skin complications (principal); L03.116 Cellulitis of left lower limb; L97.421 Non-pressure chronic ulcer of left heel and midfoot limited to breakdown of skin; K52.1 Toxic gastroenteritis and colitis; N17.9 Acute kidney failure, unspecified; E11.42 Type 2 diabetes mellitus with diabetic polyneuropathy; I25.10 Atherosclerotic heart disease of native coronary artery without angina pectoris; I13.10 Hypertensive heart and chronic kidney disease without heart failure, with stage 1 through stage 4 chronic kidney disease, or unspecified chronic kidney disease; E11.22 Type 2 diabetes mellitus with diabetic chronic kidney disease; N18.30 Chronic kidney disease, stage 3 unspecified; G89.4 Chronic pain syndrome; I25.2 Old myocardial infarction; Z95.1 Presence of aortocoronary bypass graft; E11.51 Type 2 diabetes mellitus with diabetic peripheral angiopathy without gangrene; E66.01 Morbid (severe) obesity due to excess calories; E11.621 Type 2 diabetes mellitus with foot ulcer; G47.30 Sleep apnea, unspecified; Z68.37 Body mass index [BMI] 37.0-37.9, adult; Z20.822 Contact with and (suspected) exposure to COVID-19; Z79.82 Long term (current) use of aspirin; T36.8X5A Adverse effect of other systemic antibiotics, initial encounter; Y92.230 Patient room in hospital as the place of occurrence of the external cause
CPT/HCPCS: 36415; 36569; 71045; 80048; 80053; 80202; 82948; 83605; 85025; 85610; 85730; 87040; 93306; 93925; 94799; 99251; 99284; J0696; J1650; J3370; J7030; J7050; U0002

== ENCOUNTER 2021-07-19 22:49 | Inpatient (IN) | payer MEDICARE ==
[~2021-07-19] VITALS: Ht 188 cm; Wt 126.6 kg
[2021-07-19] MEDS ORDERED: ACETAMINOPHEN 325 MG TAB PO ONE (23:00)
[2021-07-19] MEDS ORDERED: Vancomycin IV 1 GM in SODIUM CHLORIDE 0.9% 250ML 250 ML IV ONE (23:00)
[2021-07-19] MEDS ORDERED: SODIUM CHLORIDE 0.9% 1000ML 1,000 ML IV ONE (23:00)
[2021-07-19] MEDS ORDERED: ASPIRIN 81 MG CHEW TAB PO ONE (23:00)
[2021-07-19] MEDS: CEFEPIME 2 GM in SODIUM CHLORIDE 0.9% 100 ML IV SCH (23:11)
[2021-07-19 23:12] LABS: BASOPHILS % 0.2 % (0.0-1.0); EOSINOPHILS # (AUTO) 0.1 (0.0-0.4); EOSINOPHILS % 0.5 % (0.0-6.0); HEMATOCRIT 33.7 % (38.2-49.6); HEMOGLOBIN 10.2 g/dL (14.0-18.0); LYMPHOCYTES % 7.9 % (18.0-39.1); MEAN CORPUSCULAR HEMOGLOBIN 25.9 pg (28-32); MEAN CORPUSCULAR HGB CONC 30.3 g/dL (31-35); MEAN CORPUSCULAR VOLUME 85.5 fL (81-99); MONOCYTES # (AUTO) 0.7 (0.2-0.8); MONOCYTES % 5.9 % (4.4-11.3); NEUTROPHILS # (AUTO) 10.5 (2.1-6.9); NEUTROPHILS % 85.2 % (38.7-80.0); PLATELET COUNT 279 x10e3/uL (140-360); RED BLOOD COUNT 3.94 x10e6/uL (4.3-5.7); RED CELL DISTRIBUTION WIDTH 15.9 % (11.7-14.4)
[2021-07-19] MEDS ORDERED: ACETAMINOPHEN 325 MG TAB ONE (23:20)
[2021-07-19] MEDS ORDERED: CEFEPIME 2 GM VIAL ONE (23:20)
[2021-07-19] MEDS ORDERED: SODIUM CHLORIDE 0.9% 1000ML 1,000 ML ONE (23:21)
[2021-07-19 23:31] LABS: ALBUMIN 2.7 g/dL (3.5-5.0); ALBUMIN/GLOBULIN RATIO 0.5 (0.8-2.0); ANION GAP 15.1 mmol/L (8-16); CALCIUM 8.8 mg/dL (8.4-10.2); CREATININE, SERUM 1.34 mg/dL (0.72-1.25); POTASSIUM 4.1 mmol/L (3.5-5.1)
[2021-07-19 23:36] LABS: CREATINE KINASE MB 0.9 ng/mL (0-5.0)
[2021-07-19] MEDS ORDERED: ACETAMINOPHEN 325 MG TAB PO PRN (23:45)
[2021-07-19] MEDS ORDERED: ONDANSETRON HCL INJ 2MG/ML 2ML 2 MG/ML VIAL IV PRN (23:45)
[2021-07-19] MEDS ORDERED: DEXTROSE 50% SYRINGE 50 ML IV PRN (23:45)
[2021-07-19] MEDS ORDERED: SODIUM CHLORIDE 0.9% 1000ML 1,000 ML IV SCH (23:45)
[2021-07-20] VITALS (8 sets, daily range): BP systolic 111–166; BP diastolic 59–83
[2021-07-20] MEDS: Morphine 4mg Syringe 4 MG/ML INJ IV PRN ×2 (04:17→17:33)
[2021-07-20] MEDS: CEFEPIME 2 GM in SODIUM CHLORIDE 0.9% 100 ML IV SCH ×3 (05:25→21:15)
[2021-07-20 07:28] LABS: BASOPHILS % 0.3 % (0.0-1.0); EOSINOPHILS # (AUTO) 0.1 (0.0-0.4); EOSINOPHILS % 0.7 % (0.0-6.0); HEMATOCRIT 30.1 % (38.2-49.6); HEMOGLOBIN 9.2 g/dL (14.0-18.0); LYMPHOCYTES # (AUTO) 1.2 (1.0-3.2); LYMPHOCYTES % 10.3 % (18.0-39.1); MEAN CORPUSCULAR HGB CONC 30.6 g/dL (31-35); MONOCYTES # (AUTO) 0.8 (0.2-0.8); NEUTROPHILS # (AUTO) 9.5 (2.1-6.9); NEUTROPHILS % 81.3 % (38.7-80.0); PLATELET COUNT 240 x10e3/uL (140-360); RED BLOOD COUNT 3.54 x10e6/uL (4.3-5.7); RED CELL DISTRIBUTION WIDTH 16.2 % (11.7-14.4)
[2021-07-20] MEDS: INSULIN REGULAR, HUMAN 100 UNIT/1 ML SQ SCH ×4 (07:30→21:12)
[2021-07-20 07:53] LABS: ALBUMIN 2.3 g/dL (3.5-5.0); ALBUMIN/GLOBULIN RATIO 0.4 (0.8-2.0); ANION GAP 12.2 mmol/L (8-16); CALCIUM 8.2 mg/dL (8.4-10.2); CREATININE, SERUM 1.17 mg/dL (0.72-1.25); POTASSIUM 4.2 mmol/L (3.5-5.1)
[2021-07-20] MEDS ORDERED: NON-FORMULARY MEDICATION (Oxycodone Hcl/Acetaminophen (Oxycodone-Acetaminophen 10-325) 1 T PO PRN (11:45)
[2021-07-20] MEDS: OXYCODONE/ACETAMINOPHEN 5-325 1 EACH TABLET PO PRN (14:36)
[2021-07-20] MEDS: Vancomycin IV 1 GM in SODIUM CHLORIDE 0.9% 250ML 250 ML IV SCH (14:44)
[2021-07-20] MEDS ORDERED: SODIUM CHLORIDE 0.9% 250ML 250 ML ONE (14:46)
[2021-07-20] MEDS: ENOXAPARIN SOD INJ 40 MG/0.4 ML SYR SC SCH (17:32)
[2021-07-20] MEDS: CARVEDILOL 12.5 MG TAB PO SCH (17:32)
[2021-07-20] MEDS: ATORVASTATIN 10 MG TAB PO SCH (21:15)
[2021-07-21] VITALS (8 sets, daily range): BP systolic 102–144; BP diastolic 63–90
[2021-07-21] MEDS: Vancomycin IV 1 GM in SODIUM CHLORIDE 0.9% 250ML 250 ML IV SCH ×3 (00:23→12:32)
[2021-07-21] MEDS: Morphine 4mg Syringe 4 MG/ML INJ IV PRN ×2 (02:11→20:36)
[2021-07-21] MEDS: CEFEPIME 2 GM in SODIUM CHLORIDE 0.9% 100 ML IV SCH ×3 (05:03→21:16)
[2021-07-21] MEDS: INSULIN REGULAR, HUMAN 100 UNIT/1 ML SQ SCH ×4 (07:30→21:16)
[2021-07-21] MEDS: ASPIRIN 81 MG CHEW TAB PO SCH (10:17)
[2021-07-21] MEDS: TAMSULOSIN HCL 0.4 MG CAP PO SCH (10:18)
[2021-07-21] MEDS: FUROSEMIDE 40 MG TAB PO SCH (10:18)
[2021-07-21] MEDS: DOXAZOSIN MESYLATE 2 MG TAB PO SCH (10:18)
[2021-07-21] MEDS: BACLOFEN 10 MG TAB PO SCH (10:18)
[2021-07-21] MEDS: LOSARTAN POTASSIUM 100 MG TAB PO SCH (10:18)
[2021-07-21] MEDS: CARVEDILOL 12.5 MG TAB PO SCH ×2 (10:18→18:40)
[2021-07-21] MEDS: FLUOXETINE HCL 20 MG CAP PO SCH (10:19)
[2021-07-21] MEDS: BUPROPION HCL 75 MG TAB PO SCH (10:19)
[2021-07-21] MEDS: CLOPIDOGREL BISULFATE 75 MG TAB PO SCH (10:19)
[2021-07-21] MEDS: AMLODIPINE BESYLATE 10 MG TAB PO SCH (10:19)
[2021-07-21] MEDS: BALSAM PERU/CASTOR OIL 60 GM OINT...G. TP SCH (12:30)
[2021-07-21] MEDS ORDERED: ONDANSETRON HCL 4 MG ORAL DISINTEGRATING TAB PO PRN (15:45)
[2021-07-21] MEDS: ENOXAPARIN SOD INJ 40 MG/0.4 ML SYR SC SCH (18:40)
[2021-07-21] MEDS: ATORVASTATIN 10 MG TAB PO SCH (20:35)
[2021-07-22] VITALS (8 sets, daily range): BP systolic 111–150; BP diastolic 66–81
[2021-07-22] MEDS: Vancomycin IV 1 GM in SODIUM CHLORIDE 0.9% 250ML 250 ML IV SCH (00:08)
[2021-07-22] MEDS: CEFEPIME 2 GM in SODIUM CHLORIDE 0.9% 100 ML IV SCH (05:14)
[2021-07-22] MEDS: Morphine 4mg Syringe 4 MG/ML INJ IV PRN ×2 (05:28→13:30)
[2021-07-22 06:42] LABS: BASOPHILS % 0.5 % (0.0-1.0); EOSINOPHILS # (AUTO) 0.4 (0.0-0.4); EOSINOPHILS % 4.8 % (0.0-6.0); HEMATOCRIT 30.4 % (38.2-49.6); HEMOGLOBIN 9.3 g/dL (14.0-18.0); LYMPHOCYTES # (AUTO) 2.1 (1.0-3.2); LYMPHOCYTES % 27.9 % (18.0-39.1); MEAN CORPUSCULAR HEMOGLOBIN 25.8 pg (28-32); MEAN CORPUSCULAR HGB CONC 30.6 g/dL (31-35); MEAN CORPUSCULAR VOLUME 84.4 fL (81-99); MONOCYTES # (AUTO) 0.9 (0.2-0.8); NEUTROPHILS # (AUTO) 4.2 (2.1-6.9); NEUTROPHILS % 54.4 % (38.7-80.0); PLATELET COUNT 244 x10e3/uL (140-360)
[2021-07-22 07:04] LABS: ALBUMIN 2.3 g/dL (3.5-5.0); ALBUMIN/GLOBULIN RATIO 0.4 (0.8-2.0); ANION GAP 12.6 mmol/L (8-16); CALCIUM 8.7 mg/dL (8.4-10.2); CREATININE, SERUM 1.2 mg/dL (0.72-1.25); POTASSIUM 3.6 mmol/L (3.5-5.1)
[2021-07-22] MEDS: INSULIN REGULAR, HUMAN 100 UNIT/1 ML SQ SCH ×4 (07:30→20:28)
[2021-07-22] MEDS: ASPIRIN 81 MG CHEW TAB PO SCH (09:16)
[2021-07-22] MEDS: AMLODIPINE BESYLATE 10 MG TAB PO SCH (09:17)
[2021-07-22] MEDS: LOSARTAN POTASSIUM 100 MG TAB PO SCH (09:17)
[2021-07-22] MEDS: DOXAZOSIN MESYLATE 2 MG TAB PO SCH (09:17)
[2021-07-22] MEDS: CARVEDILOL 12.5 MG TAB PO SCH ×2 (09:17→17:02)
[2021-07-22] MEDS: BUPROPION HCL 75 MG TAB PO SCH (09:17)
[2021-07-22] MEDS: FUROSEMIDE 40 MG TAB PO SCH (09:17)
[2021-07-22] MEDS: FLUOXETINE HCL 20 MG CAP PO SCH (09:17)
[2021-07-22] MEDS: CLOPIDOGREL BISULFATE 75 MG TAB PO SCH (09:17)
[2021-07-22] MEDS: BACLOFEN 10 MG TAB PO SCH (09:17)
[2021-07-22] MEDS: TAMSULOSIN HCL 0.4 MG CAP PO SCH (09:17)
[2021-07-22] MEDS: BALSAM PERU/CASTOR OIL 60 GM OINT...G. TP SCH (10:30)
[2021-07-22] MEDS: CEFTRIAXONE 2 GM in SODIUM CHLORIDE 0.9% 100 ML IV SCH (12:10)
[2021-07-22] MEDS: OXYCODONE/ACETAMINOPHEN 5-325 1 EACH TABLET PO PRN ×2 (16:15→17:01)
[2021-07-22] MEDS: ENOXAPARIN SOD INJ 40 MG/0.4 ML SYR SC SCH (17:02)
[2021-07-22] MEDS: ATORVASTATIN 10 MG TAB PO SCH (20:28)
[2021-07-23] VITALS (8 sets, daily range): BP systolic 115–145; BP diastolic 66–86
[2021-07-23] MEDS: Morphine 4mg Syringe 4 MG/ML INJ IV PRN ×2 (01:00→19:00)
[2021-07-23] MEDS: INSULIN REGULAR, HUMAN 100 UNIT/1 ML SQ SCH ×4 (07:30→21:12)
[2021-07-23] MEDS: DOXAZOSIN MESYLATE 2 MG TAB PO SCH (09:16)
[2021-07-23] MEDS: CEFTRIAXONE 2 GM in SODIUM CHLORIDE 0.9% 100 ML IV SCH (09:16)
[2021-07-23] MEDS: ASPIRIN 81 MG CHEW TAB PO SCH (09:16)
[2021-07-23] MEDS: BACLOFEN 10 MG TAB PO SCH (09:17)
[2021-07-23] MEDS: BUPROPION HCL 75 MG TAB PO SCH (09:17)
[2021-07-23] MEDS: CLOPIDOGREL BISULFATE 75 MG TAB PO SCH (09:17)
[2021-07-23] MEDS: TAMSULOSIN HCL 0.4 MG CAP PO SCH (09:17)
[2021-07-23] MEDS: FLUOXETINE HCL 20 MG CAP PO SCH (09:17)
[2021-07-23] MEDS: LOSARTAN POTASSIUM 100 MG TAB PO SCH (09:17)
[2021-07-23] MEDS: FUROSEMIDE 40 MG TAB PO SCH (09:17)
[2021-07-23] MEDS: AMLODIPINE BESYLATE 10 MG TAB PO SCH (09:17)
[2021-07-23] MEDS: CARVEDILOL 12.5 MG TAB PO SCH ×2 (09:17→17:23)
[2021-07-23] MEDS: BALSAM PERU/CASTOR OIL 60 GM OINT...G. TP SCH (11:00)
[2021-07-23] MEDS: OXYCODONE/ACETAMINOPHEN 5-325 1 EACH TABLET PO PRN (13:40)
[2021-07-23] MEDS: ENOXAPARIN SOD INJ 40 MG/0.4 ML SYR SC SCH (17:23)
[2021-07-23] MEDS: ATORVASTATIN 10 MG TAB PO SCH (21:02)
[2021-07-24] VITALS: BP 138/76
[2021-07-24] MEDS: OXYCODONE/ACETAMINOPHEN 5-325 1 EACH TABLET PO PRN ×2 (02:45→11:40)
[2021-07-24] MEDS ORDERED: TEMAZEPAM 7.5 MG CAP PO PRN (03:00)
[2021-07-24 04:00] VITALS: BP 148/69
[2021-07-24] MEDS: INSULIN REGULAR, HUMAN 100 UNIT/1 ML SQ SCH (07:30)
[2021-07-24 07:38] VITALS: BP 152/82
[2021-07-24 08:25] VITALS: BP 152/82
[2021-07-24] MEDS: CEFTRIAXONE 2 GM in SODIUM CHLORIDE 0.9% 100 ML IV SCH (08:53)
[2021-07-24] MEDS: BALSAM PERU/CASTOR OIL 60 GM OINT...G. TP SCH (08:54)
[2021-07-24] MEDS: Morphine 4mg Syringe 4 MG/ML INJ IV PRN (08:54)
[2021-07-24] MEDS: DOXAZOSIN MESYLATE 2 MG TAB PO SCH (08:55)
[2021-07-24] MEDS: ASPIRIN 81 MG CHEW TAB PO SCH (08:55)
[2021-07-24] MEDS: CARVEDILOL 12.5 MG TAB PO SCH (08:57)
[2021-07-24] MEDS: BACLOFEN 10 MG TAB PO SCH (08:57)
[2021-07-24] MEDS: FUROSEMIDE 40 MG TAB PO SCH (08:57)
[2021-07-24] MEDS: BUPROPION HCL 75 MG TAB PO SCH (08:57)
[2021-07-24] MEDS: FLUOXETINE HCL 20 MG CAP PO SCH (08:57)
[2021-07-24] MEDS: CLOPIDOGREL BISULFATE 75 MG TAB PO SCH (08:57)
[2021-07-24] MEDS: LOSARTAN POTASSIUM 100 MG TAB PO SCH (08:57)
[2021-07-24] MEDS: TAMSULOSIN HCL 0.4 MG CAP PO SCH (08:57)
[2021-07-24] MEDS: AMLODIPINE BESYLATE 10 MG TAB PO SCH (08:57)
[2021-07-24 11:28] VITALS: BP 109/64
[2021-07-24] MEDS ORDERED: DOXYCYCLINE HY100 MG PO (11:53)
== END 2021-07-24 13:35 | disposition home or self-care (01) | DRG 603 ==
LOC: ER 22:59 → ERHOLD 23:41 → MED/SURG2 07-20 00:36
PROVIDERS: ADMIT Internal Medicine; ATTEND Internal Medicine
DX: L03.116 Cellulitis of left lower limb (principal); I13.0 Hypertensive heart and chronic kidney disease with heart failure and stage 1 through stage 4 chronic kidney disease, or unspecified chronic kidney disease; L97.811 Non-pressure chronic ulcer of other part of right lower leg limited to breakdown of skin; L97.821 Non-pressure chronic ulcer of other part of left lower leg limited to breakdown of skin; I83.218 Varicose veins of right lower extremity with both ulcer of other part of lower extremity and inflammation; I83.228 Varicose veins of left lower extremity with both ulcer of other part of lower extremity and inflammation; E11.51 Type 2 diabetes mellitus with diabetic peripheral angiopathy without gangrene; E11.621 Type 2 diabetes mellitus with foot ulcer; E11.22 Type 2 diabetes mellitus with diabetic chronic kidney disease; I50.9 Heart failure, unspecified; L03.115 Cellulitis of right lower limb; N18.9 Chronic kidney disease, unspecified; G89.4 Chronic pain syndrome; M54.9 Dorsalgia, unspecified; I25.2 Old myocardial infarction; Z86.73 Personal history of transient ischemic attack (TIA), and cerebral infarction without residual deficits; Z95.1 Presence of aortocoronary bypass graft; Z95.5 Presence of coronary angioplasty implant and graft; I25.10 Atherosclerotic heart disease of native coronary artery without angina pectoris; R19.7 Diarrhea, unspecified; Z89.431 Acquired absence of right foot
CPT/HCPCS: 36415; 80053; 82550; 82553; 82948; 83605; 84484; 85025; 87040; 93005; 94799; 96360; 99251; 99284; J0692; J0696; J1650; J1817; J2270; J3370; J7030; J7050; U0002

== ENCOUNTER 2021-12-19 19:18 | Emergency (ER) | payer MEDICARE ==
[~2021-12-19] VITALS: Ht 188 cm; Wt 126.6 kg
[2021-12-19] MEDS ORDERED: Vancomycin IV 1 GM in SODIUM CHLORIDE 0.9% 250ML 250 ML IV ONE (20:15)
[2021-12-19] MEDS ORDERED: SODIUM CHLORIDE 0.9% 1000ML 1,000 ML IV ONE (20:30)
[2021-12-19] MEDS ORDERED: ACETAMINOPHEN 325 MG TAB PO ONE (20:30)
[2021-12-19 20:33] LABS: BASOPHILS % 0.3 % (0.0-1.0); EOSINOPHILS # (AUTO) 0.1 (0.0-0.4); EOSINOPHILS % 0.8 % (0.0-6.0); HEMATOCRIT 31.3 % (38.2-49.6); HEMOGLOBIN 9.5 g/dL (14.0-18.0); LYMPHOCYTES # (AUTO) 1.2 (1.0-3.2); LYMPHOCYTES % 8.2 % (18.0-39.1); MEAN CORPUSCULAR HEMOGLOBIN 25.4 pg (28-32); MEAN CORPUSCULAR HGB CONC 30.4 g/dL (31-35); MEAN CORPUSCULAR VOLUME 83.7 fL (81-99); MONOCYTES # (AUTO) 0.9 (0.2-0.8); MONOCYTES % 6.1 % (4.4-11.3); NEUTROPHILS # (AUTO) 11.9 (2.1-6.9); NEUTROPHILS % 84.2 % (38.7-80.0); PLATELET COUNT 281 x10e3/uL (140-360); RED BLOOD COUNT 3.74 x10e6/uL (4.3-5.7); RED CELL DISTRIBUTION WIDTH 16.6 % (11.7-14.4)
[2021-12-19 20:51] LABS: ALBUMIN 2.8 g/dL (3.5-5.0); ALBUMIN/GLOBULIN RATIO 0.4 (0.8-2.0); ANION GAP 15.8 mmol/L (8-16); CALCIUM 8.4 mg/dL (8.4-10.2); CREATININE, SERUM 1.76 mg/dL (0.72-1.25); POTASSIUM 4.8 mmol/L (3.5-5.1)
[2021-12-19 23:18] LABS: CLARITY,URINE SL CLOUDY (CLEAR); COLOR,URINE YELLOW (YELLOW); KETONES,URINE NEGATIVE (NEGATIVE); LEUKOCYTE ESTERASE ,URINE NEGATIVE (NEGATIVE); NITRITE,URINE NEGATIVE (NEGATIVE); PROTEIN,URINE DIPSTICK 2+ (NEGATIVE); URINE UROBILINOGEN 0.2 mg/dL (0.2 - 1)
[2021-12-19 23:24] LABS: BACTERIA,URINE FEW /HPF; EPITHELIAL CELLS,URINE MANY /LPF; RBC,URINE 0-5 /HPF (0-5); WBC,URINE (MAN) 0-5 /HPF (0-5)
[2021-12-20 01:55] VITALS: BP 100/52
== END 2021-12-20 01:59 | disposition home or self-care (01) ==
LOC: ER 19:25
DX: T81.40XA Infection following a procedure, unspecified, initial encounter (principal); L03.011 Cellulitis of right finger; R50.9 Fever, unspecified; E11.65 Type 2 diabetes mellitus with hyperglycemia; Z91.14 Patient's other noncompliance with medication regimen; I10 Essential (primary) hypertension; F32.A Depression, unspecified; M54.9 Dorsalgia, unspecified; G89.29 Other chronic pain; W19.XXXA Unspecified fall, initial encounter; Z86.73 Personal history of transient ischemic attack (TIA), and cerebral infarction without residual deficits; I25.2 Old myocardial infarction; Z95.1 Presence of aortocoronary bypass graft; Z95.5 Presence of coronary angioplasty implant and graft
CPT/HCPCS: 0223U; 36415; 70450; 71045; 72125; 80053; 81001; 83605; 85025; 87040; 99284; J2543; J3370; J7030; J7050

== ENCOUNTER 2022-02-14 09:08 | Inpatient (IN) | payer MEDICARE ==
[2022-02-14] VITALS (24 sets, daily range): BP systolic 106–122; BP diastolic 72–79
[~2022-02-14] VITALS: Ht 188 cm; Wt 126.6 kg
[2022-02-14] MEDS ORDERED: ASPIRIN 325 MG TAB PO ONE (09:30)
[2022-02-14] MEDS ORDERED: Vancomycin IV 1 GM in SODIUM CHLORIDE 0.9% 250ML 250 ML IV SCH (09:30)
[2022-02-14] MEDS ORDERED: ACETAMINOPHEN 325 MG TAB PO PRN ×2 (09:30→12:15)
[2022-02-14] MEDS ORDERED: ACETAMINOPHEN 1000 MG/100 ML IV STA (09:35)
[2022-02-14 09:44] LABS: HEMATOCRIT 33.8 % (38.2-49.6); HEMOGLOBIN 10.4 g/dL (14.0-18.0); RED BLOOD COUNT 3.89 x10e6/uL (4.3-5.7)
[2022-02-14 09:45] LABS: BASOPHILS # (AUTO) 0.1 (0.0-0.1); BASOPHILS % 0.2 % (0.0-1.0); LYMPHOCYTES # (AUTO) 1.1 (1.0-3.2); MEAN CORPUSCULAR HEMOGLOBIN 26.7 pg (28-32); MEAN CORPUSCULAR HGB CONC 30.8 g/dL (31-35); MEAN CORPUSCULAR VOLUME 86.9 fL (81-99); MONOCYTES # (AUTO) 0.8 (0.2-0.8); NEUTROPHILS # (AUTO) 34.2 (2.1-6.9); NEUTROPHILS % 92.2 % (38.7-80.0); PLATELET COUNT 333 x10e3/uL (140-360)
[2022-02-14 09:50] LABS: INR 1.23; PROTHROMBIN TIME 16.6 seconds (11.9-14.5)
[2022-02-14 09:51] LABS: PARTIAL THROMBOPLASTIN TIME 33.6 seconds (23.8-35.5)
[2022-02-14 09:57] LABS: ALBUMIN/GLOBULIN RATIO 0.5 (0.8-2.0); ANION GAP 20.9 mmol/L (8-16); CALCIUM 8.6 mg/dL (8.4-10.2); CREATININE, SERUM 2.29 mg/dL (0.72-1.25); POTASSIUM 4.9 mmol/L (3.5-5.1)
[2022-02-14 10:11] LABS: INFLUENZAE A&B ANTIGEN (RAPID) NEGATIVE (NEGATIVE); RESPIRATORY SYNC. VIRUS NEGATIVE (NEGATIVE)
[2022-02-14] MEDS: SODIUM CHLORIDE 0.9% 1000ML 1,000 ML IV SCH ×2 (10:23→11:08)
[2022-02-14] MEDS ORDERED: HEPARIN 25,000 UNIT 1,000 UNIT in DEXTROSE 5% 250ML 250 ML IV SCH (10:30)
[2022-02-14] MEDS ORDERED: HEPARIN SOD (PORCINE) 5,000 UNIT/ML VIAL IV ONE (10:30)
[2022-02-14 10:39] LABS: CLARITY,URINE SL CLOUDY (CLEAR); COLOR,URINE YELLOW (YELLOW); LEUKOCYTE ESTERASE ,URINE NEGATIVE (NEGATIVE); NITRITE,URINE NEGATIVE (NEGATIVE); PROTEIN,URINE DIPSTICK >=300 (NEGATIVE)
[2022-02-14 10:39] LABS: STREPTOCOCCUS GRP A ANTIGEN NEGATIVE (NEGATIVE)
[2022-02-14 10:40] LABS: KETONES,URINE TRACE (NEGATIVE); URINE UROBILINOGEN 0.2 mg/dL (0.2 - 1)
[2022-02-14 10:54] LABS: BACTERIA,URINE MODERATE /HPF; EPITHELIAL CELLS,URINE MODERATE /LPF; RBC,URINE 0-5 /HPF (0-5)
[2022-02-14] MEDS ORDERED: IBUPROFEN 400 MG TAB PO ONE (11:00)
[2022-02-14] MEDS: HEPARIN 25,000 UNIT 1,000 UNIT in DEXTROSE 5% 250ML 250 ML IV SCH (11:08)
[2022-02-14 11:23] LABS: BAND NEUTROPHILS % (MANUAL) 8 %; LYMPHOCYTES % (MANUAL) 5 % (19-48); METAMYELOCYTES % (MANUAL) 1 % (0-0); MONOCYTES % (MANUAL) 1 % (3.4-9.0); MYELOCYTES % (MANUAL) 1 % (0-0); NEUTROPHILS % (MANUAL) 84 % (40-74)
[2022-02-14 11:25] LABS: PLATELET ESTIMATE ADEQUATE; PLATELET MORPHOLOGY COMMENT NORMAL; RBC MORPHOLOGY COMMENT NORMAL
[2022-02-14] MEDS ORDERED: ONDANSETRON HCL INJ 2MG/ML 2ML 2 MG/ML VIAL IV PRN (12:15)
[2022-02-14] MEDS ORDERED: ASPIRIN 81 MG CHEW TAB PO ONE (12:45)
[2022-02-14] MEDS ORDERED: DEXTROSE 50% SYRINGE 50 ML IV PRN (13:15)
[2022-02-14] MEDS: INSULIN LISPRO 100 UNIT/1 ML 3ML VIAL SQ SCH ×2 (17:03→22:09)
[2022-02-14 17:45] LABS: CREATINE KINASE MB 26.5 ng/mL (0-5.0)
[2022-02-14] MEDS ORDERED: ATORVASTATIN 10 MG TAB PO SCH (21:00)
[2022-02-14] MEDS ORDERED: HEPARIN 25,000 UNIT DRIP IV ONE (21:42)
[2022-02-14] MEDS: ATORVASTATIN 40 MG TAB PO SCH (22:08)
[2022-02-14] MEDS: INSULIN GLARGINE 100 UNITS/ML VIAL SQ SCH (22:10)
[2022-02-15] VITALS (30 sets, daily range): BP systolic 90–147; BP diastolic 53–98
[2022-02-15] MEDS: ACETAMINOPHEN 325 MG TAB PO PRN ×2 (01:30→10:09)
[2022-02-15 02:00] LABS: CREATINE KINASE MB 22.4 ng/mL (0-5.0)
[2022-02-15] MEDS ORDERED: SODIUM CHLORIDE 0.9% 500ML 500 ML ONE (03:25)
[2022-02-15] MEDS: HEPARIN 25,000 UNIT 1,000 UNIT in DEXTROSE 5% 250ML 250 ML IV SCH (04:46)
[2022-02-15 04:59] LABS: BASOPHILS % 0.2 % (0.0-1.0); EOSINOPHILS # (AUTO) 0.1 (0.0-0.4); EOSINOPHILS % 0.4 % (0.0-6.0); HEMATOCRIT 30.9 % (38.2-49.6); HEMOGLOBIN 9.5 g/dL (14.0-18.0); LYMPHOCYTES # (AUTO) 1.1 (1.0-3.2); LYMPHOCYTES % 6.3 % (18.0-39.1); MEAN CORPUSCULAR HEMOGLOBIN 26.2 pg (28-32); MEAN CORPUSCULAR HGB CONC 30.7 g/dL (31-35); MEAN CORPUSCULAR VOLUME 85.4 fL (81-99); MONOCYTES # (AUTO) 0.5 (0.2-0.8); MONOCYTES % 3.2 % (4.4-11.3); NEUTROPHILS # (AUTO) 14.9 (2.1-6.9); NEUTROPHILS % 89.1 % (38.7-80.0); PLATELET COUNT 224 x10e3/uL (140-360); RED BLOOD COUNT 3.62 x10e6/uL (4.3-5.7); RED CELL DISTRIBUTION WIDTH 16.7 % (11.7-14.4)
[2022-02-15 05:36] LABS: ALBUMIN 2.5 g/dL (3.5-5.0); ALBUMIN/GLOBULIN RATIO 0.5 (0.8-2.0); ANION GAP 14.5 mmol/L (8-16); CALCIUM 8.6 mg/dL (8.4-10.2); CHOL/HDL RATIO 2.4 (3.9-4.7); CREATININE, SERUM 1.73 mg/dL (0.72-1.25); POTASSIUM 3.5 mmol/L (3.5-5.1)
[2022-02-15] MEDS: INSULIN LISPRO 100 UNIT/1 ML 3ML VIAL SQ SCH ×4 (07:30→21:36)
[2022-02-15 07:43] LABS: CREATINE KINASE MB 22.8 ng/mL (0-5.0)
[2022-02-15] MEDS ORDERED: FUROSEMIDE INJ 10 MG/ML 4 ML VIAL IV SCH (09:00)
[2022-02-15] MEDS: Vancomycin IV 1 GM in SODIUM CHLORIDE 0.9% 250ML 250 ML IV SCH (09:12)
[2022-02-15] MEDS: ASPIRIN 81 MG CHEW TAB PO SCH (09:12)
[2022-02-15] MEDS: TAMSULOSIN HCL 0.4 MG CAP PO SCH (09:13)
[2022-02-15] MEDS ORDERED: FUROSEMIDE INJ 10 MG/ML 4 ML VIAL IV ONE (11:00)
[2022-02-15] MEDS: CARVEDILOL 3.125 MG TAB PO SCH ×3 (11:30→21:27)
[2022-02-15] MEDS ORDERED: LORAZEPAM 0.5 MG TAB PO PRN (11:45)
[2022-02-15] MEDS ORDERED: IBUPROFEN 400 MG TAB PO ONE (12:00)
[2022-02-15] MEDS: ONDANSETRON HCL INJ 2MG/ML 2ML 2 MG/ML VIAL IV PRN (13:10)
[2022-02-15] MEDS: NITROGLYCERIN 0.1MG/HR PATCH TOP SCH (13:51)
[2022-02-15] MEDS ORDERED: FUROSEMIDE INJ 10 MG/ML 4 ML VIAL ONE (14:06)
[2022-02-15] MEDS: DOCUSATE SODIUM 100 MG CAP PO SCH (17:23)
[2022-02-15] MEDS ORDERED: OXYCODONE/ACETAMINOPHEN 5-325 1 EACH TABLET PO PRN (18:00)
[2022-02-15] MEDS ORDERED: LACTULOSE SYRUP 20 GM/30 ML UDC PO PRN (18:30)
[2022-02-15] MEDS: ATORVASTATIN 40 MG TAB PO SCH (21:27)
[2022-02-15] MEDS: OXYCODONE/ACETAMINOPHEN 5-325 1 EACH TABLET PO PRN (21:28)
[2022-02-15] MEDS: MORPHINE SULFATE 30 MG TAB ER PO SCH (21:28)
[2022-02-15] MEDS: OXYCODONE HCL IR 5 MG TAB PO PRN (21:29)
[2022-02-15] MEDS: INSULIN GLARGINE 100 UNITS/ML VIAL SQ SCH (21:36)
[2022-02-16] VITALS (18 sets, daily range): BP systolic 100–191; BP diastolic 64–169
[2022-02-16] MEDS: HEPARIN 25,000 UNIT 1,000 UNIT in DEXTROSE 5% 250ML 250 ML IV SCH (00:55)
[2022-02-16] MEDS: OXYCODONE HCL IR 5 MG TAB PO PRN ×3 (04:13→23:56)
[2022-02-16] MEDS: OXYCODONE/ACETAMINOPHEN 5-325 1 EACH TABLET PO PRN ×4 (04:14→23:57)
[2022-02-16] MEDS: MORPHINE SULFATE 30 MG TAB ER PO SCH ×3 (04:14→20:18)
[2022-02-16] MEDS: INSULIN LISPRO 100 UNIT/1 ML 3ML VIAL SQ SCH ×4 (07:33→20:23)
[2022-02-16 08:33] LABS: BASOPHILS % 0.3 % (0.0-1.0); EOSINOPHILS # (AUTO) 0.2 (0.0-0.4); EOSINOPHILS % 1.6 % (0.0-6.0); HEMATOCRIT 29.8 % (38.2-49.6); HEMOGLOBIN 9.4 g/dL (14.0-18.0); LYMPHOCYTES # (AUTO) 1.9 (1.0-3.2); LYMPHOCYTES % 13.6 % (18.0-39.1); MEAN CORPUSCULAR HEMOGLOBIN 26.1 pg (28-32); MEAN CORPUSCULAR HGB CONC 31.5 g/dL (31-35); MEAN CORPUSCULAR VOLUME 82.8 fL (81-99); MONOCYTES # (AUTO) 0.5 (0.2-0.8); MONOCYTES % 3.6 % (4.4-11.3); NEUTROPHILS # (AUTO) 11.5 (2.1-6.9); PLATELET COUNT 245 x10e3/uL (140-360); RED CELL DISTRIBUTION WIDTH 16.8 % (11.7-14.4)
[2022-02-16 08:58] LABS: ALBUMIN 2.2 g/dL (3.5-5.0); ALBUMIN/GLOBULIN RATIO 0.4 (0.8-2.0); ANION GAP 13.1 mmol/L (8-16); CALCIUM 8.3 mg/dL (8.4-10.2); CREATININE, SERUM 1.46 mg/dL (0.72-1.25); POTASSIUM 4.1 mmol/L (3.5-5.1)
[2022-02-16] MEDS: TAMSULOSIN HCL 0.4 MG CAP PO SCH (09:13)
[2022-02-16] MEDS: DOCUSATE SODIUM 100 MG CAP PO SCH ×2 (09:14→16:42)
[2022-02-16] MEDS: NITROGLYCERIN 0.1MG/HR PATCH TOP SCH (09:14)
[2022-02-16] MEDS: ASPIRIN 81 MG CHEW TAB PO SCH (09:15)
[2022-02-16] MEDS: CARVEDILOL 3.125 MG TAB PO SCH ×2 (09:15→20:17)
[2022-02-16] MEDS: Vancomycin IV 1 GM in SODIUM CHLORIDE 0.9% 250ML 250 ML IV SCH (09:16)
[2022-02-16] MEDS: ENOXAPARIN SODIUM INJ 100 MG/ML SYR SC SCH (17:51)
[2022-02-16] MEDS: ONDANSETRON HCL INJ 2MG/ML 2ML 2 MG/ML VIAL IV PRN (18:34)
[2022-02-16] MEDS: ATORVASTATIN 40 MG TAB PO SCH (20:16)
[2022-02-16] MEDS: INSULIN GLARGINE 100 UNITS/ML VIAL SQ SCH (20:47)
[2022-02-17] VITALS (21 sets, daily range): BP systolic 88–146; BP diastolic 51–131
[2022-02-17] MEDS: ENOXAPARIN SODIUM INJ 100 MG/ML SYR SC SCH ×2 (05:24→18:09)
[2022-02-17 06:07] LABS: BASOPHILS % 0.3 % (0.0-1.0); EOSINOPHILS # (AUTO) 0.2 (0.0-0.4); EOSINOPHILS % 1.7 % (0.0-6.0); HEMATOCRIT 28.9 % (38.2-49.6); LYMPHOCYTES # (AUTO) 1.9 (1.0-3.2); LYMPHOCYTES % 17.9 % (18.0-39.1); MEAN CORPUSCULAR HEMOGLOBIN 25.9 pg (28-32); MEAN CORPUSCULAR HGB CONC 31.1 g/dL (31-35); MEAN CORPUSCULAR VOLUME 83.3 fL (81-99); MONOCYTES # (AUTO) 0.7 (0.2-0.8); NEUTROPHILS # (AUTO) 7.5 (2.1-6.9); NEUTROPHILS % 72.3 % (38.7-80.0); PLATELET COUNT 241 x10e3/uL (140-360); RED BLOOD COUNT 3.47 x10e6/uL (4.3-5.7); RED CELL DISTRIBUTION WIDTH 16.6 % (11.7-14.4)
[2022-02-17 06:53] LABS: ALBUMIN 2.2 g/dL (3.5-5.0); ALBUMIN/GLOBULIN RATIO 0.4 (0.8-2.0); ANION GAP 16.1 mmol/L (8-16); CALCIUM 8.4 mg/dL (8.4-10.2); CREATININE, SERUM 1.31 mg/dL (0.72-1.25); POTASSIUM 4.1 mmol/L (3.5-5.1)
[2022-02-17] MEDS: OXYCODONE/ACETAMINOPHEN 5-325 1 EACH TABLET PO PRN ×4 (07:11→22:09)
[2022-02-17] MEDS: OXYCODONE HCL IR 5 MG TAB PO PRN ×4 (07:11→22:08)
[2022-02-17] MEDS: INSULIN LISPRO 100 UNIT/1 ML 3ML VIAL SQ SCH ×4 (07:30→21:36)
[2022-02-17] MEDS: ASPIRIN 81 MG CHEW TAB PO SCH (08:30)
[2022-02-17] MEDS: TAMSULOSIN HCL 0.4 MG CAP PO SCH (08:30)
[2022-02-17] MEDS: CARVEDILOL 3.125 MG TAB PO SCH ×2 (08:31→21:39)
[2022-02-17] MEDS: NITROGLYCERIN 0.1MG/HR PATCH TOP SCH (08:31)
[2022-02-17] MEDS: FUROSEMIDE INJ 10 MG/ML 4 ML VIAL IV SCH (08:32)
[2022-02-17] MEDS: MORPHINE SULFATE 30 MG TAB ER PO SCH ×2 (08:32→21:39)
[2022-02-17] MEDS: BALSAM PERU/CASTOR OIL 60 GM OINT...G. TP SCH (08:32)
[2022-02-17] MEDS: DOCUSATE SODIUM 100 MG CAP PO SCH ×2 (08:32→16:45)
[2022-02-17] MEDS: Vancomycin IV 1 GM in SODIUM CHLORIDE 0.9% 250ML 250 ML IV SCH (08:33)
[2022-02-17] MEDS: ACETAMINOPHEN 325 MG TAB PO PRN (15:18)
[2022-02-17] MEDS: CEFTRIAXONE 2 GM in SODIUM CHLORIDE 0.9% 100 ML IV SCH (16:45)
[2022-02-17] MEDS: ATORVASTATIN 40 MG TAB PO SCH (21:30)
[2022-02-17] MEDS: INSULIN GLARGINE 100 UNITS/ML VIAL SQ SCH (21:35)
[2022-02-18] VITALS (15 sets, daily range): BP systolic 116–148; BP diastolic 62–88
[2022-02-18] MEDS: OXYCODONE HCL IR 5 MG TAB PO PRN ×3 (01:35→18:30)
[2022-02-18] MEDS: OXYCODONE/ACETAMINOPHEN 5-325 1 EACH TABLET PO PRN ×3 (01:35→18:30)
[2022-02-18] MEDS: ENOXAPARIN SODIUM INJ 100 MG/ML SYR SC SCH ×2 (05:49→18:29)
[2022-02-18] MEDS: INSULIN LISPRO 100 UNIT/1 ML 3ML VIAL SQ SCH ×4 (07:30→21:00)
[2022-02-18] MEDS: FUROSEMIDE INJ 10 MG/ML 4 ML VIAL IV SCH (09:00)
[2022-02-18] MEDS: TAMSULOSIN HCL 0.4 MG CAP PO SCH (09:00)
[2022-02-18] MEDS: NITROGLYCERIN 0.1MG/HR PATCH TOP SCH (09:00)
[2022-02-18] MEDS: ASPIRIN 81 MG CHEW TAB PO SCH (09:00)
[2022-02-18] MEDS: CEFTRIAXONE 2 GM in SODIUM CHLORIDE 0.9% 100 ML IV SCH (09:01)
[2022-02-18] MEDS: CARVEDILOL 3.125 MG TAB PO SCH ×2 (09:01→22:17)
[2022-02-18] MEDS: DOCUSATE SODIUM 100 MG CAP PO SCH ×2 (09:01→18:29)
[2022-02-18] MEDS: MORPHINE SULFATE 30 MG TAB ER PO SCH ×2 (09:01→22:18)
[2022-02-18] MEDS: BALSAM PERU/CASTOR OIL 60 GM OINT...G. TP SCH (09:02)
[2022-02-18] MEDS: ACETAMINOPHEN 325 MG TAB PO PRN (11:22)
[2022-02-18] MEDS: Vancomycin IV 1 GM in SODIUM CHLORIDE 0.9% 250ML 250 ML IV SCH (14:25)
[2022-02-18] MEDS ORDERED: SODIUM CHLORIDE FLUSH 10 ML SYR INJ PRN (15:30)
[2022-02-18] MEDS: INSULIN GLARGINE 100 UNITS/ML VIAL SQ SCH (21:00)
[2022-02-18] MEDS: ATORVASTATIN 40 MG TAB PO SCH (22:18)
[2022-02-19] VITALS (14 sets, daily range): BP systolic 122–146; BP diastolic 62–89
[2022-02-19] MEDS: OXYCODONE HCL IR 5 MG TAB PO PRN ×4 (00:38→22:05)
[2022-02-19] MEDS: OXYCODONE/ACETAMINOPHEN 5-325 1 EACH TABLET PO PRN ×4 (00:39→22:06)
[2022-02-19] MEDS: ONDANSETRON HCL INJ 2MG/ML 2ML 2 MG/ML VIAL IV PRN ×4 (00:56→20:42)
[2022-02-19] MEDS ORDERED: TEMAZEPAM 15 MG CAP PO PRN (01:00)
[2022-02-19] MEDS: ENOXAPARIN SODIUM INJ 100 MG/ML SYR SC SCH (05:10)
[2022-02-19 05:22] LABS: BASOPHILS % 0.4 % (0.0-1.0); EOSINOPHILS # (AUTO) 0.3 (0.0-0.4); HEMATOCRIT 30.2 % (38.2-49.6); HEMOGLOBIN 9.2 g/dL (14.0-18.0); LYMPHOCYTES # (AUTO) 1.9 (1.0-3.2); LYMPHOCYTES % 21.8 % (18.0-39.1); MEAN CORPUSCULAR HEMOGLOBIN 25.7 pg (28-32); MEAN CORPUSCULAR HGB CONC 30.5 g/dL (31-35); MEAN CORPUSCULAR VOLUME 84.4 fL (81-99); MONOCYTES # (AUTO) 0.8 (0.2-0.8); MONOCYTES % 8.8 % (4.4-11.3); NEUTROPHILS # (AUTO) 5.5 (2.1-6.9); NEUTROPHILS % 63.8 % (38.7-80.0); PLATELET COUNT 295 x10e3/uL (140-360); RED BLOOD COUNT 3.58 x10e6/uL (4.3-5.7); RED CELL DISTRIBUTION WIDTH 15.9 % (11.7-14.4)
[2022-02-19 05:46] LABS: CALCIUM 8.7 mg/dL (8.4-10.2); CREATININE, SERUM 1.03 mg/dL (0.72-1.25)
[2022-02-19] MEDS: INSULIN LISPRO 100 UNIT/1 ML 3ML VIAL SQ SCH ×4 (08:55→20:34)
[2022-02-19] MEDS: FUROSEMIDE INJ 10 MG/ML 4 ML VIAL IV SCH (09:00)
[2022-02-19] MEDS: DOCUSATE SODIUM 100 MG CAP PO SCH ×2 (09:00→16:29)
[2022-02-19] MEDS: SODIUM CHLORIDE FLUSH 10 ML SYR IV PRN ×2 (09:00→16:28)
[2022-02-19] MEDS: BALSAM PERU/CASTOR OIL 60 GM OINT...G. TP SCH (09:04)
[2022-02-19] MEDS: ASPIRIN 81 MG CHEW TAB PO SCH (09:04)
[2022-02-19] MEDS: NITROGLYCERIN 0.1MG/HR PATCH TOP SCH (09:04)
[2022-02-19] MEDS: TAMSULOSIN HCL 0.4 MG CAP PO SCH (09:04)
[2022-02-19] MEDS: MORPHINE SULFATE 30 MG TAB ER PO SCH ×2 (09:05→20:39)
[2022-02-19] MEDS: CARVEDILOL 3.125 MG TAB PO SCH ×2 (09:05→20:42)
[2022-02-19] MEDS: Vancomycin IV 1 GM in SODIUM CHLORIDE 0.9% 250ML 250 ML IV SCH (09:07)
[2022-02-19] MEDS ORDERED: SODIUM CHLORIDE 0.9% 250ML 0 ML ONE (09:24)
[2022-02-19] MEDS: BUPROPION HCL 75 MG TAB PO SCH (15:04)
[2022-02-19] MEDS: INSULIN GLARGINE 100 UNITS/ML VIAL SQ SCH (20:33)
[2022-02-19] MEDS: ATORVASTATIN 40 MG TAB PO SCH (20:42)
[2022-02-19] MEDS: TEMAZEPAM 15 MG CAP PO PRN (22:06)
[2022-02-19] MEDS: SODIUM CHLORIDE 0.9% 1000ML 1,000 ML IV SCH (23:27)
[2022-02-20] VITALS (22 sets, daily range): BP systolic 120–162; BP diastolic 64–90
[2022-02-20 06:14] LABS: BASOPHILS % 0.5 % (0.0-1.0); EOSINOPHILS # (AUTO) 0.3 (0.0-0.4); EOSINOPHILS % 3.4 % (0.0-6.0); HEMATOCRIT 32.6 % (38.2-49.6); HEMOGLOBIN 9.9 g/dL (14.0-18.0); LYMPHOCYTES # (AUTO) 2.1 (1.0-3.2); LYMPHOCYTES % 26.6 % (18.0-39.1); MEAN CORPUSCULAR HEMOGLOBIN 25.6 pg (28-32); MEAN CORPUSCULAR HGB CONC 30.4 g/dL (31-35); MEAN CORPUSCULAR VOLUME 84.2 fL (81-99); MONOCYTES # (AUTO) 0.8 (0.2-0.8); MONOCYTES % 10.1 % (4.4-11.3); NEUTROPHILS # (AUTO) 4.4 (2.1-6.9); NEUTROPHILS % 56.4 % (38.7-80.0); PLATELET COUNT 331 x10e3/uL (140-360); RED BLOOD COUNT 3.87 x10e6/uL (4.3-5.7); RED CELL DISTRIBUTION WIDTH 16.2 % (11.7-14.4)
[2022-02-20 06:37] LABS: INR 1.06; PROTHROMBIN TIME 14.8 seconds (11.9-14.5)
[2022-02-20 06:38] LABS: PARTIAL THROMBOPLASTIN TIME 37.7 seconds (23.8-35.5)
[2022-02-20 06:51] LABS: ANION GAP 14.9 mmol/L (8-16); CALCIUM 8.8 mg/dL (8.4-10.2); CREATININE, SERUM 1.09 mg/dL (0.72-1.25); POTASSIUM 3.9 mmol/L (3.5-5.1)
[2022-02-20] MEDS: INSULIN LISPRO 100 UNIT/1 ML 3ML VIAL SQ SCH ×4 (07:30→20:07)
[2022-02-20] MEDS ORDERED: HEPARIN SOD (PORCINE) 1000 UNIT/ML 30ML ONE (07:46)
[2022-02-20] MEDS ORDERED: IOPAMIDOL 370 MG/ML 100 ML INFUS..BTL INJ ONE (07:46)
[2022-02-20] MEDS ORDERED: HEPARIN SOD/SOD CHLORIDE 2,000 ML ONE (07:46)
[2022-02-20] MEDS ORDERED: SODIUM CHLORIDE 0.9% 1000ML 1,000 ML ONE (07:47)
[2022-02-20] MEDS ORDERED: VERAPAMIL HCL 2.5 MG/ML 2 ML VIAL ONE (07:47)
[2022-02-20] MEDS ORDERED: NITROGLYCERIN/D5W 200 MCG/ML 250 ML ONE (07:47)
[2022-02-20] MEDS ORDERED: LIDOCAINE HCL 1% LOCAL INJ 20 ML VIAL ONE (07:47)
[2022-02-20] MEDS ORDERED: MIDAZOLAM HCL 2 MG/2 ML VIAL ONE (08:02)
[2022-02-20] MEDS ORDERED: FENTANYL CITRATE/PF 100MCG/2 ML INJ ONE (08:03)
[2022-02-20] MEDS: NITROGLYCERIN 0.1MG/HR PATCH TOP SCH (09:00)
[2022-02-20] MEDS: BALSAM PERU/CASTOR OIL 60 GM OINT...G. TP SCH (09:00)
[2022-02-20] MEDS: MORPHINE SULFATE 30 MG TAB ER PO SCH ×2 (09:00→19:59)
[2022-02-20] MEDS: ASPIRIN 81 MG CHEW TAB PO SCH (09:00)
[2022-02-20] MEDS: DOCUSATE SODIUM 100 MG CAP PO SCH ×2 (09:00→16:45)
[2022-02-20] MEDS: BUPROPION HCL 75 MG TAB PO SCH (09:00)
[2022-02-20] MEDS: CEFTRIAXONE 2 GM in SODIUM CHLORIDE 0.9% 100 ML IV SCH (09:00)
[2022-02-20] MEDS: FUROSEMIDE INJ 10 MG/ML 4 ML VIAL IV SCH (09:00)
[2022-02-20] MEDS: TAMSULOSIN HCL 0.4 MG CAP PO SCH (09:00)
[2022-02-20] MEDS: CARVEDILOL 3.125 MG TAB PO SCH ×2 (09:00→20:00)
[2022-02-20] MEDS ORDERED: ASPIRIN 325 MG TAB ONE (09:47)
[2022-02-20] MEDS ORDERED: CLOPIDOGREL BISULFATE 75 MG TAB ONE (09:47)
[2022-02-20] MEDS ORDERED: HYDROCODONE/APAP 5MG-325MG TAB ONE (10:28)
[2022-02-20] MEDS: Morphine 4mg INJECTION 4 MG/ML INJ IV PRN (10:46)
[2022-02-20] MEDS ORDERED: Morphine 4mg INJECTION 4 MG/ML INJ ONE (10:50)
[2022-02-20] MEDS: OXYCODONE/ACETAMINOPHEN 5-325 1 EACH TABLET PO PRN (12:16)
[2022-02-20] MEDS: ONDANSETRON HCL INJ 2MG/ML 2ML 2 MG/ML VIAL IV PRN (15:04)
[2022-02-20] MEDS: HYDROCODONE/APAP 5MG-325MG TAB PO PRN (17:48)
[2022-02-20] MEDS: SODIUM CHLORIDE 0.9% 1000ML 1,000 ML IV SCH (19:00)
[2022-02-20] MEDS: ATORVASTATIN 40 MG TAB PO SCH (20:00)
[2022-02-20] MEDS: INSULIN GLARGINE 100 UNITS/ML VIAL SQ SCH (20:07)
[2022-02-20] MEDS: OXYCODONE HCL IR 5 MG TAB PO PRN (21:35)
[2022-02-20] MEDS: TEMAZEPAM 15 MG CAP PO PRN (21:36)
[2022-02-21] VITALS (8 sets, daily range): BP systolic 95–182; BP diastolic 69–98
[2022-02-21] MEDS: OXYCODONE HCL IR 5 MG TAB PO PRN ×3 (04:45→18:06)
[2022-02-21] MEDS: OXYCODONE/ACETAMINOPHEN 5-325 1 EACH TABLET PO PRN ×3 (05:11→18:05)
[2022-02-21] MEDS: INSULIN LISPRO 100 UNIT/1 ML 3ML VIAL SQ SCH ×4 (07:45→20:49)
[2022-02-21] MEDS: DOCUSATE SODIUM 100 MG CAP PO SCH ×2 (08:13→17:39)
[2022-02-21] MEDS: ASPIRIN 81 MG CHEW TAB PO SCH (08:14)
[2022-02-21] MEDS: TAMSULOSIN HCL 0.4 MG CAP PO SCH (08:14)
[2022-02-21] MEDS: CLOPIDOGREL BISULFATE 75 MG TAB PO SCH (08:14)
[2022-02-21] MEDS: BUPROPION HCL 75 MG TAB PO SCH (08:15)
[2022-02-21] MEDS: MORPHINE SULFATE 30 MG TAB ER PO SCH ×2 (08:15→21:00)
[2022-02-21] MEDS: CEFTRIAXONE 2 GM in SODIUM CHLORIDE 0.9% 100 ML IV SCH (08:16)
[2022-02-21] MEDS: FUROSEMIDE INJ 10 MG/ML 4 ML VIAL IV SCH (08:16)
[2022-02-21] MEDS: CARVEDILOL 3.125 MG TAB PO SCH ×2 (08:16→20:50)
[2022-02-21] MEDS: BALSAM PERU/CASTOR OIL 60 GM OINT...G. TP SCH (08:16)
[2022-02-21] MEDS: NITROGLYCERIN 0.1MG/HR PATCH TOP SCH (09:00)
[2022-02-21] MEDS: ONDANSETRON HCL INJ 2MG/ML 2ML 2 MG/ML VIAL IV PRN (18:07)
[2022-02-21] MEDS: INSULIN GLARGINE 100 UNITS/ML VIAL SQ SCH (20:49)
[2022-02-21] MEDS: ATORVASTATIN 40 MG TAB PO SCH (20:50)
[2022-02-21] MEDS: TEMAZEPAM 15 MG CAP PO PRN (22:43)
[2022-02-21] MEDS: Morphine 4mg INJECTION 4 MG/ML INJ IV PRN (22:44)
[2022-02-22] MEDS: Morphine 4mg INJECTION 4 MG/ML INJ IV PRN ×2 (04:37→21:21)
[2022-02-22] MEDS: ACETAMINOPHEN 325 MG TAB PO PRN (05:26)
[2022-02-22 05:53] LABS: BASOPHILS # (AUTO) 0.1 (0.0-0.1); BASOPHILS % 0.6 % (0.0-1.0); EOSINOPHILS # (AUTO) 0.3 (0.0-0.4); EOSINOPHILS % 3.8 % (0.0-6.0); HEMATOCRIT 32.4 % (38.2-49.6); HEMOGLOBIN 10.3 g/dL (14.0-18.0); LYMPHOCYTES # (AUTO) 2.5 (1.0-3.2); LYMPHOCYTES % 28.1 % (18.0-39.1); MEAN CORPUSCULAR HEMOGLOBIN 25.8 pg (28-32); MEAN CORPUSCULAR HGB CONC 31.8 g/dL (31-35); MEAN CORPUSCULAR VOLUME 81.2 fL (81-99); MONOCYTES # (AUTO) 0.7 (0.2-0.8); MONOCYTES % 7.3 % (4.4-11.3); NEUTROPHILS # (AUTO) 5.2 (2.1-6.9); NEUTROPHILS % 58.7 % (38.7-80.0); PLATELET COUNT 370 x10e3/uL (140-360); RED BLOOD COUNT 3.99 x10e6/uL (4.3-5.7); RED CELL DISTRIBUTION WIDTH 16.2 % (11.7-14.4)
[2022-02-22 06:17] LABS: ANION GAP 17.9 mmol/L (8-16); CALCIUM 8.9 mg/dL (8.4-10.2); CREATININE, SERUM 1.03 mg/dL (0.72-1.25); POTASSIUM 3.9 mmol/L (3.5-5.1)
[2022-02-22] MEDS: INSULIN LISPRO 100 UNIT/1 ML 3ML VIAL SQ SCH ×4 (07:30→21:14)
[2022-02-22] MEDS: MORPHINE SULFATE 30 MG TAB ER PO SCH (08:30)
[2022-02-22 08:40] VITALS: BP 123/76
[2022-02-22 08:55] VITALS: BP 134/72
[2022-02-22] MEDS: CEFTRIAXONE 2 GM in SODIUM CHLORIDE 0.9% 100 ML IV SCH (09:00)
[2022-02-22] MEDS: BUPROPION HCL 75 MG TAB PO SCH (09:00)
[2022-02-22] MEDS: TAMSULOSIN HCL 0.4 MG CAP PO SCH (09:00)
[2022-02-22] MEDS: CLOPIDOGREL BISULFATE 75 MG TAB PO SCH (09:00)
[2022-02-22] MEDS: BALSAM PERU/CASTOR OIL 60 GM OINT...G. TP SCH (09:00)
[2022-02-22] MEDS: FUROSEMIDE INJ 10 MG/ML 4 ML VIAL IV SCH (09:00)
[2022-02-22] MEDS: CARVEDILOL 3.125 MG TAB PO SCH ×2 (09:00→21:09)
[2022-02-22] MEDS: DOCUSATE SODIUM 100 MG CAP PO SCH ×2 (09:00→17:00)
[2022-02-22] MEDS: ASPIRIN 81 MG CHEW TAB PO SCH (09:00)
[2022-02-22] MEDS: OXYCODONE/ACETAMINOPHEN 5-325 1 EACH TABLET PO PRN ×2 (11:20→15:35)
[2022-02-22] MEDS: OXYCODONE HCL IR 5 MG TAB PO PRN ×2 (11:20→15:35)
[2022-02-22 12:20] VITALS: BP 127/70
[2022-02-22] MEDS: NITROGLYCERIN 0.1MG/HR PATCH TOP SCH (12:25)
[2022-02-22 16:48] VITALS: BP 133/77
[2022-02-22 20:05] VITALS: BP 133/77
[2022-02-22] MEDS: ATORVASTATIN 40 MG TAB PO SCH (21:09)
[2022-02-22] MEDS: INSULIN GLARGINE 100 UNITS/ML VIAL SQ SCH (21:13)
[2022-02-22] MEDS: TEMAZEPAM 15 MG CAP PO PRN (21:21)
[2022-02-23] VITALS (7 sets, daily range): BP systolic 127–150; BP diastolic 72–86
[2022-02-23] MEDS: Morphine 4mg INJECTION 4 MG/ML INJ IV PRN ×3 (00:30→09:08)
[2022-02-23] MEDS: HYDROCODONE/APAP 5MG-325MG TAB PO PRN (03:04)
[2022-02-23] MEDS: INSULIN LISPRO 100 UNIT/1 ML 3ML VIAL SQ SCH ×4 (07:30→21:03)
[2022-02-23] MEDS: BALSAM PERU/CASTOR OIL 60 GM OINT...G. TP SCH (09:00)
[2022-02-23] MEDS: BUPROPION HCL 75 MG TAB PO SCH ×2 (09:00→17:00)
[2022-02-23] MEDS: NITROGLYCERIN 0.1MG/HR PATCH TOP SCH (09:09)
[2022-02-23] MEDS: ASPIRIN 81 MG CHEW TAB PO SCH (09:10)
[2022-02-23] MEDS: FUROSEMIDE INJ 10 MG/ML 4 ML VIAL IV SCH (09:10)
[2022-02-23] MEDS: TAMSULOSIN HCL 0.4 MG CAP PO SCH (09:10)
[2022-02-23] MEDS: DOCUSATE SODIUM 100 MG CAP PO SCH ×2 (09:10→16:26)
[2022-02-23] MEDS: CLOPIDOGREL BISULFATE 75 MG TAB PO SCH (09:10)
[2022-02-23] MEDS: CARVEDILOL 3.125 MG TAB PO SCH ×2 (09:11→21:04)
[2022-02-23] MEDS: CEFTRIAXONE 2 GM in SODIUM CHLORIDE 0.9% 100 ML IV SCH (09:11)
[2022-02-23] MEDS ORDERED: NON-FORMULARY MEDICATION (Oxycodone Hcl/Acetaminophen (Oxycodone-Acetaminophen 10-325) 1 T PO PRN (10:15)
[2022-02-23] MEDS ORDERED: OXYCODONE/ACETAMINOPHEN 5-325 1 EACH TABLET PO PRN (11:15)
[2022-02-23] MEDS ORDERED: HYDROCODONE/APAP 5MG-325MG TAB PO PRN ×2 (11:15)
[2022-02-23] MEDS: MORPHINE SULFATE 30 MG TAB ER PO SCH (16:26)
[2022-02-23] MEDS: OXYCODONE/ACETAMINOPHEN 5-325 1 EACH TABLET PO PRN (18:12)
[2022-02-23] MEDS: ONDANSETRON HCL INJ 2MG/ML 2ML 2 MG/ML VIAL IV PRN (20:52)
[2022-02-23] MEDS: TEMAZEPAM 15 MG CAP PO PRN (20:53)
[2022-02-23] MEDS: ATORVASTATIN 40 MG TAB PO SCH (20:53)
[2022-02-23] MEDS: INSULIN GLARGINE 100 UNITS/ML VIAL SQ SCH (21:02)
[2022-02-24] VITALS: BP 141/81
[2022-02-24] MEDS: OXYCODONE/ACETAMINOPHEN 5-325 1 EACH TABLET PO PRN ×3 (00:03→21:11)
[2022-02-24 04:00] VITALS: BP 145/73
[2022-02-24 07:45] VITALS: BP 125/74
[2022-02-24] MEDS: CEFTRIAXONE 2 GM in SODIUM CHLORIDE 0.9% 100 ML IV SCH (08:31)
[2022-02-24] MEDS: FUROSEMIDE INJ 10 MG/ML 4 ML VIAL IV SCH (08:31)
[2022-02-24] MEDS: MORPHINE SULFATE 30 MG TAB ER PO SCH ×2 (08:32→17:45)
[2022-02-24] MEDS: DOCUSATE SODIUM 100 MG CAP PO SCH ×2 (08:32→17:45)
[2022-02-24] MEDS: BUPROPION HCL 75 MG TAB PO SCH ×2 (08:32→17:45)
[2022-02-24] MEDS: CLOPIDOGREL BISULFATE 75 MG TAB PO SCH (08:32)
[2022-02-24] MEDS: ASPIRIN 81 MG CHEW TAB PO SCH (08:33)
[2022-02-24] MEDS: TAMSULOSIN HCL 0.4 MG CAP PO SCH (08:33)
[2022-02-24] MEDS: CARVEDILOL 3.125 MG TAB PO SCH ×2 (08:33→21:12)
[2022-02-24] MEDS: NITROGLYCERIN 0.1MG/HR PATCH TOP SCH (08:34)
[2022-02-24] MEDS: INSULIN LISPRO 100 UNIT/1 ML 3ML VIAL SQ SCH ×4 (08:37→22:05)
[2022-02-24 11:15] VITALS: BP 109/56
[2022-02-24 15:39] VITALS: BP 131/80
[2022-02-24] MEDS: BALSAM PERU/CASTOR OIL 60 GM OINT...G. TP SCH (17:52)
[2022-02-24 20:00] VITALS: BP 113/66
[2022-02-24] MEDS: TEMAZEPAM 15 MG CAP PO PRN (21:12)
[2022-02-24] MEDS: ATORVASTATIN 40 MG TAB PO SCH (21:13)
[2022-02-24] MEDS: DIPHENHYDRAMINE HCL 25 MG CAP PO PRN (21:13)
[2022-02-24] MEDS: INSULIN GLARGINE 100 UNITS/ML VIAL SQ SCH (22:06)
[2022-02-25] VITALS (7 sets, daily range): BP systolic 120–151; BP diastolic 60–79
[2022-02-25] MEDS: OXYCODONE/ACETAMINOPHEN 5-325 1 EACH TABLET PO PRN ×4 (04:49→21:48)
[2022-02-25] MEDS: INSULIN LISPRO 100 UNIT/1 ML 3ML VIAL SQ SCH ×4 (08:48→23:44)
[2022-02-25] MEDS: FUROSEMIDE INJ 10 MG/ML 4 ML VIAL IV SCH (08:51)
[2022-02-25] MEDS: CEFTRIAXONE 2 GM in SODIUM CHLORIDE 0.9% 100 ML IV SCH (08:51)
[2022-02-25] MEDS: TAMSULOSIN HCL 0.4 MG CAP PO SCH (08:51)
[2022-02-25] MEDS: ASPIRIN 81 MG CHEW TAB PO SCH (08:51)
[2022-02-25] MEDS: DOCUSATE SODIUM 100 MG CAP PO SCH ×2 (08:51→16:51)
[2022-02-25] MEDS: CARVEDILOL 3.125 MG TAB PO SCH ×2 (08:51→21:47)
[2022-02-25] MEDS: BUPROPION HCL 75 MG TAB PO SCH ×2 (08:52→16:51)
[2022-02-25] MEDS: MORPHINE SULFATE 30 MG TAB ER PO SCH ×2 (08:52→16:51)
[2022-02-25] MEDS: NITROGLYCERIN 0.1MG/HR PATCH TOP SCH (08:52)
[2022-02-25] MEDS: CLOPIDOGREL BISULFATE 75 MG TAB PO SCH (08:52)
[2022-02-25] MEDS: BALSAM PERU/CASTOR OIL 60 GM OINT...G. TP SCH (12:27)
[2022-02-25] MEDS: TEMAZEPAM 15 MG CAP PO PRN (21:48)
[2022-02-25] MEDS: DIPHENHYDRAMINE HCL 25 MG CAP PO PRN (21:48)
[2022-02-25] MEDS: ATORVASTATIN 40 MG TAB PO SCH (21:49)
[2022-02-25] MEDS: INSULIN GLARGINE 100 UNITS/ML VIAL SQ SCH (23:44)
[2022-02-26] VITALS (8 sets, daily range): BP systolic 134–169; BP diastolic 71–91
[2022-02-26 06:16] LABS: BASOPHILS # (AUTO) 0.1 (0.0-0.1); BASOPHILS % 0.5 % (0.0-1.0); EOSINOPHILS # (AUTO) 0.3 (0.0-0.4); EOSINOPHILS % 2.9 % (0.0-6.0); HEMATOCRIT 34.1 % (38.2-49.6); HEMOGLOBIN 10.7 g/dL (14.0-18.0); LYMPHOCYTES # (AUTO) 3.4 (1.0-3.2); LYMPHOCYTES % 34.1 % (18.0-39.1); MEAN CORPUSCULAR HEMOGLOBIN 25.7 pg (28-32); MEAN CORPUSCULAR HGB CONC 31.4 g/dL (31-35); MONOCYTES # (AUTO) 0.7 (0.2-0.8); MONOCYTES % 7.1 % (4.4-11.3); NEUTROPHILS # (AUTO) 5.5 (2.1-6.9); NEUTROPHILS % 54.7 % (38.7-80.0); PLATELET COUNT 385 x10e3/uL (140-360); RED BLOOD COUNT 4.16 x10e6/uL (4.3-5.7); RED CELL DISTRIBUTION WIDTH 16.4 % (11.7-14.4)
[2022-02-26 06:48] LABS: ANION GAP 17.9 mmol/L (8-16); CALCIUM 9.1 mg/dL (8.4-10.2); CREATININE, SERUM 1.2 mg/dL (0.72-1.25); POTASSIUM 3.9 mmol/L (3.5-5.1)
[2022-02-26] MEDS: INSULIN LISPRO 100 UNIT/1 ML 3ML VIAL SQ SCH ×4 (07:30→20:50)
[2022-02-26] MEDS: Morphine 4mg INJECTION 4 MG/ML INJ IV PRN ×4 (07:43→22:17)
[2022-02-26] MEDS ORDERED: SODIUM CHLORIDE FLUSH 10 ML SYR INJ PRN (08:00)
[2022-02-26] MEDS: FUROSEMIDE INJ 10 MG/ML 4 ML VIAL IV SCH (09:00)
[2022-02-26] MEDS: DOCUSATE SODIUM 100 MG CAP PO SCH ×2 (09:00→16:59)
[2022-02-26] MEDS: CARVEDILOL 3.125 MG TAB PO SCH ×2 (09:00→20:45)
[2022-02-26] MEDS: BUPROPION HCL 75 MG TAB PO SCH ×2 (09:00→16:59)
[2022-02-26] MEDS: OXYCODONE/ACETAMINOPHEN 5-325 1 EACH TABLET PO PRN (09:30)
[2022-02-26] MEDS ORDERED: HEPARIN SOD/SOD CHLORIDE 2,000 ML ONE (10:10)
[2022-02-26] MEDS ORDERED: HEPARIN SOD (PORCINE) 1000 UNIT/ML 30ML ONE (10:10)
[2022-02-26] MEDS ORDERED: NITROGLYCERIN/D5W 200 MCG/ML 250 ML ONE (10:11)
[2022-02-26] MEDS ORDERED: SODIUM CHLORIDE 0.9% 1000ML 1,000 ML ONE (10:11)
[2022-02-26] MEDS ORDERED: IOPAMIDOL 370 MG/ML 100 ML INFUS..BTL INJ ONE (10:11)
[2022-02-26] MEDS ORDERED: LIDOCAINE 1% 10 ML MULTIDOSE VIAL IJ ONE (10:11)
[2022-02-26] MEDS ORDERED: MIDAZOLAM HCL 2 MG/2 ML VIAL ONE (10:12)
[2022-02-26] MEDS ORDERED: FENTANYL CITRATE/PF 100MCG/2 ML INJ ONE (10:12)
[2022-02-26] MEDS ORDERED: IOPAMIDOL 300MG/ML 100 ML INFUS..BTL IV ONE (10:31)
[2022-02-26] MEDS: CEFTRIAXONE 2 GM in SODIUM CHLORIDE 0.9% 100 ML IV SCH (12:11)
[2022-02-26] MEDS: TAMSULOSIN HCL 0.4 MG CAP PO SCH (12:12)
[2022-02-26] MEDS: CLOPIDOGREL BISULFATE 75 MG TAB PO SCH (12:12)
[2022-02-26] MEDS: MORPHINE SULFATE 30 MG TAB ER PO SCH ×2 (12:12→20:44)
[2022-02-26] MEDS: ASPIRIN 81 MG CHEW TAB PO SCH (12:13)
[2022-02-26] MEDS: NITROGLYCERIN 0.1MG/HR PATCH TOP SCH (12:26)
[2022-02-26] MEDS: BALSAM PERU/CASTOR OIL 60 GM OINT...G. TP SCH (15:41)
[2022-02-26] MEDS: ATORVASTATIN 40 MG TAB PO SCH (20:44)
[2022-02-26] MEDS: ONDANSETRON HCL 4 MG ORAL DISINTEGRATING TAB PO PRN (20:48)
[2022-02-26] MEDS: INSULIN GLARGINE 100 UNITS/ML VIAL SQ SCH (20:50)
[2022-02-26] MEDS: TEMAZEPAM 15 MG CAP PO PRN (22:14)
[2022-02-27] VITALS (8 sets, daily range): BP systolic 107–138; BP diastolic 74–86
[2022-02-27] MEDS: Morphine 4mg INJECTION 4 MG/ML INJ IV PRN ×3 (04:01→20:45)
[2022-02-27 07:13] LABS: ANION GAP 12.3 mmol/L (8-16); CALCIUM 8.9 mg/dL (8.4-10.2); CREATININE, SERUM 1.21 mg/dL (0.72-1.25); POTASSIUM 4.3 mmol/L (3.5-5.1)
[2022-02-27] MEDS: INSULIN LISPRO 100 UNIT/1 ML 3ML VIAL SQ SCH ×4 (07:30→21:00)
[2022-02-27] MEDS ORDERED: BUPIVACAINE 0.25% 30ML SDV ONE (08:16)
[2022-02-27] MEDS: FUROSEMIDE INJ 10 MG/ML 4 ML VIAL IV SCH (09:00)
[2022-02-27] MEDS: TAMSULOSIN HCL 0.4 MG CAP PO SCH (10:08)
[2022-02-27] MEDS: MORPHINE SULFATE 30 MG TAB ER PO SCH ×2 (10:08→16:08)
[2022-02-27] MEDS: CARVEDILOL 3.125 MG TAB PO SCH ×2 (10:08→20:41)
[2022-02-27] MEDS: NITROGLYCERIN 0.1MG/HR PATCH TOP SCH (10:09)
[2022-02-27] MEDS: DOCUSATE SODIUM 100 MG CAP PO SCH ×2 (10:09→16:07)
[2022-02-27] MEDS: BUPROPION HCL 75 MG TAB PO SCH ×2 (10:09→16:08)
[2022-02-27] MEDS: CLOPIDOGREL BISULFATE 75 MG TAB PO SCH (10:09)
[2022-02-27] MEDS: ASPIRIN 81 MG CHEW TAB PO SCH (10:09)
[2022-02-27] MEDS: CEFTRIAXONE 2 GM in SODIUM CHLORIDE 0.9% 100 ML IV SCH (10:10)
[2022-02-27] MEDS: BALSAM PERU/CASTOR OIL 60 GM OINT...G. TP SCH (10:13)
[2022-02-27] MEDS ORDERED: FENTANYL CITRATE/PF 100MCG/2 ML INJ ONE (13:00)
[2022-02-27] MEDS ORDERED: MIDAZOLAM HCL 2 MG/2 ML VIAL ONE (13:00)
[2022-02-27] MEDS: TEMAZEPAM 15 MG CAP PO PRN (20:40)
[2022-02-27] MEDS: ATORVASTATIN 40 MG TAB PO SCH (20:41)
[2022-02-27] MEDS: ONDANSETRON HCL 4 MG ORAL DISINTEGRATING TAB PO PRN (20:42)
[2022-02-27] MEDS: INSULIN GLARGINE 100 UNITS/ML VIAL SQ SCH (21:00)
[2022-02-27] MEDS: DIPHENHYDRAMINE HCL 25 MG CAP PO PRN (21:22)
[2022-02-28] VITALS (7 sets, daily range): BP systolic 119–137; BP diastolic 69–84
[2022-02-28] MEDS: OXYCODONE/ACETAMINOPHEN 5-325 1 EACH TABLET PO PRN ×2 (04:10→23:19)
[2022-02-28 05:53] LABS: BASOPHILS # (AUTO) 0.1 (0.0-0.1); BASOPHILS % 0.4 % (0.0-1.0); EOSINOPHILS # (AUTO) 0.3 (0.0-0.4); EOSINOPHILS % 2.2 % (0.0-6.0); HEMATOCRIT 31.8 % (38.2-49.6); HEMOGLOBIN 9.5 g/dL (14.0-18.0); LYMPHOCYTES # (AUTO) 2.4 (1.0-3.2); LYMPHOCYTES % 21.3 % (18.0-39.1); MEAN CORPUSCULAR HEMOGLOBIN 25.8 pg (28-32); MEAN CORPUSCULAR HGB CONC 29.9 g/dL (31-35); MEAN CORPUSCULAR VOLUME 86.4 fL (81-99); MONOCYTES % 9.2 % (4.4-11.3); NEUTROPHILS # (AUTO) 7.4 (2.1-6.9); NEUTROPHILS % 66.5 % (38.7-80.0); PLATELET COUNT 327 x10e3/uL (140-360); RED BLOOD COUNT 3.68 x10e6/uL (4.3-5.7); RED CELL DISTRIBUTION WIDTH 16.4 % (11.7-14.4)
[2022-02-28 06:22] LABS: ANION GAP 14.6 mmol/L (8-16); CALCIUM 9.4 mg/dL (8.4-10.2); CREATININE, SERUM 1.21 mg/dL (0.72-1.25); POTASSIUM 4.6 mmol/L (3.5-5.1)
[2022-02-28] MEDS: INSULIN LISPRO 100 UNIT/1 ML 3ML VIAL SQ SCH ×4 (07:30→21:00)
[2022-02-28] MEDS: CEFTRIAXONE 2 GM in SODIUM CHLORIDE 0.9% 100 ML IV SCH (08:45)
[2022-02-28] MEDS: NITROGLYCERIN 0.1MG/HR PATCH TOP SCH (08:46)
[2022-02-28] MEDS: BUPROPION HCL 75 MG TAB PO SCH ×2 (08:46→16:19)
[2022-02-28] MEDS: ASPIRIN 81 MG CHEW TAB PO SCH (08:46)
[2022-02-28] MEDS: FUROSEMIDE INJ 10 MG/ML 4 ML VIAL IV SCH (08:46)
[2022-02-28] MEDS: TAMSULOSIN HCL 0.4 MG CAP PO SCH (08:47)
[2022-02-28] MEDS: MORPHINE SULFATE 30 MG TAB ER PO SCH ×2 (08:47→16:19)
[2022-02-28] MEDS: CLOPIDOGREL BISULFATE 75 MG TAB PO SCH (08:47)
[2022-02-28] MEDS: CARVEDILOL 3.125 MG TAB PO SCH ×2 (08:47→21:39)
[2022-02-28] MEDS: DOCUSATE SODIUM 100 MG CAP PO SCH ×2 (08:48→16:19)
[2022-02-28] MEDS: BALSAM PERU/CASTOR OIL 60 GM OINT...G. TP SCH (09:00)
[2022-02-28] MEDS: Morphine 4mg INJECTION 4 MG/ML INJ IV PRN (17:59)
[2022-02-28] MEDS: ATORVASTATIN 40 MG TAB PO SCH (21:39)
[2022-02-28] MEDS: INSULIN GLARGINE 100 UNITS/ML VIAL SQ SCH (21:41)
[2022-02-28] MEDS: TEMAZEPAM 15 MG CAP PO PRN (23:18)
[2022-03-01] MEDS: INSULIN LISPRO 100 UNIT/1 ML 3ML VIAL SQ SCH ×4 (07:30→21:45)
[2022-03-01 07:39] VITALS: BP 143/79
[2022-03-01] MEDS: MORPHINE SULFATE 30 MG TAB ER PO SCH ×2 (08:28→16:48)
[2022-03-01] MEDS: DOCUSATE SODIUM 100 MG CAP PO SCH ×2 (08:28→16:48)
[2022-03-01] MEDS: CLOPIDOGREL BISULFATE 75 MG TAB PO SCH (08:28)
[2022-03-01] MEDS: ASPIRIN 81 MG CHEW TAB PO SCH (08:28)
[2022-03-01] MEDS: NITROGLYCERIN 0.1MG/HR PATCH TOP SCH (08:29)
[2022-03-01] MEDS: TAMSULOSIN HCL 0.4 MG CAP PO SCH (08:29)
[2022-03-01] MEDS: BUPROPION HCL 75 MG TAB PO SCH ×2 (08:29→16:47)
[2022-03-01] MEDS: CARVEDILOL 3.125 MG TAB PO SCH ×2 (08:29→20:39)
[2022-03-01] MEDS: CEFTRIAXONE 2 GM in SODIUM CHLORIDE 0.9% 100 ML IV SCH (08:30)
[2022-03-01 08:39] VITALS: BP 143/70
[2022-03-01] MEDS: BALSAM PERU/CASTOR OIL 60 GM OINT...G. TP SCH (09:00)
[2022-03-01] MEDS: FUROSEMIDE INJ 10 MG/ML 4 ML VIAL IV SCH (09:00)
[2022-03-01] MEDS: Morphine 4mg INJECTION 4 MG/ML INJ IV PRN ×2 (11:20→20:40)
[2022-03-01 11:27] VITALS: BP 120/74
[2022-03-01 17:03] VITALS: BP 123/64
[2022-03-01 20:00] VITALS: BP 146/74
[2022-03-01 20:23] VITALS: BP 123/64
[2022-03-01] MEDS: TEMAZEPAM 15 MG CAP PO PRN (20:40)
[2022-03-01] MEDS: ATORVASTATIN 40 MG TAB PO SCH (20:40)
[2022-03-01] MEDS: INSULIN GLARGINE 100 UNITS/ML VIAL SQ SCH (21:43)
[2022-03-02] VITALS (8 sets, daily range): BP systolic 103–154; BP diastolic 62–87
[2022-03-02] MEDS: Morphine 4mg INJECTION 4 MG/ML INJ IV PRN ×3 (01:39→20:17)
[2022-03-02 05:36] LABS: BASOPHILS # (AUTO) 0.1 (0.0-0.1); BASOPHILS % 0.6 % (0.0-1.0); EOSINOPHILS # (AUTO) 0.3 (0.0-0.4); HEMATOCRIT 29.1 % (38.2-49.6); HEMOGLOBIN 9.2 g/dL (14.0-18.0); LYMPHOCYTES # (AUTO) 2.9 (1.0-3.2); LYMPHOCYTES % 29.3 % (18.0-39.1); MEAN CORPUSCULAR HEMOGLOBIN 26.2 pg (28-32); MEAN CORPUSCULAR HGB CONC 31.6 g/dL (31-35); MEAN CORPUSCULAR VOLUME 82.9 fL (81-99); MONOCYTES # (AUTO) 0.8 (0.2-0.8); MONOCYTES % 8.3 % (4.4-11.3); NEUTROPHILS # (AUTO) 5.9 (2.1-6.9); NEUTROPHILS % 58.3 % (38.7-80.0); PLATELET COUNT 311 x10e3/uL (140-360); RED BLOOD COUNT 3.51 x10e6/uL (4.3-5.7); RED CELL DISTRIBUTION WIDTH 16.6 % (11.7-14.4)
[2022-03-02 05:45] LABS: ANION GAP 14.2 mmol/L (8-16); CALCIUM 8.8 mg/dL (8.4-10.2); CREATININE, SERUM 1.04 mg/dL (0.72-1.25); POTASSIUM 4.2 mmol/L (3.5-5.1)
[2022-03-02] MEDS: INSULIN LISPRO 100 UNIT/1 ML 3ML VIAL SQ SCH ×4 (07:30→20:33)
[2022-03-02] MEDS: ASPIRIN 81 MG CHEW TAB PO SCH (09:39)
[2022-03-02] MEDS: DOCUSATE SODIUM 100 MG CAP PO SCH ×2 (09:39→17:05)
[2022-03-02] MEDS: TAMSULOSIN HCL 0.4 MG CAP PO SCH (09:39)
[2022-03-02] MEDS: FUROSEMIDE INJ 10 MG/ML 4 ML VIAL IV SCH (09:39)
[2022-03-02] MEDS: MORPHINE SULFATE 30 MG TAB ER PO SCH ×2 (09:40→17:05)
[2022-03-02] MEDS: CLOPIDOGREL BISULFATE 75 MG TAB PO SCH (09:40)
[2022-03-02] MEDS: BUPROPION HCL 75 MG TAB PO SCH ×2 (09:40→17:05)
[2022-03-02] MEDS: NITROGLYCERIN 0.1MG/HR PATCH TOP SCH (09:41)
[2022-03-02] MEDS: CARVEDILOL 3.125 MG TAB PO SCH ×2 (09:41→20:17)
[2022-03-02] MEDS: BALSAM PERU/CASTOR OIL 60 GM OINT...G. TP SCH (09:46)
[2022-03-02] MEDS: ONDANSETRON HCL 4 MG ORAL DISINTEGRATING TAB PO PRN (13:42)
[2022-03-02] MEDS ORDERED: CEPHALEXIN 500 MG CAP PO SCH (14:00)
[2022-03-02] MEDS ORDERED: Atorvastatin PO (17:33)
[2022-03-02] MEDS: ATORVASTATIN 40 MG TAB PO SCH (20:17)
[2022-03-02] MEDS: INSULIN GLARGINE 100 UNITS/ML VIAL SQ SCH (20:32)
[2022-03-03] MEDS ORDERED: FUROSEMIDE 40 MG TAB PO SCH (09:00)
[2022-03-03] MEDS ORDERED: CEFTRIAXONE 2 GM in SODIUM CHLORIDE 0.9% 100 ML IV SCH (09:00)
== END 2022-03-02 21:20 | DRG 853 ==
LOC: ER 09:11 → ERHOLD 12:51 → ICU 14:28 → IMCU 02-19 21:54 → MED/SURG2 02-19 23:20
PROVIDERS: ADMIT Internal Medicine; ATTEND Internal Medicine
PROC: 3E03329 Introduction of Other Anti-infective into Peripheral Vein, Percutaneous Approach (ICD-10-PCS; 2022-02-14)
PROC: 027034Z Dilation of Coronary Artery, One Artery with Drug-eluting Intraluminal Device, Percutaneous Approach (ICD-10-PCS; principal; 2022-02-20)
PROC: 4A023N7 Measurement of Cardiac Sampling and Pressure, Left Heart, Percutaneous Approach (ICD-10-PCS; 2022-02-20)
PROC: B2131ZZ Fluoroscopy of Multiple Coronary Artery Bypass Grafts using Low Osmolar Contrast (ICD-10-PCS; 2022-02-20)
PROC: B2181ZZ Fluoroscopy of Left Internal Mammary Bypass Graft using Low Osmolar Contrast (ICD-10-PCS; 2022-02-20)
PROC: B2111ZZ Fluoroscopy of Multiple Coronary Arteries using Low Osmolar Contrast (ICD-10-PCS; 2022-02-20)
PROC: B2151ZZ Fluoroscopy of Left Heart using Low Osmolar Contrast (ICD-10-PCS; 2022-02-20)
PROC: B4101ZZ Fluoroscopy of Abdominal Aorta using Low Osmolar Contrast (ICD-10-PCS; 2022-02-26)
PROC: B41G1ZZ Fluoroscopy of Left Lower Extremity Arteries using Low Osmolar Contrast (ICD-10-PCS; 2022-02-26)
PROC: 0Y6N0ZB Detachment at Left Foot, Partial 2nd Ray, Open Approach (ICD-10-PCS; 2022-02-27)
PROC: 0Y6N0ZC Detachment at Left Foot, Partial 3rd Ray, Open Approach (ICD-10-PCS; 2022-02-27)
PROC: 0Y6N0ZD Detachment at Left Foot, Partial 4th Ray, Open Approach (ICD-10-PCS; 2022-02-27)
PROC: 0HXNXZZ Transfer Left Foot Skin, External Approach (ICD-10-PCS; 2022-02-27)
PROC: 0QBP0ZZ Excision of Left Metatarsal, Open Approach (ICD-10-PCS; 2022-02-27)
PROC: 02HV33Z Insertion of Infusion Device into Superior Vena Cava, Percutaneous Approach (ICD-10-PCS; 2022-03-01)
DX: A40.8 Other streptococcal sepsis (principal); G93.41 Metabolic encephalopathy; J18.9 Pneumonia, unspecified organism; R65.21 Severe sepsis with septic shock; I21.4 Non-ST elevation (NSTEMI) myocardial infarction; I50.33 Acute on chronic diastolic (congestive) heart failure; N17.9 Acute kidney failure, unspecified; L03.116 Cellulitis of left lower limb; N39.0 Urinary tract infection, site not specified; M86.672 Other chronic osteomyelitis, left ankle and foot; I13.0 Hypertensive heart and chronic kidney disease with heart failure and stage 1 through stage 4 chronic kidney disease, or unspecified chronic kidney disease; I25.10 Atherosclerotic heart disease of native coronary artery without angina pectoris; L97.529 Non-pressure chronic ulcer of other part of left foot with unspecified severity; E11.65 Type 2 diabetes mellitus with hyperglycemia; E11.621 Type 2 diabetes mellitus with foot ulcer; E11.42 Type 2 diabetes mellitus with diabetic polyneuropathy; E11.69 Type 2 diabetes mellitus with other specified complication; E11.51 Type 2 diabetes mellitus with diabetic peripheral angiopathy without gangrene; E11.22 Type 2 diabetes mellitus with diabetic chronic kidney disease; D64.9 Anemia, unspecified; N18.30 Chronic kidney disease, stage 3 unspecified; R09.02 Hypoxemia; Z82.49 Family history of ischemic heart disease and other diseases of the circulatory system; Z83.3 Family history of diabetes mellitus; I25.2 Old myocardial infarction; Z91.19 Patient's noncompliance with other medical treatment and regimen; Z95.1 Presence of aortocoronary bypass graft; Z95.5 Presence of coronary angioplasty implant and graft; Z20.822 Contact with and (suspected) exposure to COVID-19; E66.01 Morbid (severe) obesity due to excess calories; K80.20 Calculus of gallbladder without cholecystitis without obstruction; K76.0 Fatty (change of) liver, not elsewhere classified; Z68.35 Body mass index [BMI] 35.0-35.9, adult; I35.0 Nonrheumatic aortic (valve) stenosis; N40.0 Benign prostatic hyperplasia without lower urinary tract symptoms; G89.4 Chronic pain syndrome; F32.A Depression, unspecified; Z79.82 Long term (current) use of aspirin
CPT/HCPCS: 36247; 36415; 36569; 51700; 71045; 71250; 74176; 75605; 75625; 75710; 80048; 80053; 80061; 80202; 81001; 82550; 82553; 82948; 83518; 83605; 83880; 84484; 85025; 85610; 85730; 87040; 87070; 87071; 87086; 87205; 87400; 87420; 88304; 88305; 88311; 92928; 93005; 93306; 93458; 93925; 93970; 94799; 96372; 99152; 99153; 99251; 99285; C1766; C1769; C1887; C1894; J0692; J0696; J1644; J1650; J1815; J1940; J2001; J2250; J2270; J2405; J2543; J3010; J3370; J7030; J7040; J7050; J7799; Q0162; Q9967

== ENCOUNTER 2022-03-29 08:55 | Inpatient (IN) | payer MEDICARE ==
[~2022-03-29] VITALS: Ht 188 cm; Wt 126.6 kg
[~2022-03-29 08:55] MED LIST changes: +Atorvastatin PO
[2022-03-29 10:21] LABS: BASOPHILS % 0.4 % (0.0-1.0); EOSINOPHILS # (AUTO) 0.4 (0.0-0.4); EOSINOPHILS % 4.5 % (0.0-6.0); HEMATOCRIT 34.6 % (38.2-49.6); HEMOGLOBIN 10.3 g/dL (14.0-18.0); LYMPHOCYTES # (AUTO) 2.1 (1.0-3.2); LYMPHOCYTES % 22.2 % (18.0-39.1); MEAN CORPUSCULAR HGB CONC 29.8 g/dL (31-35); MEAN CORPUSCULAR VOLUME 87.4 fL (81-99); MONOCYTES # (AUTO) 0.6 (0.2-0.8); MONOCYTES % 6.4 % (4.4-11.3); NEUTROPHILS # (AUTO) 6.1 (2.1-6.9); NEUTROPHILS % 66.1 % (38.7-80.0); PLATELET COUNT 274 x10e3/uL (140-360); RED BLOOD COUNT 3.96 x10e6/uL (4.3-5.7); RED CELL DISTRIBUTION WIDTH 16.3 % (11.7-14.4)
[2022-03-29 11:04] LABS: ALBUMIN/GLOBULIN RATIO 0.5 (0.8-2.0); ANION GAP 14.3 mmol/L (8-16); CALCIUM 9.2 mg/dL (8.4-10.2); CREATININE, SERUM 1.21 mg/dL (0.72-1.25); POTASSIUM 4.3 mmol/L (3.5-5.1)
[2022-03-29] MEDS ORDERED: IOPAMIDOL 370 MG/ML 100 ML INFUS..BTL INJ ONE (11:32)
[2022-03-29] MEDS ORDERED: CLONIDINE HCL 0.1 MG TAB PO PRN (13:00)
[2022-03-29] MEDS ORDERED: ACETAMINOPHEN 325 MG TAB PO PRN (13:00)
[2022-03-29] MEDS ORDERED: ONDANSETRON HCL INJ 2MG/ML 2ML 2 MG/ML VIAL IV PRN (13:00)
[2022-03-29] MEDS ORDERED: NON-FORMULARY MEDICATION (Oxycodone Hcl/Acetaminophen (Oxycodone-Acetaminophen 10-325) 1 T PO PRN (13:15)
[2022-03-29] MEDS ORDERED: FUROSEMIDE INJ 10 MG/ML 4 ML VIAL IV SCH (15:00)
[2022-03-29 17:50] LABS: CREATINE KINASE MB 1.1 ng/mL (0-5.0)
[2022-03-29] MEDS ORDERED: DEXTROSE 50% SYRINGE 50 ML IV PRN (18:00)
[2022-03-29] MEDS: CARVEDILOL 12.5 MG TAB PO SCH (18:38)
[2022-03-29] MEDS: OXYCODONE/ACETAMINOPHEN 5-325 1 EACH TABLET PO PRN (18:42)
[2022-03-29 20:00] VITALS: BP 165/84
[2022-03-29] MEDS ORDERED: ATORVASTATIN 40 MG TAB PO SCH (21:00)
[2022-03-29] MEDS ORDERED: NON-FORMULARY MEDICATION ([Atorvastatin] 40 MG) PO SCH (21:00)
[2022-03-29] MEDS: INSULIN REGULAR, HUMAN 100 UNIT/1 ML SQ SCH (21:00)
[2022-03-29] MEDS: MORPHINE SULFATE 30 MG TAB ER PO SCH (22:13)
[2022-03-29] MEDS ORDERED: DIPHENHYDRAMINE HCL 25 MG CAP PO PRN (22:30)
[2022-03-30 01:54] LABS: CREATINE KINASE MB 0.8 ng/mL (0-5.0)
[2022-03-30 04:00] VITALS: BP 167/92
[2022-03-30 05:05] LABS: BASOPHILS % 0.4 % (0.0-1.0); EOSINOPHILS # (AUTO) 0.5 (0.0-0.4); EOSINOPHILS % 5.1 % (0.0-6.0); HEMATOCRIT 34.4 % (38.2-49.6); HEMOGLOBIN 10.4 g/dL (14.0-18.0); LYMPHOCYTES # (AUTO) 2.6 (1.0-3.2); MEAN CORPUSCULAR HEMOGLOBIN 26.2 pg (28-32); MEAN CORPUSCULAR HGB CONC 30.2 g/dL (31-35); MEAN CORPUSCULAR VOLUME 86.6 fL (81-99); MONOCYTES # (AUTO) 0.7 (0.2-0.8); MONOCYTES % 7.3 % (4.4-11.3); NEUTROPHILS # (AUTO) 5.2 (2.1-6.9); PLATELET COUNT 239 x10e3/uL (140-360); RED BLOOD COUNT 3.97 x10e6/uL (4.3-5.7); RED CELL DISTRIBUTION WIDTH 16.3 % (11.7-14.4)
[2022-03-30 05:31] LABS: CREATINE KINASE MB 0.8 ng/mL (0-5.0)
[2022-03-30 05:51] LABS: ALBUMIN 2.8 g/dL (3.5-5.0); ALBUMIN/GLOBULIN RATIO 0.5 (0.8-2.0); ANION GAP 16.1 mmol/L (8-16); CALCIUM 8.8 mg/dL (8.4-10.2); CREATININE, SERUM 1.32 mg/dL (0.72-1.25); POTASSIUM 4.1 mmol/L (3.5-5.1)
[2022-03-30 08:02] VITALS: BP 156/85
[2022-03-30] MEDS: MORPHINE SULFATE 30 MG TAB ER PO SCH (08:35)
[2022-03-30] MEDS: CARVEDILOL 12.5 MG TAB PO SCH (08:37)
[2022-03-30] MEDS: INSULIN REGULAR, HUMAN 100 UNIT/1 ML SQ SCH ×2 (08:38→11:36)
[2022-03-30 08:40] VITALS: BP 156/85
[2022-03-30] MEDS ORDERED: DOXAZOSIN MESYLATE 2 MG TAB PO SCH (09:00)
[2022-03-30] MEDS ORDERED: FLUOXETINE HCL PO SCH (09:00)
[2022-03-30] MEDS ORDERED: BACLOFEN 10 MG TAB PO SCH (09:00)
[2022-03-30] MEDS ORDERED: LOSARTAN POTASSIUM 100 MG TAB PO SCH (09:00)
[2022-03-30] MEDS ORDERED: CLOPIDOGREL BISULFATE 75 MG TAB PO SCH (09:00)
[2022-03-30] MEDS ORDERED: BUPROPION HCL 75 MG TAB PO SCH (09:00)
[2022-03-30] MEDS ORDERED: FLUOXETINE HCL 20 MG CAP PO SCH (09:00)
[2022-03-30] MEDS ORDERED: TAMSULOSIN HCL 0.4 MG CAP PO SCH (09:00)
[2022-03-30] MEDS ORDERED: FUROSEMIDE INJ 10 MG/ML 4 ML VIAL IV SCH (09:00)
[2022-03-30] MEDS ORDERED: AMLODIPINE BESYLATE 10 MG TAB PO SCH (09:00)
[2022-03-30] MEDS ORDERED: ASPIRIN 81 MG CHEW TAB PO SCH (09:00)
[2022-03-30] MEDS: OXYCODONE/ACETAMINOPHEN 5-325 1 EACH TABLET PO PRN (10:19)
[2022-03-30] MEDS ORDERED: LASIX40 MG PO (11:37)
[2022-03-30 11:38] VITALS: BP 128/72
[2022-03-30] MEDS ORDERED: ONDANSETRON HCL 4 MG ORAL DISINTEGRATING TAB PO PRN (13:15)
[2022-03-30] MEDS ORDERED: ENOXAPARIN SOD INJ 40 MG/0.4 ML SYR SC SCH (17:00)
[2022-03-30] MEDS ORDERED: FUROSEMIDE 40 MG TAB PO SCH (17:00)
== END 2022-03-30 13:57 | disposition home or self-care (01) | DRG 291 ==
LOC: ER 09:03 → ERHOLD 12:32 → MED/SURG2 16:09
PROVIDERS: ADMIT Internal Medicine; ATTEND Internal Medicine
DX: I11.0 Hypertensive heart disease with heart failure (principal); I50.31 Acute diastolic (congestive) heart failure; M86.672 Other chronic osteomyelitis, left ankle and foot; T81.31XA Disruption of external operation (surgical) wound, not elsewhere classified, initial encounter; I25.10 Atherosclerotic heart disease of native coronary artery without angina pectoris; Z95.1 Presence of aortocoronary bypass graft; E11.51 Type 2 diabetes mellitus with diabetic peripheral angiopathy without gangrene; N40.0 Benign prostatic hyperplasia without lower urinary tract symptoms; G89.29 Other chronic pain; F32.A Depression, unspecified; E11.69 Type 2 diabetes mellitus with other specified complication; Z86.73 Personal history of transient ischemic attack (TIA), and cerebral infarction without residual deficits; Z95.5 Presence of coronary angioplasty implant and graft; Z89.432 Acquired absence of left foot; Z89.431 Acquired absence of right foot; Z20.822 Contact with and (suspected) exposure to COVID-19
CPT/HCPCS: 0223U; 36415; 71045; 71260; 80053; 82550; 82553; 82948; 83690; 83880; 84484; 85025; 85379; 93005; 94799; 99251; 99284; J1817; J1940; J2405; Q9967

== ENCOUNTER 2022-04-18 15:26 | Outpatient (RCR) | payer MEDICARE ==
[~2022-04-18 15:26] MED LIST changes: +LIDOCAINE VISC 2% SOLN 15 ML UDC ONE; +MUPIROCIN 2% OINT 22 GM TUBE ONE
[2022-04-25] MEDS ORDERED: COREG3.125 MG PO (12:49)
[2022-04-25] MEDS ORDERED: BUPROPION HCL75 MG PO (12:49)
[2022-04-25] MEDS ORDERED: ONDANSETRON ODT4 MG PO (12:49)
[2022-04-25] MEDS ORDERED: ZETIA10 MG PO (12:49)
[2022-04-25] MEDS ORDERED: NITROGLYCERIN1 EAC2 TOP (12:49)
[2022-04-25] MEDS ORDERED: GABAPENTIN400 MG PO (12:49)
[2022-04-25] MEDS ORDERED: ZESTRIL10 MG PO (12:49)
[2022-04-25] MEDS ORDERED: ROPINIROLE HCL1 MG PO ×2 (12:49)
[2022-04-25] MEDS ORDERED: FUROSEMIDE40 MG PO (12:49)
[2022-04-25] MEDS ORDERED: TEMAZEPAM15 MG PO (12:49)
[2022-04-25] MEDS ORDERED: PANTOPRAZOLE SO40 MG PO (12:49)
[2022-04-25] MEDS ORDERED: MIRALAX17 GM PO (12:49)
[2022-04-25] MEDS ORDERED: NOVOLIN N100 UNIT/1 SC (12:49)
[2022-04-25] MEDS ORDERED: LEVOCETIRIZINE D5 MG PO (12:49)
[2022-04-28] MEDS ORDERED: RESTORIL15 MG PO (14:55)
[2022-04-28] MEDS ORDERED: KEFLEX125 MG/5 M PO (14:57)
== END 2022-05-02 ==
LOC: WCC 15:26
PROVIDERS: ATTEND Family Medicine
DX: T86.821 Skin graft (allograft) (autograft) failure (principal); Y83.5 Amputation of limb(s) as the cause of abnormal reaction of the patient, or of later complication, without mention of misadventure at the time of the procedure; E11.621 Type 2 diabetes mellitus with foot ulcer; E11.622 Type 2 diabetes mellitus with other skin ulcer; M86.672 Other chronic osteomyelitis, left ankle and foot; L97.428 Non-pressure chronic ulcer of left heel and midfoot with other specified severity; L97.528 Non-pressure chronic ulcer of other part of left foot with other specified severity; L97.811 Non-pressure chronic ulcer of other part of right lower leg limited to breakdown of skin; L97.821 Non-pressure chronic ulcer of other part of left lower leg limited to breakdown of skin; L97.829 Non-pressure chronic ulcer of other part of left lower leg with unspecified severity; L97.509 Non-pressure chronic ulcer of other part of unspecified foot with unspecified severity; I87.311 Chronic venous hypertension (idiopathic) with ulcer of right lower extremity; I87.312 Chronic venous hypertension (idiopathic) with ulcer of left lower extremity; I87.2 Venous insufficiency (chronic) (peripheral); R60.0 Localized edema; G89.29 Other chronic pain; N18.9 Chronic kidney disease, unspecified; I10 Essential (primary) hypertension; I50.22 Chronic systolic (congestive) heart failure; E78.5 Hyperlipidemia, unspecified; I48.91 Unspecified atrial fibrillation; F32.9 Major depressive disorder, single episode, unspecified; G25.81 Restless legs syndrome; G90.09 Other idiopathic peripheral autonomic neuropathy; N40.0 Benign prostatic hyperplasia without lower urinary tract symptoms

== ENCOUNTER 2022-04-24 20:14 | Inpatient (IN) | payer MEDICARE ==
[~2022-04-24] VITALS: Ht 188 cm; Wt 127.0 kg
[~2022-04-24 20:14] MED LIST changes: -LIDOCAINE VISC 2% SOLN 15 ML UDC ONE; -MUPIROCIN 2% OINT 22 GM TUBE ONE
[2022-04-24] MEDS ORDERED: ACETAMINOPHEN 325 MG TAB PO STA (20:18)
[2022-04-24] MEDS ORDERED: SODIUM CHLORIDE 0.9% 1000ML 1,000 ML IV STA (20:25)
[2022-04-24 20:33] LABS: BASOPHILS % 0.3 % (0.0-1.0); EOSINOPHILS # (AUTO) 0.2 (0.0-0.4); EOSINOPHILS % 1.7 % (0.0-6.0); HEMATOCRIT 37.5 % (38.2-49.6); HEMOGLOBIN 11.2 g/dL (14.0-18.0); LYMPHOCYTES # (AUTO) 1.6 (1.0-3.2); LYMPHOCYTES % 15.5 % (18.0-39.1); MEAN CORPUSCULAR HEMOGLOBIN 25.9 pg (28-32); MEAN CORPUSCULAR HGB CONC 29.9 g/dL (31-35); MEAN CORPUSCULAR VOLUME 86.8 fL (81-99); MONOCYTES # (AUTO) 0.7 (0.2-0.8); MONOCYTES % 6.7 % (4.4-11.3); NEUTROPHILS # (AUTO) 7.8 (2.1-6.9); NEUTROPHILS % 75.6 % (38.7-80.0); PLATELET COUNT 259 x10e3/uL (140-360); RED BLOOD COUNT 4.32 x10e6/uL (4.3-5.7); RED CELL DISTRIBUTION WIDTH 15.1 % (11.7-14.4)
[2022-04-24 20:51] LABS: ALBUMIN 3.6 g/dL (3.5-5.0); ALBUMIN/GLOBULIN RATIO 0.7 (0.8-2.0); ANION GAP 14.7 mmol/L (8-16); CALCIUM 8.9 mg/dL (8.4-10.2); CREATININE, SERUM 1.47 mg/dL (0.72-1.25); POTASSIUM 4.7 mmol/L (3.5-5.1)
[2022-04-24 20:57] LABS: CREATINE KINASE MB 0.8 ng/mL (0-5.0)
[2022-04-24] MEDS ORDERED: ONDANSETRON HCL INJ 2MG/ML 2ML 2 MG/ML VIAL IV STA (21:19)
[2022-04-24] MEDS ORDERED: Morphine 4mg INJECTION 4 MG/ML INJ IV STA (21:19)
[2022-04-24] MEDS ORDERED: IBUPROFEN 600 MG TAB PO STA (21:29)
[2022-04-24] MEDS ORDERED: IOPAMIDOL 370 MG/ML 100 ML INFUS..BTL INJ ONE (22:03)
[2022-04-25] VITALS (7 sets, daily range): BP systolic 122–153; BP diastolic 67–78
[2022-04-25] MEDS ORDERED: ONDANSETRON HCL INJ 2MG/ML 2ML 2 MG/ML VIAL IV PRN (00:15)
[2022-04-25] MEDS ORDERED: GABAPENTIN 300 MG CAP PO ONE ×2 (01:15→10:15)
[2022-04-25] MEDS ORDERED: GABAPENTIN 400 MG CAP PO SCH (01:15)
[2022-04-25] MEDS ORDERED: GABAPENTIN 300 MG CAP ONE (01:22)
[2022-04-25] MEDS: Morphine 4mg INJECTION 4 MG/ML INJ IV PRN ×4 (02:00→17:15)
[2022-04-25] MEDS ORDERED: SODIUM CHLORIDE 0.9% 250ML 250 ML ONE (06:39)
[2022-04-25] MEDS ORDERED: Vancomycin IV 1 GM in SODIUM CHLORIDE 0.9% 250ML 250 ML IV ONE (08:45)
[2022-04-25 09:34] LABS: ANION GAP 15.3 mmol/L (8-16); CALCIUM 8.5 mg/dL (8.4-10.2); CREATININE, SERUM 1.44 mg/dL (0.72-1.25); POTASSIUM 4.3 mmol/L (3.5-5.1)
[2022-04-25] MEDS ORDERED: OXYCODONE/ACETAMINOPHEN 5-325 1 EACH TABLET PO STA (11:10)
[2022-04-25] MEDS ORDERED: LEVOCETIRIZINE D5 MG PO (12:49)
[2022-04-25] MEDS ORDERED: ZETIA10 MG PO (12:49)
[2022-04-25] MEDS ORDERED: FUROSEMIDE40 MG PO (12:49)
[2022-04-25] MEDS ORDERED: ROPINIROLE HCL1 MG PO ×2 (12:49)
[2022-04-25] MEDS ORDERED: ONDANSETRON ODT4 MG PO (12:49)
[2022-04-25] MEDS ORDERED: GABAPENTIN400 MG PO (12:49)
[2022-04-25] MEDS ORDERED: NITROGLYCERIN1 EAC2 TOP (12:49)
[2022-04-25] MEDS ORDERED: MIRALAX17 GM PO (12:49)
[2022-04-25] MEDS ORDERED: ZESTRIL10 MG PO (12:49)
[2022-04-25] MEDS ORDERED: COREG3.125 MG PO (12:49)
[2022-04-25] MEDS ORDERED: BUPROPION HCL75 MG PO (12:49)
[2022-04-25] MEDS ORDERED: PANTOPRAZOLE SO40 MG PO (12:49)
[2022-04-25] MEDS ORDERED: TEMAZEPAM15 MG PO (12:49)
[2022-04-25] MEDS ORDERED: NOVOLIN N100 UNIT/1 SC (12:49)
[2022-04-25 15:03] LABS: CREATINE KINASE MB 0.8 ng/mL (0-5.0)
[2022-04-25] MEDS: MORPHINE SULFATE 30 MG TAB ER PO SCH ×2 (15:21→21:14)
[2022-04-25] MEDS: CEFTRIAXONE 2 GM in SODIUM CHLORIDE 0.9% 100 ML IV SCH (15:23)
[2022-04-25] MEDS: INSULIN LISPRO 100 UNIT/1 ML 3ML VIAL SQ SCH ×2 (16:33→21:00)
[2022-04-25] MEDS: TAMSULOSIN HCL 0.4 MG CAP PO SCH (21:14)
[2022-04-25] MEDS: GABAPENTIN 400 MG CAP PO SCH (21:15)
[2022-04-25] MEDS: ROPINIROLE HCL 1 MG TAB PO SCH (21:15)
[2022-04-26] VITALS (7 sets, daily range): BP systolic 133–170; BP diastolic 68–89
[2022-04-26] MEDS: Morphine 4mg INJECTION 4 MG/ML INJ IV PRN (01:09)
[2022-04-26 05:20] LABS: BASOPHILS % 0.3 % (0.0-1.0); EOSINOPHILS # (AUTO) 0.3 (0.0-0.4); EOSINOPHILS % 3.3 % (0.0-6.0); HEMATOCRIT 33.3 % (38.2-49.6); HEMOGLOBIN 9.7 g/dL (14.0-18.0); LYMPHOCYTES # (AUTO) 2.3 (1.0-3.2); LYMPHOCYTES % 25.4 % (18.0-39.1); MEAN CORPUSCULAR HEMOGLOBIN 25.6 pg (28-32); MEAN CORPUSCULAR HGB CONC 29.1 g/dL (31-35); MEAN CORPUSCULAR VOLUME 87.9 fL (81-99); MONOCYTES # (AUTO) 0.7 (0.2-0.8); MONOCYTES % 7.8 % (4.4-11.3); NEUTROPHILS # (AUTO) 5.6 (2.1-6.9); NEUTROPHILS % 62.9 % (38.7-80.0); PLATELET COUNT 215 x10e3/uL (140-360); RED BLOOD COUNT 3.79 x10e6/uL (4.3-5.7); RED CELL DISTRIBUTION WIDTH 15.2 % (11.7-14.4)
[2022-04-26 05:43] LABS: ALBUMIN 3.2 g/dL (3.5-5.0); ALBUMIN/GLOBULIN RATIO 0.7 (0.8-2.0); ANION GAP 12.2 mmol/L (8-16); CALCIUM 8.5 mg/dL (8.4-10.2); CREATININE, SERUM 1.31 mg/dL (0.72-1.25); POTASSIUM 4.2 mmol/L (3.5-5.1)
[2022-04-26] MEDS: INSULIN LISPRO 100 UNIT/1 ML 3ML VIAL SQ SCH ×4 (08:30→21:12)
[2022-04-26] MEDS: ROPINIROLE HCL 1 MG TAB PO SCH ×2 (08:32→21:53)
[2022-04-26] MEDS: MORPHINE SULFATE 30 MG TAB ER PO SCH ×2 (08:32→23:06)
[2022-04-26] MEDS: GABAPENTIN 400 MG CAP PO SCH ×2 (08:32→21:52)
[2022-04-26] MEDS ORDERED: ENOXAPARIN 30 MG/0.3 ML SYR SC SCH (09:00)
[2022-04-26] MEDS: BALSAM PERU/CASTOR OIL 60 GM OINT...G. TP SCH (09:29)
[2022-04-26] MEDS: OXYCODONE/ACETAMINOPHEN 5-325 1 EACH TABLET PO PRN ×2 (12:07→18:32)
[2022-04-26] MEDS ORDERED: POLYETHYLENE GLYCOL 3350 17 GM PACK PO PRN (12:15)
[2022-04-26] MEDS: BUPROPION HCL 75 MG TAB PO SCH (12:37)
[2022-04-26 12:56] LABS: AMPHETAMINES SCREEN,URINE NEGATIVE (NEGATIVE); BENZODIAZEPINES SCREEN,URINE NEGATIVE (NEGATIVE); PHENCYCLIDINE SCREEN,URINE NEGATIVE (NEGATIVE)
[2022-04-26] MEDS ORDERED: SODIUM CHLORIDE 0.9% 250ML 250 ML ONE (16:49)
[2022-04-26] MEDS: ENOXAPARIN 30 MG/0.3 ML SYR SC SCH (17:00)
[2022-04-26] MEDS: CEFTRIAXONE 2 GM in SODIUM CHLORIDE 0.9% 100 ML IV SCH (17:00)
[2022-04-26] MEDS: NPH, HUMAN INSULIN ISOPHANE 100 UNIT/1 ML 3ML VIAL SQ SCH ×2 (17:03→21:09)
[2022-04-26] MEDS: LISINOPRIL 10 MG TAB PO SCH (17:03)
[2022-04-26] MEDS: CARVEDILOL 3.125 MG TAB PO SCH (17:04)
[2022-04-26] MEDS ORDERED: CLONIDINE HCL 0.1 MG TAB PO PRN (19:00)
[2022-04-26] MEDS: TEMAZEPAM 15 MG CAP PO PRN (21:53)
[2022-04-26] MEDS: AMLODIPINE BESYLATE 10 MG TAB PO SCH (21:53)
[2022-04-26] MEDS: TAMSULOSIN HCL 0.4 MG CAP PO SCH (21:54)
[2022-04-27] VITALS (7 sets, daily range): BP systolic 108–159; BP diastolic 56–93
[2022-04-27 05:45] LABS: BASOPHILS % 0.6 % (0.0-1.0); EOSINOPHILS # (AUTO) 0.3 (0.0-0.4); HEMATOCRIT 34.8 % (38.2-49.6); LYMPHOCYTES # (AUTO) 2.2 (1.0-3.2); LYMPHOCYTES % 30.5 % (18.0-39.1); MEAN CORPUSCULAR HEMOGLOBIN 25.3 pg (28-32); MEAN CORPUSCULAR HGB CONC 28.7 g/dL (31-35); MEAN CORPUSCULAR VOLUME 88.1 fL (81-99); MONOCYTES # (AUTO) 0.6 (0.2-0.8); MONOCYTES % 8.1 % (4.4-11.3); NEUTROPHILS % 56.2 % (38.7-80.0); PLATELET COUNT 244 x10e3/uL (140-360); RED BLOOD COUNT 3.95 x10e6/uL (4.3-5.7); RED CELL DISTRIBUTION WIDTH 14.9 % (11.7-14.4)
[2022-04-27 05:55] LABS: ANION GAP 12.2 mmol/L (8-16); CREATININE, SERUM 1.21 mg/dL (0.72-1.25); POTASSIUM 4.2 mmol/L (3.5-5.1)
[2022-04-27] MEDS: INSULIN LISPRO 100 UNIT/1 ML 3ML VIAL SQ SCH ×4 (07:30→21:35)
[2022-04-27] MEDS ORDERED: ONDANSETRON HCL 4 MG ORAL DISINTEGRATING TAB PO PRN (08:45)
[2022-04-27] MEDS: OXYCODONE/ACETAMINOPHEN 5-325 1 EACH TABLET PO PRN ×3 (09:42→22:58)
[2022-04-27] MEDS: DOXAZOSIN MESYLATE 2 MG TAB PO SCH (09:43)
[2022-04-27] MEDS: FUROSEMIDE 40 MG TAB PO SCH (09:43)
[2022-04-27] MEDS: ASPIRIN 81 MG CHEW TAB PO SCH (09:43)
[2022-04-27] MEDS: PANTOPRAZOLE SOD 40 MG TABEC PO SCH (09:44)
[2022-04-27] MEDS: GABAPENTIN 400 MG CAP PO SCH ×2 (09:44→21:23)
[2022-04-27] MEDS: LISINOPRIL 10 MG TAB PO SCH ×2 (09:44→18:02)
[2022-04-27] MEDS: MORPHINE SULFATE 30 MG TAB ER PO SCH ×2 (09:44→21:23)
[2022-04-27] MEDS: CLOPIDOGREL BISULFATE 75 MG TAB PO SCH (09:44)
[2022-04-27] MEDS: EZETIMIBE 10 MG TAB PO SCH (09:45)
[2022-04-27] MEDS: ROPINIROLE HCL 1 MG TAB PO SCH ×2 (09:45→21:24)
[2022-04-27] MEDS: BUPROPION HCL 75 MG TAB PO SCH (09:45)
[2022-04-27] MEDS: CARVEDILOL 3.125 MG TAB PO SCH ×2 (09:48→18:02)
[2022-04-27] MEDS: NPH, HUMAN INSULIN ISOPHANE 100 UNIT/1 ML 3ML VIAL SQ SCH ×3 (09:56→21:36)
[2022-04-27] MEDS: BALSAM PERU/CASTOR OIL 60 GM OINT...G. TP SCH (09:56)
[2022-04-27] MEDS: CEFTRIAXONE 2 GM in SODIUM CHLORIDE 0.9% 100 ML IV SCH (16:01)
[2022-04-27] MEDS: ENOXAPARIN 30 MG/0.3 ML SYR SC SCH (18:01)
[2022-04-27] MEDS: TAMSULOSIN HCL 0.4 MG CAP PO SCH (21:23)
[2022-04-27] MEDS: AMLODIPINE BESYLATE 10 MG TAB PO SCH (21:24)
[2022-04-27] MEDS: TEMAZEPAM 15 MG CAP PO PRN (22:58)
[2022-04-28] VITALS: BP 135/68
[2022-04-28 04:00] VITALS: BP 141/75
[2022-04-28] MEDS: INSULIN LISPRO 100 UNIT/1 ML 3ML VIAL SQ SCH ×2 (07:30→11:14)
[2022-04-28 08:00] VITALS: BP 135/75
[2022-04-28 08:09] VITALS: BP 135/75
[2022-04-28] MEDS: BUPROPION HCL 75 MG TAB PO SCH (09:03)
[2022-04-28] MEDS: EZETIMIBE 10 MG TAB PO SCH (09:04)
[2022-04-28] MEDS: ASPIRIN 81 MG CHEW TAB PO SCH (09:04)
[2022-04-28] MEDS: GABAPENTIN 400 MG CAP PO SCH (09:04)
[2022-04-28] MEDS: CLOPIDOGREL BISULFATE 75 MG TAB PO SCH (09:04)
[2022-04-28] MEDS: PANTOPRAZOLE SOD 40 MG TABEC PO SCH (09:04)
[2022-04-28] MEDS: LISINOPRIL 10 MG TAB PO SCH (09:08)
[2022-04-28] MEDS: MORPHINE SULFATE 30 MG TAB ER PO SCH (09:08)
[2022-04-28] MEDS: DOXAZOSIN MESYLATE 2 MG TAB PO SCH (09:09)
[2022-04-28] MEDS: ROPINIROLE HCL 1 MG TAB PO SCH (09:09)
[2022-04-28] MEDS: CARVEDILOL 3.125 MG TAB PO SCH (09:09)
[2022-04-28] MEDS: FUROSEMIDE 40 MG TAB PO SCH (09:16)
[2022-04-28] MEDS: NPH, HUMAN INSULIN ISOPHANE 100 UNIT/1 ML 3ML VIAL SQ SCH ×2 (09:16→15:27)
[2022-04-28] MEDS: BALSAM PERU/CASTOR OIL 60 GM OINT...G. TP SCH (09:21)
[2022-04-28 11:12] VITALS: BP 156/70
[2022-04-28] MEDS: OXYCODONE/ACETAMINOPHEN 5-325 1 EACH TABLET PO PRN (13:29)
[2022-04-28] MEDS ORDERED: RESTORIL15 MG PO (14:55)
[2022-04-28] MEDS ORDERED: KEFLEX125 MG/5 M PO (14:57)
[2022-04-28] MEDS: CEFTRIAXONE 2 GM in SODIUM CHLORIDE 0.9% 100 ML IV SCH (15:02)
[2022-04-28 15:15] VITALS: BP 150/58
== END 2022-04-28 16:21 | disposition home or self-care (01) | DRG 602 ==
LOC: ER 20:19 → ERHOLD 04-25 00:06 → MED/SURG3 04-25 04:55 → MED/SURG 04-26 18:21 → OBSVTOIN 04-27 08:37
PROVIDERS: ADMIT Internal Medicine; ATTEND Internal Medicine
DX: L03.115 Cellulitis of right lower limb (principal); I50.33 Acute on chronic diastolic (congestive) heart failure; I13.0 Hypertensive heart and chronic kidney disease with heart failure and stage 1 through stage 4 chronic kidney disease, or unspecified chronic kidney disease; N17.9 Acute kidney failure, unspecified; E11.40 Type 2 diabetes mellitus with diabetic neuropathy, unspecified; Z79.4 Long term (current) use of insulin; G89.4 Chronic pain syndrome; I25.10 Atherosclerotic heart disease of native coronary artery without angina pectoris; Z95.1 Presence of aortocoronary bypass graft; N40.0 Benign prostatic hyperplasia without lower urinary tract symptoms; E11.51 Type 2 diabetes mellitus with diabetic peripheral angiopathy without gangrene; Z89.432 Acquired absence of left foot; Z89.431 Acquired absence of right foot; I25.2 Old myocardial infarction; Z68.35 Body mass index [BMI] 35.0-35.9, adult; E11.22 Type 2 diabetes mellitus with diabetic chronic kidney disease; N18.30 Chronic kidney disease, stage 3 unspecified; E78.5 Hyperlipidemia, unspecified; E11.69 Type 2 diabetes mellitus with other specified complication; D64.9 Anemia, unspecified; E66.01 Morbid (severe) obesity due to excess calories; Z20.822 Contact with and (suspected) exposure to COVID-19; Z79.899 Other long term (current) drug therapy
CPT/HCPCS: 36415; 71260; 80048; 80053; 80307; 82550; 82553; 82948; 83605; 83690; 83880; 84484; 85025; 85379; 87040; 87400; 93005; 94799; 99251; 99284; G0378; J0696; J1650; J2270; J2405; J2543; J3370; J7030; J7050; Q9967

== ENCOUNTER 2022-07-31 05:19 | Emergency (ER) | payer MEDICARE ==
[~2022-07-31] VITALS: Ht 188 cm; Wt 127.0 kg
[~2022-07-31 05:19] MED LIST changes: +COREG3.125 MG PO; +GABAPENTIN400 MG PO; +KEFLEX125 MG/5 M PO; +MIRALAX17 GM PO; +NITROGLYCERIN1 EAC2 TOP; +NOVOLIN N100 UNIT/1 SC; +ONDANSETRON ODT4 MG PO; +PANTOPRAZOLE SO40 MG PO; +RESTORIL15 MG PO; +ROPINIROLE HCL1 MG PO; +ZESTRIL10 MG PO; +ZETIA10 MG PO
[2022-07-31] MEDS ORDERED: ONDANSETRON HCL INJ 2MG/ML 2ML 2 MG/ML VIAL IV STA ×2 (05:53→05:54)
[2022-07-31 06:00] LABS: BASOPHILS % 0.4 % (0.0-1.0); EOSINOPHILS # (AUTO) 0.1 (0.0-0.4); EOSINOPHILS % 1.7 % (0.0-6.0); HEMATOCRIT 37.1 % (38.2-49.6); HEMOGLOBIN 11.3 g/dL (14.0-18.0); LYMPHOCYTES % 12.4 % (18.0-39.1); MEAN CORPUSCULAR HEMOGLOBIN 25.6 pg (28-32); MEAN CORPUSCULAR HGB CONC 30.5 g/dL (31-35); MEAN CORPUSCULAR VOLUME 83.9 fL (81-99); MONOCYTES # (AUTO) 0.7 (0.2-0.8); MONOCYTES % 9.1 % (4.4-11.3); NEUTROPHILS # (AUTO) 5.9 (2.1-6.9); NEUTROPHILS % 75.9 % (38.7-80.0); PLATELET COUNT 196 x10e3/uL (140-360); RED BLOOD COUNT 4.42 x10e6/uL (4.3-5.7); RED CELL DISTRIBUTION WIDTH 17.5 % (11.7-14.4)
[2022-07-31] MEDS ORDERED: ACETAMINOPHEN 325 MG TAB PO ONE ×2 (06:00)
[2022-07-31 06:14] LABS: ALBUMIN 3.3 g/dL (3.5-5.0); ALBUMIN/GLOBULIN RATIO 0.6 (0.8-2.0); ANION GAP 14.6 mmol/L (8-16); CALCIUM 8.8 mg/dL (8.4-10.2); CREATININE, SERUM 1.59 mg/dL (0.72-1.25); POTASSIUM 4.6 mmol/L (3.5-5.1)
[2022-07-31] MEDS ORDERED: AZITHROMYCIN250 MG PO (08:15)
== END 2022-07-31 09:00 | disposition home or self-care (01) ==
LOC: ER 05:39
DX: R06.00 Dyspnea, unspecified (principal); R07.9 Chest pain, unspecified; U07.1 COVID-19; R05.9 Cough, unspecified; E11.65 Type 2 diabetes mellitus with hyperglycemia; I10 Essential (primary) hypertension; E78.5 Hyperlipidemia, unspecified; I25.10 Atherosclerotic heart disease of native coronary artery without angina pectoris; I50.9 Heart failure, unspecified; R94.31 Abnormal electrocardiogram [ECG] [EKG]; Z95.1 Presence of aortocoronary bypass graft; I25.2 Old myocardial infarction; Z86.73 Personal history of transient ischemic attack (TIA), and cerebral infarction without residual deficits
CPT/HCPCS: 36415; 71045; 80053; 83880; 84484; 85025; 93005; 99283; J2405; U0002

== ENCOUNTER 2022-08-31 09:31 | Observation (INO) | payer MEDICARE ==
[~2022-08-31] VITALS: Ht 188 cm; Wt 127.0 kg
[~2022-08-31 09:31] MED LIST changes: +AZITHROMYCIN250 MG PO
[2022-08-31] MEDS ORDERED: FUROSEMIDE INJ 10 MG/ML 4 ML VIAL IV STA (09:48)
[2022-08-31] MEDS ORDERED: NITROGLYCERIN 0.4 MG SUBL SL PRN (10:00)
[2022-08-31] MEDS ORDERED: ASPIRIN 81 MG CHEW TAB PO ONE ×2 (10:00→11:30)
[2022-08-31 10:08] LABS: BASOPHILS # (AUTO) 0.1 (0.0-0.1); BASOPHILS % 0.6 % (0.0-1.0); EOSINOPHILS # (AUTO) 0.2 (0.0-0.4); EOSINOPHILS % 2.6 % (0.0-6.0); HEMOGLOBIN 11.5 g/dL (14.0-18.0); LYMPHOCYTES # (AUTO) 1.9 (1.0-3.2); LYMPHOCYTES % 23.1 % (18.0-39.1); MEAN CORPUSCULAR HEMOGLOBIN 26.4 pg (28-32); MEAN CORPUSCULAR HGB CONC 31.1 g/dL (31-35); MEAN CORPUSCULAR VOLUME 85.1 fL (81-99); MONOCYTES # (AUTO) 0.5 (0.2-0.8); MONOCYTES % 5.7 % (4.4-11.3); NEUTROPHILS # (AUTO) 5.5 (2.1-6.9); PLATELET COUNT 229 x10e3/uL (140-360); RED BLOOD COUNT 4.35 x10e6/uL (4.3-5.7); RED CELL DISTRIBUTION WIDTH 16.7 % (11.7-14.4)
[2022-08-31 10:14] LABS: ANION GAP 15.8 mmol/L (8-16); BLOOD UREA NITROGEN 22 mg/dL (7-26); BUN/CREATININE RATIO 16 (6-25); CALCIUM 8.8 mg/dL (8.4-10.2); CARBON DIOXIDE 21 mmol/L (22-29); CHLORIDE 102 mmol/L (98-107); CREATINE KINASE 52 IU/L (30-200); CREATININE, SERUM 1.35 mg/dL (0.72-1.25); GLUCOSE 279 mg/dL (74-118); POTASSIUM 4.8 mmol/L (3.5-5.1); SODIUM 134 mmol/L (136-145)
[2022-08-31] MEDS ORDERED: ENOXAPARIN SODIUM INJ 100 MG/ML SYR SC STA (11:11)
[2022-08-31] MEDS ORDERED: METOPROLOL TARTRATE 25 MG TAB PO ONE (11:15)
[2022-08-31] MEDS ORDERED: SODIUM CHLORIDE FLUSH 10 ML SYR INJ PRN (11:30)
[2022-08-31] MEDS: NITROGLYCERIN 2% OINT 1 GM PKT TOP SCH ×3 (12:00→19:23)
[2022-08-31] MEDS ORDERED: ONDANSETRON HCL INJ 2MG/ML 2ML 2 MG/ML VIAL IV PRN (12:15)
[2022-08-31] MEDS ORDERED: POLYETHYLENE GLYCOL 3350 17 GM PACK PO PRN (12:15)
[2022-08-31] MEDS ORDERED: ACETAMINOPHEN 325 MG TAB PO PRN (12:15)
[2022-08-31] MEDS: MORPHINE SULFATE ER 30 MG TAB PO SCH ×2 (12:15→17:01)
[2022-08-31] MEDS ORDERED: TEMAZEPAM 15 MG CAP PO PRN (12:15)
[2022-08-31 14:50] VITALS: BP 148/85
[2022-08-31 15:07] VITALS: BP 148/85
[2022-08-31 16:07] VITALS: BP 148/85
[2022-08-31] MEDS: NPH, HUMAN INSULIN ISOPHANE 100 UNIT/1 ML 3ML VIAL SQ SCH (16:35)
[2022-08-31] MEDS: CARVEDILOL 3.125 MG TAB PO SCH (17:01)
[2022-08-31] MEDS: GABAPENTIN 400 MG CAP PO SCH (17:01)
[2022-08-31 19:26] LABS: CREATINE KINASE MB 1.4 ng/mL (0-5.0)
[2022-08-31 20:00] VITALS: BP 147/86
[2022-08-31] MEDS ORDERED: AMLODIPINE BESYLATE 5 MG TAB PO SCH (21:00)
[2022-08-31] MEDS ORDERED: ATORVASTATIN 40 MG TAB PO SCH (21:00)
[2022-08-31] MEDS ORDERED: TAMSULOSIN HCL 0.4 MG CAP PO SCH (21:00)
[2022-08-31] MEDS: FUROSEMIDE INJ 10 MG/ML 4 ML VIAL IV SCH (21:16)
[2022-08-31 21:40] LABS: CREATINE KINASE MB 1.3 ng/mL (0-5.0)
[2022-08-31 23:17] VITALS: BP 147/78
[2022-09-01] MEDS: MORPHINE SULFATE ER 30 MG TAB PO SCH ×2 (00:10→11:38)
[2022-09-01 02:15] VITALS: BP 139/76
[2022-09-01] MEDS: NITROGLYCERIN 2% OINT 1 GM PKT TOP SCH ×3 (04:47→11:11)
[2022-09-01 05:58] VITALS: BP 116/74
[2022-09-01 07:35] LABS: CHOL/HDL RATIO 3.5 (3.9-4.7)
[2022-09-01 07:42] LABS: CREATINE KINASE MB 1.1 ng/mL (0-5.0)
[2022-09-01 08:06] VITALS: BP 153/80
[2022-09-01] MEDS ORDERED: ROPINIROLE HCL 1 MG TAB PO SCH (09:00)
[2022-09-01] MEDS ORDERED: PANTOPRAZOLE SOD 40 MG TABEC PO SCH (09:00)
[2022-09-01] MEDS ORDERED: EZETIMIBE 10 MG TAB PO SCH (09:00)
[2022-09-01] MEDS ORDERED: CLOPIDOGREL BISULFATE 75 MG TAB PO SCH (09:00)
[2022-09-01] MEDS ORDERED: DOXAZOSIN MESYLATE 2 MG TAB PO SCH (09:00)
[2022-09-01] MEDS ORDERED: FLUOXETINE HCL 20 MG CAP PO SCH (09:00)
[2022-09-01] MEDS ORDERED: ASPIRIN 81 MG CHEW TAB PO SCH (09:00)
[2022-09-01 09:05] VITALS: BP 153/80
[2022-09-01] MEDS: FUROSEMIDE INJ 10 MG/ML 4 ML VIAL IV SCH (09:11)
[2022-09-01] MEDS: GABAPENTIN 400 MG CAP PO SCH (09:11)
[2022-09-01] MEDS: CARVEDILOL 3.125 MG TAB PO SCH (09:11)
[2022-09-01] MEDS: NPH, HUMAN INSULIN ISOPHANE 100 UNIT/1 ML 3ML VIAL SQ SCH ×2 (09:23→11:41)
[2022-09-01] MEDS ORDERED: FUROSEMIDE40 MG PO (11:50)
[2022-09-01 11:51] VITALS: BP 126/75
== END 2022-09-01 13:55 | disposition home or self-care (01) ==
LOC: ER 09:36 → ERHOLD 11:29 → INTOOBSV 11:29 → MED/SURG2 14:17
PROVIDERS: ADMIT Internal Medicine; ATTEND Internal Medicine
DX: I13.0 Hypertensive heart and chronic kidney disease with heart failure and stage 1 through stage 4 chronic kidney disease, or unspecified chronic kidney disease (principal); N18.30 Chronic kidney disease, stage 3 unspecified; E11.22 Type 2 diabetes mellitus with diabetic chronic kidney disease; Z79.4 Long term (current) use of insulin; N40.1 Benign prostatic hyperplasia with lower urinary tract symptoms; R33.8 Other retention of urine; E78.00 Pure hypercholesterolemia, unspecified; G89.4 Chronic pain syndrome; F32.A Depression, unspecified; E11.51 Type 2 diabetes mellitus with diabetic peripheral angiopathy without gangrene; I21.A1 Myocardial infarction type 2; I50.33 Acute on chronic diastolic (congestive) heart failure; Z86.73 Personal history of transient ischemic attack (TIA), and cerebral infarction without residual deficits; F41.9 Anxiety disorder, unspecified; G25.81 Restless legs syndrome; Z79.899 Other long term (current) drug therapy; Z20.822 Contact with and (suspected) exposure to COVID-19
CPT/HCPCS: 0223U; 36415 ×2; 71045; 80048; 80061; 82550 ×2; 82553 ×2; 82948 ×2; 83880; 84484 ×2; 85025; 93005; 93306; 94760; 99284; G0378 ×2; J1650; J1940 ×2; S0164

== ENCOUNTER 2022-11-03 12:19 | Inpatient (IN) | payer MEDICARE ==
[~2022-11-03] VITALS: Ht 188 cm; Wt 133.1 kg
[2022-11-03] MEDS ORDERED: FENTANYL CITRATE/PF 100MCG/2 ML INJ ONE (12:47)
[2022-11-03] MEDS ORDERED: MIDAZOLAM HCL 2 MG/2 ML VIAL ONE (12:47)
[2022-11-03 13:28] LABS: BASOPHILS # (AUTO) 0.1 (0.0-0.1); BASOPHILS % 0.5 % (0.0-1.0); EOSINOPHILS # (AUTO) 0.2 (0.0-0.4); EOSINOPHILS % 1.6 % (0.0-6.0); HEMATOCRIT 35.4 % (38.2-49.6); HEMOGLOBIN 11.3 g/dL (14.0-18.0); LYMPHOCYTES # (AUTO) 2.4 (1.0-3.2); LYMPHOCYTES % 22.8 % (18.0-39.1); MEAN CORPUSCULAR HEMOGLOBIN 27.3 pg (28-32); MEAN CORPUSCULAR HGB CONC 31.9 g/dL (31-35); MEAN CORPUSCULAR VOLUME 85.5 fL (81-99); MONOCYTES # (AUTO) 1.1 (0.2-0.8); MONOCYTES % 10.2 % (4.4-11.3); NEUTROPHILS # (AUTO) 6.9 (2.1-6.9); NEUTROPHILS % 64.5 % (38.7-80.0); PLATELET COUNT 202 x10e3/uL (140-360); RED BLOOD COUNT 4.14 x10e6/uL (4.3-5.7); RED CELL DISTRIBUTION WIDTH 15.4 % (11.7-14.4)
[2022-11-03 13:39] LABS: INR 1.05; PROTHROMBIN TIME 14.2 seconds (11.9-14.5)
[2022-11-03 13:40] LABS: PARTIAL THROMBOPLASTIN TIME 31.9 seconds (23.8-35.5)
[2022-11-03 13:49] LABS: ALANINE AMINOTRANSFERASE 14 IU/L (0-55); ALBUMIN/GLOBULIN RATIO 0.7 (0.8-2.0); ALKALINE PHOSPHATASE 84 IU/L (40-150); ANION GAP 15.6 mmol/L (8-16); BLOOD UREA NITROGEN 20 mg/dL (7-26); BUN/CREATININE RATIO 12 (6-25); CALCIUM 8.7 mg/dL (8.4-10.2); CARBON DIOXIDE 24 mmol/L (22-29); CHLORIDE 97 mmol/L (98-107); CREATININE, SERUM 1.67 mg/dL (0.72-1.25); GLUCOSE 389 mg/dL (74-118); MAGNESIUM 1.6 MG/DL (1.3-2.1); POTASSIUM 4.6 mmol/L (3.5-5.1); SODIUM 132 mmol/L (136-145)
[2022-11-03] MEDS ORDERED: SODIUM CHLORIDE 0.9% 500ML 500 ML IV ONE (14:00)
[2022-11-03] MEDS ORDERED: PIPERACILLIN/TAZOBACTAM 3.375 GM VIAL ONE (14:06)
[2022-11-03] MEDS ORDERED: SODIUM CHLORIDE 0.9% 1000ML 0 ML ONE (14:06)
[2022-11-03] MEDS ORDERED: SODIUM CHLORIDE 0.9% 500ML 500 ML ONE (14:25)
[2022-11-03] MEDS ORDERED: Vancomycin IV 1 GM in SODIUM CHLORIDE 0.9% 250ML 250 ML IV ONE (14:30)
[2022-11-03] MEDS ORDERED: Vancomycin IV 1 GM VIAL ONE (14:40)
[2022-11-03] MEDS ORDERED: SODIUM CHLORIDE 0.9% 250ML 250 ML ONE (14:41)
[2022-11-03 15:38] VITALS: BP 126/71; PULSE 65; RESP 19; TEMP 97.6; O2SAT 98
[2022-11-03 16:05] VITALS: BP 126/71; PULSE 65; RESP 19; TEMP 97.6; O2SAT 98
[2022-11-03 16:15] VITALS: BP 126/71; PULSE 65; RESP 19; TEMP 97.6; O2SAT 98
[2022-11-03] MEDS: INSULIN LISPRO 100 UNIT/1 ML 3ML VIAL SQ SCH ×2 (18:36→22:59)
[2022-11-03] MEDS ORDERED: POLYETHYLENE GLYCOL 3350 17 GM PACK PO PRN (19:00)
[2022-11-03] MEDS ORDERED: MORPHINE SULFATE ER 30 MG TAB PO SCH (19:00)
[2022-11-03] MEDS ORDERED: ONDANSETRON HCL 4 MG ORAL DISINTEGRATING TAB PO PRN (19:00)
[2022-11-03 20:00] VITALS: BP 126/71; PULSE 65; RESP 19; TEMP 97.6; O2SAT 98
[2022-11-03 20:16] VITALS: BP 116/70; PULSE 86; RESP 20; TEMP 98.7; O2SAT 100
[2022-11-03] MEDS ORDERED: INSULIN LISPRO 100 UNIT/1 ML 3ML VIAL SQ SCH (21:00)
[2022-11-03] MEDS: ATORVASTATIN 40 MG TAB PO SCH (22:42)
[2022-11-03] MEDS: TAMSULOSIN HCL 0.4 MG CAP PO SCH (22:42)
[2022-11-03] MEDS: LORATADINE 10 MG TAB PO SCH (22:42)
[2022-11-03] MEDS: ROPINIROLE HCL 1 MG TAB PO SCH (22:43)
[2022-11-03] MEDS: AMLODIPINE BESYLATE 5 MG TAB PO SCH (22:43)
[2022-11-03] MEDS: TEMAZEPAM 15 MG CAP PO PRN (22:53)
[2022-11-03] MEDS: OXYCODONE/ACETAMINOPHEN 5-325 1 EACH TABLET PO PRN (22:53)
[2022-11-03] MEDS: INSULIN GLARGINE 100 UNITS/ML VIAL SC SCH (23:03)
[2022-11-04] VITALS (9 sets, daily range): BP systolic 103–154; BP diastolic 56–74; PULSE 50–93; RESP 16–21; TEMP 97.9–98.6; O2SAT 95–100
[2022-11-04 05:35] LABS: BASOPHILS % 0.4 % (0.0-1.0); EOSINOPHILS # (AUTO) 0.3 (0.0-0.4); EOSINOPHILS % 3.3 % (0.0-6.0); HEMATOCRIT 35.7 % (38.2-49.6); LYMPHOCYTES # (AUTO) 2.2 (1.0-3.2); LYMPHOCYTES % 24.1 % (18.0-39.1); MEAN CORPUSCULAR HEMOGLOBIN 27.2 pg (28-32); MEAN CORPUSCULAR HGB CONC 30.8 g/dL (31-35); MEAN CORPUSCULAR VOLUME 88.4 fL (81-99); MONOCYTES # (AUTO) 0.9 (0.2-0.8); NEUTROPHILS # (AUTO) 5.5 (2.1-6.9); NEUTROPHILS % 61.8 % (38.7-80.0); PLATELET COUNT 176 x10e3/uL (140-360); RED BLOOD COUNT 4.04 x10e6/uL (4.3-5.7); RED CELL DISTRIBUTION WIDTH 15.2 % (11.7-14.4)
[2022-11-04 05:55] LABS: ALBUMIN 2.8 g/dL (3.5-5.0); ALBUMIN/GLOBULIN RATIO 0.6 (0.8-2.0); ANION GAP 12.2 mmol/L (8-16); CALCIUM 8.5 mg/dL (8.4-10.2); CREATININE, SERUM 1.31 mg/dL (0.72-1.25); POTASSIUM 4.2 mmol/L (3.5-5.1)
[2022-11-04] MEDS: ASPIRIN 81 MG CHEW TAB PO SCH (08:48)
[2022-11-04] MEDS: ROPINIROLE HCL 1 MG TAB PO SCH ×2 (08:48→20:50)
[2022-11-04] MEDS: DOXAZOSIN MESYLATE 2 MG TAB PO SCH (08:49)
[2022-11-04] MEDS: CARVEDILOL 3.125 MG TAB PO SCH ×2 (08:49→17:02)
[2022-11-04] MEDS: LISINOPRIL 10 MG TAB PO SCH ×2 (08:49→17:01)
[2022-11-04] MEDS: ATORVASTATIN 40 MG TAB PO SCH ×2 (08:50→21:04)
[2022-11-04] MEDS: EZETIMIBE 10 MG TAB PO SCH (08:50)
[2022-11-04] MEDS: CLOPIDOGREL BISULFATE 75 MG TAB PO SCH (08:50)
[2022-11-04] MEDS: PANTOPRAZOLE SOD 40 MG TABEC PO SCH (08:50)
[2022-11-04] MEDS: FLUOXETINE HCL 20 MG CAP PO SCH (08:50)
[2022-11-04] MEDS: BUPROPION HCL 75 MG TAB PO SCH (08:50)
[2022-11-04] MEDS: FUROSEMIDE 40 MG TAB PO SCH (08:50)
[2022-11-04] MEDS: GABAPENTIN 400 MG CAP PO SCH ×2 (08:50→17:01)
[2022-11-04] MEDS: INSULIN LISPRO 100 UNIT/1 ML 3ML VIAL SQ SCH ×4 (08:56→21:02)
[2022-11-04] MEDS: MORPHINE SULFATE ER 15 MG TAB PO SCH ×2 (09:48→20:47)
[2022-11-04 13:10] LABS: CREATINE KINASE 35 IU/L (30-200)
[2022-11-04] MEDS ORDERED: PIPERACILLIN/TAZOBACTAM 3.375 GM VIAL ONE (15:00)
[2022-11-04] MEDS: OXYCODONE/ACETAMINOPHEN 5-325 1 EACH TABLET PO PRN ×2 (17:13→21:10)
[2022-11-04] MEDS: LORATADINE 10 MG TAB PO SCH (20:48)
[2022-11-04] MEDS: TAMSULOSIN HCL 0.4 MG CAP PO SCH (20:49)
[2022-11-04] MEDS: AMLODIPINE BESYLATE 5 MG TAB PO SCH (20:49)
[2022-11-04] MEDS: INSULIN GLARGINE 100 UNITS/ML VIAL SC SCH (20:53)
[2022-11-04] MEDS ORDERED: IOPAMIDOL 370 MG/ML 100 ML INFUS..BTL INJ ONE (21:06)
[2022-11-04] MEDS: TEMAZEPAM 15 MG CAP PO PRN (21:09)
[2022-11-05] VITALS (8 sets, daily range): BP systolic 97–126; BP diastolic 61–73; PULSE 65–82; RESP 16–20; TEMP 97.3–98.5; O2SAT 96–99
[2022-11-05] MEDS: ROPINIROLE HCL 1 MG TAB PO SCH ×2 (08:54→21:43)
[2022-11-05] MEDS: LISINOPRIL 10 MG TAB PO SCH ×2 (08:55→17:00)
[2022-11-05] MEDS: GABAPENTIN 400 MG CAP PO SCH ×2 (08:55→17:00)
[2022-11-05] MEDS: FLUOXETINE HCL 20 MG CAP PO SCH (08:55)
[2022-11-05] MEDS: DOXAZOSIN MESYLATE 2 MG TAB PO SCH (08:56)
[2022-11-05] MEDS: ASPIRIN 81 MG CHEW TAB PO SCH (08:56)
[2022-11-05] MEDS: CLOPIDOGREL BISULFATE 75 MG TAB PO SCH (08:56)
[2022-11-05] MEDS: EZETIMIBE 10 MG TAB PO SCH (08:56)
[2022-11-05] MEDS: BUPROPION HCL 75 MG TAB PO SCH (08:56)
[2022-11-05] MEDS: CARVEDILOL 3.125 MG TAB PO SCH ×2 (08:57→17:00)
[2022-11-05] MEDS: FUROSEMIDE 40 MG TAB PO SCH (08:57)
[2022-11-05] MEDS: MORPHINE SULFATE ER 15 MG TAB PO SCH ×2 (09:01→21:44)
[2022-11-05] MEDS: PANTOPRAZOLE SOD 40 MG TABEC PO SCH (09:01)
[2022-11-05] MEDS: INSULIN LISPRO 100 UNIT/1 ML 3ML VIAL SQ SCH ×4 (09:07→22:03)
[2022-11-05] MEDS ORDERED: Vancomycin IV 1 GM in SODIUM CHLORIDE 0.9% 250ML 250 ML IV ONE (12:30)
[2022-11-05] MEDS ORDERED: LIDOCAINE HCL 2% LOCAL INJ 5 ML SDV VIAL INJ ONE (13:20)
[2022-11-05] MEDS ORDERED: LIDOCAINE HCL 1% LOCAL INJ 20 ML VIAL ONE (16:22)
[2022-11-05] MEDS ORDERED: BUPIVACAINE HCL 0.5% INJ 30 ML VIAL INJ ONE (16:22)
[2022-11-05] MEDS ORDERED: NEOSTIGMINE 1 MG/ML 10ML VIAL ONE (16:23)
[2022-11-05] MEDS: ATORVASTATIN 40 MG TAB PO SCH (21:43)
[2022-11-05] MEDS: AMLODIPINE BESYLATE 5 MG TAB PO SCH (21:44)
[2022-11-05] MEDS: LORATADINE 10 MG TAB PO SCH (21:45)
[2022-11-05] MEDS: TAMSULOSIN HCL 0.4 MG CAP PO SCH (21:50)
[2022-11-05] MEDS: TEMAZEPAM 15 MG CAP PO PRN (21:55)
[2022-11-05] MEDS: INSULIN GLARGINE 100 UNITS/ML VIAL SC SCH (22:03)
[2022-11-05] MEDS: Vancomycin IV 1 GM in SODIUM CHLORIDE 0.9% 250ML 250 ML IV SCH (22:40)
[2022-11-06] VITALS: BP 146/78; PULSE 67; RESP 20; TEMP 98.2; O2SAT 98
[2022-11-06 04:00] VITALS: BP 150/74; PULSE 70; RESP 20; TEMP 97.5; O2SAT 100
[2022-11-06 05:02] LABS: BASOPHILS % 0.6 % (0.0-1.0); EOSINOPHILS # (AUTO) 0.2 (0.0-0.4); EOSINOPHILS % 4.5 % (0.0-6.0); HEMATOCRIT 33.2 % (38.2-49.6); HEMOGLOBIN 10.5 g/dL (14.0-18.0); LYMPHOCYTES # (AUTO) 1.8 (1.0-3.2); LYMPHOCYTES % 33.5 % (18.0-39.1); MEAN CORPUSCULAR HEMOGLOBIN 27.2 pg (28-32); MEAN CORPUSCULAR HGB CONC 31.6 g/dL (31-35); MONOCYTES # (AUTO) 0.4 (0.2-0.8); MONOCYTES % 8.2 % (4.4-11.3); NEUTROPHILS # (AUTO) 2.8 (2.1-6.9); NEUTROPHILS % 52.8 % (38.7-80.0); PLATELET COUNT 184 x10e3/uL (140-360); RED BLOOD COUNT 3.86 x10e6/uL (4.3-5.7); RED CELL DISTRIBUTION WIDTH 15.2 % (11.7-14.4)
[2022-11-06 05:19] LABS: ANION GAP 12.3 mmol/L (8-16); CALCIUM 8.5 mg/dL (8.4-10.2); CREATININE, SERUM 1.52 mg/dL (0.72-1.25); POTASSIUM 4.3 mmol/L (3.5-5.1)
[2022-11-06] MEDS: INSULIN LISPRO 100 UNIT/1 ML 3ML VIAL SQ SCH ×4 (07:30→23:00)
[2022-11-06 09:24] VITALS: BP 137/66; PULSE 107; RESP 20; TEMP 98.3; O2SAT 99
[2022-11-06] MEDS: GABAPENTIN 400 MG CAP PO SCH ×2 (10:41→16:41)
[2022-11-06] MEDS: PANTOPRAZOLE SOD 40 MG TABEC PO SCH (10:41)
[2022-11-06] MEDS: FLUOXETINE HCL 20 MG CAP PO SCH (10:41)
[2022-11-06] MEDS: DOXAZOSIN MESYLATE 2 MG TAB PO SCH (10:41)
[2022-11-06] MEDS: ASPIRIN 81 MG CHEW TAB PO SCH (10:42)
[2022-11-06] MEDS: CARVEDILOL 3.125 MG TAB PO SCH ×2 (10:42→16:41)
[2022-11-06] MEDS: CLOPIDOGREL BISULFATE 75 MG TAB PO SCH (10:44)
[2022-11-06] MEDS: ROPINIROLE HCL 1 MG TAB PO SCH ×2 (10:45→22:41)
[2022-11-06] MEDS: BUPROPION HCL 75 MG TAB PO SCH (10:45)
[2022-11-06] MEDS: LISINOPRIL 10 MG TAB PO SCH ×2 (10:45→16:41)
[2022-11-06] MEDS: MORPHINE SULFATE ER 15 MG TAB PO SCH ×3 (10:45→22:40)
[2022-11-06] MEDS: EZETIMIBE 10 MG TAB PO SCH (10:46)
[2022-11-06] MEDS: FUROSEMIDE 40 MG TAB PO SCH (10:54)
[2022-11-06] MEDS: Vancomycin IV 1 GM in SODIUM CHLORIDE 0.9% 250ML 250 ML IV SCH ×2 (12:00→23:05)
[2022-11-06 12:07] VITALS: BP 154/74; PULSE 94; RESP 17; TEMP 98.5; O2SAT 97
[2022-11-06 16:42] VITALS: BP 131/75; PULSE 78; RESP 16; TEMP 98.5; O2SAT 98
[2022-11-06] MEDS: MUPIROCIN 2% OINT 22 GM TUBE TOP SCH (16:44)
[2022-11-06 20:00] VITALS: BP 127/66; PULSE 80; RESP 20; TEMP 98.8; O2SAT 98
[2022-11-06] MEDS: ATORVASTATIN 40 MG TAB PO SCH (22:41)
[2022-11-06] MEDS: AMLODIPINE BESYLATE 5 MG TAB PO SCH (22:41)
[2022-11-06] MEDS: LORATADINE 10 MG TAB PO SCH (22:41)
[2022-11-06] MEDS: TAMSULOSIN HCL 0.4 MG CAP PO SCH (22:42)
[2022-11-06] MEDS: TEMAZEPAM 15 MG CAP PO PRN (22:48)
[2022-11-06] MEDS: INSULIN GLARGINE 100 UNITS/ML VIAL SC SCH (22:58)
[2022-11-07] VITALS (8 sets, daily range): BP systolic 120–135; BP diastolic 59–75; PULSE 70–87; RESP 18–20; TEMP 97.5–98.7; O2SAT 94–100
[2022-11-07] MEDS: OXYCODONE/ACETAMINOPHEN 5-325 1 EACH TABLET PO PRN (03:19)
[2022-11-07 05:04] LABS: BASOPHILS % 0.8 % (0.0-1.0); EOSINOPHILS # (AUTO) 0.3 (0.0-0.4); EOSINOPHILS % 4.7 % (0.0-6.0); HEMATOCRIT 34.3 % (38.2-49.6); HEMOGLOBIN 10.5 g/dL (14.0-18.0); LYMPHOCYTES # (AUTO) 1.2 (1.0-3.2); LYMPHOCYTES % 23.1 % (18.0-39.1); MEAN CORPUSCULAR HEMOGLOBIN 27.1 pg (28-32); MEAN CORPUSCULAR HGB CONC 30.6 g/dL (31-35); MEAN CORPUSCULAR VOLUME 88.6 fL (81-99); MONOCYTES # (AUTO) 0.5 (0.2-0.8); MONOCYTES % 9.5 % (4.4-11.3); NEUTROPHILS # (AUTO) 3.2 (2.1-6.9); NEUTROPHILS % 61.3 % (38.7-80.0); PLATELET COUNT 186 x10e3/uL (140-360); RED BLOOD COUNT 3.87 x10e6/uL (4.3-5.7); RED CELL DISTRIBUTION WIDTH 15.2 % (11.7-14.4)
[2022-11-07 05:22] LABS: ANION GAP 13.1 mmol/L (8-16); CALCIUM 8.7 mg/dL (8.4-10.2); CREATININE, SERUM 1.38 mg/dL (0.72-1.25); POTASSIUM 4.1 mmol/L (3.5-5.1)
[2022-11-07] MEDS: BUPROPION HCL 75 MG TAB PO SCH (09:16)
[2022-11-07] MEDS: EZETIMIBE 10 MG TAB PO SCH (09:16)
[2022-11-07] MEDS: ROPINIROLE HCL 1 MG TAB PO SCH ×2 (09:17→22:01)
[2022-11-07] MEDS: ASPIRIN 81 MG CHEW TAB PO SCH (09:17)
[2022-11-07] MEDS: DOXAZOSIN MESYLATE 2 MG TAB PO SCH (09:17)
[2022-11-07] MEDS: FLUOXETINE HCL 20 MG CAP PO SCH (09:17)
[2022-11-07] MEDS: GABAPENTIN 400 MG CAP PO SCH ×2 (09:17→16:30)
[2022-11-07] MEDS: MUPIROCIN 2% OINT 22 GM TUBE TOP SCH (09:18)
[2022-11-07] MEDS: MORPHINE SULFATE ER 15 MG TAB PO SCH ×2 (09:18→22:00)
[2022-11-07] MEDS: LISINOPRIL 10 MG TAB PO SCH ×2 (09:19→16:30)
[2022-11-07] MEDS: CARVEDILOL 3.125 MG TAB PO SCH ×2 (09:19→16:31)
[2022-11-07] MEDS: PANTOPRAZOLE SOD 40 MG TABEC PO SCH (09:20)
[2022-11-07] MEDS: CLOPIDOGREL BISULFATE 75 MG TAB PO SCH (09:20)
[2022-11-07] MEDS: INSULIN LISPRO 100 UNIT/1 ML 3ML VIAL SQ SCH ×4 (09:54→23:42)
[2022-11-07] MEDS: FUROSEMIDE 40 MG TAB PO SCH (11:07)
[2022-11-07] MEDS: Vancomycin IV 1 GM in SODIUM CHLORIDE 0.9% 250ML 250 ML IV SCH (12:31)
[2022-11-07] MEDS: LORATADINE 10 MG TAB PO SCH (22:01)
[2022-11-07] MEDS: TAMSULOSIN HCL 0.4 MG CAP PO SCH (22:01)
[2022-11-07] MEDS: ATORVASTATIN 40 MG TAB PO SCH (22:01)
[2022-11-07] MEDS: AMLODIPINE BESYLATE 5 MG TAB PO SCH (22:01)
[2022-11-07] MEDS: INSULIN GLARGINE 100 UNITS/ML VIAL SC SCH (23:41)
[2022-11-08] VITALS (8 sets, daily range): BP systolic 122–143; BP diastolic 64–83; PULSE 57–100; RESP 17–23; TEMP 97.4–99.5; O2SAT 93–100
[2022-11-08] MEDS: INSULIN LISPRO 100 UNIT/1 ML 3ML VIAL SQ SCH ×4 (07:30→22:58)
[2022-11-08] MEDS: MUPIROCIN 2% OINT 22 GM TUBE TOP SCH ×2 (09:00→10:40)
[2022-11-08] MEDS: BUPROPION HCL 75 MG TAB PO SCH (09:52)
[2022-11-08] MEDS: CLOPIDOGREL BISULFATE 75 MG TAB PO SCH (09:53)
[2022-11-08] MEDS: DOXAZOSIN MESYLATE 2 MG TAB PO SCH (09:53)
[2022-11-08] MEDS: PANTOPRAZOLE SOD 40 MG TABEC PO SCH (09:53)
[2022-11-08] MEDS: FLUOXETINE HCL 20 MG CAP PO SCH (09:53)
[2022-11-08] MEDS: ROPINIROLE HCL 1 MG TAB PO SCH ×2 (09:53→22:05)
[2022-11-08] MEDS: LISINOPRIL 10 MG TAB PO SCH ×2 (09:53→16:30)
[2022-11-08] MEDS: CARVEDILOL 3.125 MG TAB PO SCH ×2 (09:54→16:29)
[2022-11-08] MEDS: GABAPENTIN 400 MG CAP PO SCH ×2 (09:54→16:29)
[2022-11-08] MEDS: EZETIMIBE 10 MG TAB PO SCH (09:55)
[2022-11-08] MEDS: MORPHINE SULFATE ER 15 MG TAB PO SCH ×2 (09:55→22:51)
[2022-11-08] MEDS: ASPIRIN 81 MG CHEW TAB PO SCH (09:55)
[2022-11-08] MEDS: FUROSEMIDE 40 MG TAB PO SCH (10:40)
[2022-11-08] MEDS ORDERED: ACETAMINOPHEN 1000 MG/100 ML 0 ML IV ONE (10:42)
[2022-11-08] MEDS ORDERED: BUPIVACAINE HCL 0.5% INJ 30 ML VIAL INJ ONE (11:11)
[2022-11-08] MEDS: ATORVASTATIN 40 MG TAB PO SCH (22:05)
[2022-11-08] MEDS: AMLODIPINE BESYLATE 5 MG TAB PO SCH (22:06)
[2022-11-08] MEDS: LORATADINE 10 MG TAB PO SCH (22:06)
[2022-11-08] MEDS: TAMSULOSIN HCL 0.4 MG CAP PO SCH (22:51)
[2022-11-08] MEDS: INSULIN GLARGINE 100 UNITS/ML VIAL SC SCH (22:57)
[2022-11-09] VITALS (10 sets, daily range): BP systolic 119–159; BP diastolic 69–80; PULSE 56–83; RESP 16–20; TEMP 97.6–98.9; O2SAT 96–100
[2022-11-09 05:40] LABS: BASOPHILS # (AUTO) 0.1 (0.0-0.1); BASOPHILS % 0.7 % (0.0-1.0); EOSINOPHILS # (AUTO) 0.2 (0.0-0.4); EOSINOPHILS % 3.3 % (0.0-6.0); HEMATOCRIT 34.2 % (38.2-49.6); HEMOGLOBIN 10.5 g/dL (14.0-18.0); LYMPHOCYTES # (AUTO) 1.9 (1.0-3.2); MEAN CORPUSCULAR HGB CONC 30.7 g/dL (31-35); MEAN CORPUSCULAR VOLUME 87.9 fL (81-99); MONOCYTES # (AUTO) 0.6 (0.2-0.8); MONOCYTES % 9.1 % (4.4-11.3); NEUTROPHILS # (AUTO) 4.1 (2.1-6.9); NEUTROPHILS % 59.2 % (38.7-80.0); PLATELET COUNT 203 x10e3/uL (140-360); RED BLOOD COUNT 3.89 x10e6/uL (4.3-5.7)
[2022-11-09 06:06] LABS: ANION GAP 12.5 mmol/L (8-16); CALCIUM 8.8 mg/dL (8.4-10.2); CREATININE, SERUM 1.25 mg/dL (0.72-1.25); POTASSIUM 4.5 mmol/L (3.5-5.1)
[2022-11-09] MEDS: INSULIN LISPRO 100 UNIT/1 ML 3ML VIAL SQ SCH ×4 (07:30→21:37)
[2022-11-09] MEDS: MUPIROCIN 2% OINT 22 GM TUBE TOP SCH (09:00)
[2022-11-09] MEDS: EZETIMIBE 10 MG TAB PO SCH (09:06)
[2022-11-09] MEDS: DOXAZOSIN MESYLATE 2 MG TAB PO SCH (09:07)
[2022-11-09] MEDS: BUPROPION HCL 75 MG TAB PO SCH (09:07)
[2022-11-09] MEDS: LISINOPRIL 10 MG TAB PO SCH ×2 (09:08→17:10)
[2022-11-09] MEDS: MORPHINE SULFATE ER 15 MG TAB PO SCH ×2 (09:08→21:26)
[2022-11-09] MEDS: PANTOPRAZOLE SOD 40 MG TABEC PO SCH (09:08)
[2022-11-09] MEDS: ASPIRIN 81 MG CHEW TAB PO SCH (09:09)
[2022-11-09] MEDS: GABAPENTIN 400 MG CAP PO SCH ×2 (09:09→17:10)
[2022-11-09] MEDS: CLOPIDOGREL BISULFATE 75 MG TAB PO SCH (09:09)
[2022-11-09] MEDS: ROPINIROLE HCL 1 MG TAB PO SCH ×2 (09:10→21:27)
[2022-11-09] MEDS: FLUOXETINE HCL 20 MG CAP PO SCH (09:10)
[2022-11-09] MEDS: CARVEDILOL 3.125 MG TAB PO SCH ×2 (09:12→17:10)
[2022-11-09] MEDS: FUROSEMIDE 40 MG TAB PO SCH (09:28)
[2022-11-09] MEDS: CEFAZOLIN SODIUM 2 GM in SODIUM CHLORIDE 0.9% 100 ML IV SCH (17:13)
[2022-11-09] MEDS: TAMSULOSIN HCL 0.4 MG CAP PO SCH (21:25)
[2022-11-09] MEDS: ATORVASTATIN 40 MG TAB PO SCH (21:26)
[2022-11-09] MEDS: LORATADINE 10 MG TAB PO SCH (21:26)
[2022-11-09] MEDS: AMLODIPINE BESYLATE 5 MG TAB PO SCH (21:27)
[2022-11-09] MEDS: INSULIN GLARGINE 100 UNITS/ML VIAL SC SCH (21:36)
[2022-11-10] VITALS (8 sets, daily range): BP systolic 120–145; BP diastolic 62–92; PULSE 59–89; RESP 17–20; TEMP 96.9–98; O2SAT 95–100
[2022-11-10] MEDS: CEFAZOLIN SODIUM 2 GM in SODIUM CHLORIDE 0.9% 100 ML IV SCH ×3 (02:19→17:08)
[2022-11-10] MEDS: INSULIN LISPRO 100 UNIT/1 ML 3ML VIAL SQ SCH ×4 (09:13→22:03)
[2022-11-10] MEDS: MUPIROCIN 2% OINT 22 GM TUBE TOP SCH (09:14)
[2022-11-10] MEDS: LISINOPRIL 10 MG TAB PO SCH ×2 (09:15→17:09)
[2022-11-10] MEDS: FLUOXETINE HCL 20 MG CAP PO SCH (09:16)
[2022-11-10] MEDS: DOXAZOSIN MESYLATE 2 MG TAB PO SCH (09:16)
[2022-11-10] MEDS: BUPROPION HCL 75 MG TAB PO SCH (09:16)
[2022-11-10] MEDS: ROPINIROLE HCL 1 MG TAB PO SCH ×2 (09:16→21:20)
[2022-11-10] MEDS: GABAPENTIN 400 MG CAP PO SCH ×2 (09:16→17:08)
[2022-11-10] MEDS: PANTOPRAZOLE SOD 40 MG TABEC PO SCH (09:17)
[2022-11-10] MEDS: ASPIRIN 81 MG CHEW TAB PO SCH (09:17)
[2022-11-10] MEDS: MORPHINE SULFATE ER 15 MG TAB PO SCH ×2 (09:17→21:21)
[2022-11-10] MEDS: CLOPIDOGREL BISULFATE 75 MG TAB PO SCH (09:18)
[2022-11-10] MEDS: CARVEDILOL 3.125 MG TAB PO SCH ×2 (09:18→17:09)
[2022-11-10] MEDS: EZETIMIBE 10 MG TAB PO SCH (09:20)
[2022-11-10] MEDS: FUROSEMIDE 40 MG TAB PO SCH (09:27)
[2022-11-10] MEDS ORDERED: TEMAZEPAM 15 MG CAP PO PRN (20:15)
[2022-11-10] MEDS: TAMSULOSIN HCL 0.4 MG CAP PO SCH (21:20)
[2022-11-10] MEDS: LORATADINE 10 MG TAB PO SCH (21:20)
[2022-11-10] MEDS: ATORVASTATIN 40 MG TAB PO SCH (21:21)
[2022-11-10] MEDS: AMLODIPINE BESYLATE 5 MG TAB PO SCH (21:21)
[2022-11-10] MEDS: INSULIN GLARGINE 100 UNITS/ML VIAL SC SCH (22:04)
[2022-11-11] VITALS (7 sets, daily range): BP systolic 120–137; BP diastolic 63–85; PULSE 63–91; RESP 20; TEMP 97.8–98.7; O2SAT 97–100
[2022-11-11] MEDS: OXYCODONE/ACETAMINOPHEN 5-325 1 EACH TABLET PO PRN ×2 (02:41→14:42)
[2022-11-11] MEDS: CEFAZOLIN SODIUM 2 GM in SODIUM CHLORIDE 0.9% 100 ML IV SCH ×3 (02:41→17:26)
[2022-11-11] MEDS: BUPROPION HCL 75 MG TAB PO SCH (08:26)
[2022-11-11] MEDS: PANTOPRAZOLE SOD 40 MG TABEC PO SCH (08:26)
[2022-11-11] MEDS: ASPIRIN 81 MG CHEW TAB PO SCH (08:26)
[2022-11-11] MEDS: GABAPENTIN 400 MG CAP PO SCH ×2 (08:27→16:24)
[2022-11-11] MEDS: FLUOXETINE HCL 20 MG CAP PO SCH (08:27)
[2022-11-11] MEDS: ROPINIROLE HCL 1 MG TAB PO SCH ×2 (08:27→20:59)
[2022-11-11] MEDS: CARVEDILOL 3.125 MG TAB PO SCH ×2 (08:27→16:23)
[2022-11-11] MEDS: LISINOPRIL 10 MG TAB PO SCH ×2 (08:28→16:24)
[2022-11-11] MEDS: DOXAZOSIN MESYLATE 2 MG TAB PO SCH (08:28)
[2022-11-11] MEDS: CLOPIDOGREL BISULFATE 75 MG TAB PO SCH (08:28)
[2022-11-11] MEDS: EZETIMIBE 10 MG TAB PO SCH (08:28)
[2022-11-11] MEDS: INSULIN LISPRO 100 UNIT/1 ML 3ML VIAL SQ SCH ×4 (08:39→21:08)
[2022-11-11] MEDS: FUROSEMIDE 40 MG TAB PO SCH (08:44)
[2022-11-11] MEDS: MUPIROCIN 2% OINT 22 GM TUBE TOP SCH (08:44)
[2022-11-11] MEDS: MORPHINE SULFATE ER 15 MG TAB PO SCH ×2 (09:17→20:58)
[2022-11-11] MEDS: LORATADINE 10 MG TAB PO SCH (20:57)
[2022-11-11] MEDS: AMLODIPINE BESYLATE 5 MG TAB PO SCH (20:57)
[2022-11-11] MEDS: TAMSULOSIN HCL 0.4 MG CAP PO SCH (20:57)
[2022-11-11] MEDS: ATORVASTATIN 40 MG TAB PO SCH (20:59)
[2022-11-11] MEDS: INSULIN GLARGINE 100 UNITS/ML VIAL SC SCH (21:08)
[2022-11-12] VITALS: BP 135/66; PULSE 66; RESP 20; TEMP 97.7; O2SAT 99
[2022-11-12] MEDS ORDERED: CEFAZOLIN SODIUM 2 GM ONE (02:06)
[2022-11-12] MEDS: CEFAZOLIN SODIUM 2 GM in SODIUM CHLORIDE 0.9% 100 ML IV SCH ×2 (02:13→09:39)
[2022-11-12 04:00] VITALS: BP 129/77; PULSE 69; RESP 19; TEMP 97.6; O2SAT 96
[2022-11-12 05:53] LABS: BASOPHILS % 0.6 % (0.0-1.0); EOSINOPHILS # (AUTO) 0.3 (0.0-0.4); HEMATOCRIT 35.8 % (38.2-49.6); HEMOGLOBIN 11.3 g/dL (14.0-18.0); LYMPHOCYTES # (AUTO) 2.2 (1.0-3.2); LYMPHOCYTES % 40.1 % (18.0-39.1); MEAN CORPUSCULAR HEMOGLOBIN 26.8 pg (28-32); MEAN CORPUSCULAR HGB CONC 31.6 g/dL (31-35); MEAN CORPUSCULAR VOLUME 84.8 fL (81-99); MONOCYTES # (AUTO) 0.4 (0.2-0.8); MONOCYTES % 6.7 % (4.4-11.3); NEUTROPHILS # (AUTO) 2.5 (2.1-6.9); NEUTROPHILS % 45.9 % (38.7-80.0); PLATELET COUNT 212 x10e3/uL (140-360); RED BLOOD COUNT 4.22 x10e6/uL (4.3-5.7); RED CELL DISTRIBUTION WIDTH 14.9 % (11.7-14.4)
[2022-11-12 06:11] LABS: ANION GAP 13.1 mmol/L (8-16); CREATININE, SERUM 1.26 mg/dL (0.72-1.25); POTASSIUM 4.1 mmol/L (3.5-5.1)
[2022-11-12] MEDS: INSULIN LISPRO 100 UNIT/1 ML 3ML VIAL SQ SCH ×2 (07:30→11:44)
[2022-11-12] MEDS: LISINOPRIL 10 MG TAB PO SCH (08:22)
[2022-11-12] MEDS: FLUOXETINE HCL 20 MG CAP PO SCH (08:22)
[2022-11-12] MEDS: PANTOPRAZOLE SOD 40 MG TABEC PO SCH (08:22)
[2022-11-12] MEDS: GABAPENTIN 400 MG CAP PO SCH (08:23)
[2022-11-12] MEDS: BUPROPION HCL 75 MG TAB PO SCH (08:23)
[2022-11-12] MEDS: MORPHINE SULFATE ER 15 MG TAB PO SCH (08:23)
[2022-11-12] MEDS: EZETIMIBE 10 MG TAB PO SCH (08:23)
[2022-11-12] MEDS: ROPINIROLE HCL 1 MG TAB PO SCH (08:23)
[2022-11-12] MEDS: CARVEDILOL 3.125 MG TAB PO SCH (08:24)
[2022-11-12] MEDS: CLOPIDOGREL BISULFATE 75 MG TAB PO SCH (08:24)
[2022-11-12] MEDS: MUPIROCIN 2% OINT 22 GM TUBE TOP SCH (08:25)
[2022-11-12] MEDS: ASPIRIN 81 MG CHEW TAB PO SCH (08:25)
[2022-11-12] MEDS: DOXAZOSIN MESYLATE 2 MG TAB PO SCH (08:33)
[2022-11-12 08:45] VITALS: BP 148/77; PULSE 68; RESP 19; TEMP 97.6; O2SAT 96
[2022-11-12 08:48] VITALS: BP 148/77; PULSE 67; RESP 16; TEMP 97.8; O2SAT 100
[2022-11-12] MEDS: FUROSEMIDE 40 MG TAB PO SCH (10:48)
[2022-11-12] MEDS: OXYCODONE/ACETAMINOPHEN 5-325 1 EACH TABLET PO PRN (10:48)
[2022-11-12 11:41] VITALS: BP 148/93; PULSE 77; RESP 18; TEMP 98.2; O2SAT 100
== END 2022-11-12 15:19 | disposition home or self-care (01) | DRG 854 ==
LOC: ER 12:30 → ERHOLD 14:36 → MED/SURG2 15:30
PROVIDERS: ADMIT Internal Medicine; ATTEND Internal Medicine
PROC: 0PBT0ZZ Excision of Right Finger Phalanx, Open Approach (ICD-10-PCS; 2022-11-05)
PROC: 0JBR0ZZ Excision of Left Foot Subcutaneous Tissue and Fascia, Open Approach (ICD-10-PCS; principal; 2022-11-08 13:00)
PROC: 02HV33Z Insertion of Infusion Device into Superior Vena Cava, Percutaneous Approach (ICD-10-PCS; 2022-11-09)
DX: A41.01 Sepsis due to Methicillin susceptible Staphylococcus aureus (principal); I13.0 Hypertensive heart and chronic kidney disease with heart failure and stage 1 through stage 4 chronic kidney disease, or unspecified chronic kidney disease; I50.30 Unspecified diastolic (congestive) heart failure; L03.011 Cellulitis of right finger; E78.00 Pure hypercholesterolemia, unspecified; E11.51 Type 2 diabetes mellitus with diabetic peripheral angiopathy without gangrene; N40.0 Benign prostatic hyperplasia without lower urinary tract symptoms; G89.4 Chronic pain syndrome; L89.892 Pressure ulcer of other site, stage 2; E11.42 Type 2 diabetes mellitus with diabetic polyneuropathy; I25.10 Atherosclerotic heart disease of native coronary artery without angina pectoris; E11.22 Type 2 diabetes mellitus with diabetic chronic kidney disease; E11.621 Type 2 diabetes mellitus with foot ulcer; M19.041 Primary osteoarthritis, right hand; K21.9 Gastro-esophageal reflux disease without esophagitis; F32.A Depression, unspecified; N18.30 Chronic kidney disease, stage 3 unspecified; Z96.659 Presence of unspecified artificial knee joint; Z95.1 Presence of aortocoronary bypass graft; Z20.822 Contact with and (suspected) exposure to COVID-19; Z79.82 Long term (current) use of aspirin; Z89.021 Acquired absence of right finger(s); Z79.4 Long term (current) use of insulin
CPT/HCPCS: 0223U; 36415; 36569; 71045; 80048; 80053; 80202; 82550; 82553; 82948; 83735; 84484; 85025; 85610; 85730; 86140; 87040; 87071; 87075; 87186; 87205; 96360; 96372; 99252; 99284; J0690; J1815; J2001; J2250; J2543; J2710; J7030; J7040; J7050; Q9967

== ENCOUNTER 2024-02-21 21:20 | Inpatient (IN) | payer MEDICARE ==
[~2024-02-21] VITALS: Ht 188 cm; Wt 126.8 kg
[2024-02-21] MEDS: ACETAMINOPHEN 325 MG TAB PO ONE (22:04)
[2024-02-21 22:16] LABS: BASOPHILS % 0.1 % (0.0-1.0); EOSINOPHILS % 0.2 % (0.0-6.0); HEMATOCRIT 42.6 % (38.2-49.6); HEMOGLOBIN 13.4 g/dL (14.0-18.0); LYMPHOCYTES # (AUTO) 0.5 (1.0-3.2); MEAN CORPUSCULAR HEMOGLOBIN 28.8 pg (28-32); MEAN CORPUSCULAR HGB CONC 31.5 g/dL (31-35); MEAN CORPUSCULAR VOLUME 91.6 fL (81-99); MONOCYTES # (AUTO) 0.9 (0.2-0.8); MONOCYTES % 5.3 % (4.4-11.3); NEUTROPHILS # (AUTO) 15.9 (2.1-6.9); NEUTROPHILS % 90.9 % (38.7-80.0); PLATELET COUNT 182 x10e3/uL (140-360); RED BLOOD COUNT 4.65 x10e6/uL (4.3-5.7); RED CELL DISTRIBUTION WIDTH 14.5 % (11.7-14.4); WHITE BLOOD COUNT 17.51 x10e3/uL (4.8-10.8)
[2024-02-21 22:33] LABS: ALANINE AMINOTRANSFERASE 16 IU/L (0-55); ALBUMIN 3.4 g/dL (3.5-5.0); ALBUMIN/GLOBULIN RATIO 0.8 (0.8-2.0); ALKALINE PHOSPHATASE 71 IU/L (40-150); ANION GAP 14.2 mmol/L (8-16); BILIRUBIN,TOTAL 0.7 mg/dL (0.2-1.2); BLOOD UREA NITROGEN 20 mg/dL (7-26); BUN/CREATININE RATIO 13 (6-25); CALCIUM 8.8 mg/dL (8.4-10.2); CARBON DIOXIDE 22 mmol/L (22-29); CHLORIDE 103 mmol/L (98-107); CREATININE, SERUM 1.54 mg/dL (0.72-1.25); EST GLOMERULAR FILTRATION RATE 47 ML/MIN (>=60); GLUCOSE 206 mg/dL (74-118); POTASSIUM 4.2 mmol/L (3.5-5.1); SODIUM 135 mmol/L (136-145); TOTAL PROTEIN 7.8 g/dL (6.5-8.1)
[2024-02-21 22:34] LABS: CREATINE KINASE 94 IU/L (30-200)
[2024-02-21 23:06] LABS: INFLUENZAE A&B ANTIGEN (RAPID) NEGATIVE (NEGATIVE); RESPIRATORY SYNC. VIRUS NEGATIVE (NEGATIVE)
[2024-02-21 23:11] LABS: TROPONIN I < 0.05 ng/mL (0.0-0.40)
[2024-02-22] VITALS (9 sets, daily range): BP systolic 101–132; BP diastolic 59–64; PULSE 51–92; RESP 14–22; TEMP 97.5–99.9; O2SAT 94–100
[2024-02-22 00:36] LABS: BILIRUBIN,URINE NEGATIVE (NEGATIVE); CLARITY,URINE CLEAR (CLEAR); COLOR,URINE YELLOW (YELLOW); GLUCOSE, URINE NEGATIVE (NEGATIVE); KETONES,URINE NEGATIVE (NEGATIVE); LEUKOCYTE ESTERASE ,URINE NEGATIVE (NEGATIVE); NITRITE,URINE NEGATIVE (NEGATIVE); PH,URINE 5.5 (5 - 7); PROTEIN,URINE DIPSTICK >=300 (NEGATIVE); URINE UROBILINOGEN 0.2 mg/dL (0.2 - 1)
[2024-02-22 00:39] LABS: BACTERIA,URINE MANY /HPF; EPITHELIAL CELLS,URINE FEW /LPF; RBC,URINE 0-5 /HPF (0-5); WBC,URINE (MAN) 0-5 /HPF (0-5)
[2024-02-22] MEDS ORDERED: SODIUM CHLORIDE FLUSH 10 ML SYR INJ PRN (01:15)
[2024-02-22] MEDS ORDERED: ACETAMINOPHEN 325 MG TAB PO PRN (01:15)
[2024-02-22] MEDS: Vancomycin IV 1 GM in SODIUM CHLORIDE 0.9% 250ML 250 ML IV SCH ×2 (02:29→20:44)
[2024-02-22] MEDS ORDERED: DEXTROSE 50% SYRINGE 50 ML IV PRN (03:00)
[2024-02-22] MEDS ORDERED: MELATONIN 3 MG TAB PO PRN (03:00)
[2024-02-22] MEDS ORDERED: POLYETHYLENE GLYCOL 3350 17 GM PACK PO PRN (03:00)
[2024-02-22] MEDS ORDERED: MAGNESIUM/ALUMINUM/SIMETHICONE 30 ML UDC PO PRN (03:00)
[2024-02-22] MEDS ORDERED: GUAIFENESIN/DEXTROMETHORPHAN LIQD 5 ML UDC PO PRN (03:00)
[2024-02-22] MEDS: ONDANSETRON HCL INJ 2MG/ML 2ML 2 MG/ML VIAL IV PRN (05:55)
[2024-02-22] MEDS: Morphine 4mg INJECTION 4 MG/ML INJ IV PRN (05:55)
[2024-02-22] MEDS: INSULIN REGULAR, HUMAN 100 UNIT/1 ML SQ SCH (07:30)
[2024-02-22] MEDS ORDERED: PANTOPRAZOLE SOD 40 MG TABEC PO SCH (09:00)
[2024-02-22] MEDS ORDERED: CLOPIDOGREL BISULFATE 75 MG TAB PO SCH (09:00)
[2024-02-22] MEDS: ASPIRIN 81 MG CHEW TAB PO SCH (09:00)
[2024-02-22] MEDS: ROPINIROLE HCL 1 MG TAB PO SCH ×2 (09:00→20:42)
[2024-02-22] MEDS: DOCUSATE SODIUM 100 MG CAP PO SCH (09:00)
[2024-02-22] MEDS: BUPROPION HCL 75 MG TAB PO SCH (09:00)
[2024-02-22] MEDS ORDERED: LISINOPRIL 10 MG TAB PO SCH (09:00)
[2024-02-22] MEDS: CARVEDILOL 3.125 MG TAB PO SCH (09:00)
[2024-02-22] MEDS ORDERED: FLUOXETINE HCL 20 MG CAP PO SCH (09:00)
[2024-02-22] MEDS: FUROSEMIDE 40 MG TAB PO SCH (09:00)
[2024-02-22] MEDS ORDERED: DOXAZOSIN MESYLATE 2 MG TAB PO SCH (09:00)
[2024-02-22] MEDS: MULTIVITAMINS/MINERALS TAB PO SCH (09:00)
[2024-02-22] MEDS ORDERED: EZETIMIBE 10 MG TAB PO SCH (09:00)
[2024-02-22] MEDS: GABAPENTIN 300 MG CAP PO SCH (09:00)
[2024-02-22] MEDS ORDERED: GLIPIZIDE5 MG PO (11:23)
[2024-02-22] MEDS ORDERED: DOCUSATE SODIU100 MG PO (11:23)
[2024-02-22] MEDS ORDERED: CLONIDINE HCL0.1 MG PO (11:27)
[2024-02-22] MEDS ORDERED: NIFEDIPINE ER30 M1 PO (11:27)
[2024-02-22] MEDS ORDERED: FUROSEMIDE80 MG PO (11:32)
[2024-02-22] MEDS ORDERED: LYRICA25 MG PO ×2 (11:34)
[2024-02-22] MEDS: SODIUM CHLORIDE 0.9% 500ML 500 ML IV ONE ×2 (13:07→13:36)
[2024-02-22 13:09] LABS: BASOPHILS % 0.2 % (0.0-1.0); HEMATOCRIT 38.6 % (38.2-49.6); HEMOGLOBIN 12.1 g/dL (14.0-18.0); LYMPHOCYTES % 6.3 % (18.0-39.1); MEAN CORPUSCULAR HEMOGLOBIN 28.9 pg (28-32); MEAN CORPUSCULAR HGB CONC 31.3 g/dL (31-35); MEAN CORPUSCULAR VOLUME 92.1 fL (81-99); MONOCYTES # (AUTO) 0.7 (0.2-0.8); MONOCYTES % 4.6 % (4.4-11.3); NEUTROPHILS # (AUTO) 13.7 (2.1-6.9); NEUTROPHILS % 88.4 % (38.7-80.0); PLATELET COUNT 168 x10e3/uL (140-360); RED BLOOD COUNT 4.19 x10e6/uL (4.3-5.7); RED CELL DISTRIBUTION WIDTH 14.9 % (11.7-14.4)
[2024-02-22 13:28] LABS: ALBUMIN 2.9 g/dL (3.5-5.0); ALBUMIN/GLOBULIN RATIO 0.7 (0.8-2.0); ANION GAP 13.3 mmol/L (8-16); BILIRUBIN,TOTAL 0.7 mg/dL (0.2-1.2); CALCIUM 8.5 mg/dL (8.4-10.2); CREATININE, SERUM 2.04 mg/dL (0.72-1.25); POTASSIUM 4.3 mmol/L (3.5-5.1)
[2024-02-22] MEDS ORDERED: SODIUM CHLORIDE 0.9% 500ML 500 ML ONE (13:32)
[2024-02-22 13:34] LABS: TROPONIN I 0.257 ng/mL (0-0.300)
[2024-02-22] MEDS ORDERED: ENOXAPARIN SOD INJ 40 MG/0.4 ML SYR SC SCH ×2 (14:00→17:00)
[2024-02-22] MEDS ORDERED: SODIUM CHLORIDE 0.9% 1000ML 1,000 ML ONE (14:25)
[2024-02-22] MEDS: ENOXAPARIN SOD INJ 120 MG/0.8 ML SYR SC SCH (18:25)
[2024-02-22] MEDS: TAMSULOSIN HCL 0.4 MG CAP PO SCH (20:41)
[2024-02-22] MEDS: ATORVASTATIN 40 MG TAB PO SCH (20:42)
[2024-02-23] VITALS (10 sets, daily range): BP systolic 109–136; BP diastolic 60–80; PULSE 51–76; RESP 16–19; TEMP 97.1–98.8; O2SAT 95–99
[2024-02-23 05:45] LABS: BASOPHILS % 0.2 % (0.0-1.0); EOSINOPHILS # (AUTO) 0.2 (0.0-0.4); EOSINOPHILS % 2.5 % (0.0-6.0); HEMATOCRIT 35.4 % (38.2-49.6); HEMOGLOBIN 10.7 g/dL (14.0-18.0); LYMPHOCYTES % 23.5 % (18.0-39.1); MEAN CORPUSCULAR HEMOGLOBIN 28.5 pg (28-32); MEAN CORPUSCULAR HGB CONC 30.2 g/dL (31-35); MEAN CORPUSCULAR VOLUME 94.1 fL (81-99); MONOCYTES # (AUTO) 0.8 (0.2-0.8); MONOCYTES % 9.9 % (4.4-11.3); NEUTROPHILS # (AUTO) 5.4 (2.1-6.9); NEUTROPHILS % 63.5 % (38.7-80.0); PLATELET COUNT 146 x10e3/uL (140-360); RED BLOOD COUNT 3.76 x10e6/uL (4.3-5.7); WHITE BLOOD COUNT 8.47 x10e3/uL (4.8-10.8)
[2024-02-23 06:09] LABS: ALBUMIN 2.6 g/dL (3.5-5.0); ALBUMIN/GLOBULIN RATIO 0.7 (0.8-2.0); ANION GAP 12.9 mmol/L (8-16); BILIRUBIN,TOTAL 0.4 mg/dL (0.2-1.2); CALCIUM 7.8 mg/dL (8.4-10.2); CREATININE, SERUM 2.23 mg/dL (0.72-1.25); POTASSIUM 3.9 mmol/L (3.5-5.1); TOTAL PROTEIN 6.1 g/dL (6.5-8.1)
[2024-02-23] MEDS: FLUOXETINE HCL 20 MG CAP PO SCH (08:17)
[2024-02-23] MEDS ORDERED: TRAMADOL HCL 50 MG TAB PO PRN (14:00)
[2024-02-23] MEDS: MORPHINE SULFATE ER 30 MG TAB PO SCH (17:38)
[2024-02-24] VITALS (10 sets, daily range): BP systolic 148–171; BP diastolic 75–94; PULSE 61–77; RESP 16–20; TEMP 97.6–98.1; O2SAT 95–98
[2024-02-24] MEDS: HYDROCODONE/APAP 10MG-325MG TAB PO PRN (04:06)
[2024-02-24] MEDS: MORPHINE SULFATE ER 30 MG TAB PO SCH (06:22)
[2024-02-24 06:25] LABS: ANION GAP 12.4 mmol/L (8-16); CALCIUM 8.2 mg/dL (8.4-10.2); CREATININE, SERUM 2.15 mg/dL (0.72-1.25); POTASSIUM 4.4 mmol/L (3.5-5.1)
[2024-02-24] MEDS ORDERED: CIPRO250 MG PO (13:23)
[2024-02-24] MEDS ORDERED: DOXYCYCLINE HY100 MG PO (13:23)
[2024-02-24] MEDS ORDERED: FLUOXETINE HCL40 MG PO (13:23)
[2024-02-25] VITALS (13 sets, daily range): BP systolic 137–199; BP diastolic 72–100; PULSE 61–89; RESP 16–22; TEMP 97.2–98.2; O2SAT 84–100
[2024-02-25] MEDS: HYDRALAZINE HCL 20 MG/ML VIAL IV PRN (04:09)
[2024-02-25] MEDS: ALBUTEROL SULF 0.083% NEB SOLN 3 ML NEB NEB PRN (04:46)
[2024-02-25 14:28] LABS: BASOPHILS % 0.6 % (0.0-1.0); EOSINOPHILS # (AUTO) 0.2 (0.0-0.4); EOSINOPHILS % 2.3 % (0.0-6.0); HEMOGLOBIN 11.2 g/dL (14.0-18.0); LYMPHOCYTES # (AUTO) 1.4 (1.0-3.2); LYMPHOCYTES % 21.7 % (18.0-39.1); MEAN CORPUSCULAR HEMOGLOBIN 28.6 pg (28-32); MEAN CORPUSCULAR HGB CONC 31.1 g/dL (31-35); MEAN CORPUSCULAR VOLUME 92.1 fL (81-99); MONOCYTES # (AUTO) 0.6 (0.2-0.8); NEUTROPHILS # (AUTO) 4.3 (2.1-6.9); NEUTROPHILS % 66.1 % (38.7-80.0); PLATELET COUNT 173 x10e3/uL (140-360); RED BLOOD COUNT 3.91 x10e6/uL (4.3-5.7); WHITE BLOOD COUNT 6.54 x10e3/uL (4.8-10.8)
[2024-02-25 14:48] LABS: ALBUMIN 2.7 g/dL (3.5-5.0); ALBUMIN/GLOBULIN RATIO 0.7 (0.8-2.0); ANION GAP 13.3 mmol/L (8-16); BILIRUBIN,TOTAL 0.5 mg/dL (0.2-1.2); CALCIUM 8.4 mg/dL (8.4-10.2); CREATININE, SERUM 1.79 mg/dL (0.72-1.25); POTASSIUM 4.3 mmol/L (3.5-5.1); TOTAL PROTEIN 6.7 g/dL (6.5-8.1)
[2024-02-26] VITALS: BP 156/94; PULSE 66; RESP 18; TEMP 97.2; O2SAT 97
[2024-02-26 06:12] VITALS: PULSE 79; RESP 22; O2SAT 98
[2024-02-26 06:48] VITALS: BP 170/88; PULSE 82
[2024-02-26] MEDS ORDERED: SODIUM CHLORIDE 0.9% 250ML 250 ML ONE (07:28)
[2024-02-26 08:13] VITALS: BP 175/93; PULSE 77; RESP 18; TEMP 97.7; O2SAT 96
[2024-02-26 08:45] VITALS: BP 175/93; PULSE 77; RESP 18; TEMP 97.7; O2SAT 96
== END 2024-02-26 10:45 | disposition home or self-care (01) | DRG 602 ==
LOC: ER 21:25 → ERHOLD 02-22 01:06 → MED/SURG2 02-22 16:14
PROVIDERS: ADMIT Internal Medicine Critical Care Medicine; ATTEND Internal Medicine Critical Care Medicine
DX: L03.116 Cellulitis of left lower limb (principal); N17.0 Acute kidney failure with tubular necrosis; I13.0 Hypertensive heart and chronic kidney disease with heart failure and stage 1 through stage 4 chronic kidney disease, or unspecified chronic kidney disease; L03.115 Cellulitis of right lower limb; E11.40 Type 2 diabetes mellitus with diabetic neuropathy, unspecified; E11.51 Type 2 diabetes mellitus with diabetic peripheral angiopathy without gangrene; E11.22 Type 2 diabetes mellitus with diabetic chronic kidney disease; E66.01 Morbid (severe) obesity due to excess calories; Z68.35 Body mass index [BMI] 35.0-35.9, adult; E11.65 Type 2 diabetes mellitus with hyperglycemia; E78.5 Hyperlipidemia, unspecified; I25.10 Atherosclerotic heart disease of native coronary artery without angina pectoris; N18.9 Chronic kidney disease, unspecified; K21.9 Gastro-esophageal reflux disease without esophagitis; Z11.52 Encounter for screening for COVID-19; Z79.02 Long term (current) use of antithrombotics/antiplatelets; Z79.82 Long term (current) use of aspirin; Z79.84 Long term (current) use of oral hypoglycemic drugs; I25.2 Old myocardial infarction; Z95.5 Presence of coronary angioplasty implant and graft; Z95.1 Presence of aortocoronary bypass graft; Z86.73 Personal history of transient ischemic attack (TIA), and cerebral infarction without residual deficits; Z89.431 Acquired absence of right foot; Z89.432 Acquired absence of left foot; Z85.828 Personal history of other malignant neoplasm of skin; Z92.3 Personal history of irradiation; Z83.3 Family history of diabetes mellitus
CPT/HCPCS: 36415; 71045; 76770; 80048; 80053; 80202; 81001; 82550; 82948; 83605; 83690; 83735; 83880; 84484; 85025; 87040; 87086; 87400; 87420; 93005; 93970; 94799; 96372; 99252; 99285; J0360; J0696; J1650; J2270; J2405; J2543; J7030; J7040; J7050; U0002

== ENCOUNTER 2024-12-19 11:38 | Inpatient (IN) | payer MEDICARE ==
[~2024-12-19] VITALS: Ht 188 cm; Wt 126.6 kg
[2024-12-19] VITALS (15 sets, daily range): BP systolic 102–144; BP diastolic 72–88; PULSE 64–80; RESP 11–26; TEMP 97.7–98.6; O2SAT 95–100
[~2024-12-19 11:38] MED LIST changes: +CIPRO250 MG PO; +CLONIDINE HCL0.1 MG PO; +FUROSEMIDE80 MG PO; +LYRICA25 MG PO; +METFORMIN HCL500 MG PO
[2024-12-19] MEDS ORDERED: SODIUM CHLORIDE FLUSH 10 ML SYR IV PRN (12:15)
[2024-12-19 12:20] LABS: BASOPHILS % 0.3 % (0.0-1.0); EOSINOPHILS % 2.1 % (0.0-6.0); LYMPHOCYTES % 19.2 % (18.0-39.1); MONOCYTES % 5.2 % (4.4-11.3); NEUTROPHILS % 72.8 % (38.7-80.0); RED CELL DISTRIBUTION WIDTH 13.2 % (11.7-14.4)
[2024-12-19 12:40] LABS: EST GLOMERULAR FILTRATION RATE 28.0 ML/MIN (>=60)
[2024-12-19 13:28] LABS: LEUKOCYTE ESTERASE ,URINE NEGATIVE (NEGATIVE); PROTEIN,URINE DIPSTICK 2+ (NEGATIVE); URINE UROBILINOGEN 0.2 mg/dL (0.2 - 1)
[2024-12-19 13:33] LABS: EPITHELIAL CELLS,URINE MODERATE /LPF; WBC,URINE (MAN) 0-5 /HPF (0-5)
[2024-12-19] MEDS: SODIUM CHLORIDE 0.9% 1000ML 1,000 ML IV ONE (13:45)
[2024-12-19] MEDS: ASPIRIN 81 MG CHEW TAB PO ONE (13:46)
[2024-12-19] MEDS: INSULIN REGULAR, HUMAN 100 UNIT/1 ML IV ONE (13:51)
[2024-12-19] MEDS ORDERED: ONDANSETRON HCL INJ 2MG/ML 2ML 2 MG/ML VIAL IV PRN ×2 (14:30→16:15)
[2024-12-19] MEDS ORDERED: DEXTROSE 50% SYRINGE 50 ML IV PRN ×2 (14:30→16:15)
[2024-12-19] MEDS: INSULIN REGULAR, HUMAN 3ML VL 100 UNIT in SODIUM CHLORIDE 0.9% 99 ML IV SCH (15:06)
[2024-12-19] MEDS ORDERED: POTASSIUM CHLORIDE 20 MEQ TAB CR PO PRN (16:15)
[2024-12-19] MEDS ORDERED: ACETAMINOPHEN 325 MG TAB PO PRN (16:15)
[2024-12-19] MEDS ORDERED: LIDOCAINE 4% PATCH TP PRN (16:15)
[2024-12-19] MEDS ORDERED: BENZONATATE 100 MG CAP PO PRN (16:15)
[2024-12-19] MEDS ORDERED: HYDRALAZINE HCL 20 MG/ML VIAL IV PRN (16:15)
[2024-12-19] MEDS ORDERED: SIMETHICONE 80 MG CHEW PO PRN (16:15)
[2024-12-19] MEDS ORDERED: MELATONIN 5 MG TABLET PO PRN (16:15)
[2024-12-19] MEDS ORDERED: ALBUTEROL/IPRATROPIUM 3 ML NEB NEB PRN (16:15)
[2024-12-19] MEDS ORDERED: DIPHENHYDRAMINE HCL 25 MG CAP PO PRN (16:15)
[2024-12-19] MEDS: ENOXAPARIN SOD INJ 40 MG/0.4 ML SYR SC SCH (16:51)
[2024-12-19] MEDS: MUPIROCIN 2% OINT 22 GM TUBE TOP SCH (16:51)
[2024-12-19] MEDS ORDERED: LISINOPRIL 10 MG TAB PO SCH (17:00)
[2024-12-19] MEDS ORDERED: CARVEDILOL 3.125 MG TAB PO SCH (17:00)
[2024-12-19] MEDS ORDERED: SODIUM CHLORIDE 0.9% 1000ML 1,000 ML IV SCH (17:15)
[2024-12-19] MEDS: MORPHINE SULFATE ER 30 MG TAB PO SCH (17:53)
[2024-12-19] MEDS: SODIUM CHLORIDE 0.9% 1000ML 1,000 ML IV SCH (17:53)
[2024-12-19] MEDS ORDERED: BUPROPION XL150 MG PO (20:33)
[2024-12-19] MEDS ORDERED: AMLODIPINE BESYLATE 5 MG TAB PO SCH (21:00)
[2024-12-19] MEDS: PREGABALIN 25 MG CAP PO SCH (21:06)
[2024-12-19] MEDS: ROPINIROLE HCL 1 MG TAB PO SCH (21:06)
[2024-12-19] MEDS: TAMSULOSIN HCL 0.4 MG CAP PO SCH (21:07)
[2024-12-19] MEDS: ATORVASTATIN 40 MG TAB PO SCH (21:07)
[2024-12-20] VITALS (27 sets, daily range): BP systolic 105–150; BP diastolic 44–88; PULSE 60–85; RESP 10–24; TEMP 97–97.4; O2SAT 95–100
[2024-12-20 06:40] LABS: BASOPHILS % 0.5 % (0.0-1.0); EOSINOPHILS % 3.6 % (0.0-6.0); LYMPHOCYTES % 37.8 % (18.0-39.1); MONOCYTES % 6.4 % (4.4-11.3); NEUTROPHILS % 51.2 % (38.7-80.0); RED CELL DISTRIBUTION WIDTH 13.3 % (11.7-14.4)
[2024-12-20 07:10] LABS: EST GLOMERULAR FILTRATION RATE 41.0 ML/MIN (>=60)
[2024-12-20] MEDS: DOCUSATE SODIUM 100 MG CAP PO PRN (08:28)
[2024-12-20] MEDS: PREGABALIN 25 MG CAP PO SCH (08:29)
[2024-12-20] MEDS: PANTOPRAZOLE SOD 40 MG TABEC PO SCH (08:29)
[2024-12-20] MEDS: CLOPIDOGREL BISULFATE 75 MG TAB PO SCH (08:29)
[2024-12-20] MEDS: BUPROPION HCL 150 MG TABCR PO SCH (08:29)
[2024-12-20] MEDS: ROPINIROLE HCL 1 MG TAB PO SCH (08:29)
[2024-12-20] MEDS: DOXAZOSIN MESYLATE 2 MG TAB PO SCH (08:30)
[2024-12-20] MEDS: EZETIMIBE 10 MG TAB PO SCH (08:30)
[2024-12-20] MEDS: FLUOXETINE HCL 20 MG CAP PO SCH (08:30)
[2024-12-20] MEDS: ASPIRIN 81 MG ENTERIC COATED PO SCH (08:30)
[2024-12-20 08:57] LABS: CHOL/HDL RATIO 2.8 (3.9-4.7); LDL CHOLESTEROL 50.0 MG/DL (60-130); PHOSPHORUS 4.0 MG/DL (2.3-4.7)
[2024-12-20] MEDS ORDERED: NIFEDIPINE CR 30 MG TAB PO SCH (09:00)
[2024-12-20] MEDS ORDERED: FLUOXETINE HCL PO SCH (09:00)
[2024-12-20] MEDS ORDERED: BUPROPION HCL 75 MG TAB PO SCH (09:00)
[2024-12-20] MEDS ORDERED: ASPIRIN 81 MG ENTERIC COATED PO SCH (09:00)
[2024-12-21] VITALS (24 sets, daily range): BP systolic 101–162; BP diastolic 59–94; PULSE 59–88; RESP 13–24; TEMP 96.2–98.2; O2SAT 96–100
[2024-12-21 05:02] LABS: BASOPHILS % 0.5 % (0.0-1.0); EOSINOPHILS % 3.2 % (0.0-6.0); LYMPHOCYTES % 33.2 % (18.0-39.1); MONOCYTES % 5.0 % (4.4-11.3); NEUTROPHILS % 57.7 % (38.7-80.0); RED CELL DISTRIBUTION WIDTH 13.5 % (11.7-14.4)
[2024-12-21 05:30] LABS: EST GLOMERULAR FILTRATION RATE 48.0 ML/MIN (>=60)
[2024-12-21 06:10] LABS: PHOSPHORUS 4.0 MG/DL (2.3-4.7)
[2024-12-21 07:34] LABS: CHOL/HDL RATIO 3.2 (3.9-4.7); LDL CHOLESTEROL 37.0 MG/DL (60-130)
[2024-12-21] MEDS: METOPROLOL TARTRATE 25 MG TAB PO SCH (09:26)
[2024-12-21] MEDS ORDERED: DEXTROSE 50% SYRINGE 50 ML IV PRN (09:30)
[2024-12-21] MEDS ORDERED: INSULIN GLARGINE 100 UNITS/ML VIAL SQ SCH (10:00)
[2024-12-21] MEDS: INSULIN REGULAR, HUMAN 100 UNIT/1 ML SQ SCH (11:45)
[2024-12-21] MEDS: OXYCODONE/ACETAMINOPHEN 5-325 1 EACH TABLET PO PRN (11:56)
[2024-12-22] VITALS (9 sets, daily range): BP systolic 99–156; BP diastolic 56–88; PULSE 60–85; RESP 12–22; TEMP 97.9–98.2; O2SAT 97–99
[2024-12-22] MEDS: INSULIN GLARGINE 100 UNITS/ML VIAL SQ SCH ×2 (08:08→22:44)
[2024-12-22] MEDS ORDERED: INSULIN GLARGINE 100 UNITS/ML VIAL SQ SCH ×3 (09:00→21:00)
[2024-12-23] VITALS (8 sets, daily range): BP systolic 116–162; BP diastolic 64–78; PULSE 57–70; RESP 12–24; TEMP 97.6–98.4; O2SAT 95–100
[2024-12-23 08:21] LABS: BASOPHILS % 0.5 % (0.0-1.0); EOSINOPHILS % 2.9 % (0.0-6.0); LYMPHOCYTES % 31.6 % (18.0-39.1); MONOCYTES % 6.0 % (4.4-11.3); NEUTROPHILS % 58.0 % (38.7-80.0); RED CELL DISTRIBUTION WIDTH 13.8 % (11.7-14.4)
[2024-12-23 08:59] LABS: EST GLOMERULAR FILTRATION RATE 43.0 ML/MIN (>=60)
[2024-12-23] MEDS: SODIUM CHLORIDE 0.9% 1000ML 1,000 ML IV ONE (14:58)
[2024-12-23] MEDS: INSULIN GLARGINE 100 UNITS/ML VIAL SQ SCH (20:54)
[2024-12-24 05:34] LABS: BASOPHILS % 0.4 % (0.0-1.0); EOSINOPHILS % 2.8 % (0.0-6.0); LYMPHOCYTES % 29.9 % (18.0-39.1); MONOCYTES % 6.8 % (4.4-11.3); NEUTROPHILS % 59.5 % (38.7-80.0); RED CELL DISTRIBUTION WIDTH 13.9 % (11.7-14.4)
[2024-12-24 05:51] VITALS: BP 142/79; PULSE 59; RESP 14; TEMP 97.9; O2SAT 97
[2024-12-24 06:06] LABS: EST GLOMERULAR FILTRATION RATE 52.0 ML/MIN (>=60)
[2024-12-24 07:00] VITALS: PULSE 75; RESP 16; O2SAT 100
[2024-12-24 07:10] VITALS: BP 163/74; PULSE 66; RESP 18; TEMP 97.9; O2SAT 100
[2024-12-24] MEDS: METOPROLOL SUCCINATE 25 MG TAB XL PO SCH (08:11)
[2024-12-24 09:00] VITALS: BP 163/74; PULSE 66; RESP 18; TEMP 97.9; O2SAT 100
[2024-12-24 11:22] VITALS: BP 116/78; PULSE 58; RESP 16; TEMP 97.6; O2SAT 99
[2024-12-24] MEDS ORDERED: FUROSEMIDE40 MG PO ×2 (14:26→15:33)
[2024-12-24] MEDS ORDERED: SPIRONOLACTONE25 MG PO (14:26)
[2024-12-24] MEDS ORDERED: XTAMPZA ER13.5 MG PO (14:27)
[2024-12-24] MEDS ORDERED: LASIX10 MG/ML PO (14:29)
== END 2024-12-24 16:53 | disposition home or self-care (01) | DRG 637 ==
LOC: ER 11:54 → ERHOLD 14:24 → ICU 15:28
PROVIDERS: ADMIT Internal Medicine; ATTEND Internal Medicine
DX: E11.65 Type 2 diabetes mellitus with hyperglycemia (principal); E11.00 Type 2 diabetes mellitus with hyperosmolarity without nonketotic hyperglycemic-hyperosmolar coma (NKHHC); N17.0 Acute kidney failure with tubular necrosis; I13.0 Hypertensive heart and chronic kidney disease with heart failure and stage 1 through stage 4 chronic kidney disease, or unspecified chronic kidney disease; I50.32 Chronic diastolic (congestive) heart failure; E11.22 Type 2 diabetes mellitus with diabetic chronic kidney disease; E11.51 Type 2 diabetes mellitus with diabetic peripheral angiopathy without gangrene; E11.42 Type 2 diabetes mellitus with diabetic polyneuropathy; N18.30 Chronic kidney disease, stage 3 unspecified; I25.10 Atherosclerotic heart disease of native coronary artery without angina pectoris; E78.5 Hyperlipidemia, unspecified; I35.0 Nonrheumatic aortic (valve) stenosis; K21.9 Gastro-esophageal reflux disease without esophagitis; G47.33 Obstructive sleep apnea (adult) (pediatric); I89.0 Lymphedema, not elsewhere classified; I87.8 Other specified disorders of veins; M19.90 Unspecified osteoarthritis, unspecified site; E66.01 Morbid (severe) obesity due to excess calories; Z68.34 Body mass index [BMI] 34.0-34.9, adult; Z79.84 Long term (current) use of oral hypoglycemic drugs; Z79.02 Long term (current) use of antithrombotics/antiplatelets; Z79.82 Long term (current) use of aspirin; I25.2 Old myocardial infarction; Z95.1 Presence of aortocoronary bypass graft; Z95.5 Presence of coronary angioplasty implant and graft; Z86.73 Personal history of transient ischemic attack (TIA), and cerebral infarction without residual deficits; Z92.3 Personal history of irradiation; Z85.828 Personal history of other malignant neoplasm of skin; Z89.422 Acquired absence of other left toe(s); Z89.421 Acquired absence of other right toe(s); Z89.021 Acquired absence of right finger(s)
CPT/HCPCS: 36415; 71045; 71250; 80053; 80061; 81001; 82550; 82948; 83036; 83735; 83880; 84100; 84443; 84484; 85025; 85379; 93005; 93306; 93970; 94760; 94799; 96372; 99252; 99284; J1650; J1815; J2470; J7030; J7050

== ENCOUNTER 2025-01-25 19:08 | Emergency (ER) | payer MEDICARE ==
[~2025-01-25] VITALS: Ht 188 cm; Wt 126.6 kg
[~2025-01-25 19:08] MED LIST changes: +BUPROPION XL150 MG PO; +LASIX10 MG/ML PO; +SPIRONOLACTONE25 MG PO; +XTAMPZA ER13.5 MG PO
[2025-01-25 19:44] LABS: BASOPHILS % 0.2 % (0.0-1.0); EOSINOPHILS % 1.7 % (0.0-6.0); LYMPHOCYTES % 18.5 % (18.0-39.1); MONOCYTES % 8.5 % (4.4-11.3); NEUTROPHILS % 70.5 % (38.7-80.0); RED CELL DISTRIBUTION WIDTH 13.9 % (11.7-14.4)
[2025-01-25 19:57] LABS: INR 0.98
[2025-01-25 20:06] LABS: EST GLOMERULAR FILTRATION RATE 28.0 ML/MIN (>=60)
[2025-01-25] MEDS: ACETAMINOPHEN 325 MG TAB PO ONE (20:19)
[2025-01-25] MEDS: SODIUM CHLORIDE 0.9% 1000ML 1,000 ML IV ONE (20:21)
[2025-01-25] MEDS: Vancomycin IV 2 GM in SODIUM CHLORIDE 0.9% 250ML 250 ML IV ONE (21:57)
[2025-01-25 23:00] VITALS: TEMP 98.8
[2025-01-26 00:21] VITALS: PULSE 88; RESP 17
[2025-01-26 00:30] VITALS: PULSE 78; RESP 20; O2SAT 99
[2025-01-26] MEDS: ALBUTEROL SULF 0.083% NEB SOLN 3 ML NEB NEB STA (00:31)
[2025-01-26] MEDS: DEXTROSE 50% SYRINGE 50 ML IV STA (00:47)
[2025-01-26] MEDS: SODIUM BICARBONATE 8.4% INJ 50 ML SYR IV STA (00:48)
[2025-01-26] MEDS: INSULIN REGULAR, HUMAN 100 UNIT/1 ML IV ONE (00:48)
[2025-01-26] MEDS: CALCIUM GLUC 1 G/50 ML NACL 100 ML IV ONE (00:48)
[2025-01-26 01:49] LABS: LEUKOCYTE ESTERASE ,URINE NEGATIVE (NEGATIVE); PROTEIN,URINE DIPSTICK 1+ (NEGATIVE); URINE UROBILINOGEN 0.2 mg/dL (0.2 - 1)
[2025-01-26 01:51] LABS: WBC,URINE (MAN) 0-5 /HPF (0-5)
[2025-01-26 01:52] LABS: EPITHELIAL CELLS,URINE MODERATE /LPF
[2025-01-26 01:59] VITALS: BP 112/60; PULSE 80; RESP 21; TEMP 97.7; O2SAT 100
== END 2025-01-26 01:33 | disposition short-term general hospital (02) ==
LOC: ER 19:17
DX: R65.20 Severe sepsis without septic shock (principal); N17.9 Acute kidney failure, unspecified; M86.9 Osteomyelitis, unspecified; M65.941 Unspecified synovitis and tenosynovitis, right hand; E87.5 Hyperkalemia; I13.0 Hypertensive heart and chronic kidney disease with heart failure and stage 1 through stage 4 chronic kidney disease, or unspecified chronic kidney disease; E11.22 Type 2 diabetes mellitus with diabetic chronic kidney disease; N18.9 Chronic kidney disease, unspecified; I50.9 Heart failure, unspecified; I25.10 Atherosclerotic heart disease of native coronary artery without angina pectoris; Z95.5 Presence of coronary angioplasty implant and graft; Z95.1 Presence of aortocoronary bypass graft; E78.5 Hyperlipidemia, unspecified; K21.9 Gastro-esophageal reflux disease without esophagitis; C44.209 Unspecified malignant neoplasm of skin of left ear and external auricular canal; Z86.73 Personal history of transient ischemic attack (TIA), and cerebral infarction without residual deficits
CPT/HCPCS: 36415; 71045; 73140; 80053; 81001; 82948; 83605; 85025; 85610; 85730; 87040; 87071; 87086; 87186; 87205; 93005; 94640; 94799; 99284; J0692; J3373; J7030; J7050; J7799

== ENCOUNTER 2025-03-06 07:07 | Inpatient (IN) | payer MEDICARE ==
[2025-03-06] VITALS (12 sets, daily range): BP systolic 131–166; BP diastolic 80–100; PULSE 74–128; RESP 17–22; TEMP 98.3–98.8; O2SAT 96–100
[~2025-03-06] VITALS: Ht 188 cm; Wt 126.6 kg
[2025-03-06] MEDS: ONDANSETRON HCL INJ 2MG/ML 2ML 2 MG/ML VIAL IV STA (07:57)
[2025-03-06] MEDS: SODIUM CHLORIDE 0.9% 1000ML 1,000 ML IV STA (07:57)
[2025-03-06] MEDS: Morphine 4mg INJECTION 4 MG/ML INJ IV STA (07:58)
[2025-03-06 08:02] LABS: BASOPHILS % 0.1 % (0.0-1.0); EOSINOPHILS % 0.0 % (0.0-6.0); LYMPHOCYTES % 5.2 % (18.0-39.1); MONOCYTES % 4.9 % (4.4-11.3); NEUTROPHILS % 89.4 % (38.7-80.0); RED CELL DISTRIBUTION WIDTH 15.8 % (11.7-14.4)
[2025-03-06 08:17] LABS: INR 1.08
[2025-03-06 08:27] LABS: EST GLOMERULAR FILTRATION RATE 27.0 ML/MIN (>=60)
[2025-03-06] MEDS ORDERED: DEXTROSE 50% SYRINGE 50 ML IV PRN ×3 (10:30→17:15)
[2025-03-06] MEDS: METOPROLOL TARTRATE INJ 1 MG/ML VIAL IV ONE (10:43)
[2025-03-06] MEDS: INSULIN LISPRO 100 UNIT/1 ML 3ML VIAL SQ ONE (10:47)
[2025-03-06] MEDS: SODIUM CHLORIDE 0.9% 1000ML 1,000 ML IV ONE (10:57)
[2025-03-06 12:10] LABS: EPITHELIAL CELLS,URINE FEW /LPF; LEUKOCYTE ESTERASE ,URINE NEGATIVE (NEGATIVE); PROTEIN,URINE DIPSTICK >=300 (NEGATIVE); URINE UROBILINOGEN 0.2 mg/dL (0.2 - 1)
[2025-03-06] MEDS: INSULIN LISPRO 100 UNIT/1 ML 3ML VIAL SQ SCH ×2 (12:40→21:00)
[2025-03-06] MEDS ORDERED: ONDANSETRON HCL INJ 2MG/ML 2ML 2 MG/ML VIAL IV PRN (17:00)
[2025-03-06] MEDS ORDERED: ALBUTEROL/IPRATROPIUM 3 ML NEB NEB PRN (17:00)
[2025-03-06] MEDS ORDERED: ACETAMINOPHEN 325 MG TAB PO PRN (17:00)
[2025-03-06] MEDS ORDERED: SIMETHICONE 80 MG CHEW PO PRN (17:00)
[2025-03-06] MEDS ORDERED: HYDRALAZINE HCL 20 MG/ML VIAL IV PRN (17:00)
[2025-03-06] MEDS ORDERED: BENZONATATE 100 MG CAP PO PRN (17:00)
[2025-03-06] MEDS ORDERED: DOCUSATE SODIUM 100 MG CAP PO PRN (17:00)
[2025-03-06] MEDS ORDERED: LIDOCAINE 4% PATCH TP PRN (17:00)
[2025-03-06] MEDS ORDERED: TEMAZEPAM 15 MG CAP PO PRN (17:00)
[2025-03-06] MEDS: FUROSEMIDE 40 MG TAB PO SCH (18:03)
[2025-03-06] MEDS: CARVEDILOL 12.5 MG TAB PO SCH (18:05)
[2025-03-06] MEDS: TAMSULOSIN HCL 0.4 MG CAP PO SCH (21:00)
[2025-03-06] MEDS: PREGABALIN 50 MG CAP PO SCH (21:00)
[2025-03-06] MEDS: ATORVASTATIN 40 MG TAB PO SCH (21:00)
[2025-03-06] MEDS: ROPINIROLE HCL 1 MG TAB PO SCH (21:00)
[2025-03-06] MEDS: OXYCODONE/ACETAMINOPHEN 5-325 1 EACH TABLET PO PRN (23:00)
[2025-03-07] VITALS (10 sets, daily range): BP systolic 81–149; BP diastolic 50–79; PULSE 86–133; RESP 17–29; TEMP 97.6–99; O2SAT 95–100
[2025-03-07] MEDS: ONDANSETRON HCL INJ 2MG/ML 2ML 2 MG/ML VIAL IV PRN (02:26)
[2025-03-07] MEDS: Morphine 4mg INJECTION 4 MG/ML INJ IV PRN (02:27)
[2025-03-07] MEDS: FLUOXETINE HCL 20 MG CAP PO SCH (08:14)
[2025-03-07] MEDS: PANTOPRAZOLE SOD 40 MG TABEC PO SCH (08:14)
[2025-03-07] MEDS: ROPINIROLE HCL 1 MG TAB PO SCH (08:14)
[2025-03-07] MEDS: DOXAZOSIN MESYLATE 2 MG TAB PO SCH (08:15)
[2025-03-07] MEDS: PREGABALIN 50 MG CAP PO SCH (08:15)
[2025-03-07] MEDS: BUPROPION HCL 150 MG TABCR PO SCH (08:15)
[2025-03-07] MEDS: EZETIMIBE 10 MG TAB PO SCH (08:15)
[2025-03-07] MEDS ORDERED: CLOPIDOGREL BISULFATE 75 MG TAB PO SCH (09:00)
[2025-03-07] MEDS ORDERED: ASPIRIN 81 MG CHEW TAB PO SCH (09:00)
[2025-03-07 09:27] LABS: BASOPHILS % 0.2 % (0.0-1.0); EOSINOPHILS % 1.0 % (0.0-6.0); LYMPHOCYTES % 8.7 % (18.0-39.1); MONOCYTES % 5.7 % (4.4-11.3); NEUTROPHILS % 83.9 % (38.7-80.0); RED CELL DISTRIBUTION WIDTH 16.2 % (11.7-14.4)
[2025-03-07 09:42] LABS: PHOSPHORUS 4.0 MG/DL (2.3-4.7)
[2025-03-07 09:45] LABS: EST GLOMERULAR FILTRATION RATE 30.0 ML/MIN (>=60)
[2025-03-07 10:43] LABS: WBC,FECAL (FECAL LACTOFERRIN) POSITIVE (NEGATIVE)
[2025-03-07 10:47] LABS: CDIFF AG QUIK CHEK **POSITIVE** (NEGATIVE)
[2025-03-07 10:48] LABS: CDIFF TOX QUIK CHEK NEGATIVE (NEGATIVE)
[2025-03-07] MEDS: CLOPIDOGREL BISULFATE 75 MG TAB PO SCH (17:12)
[2025-03-07] MEDS: OXYCODONE HCL IR 5 MG TAB PO PRN (20:12)
[2025-03-08] VITALS (18 sets, daily range): BP systolic 81–145; BP diastolic 51–86; PULSE 76–120; RESP 18–19; TEMP 97.7–98.1; O2SAT 94–98
[2025-03-08] MEDS: METRONIDAZOLE 500MG/NS 100ML 100 ML IV SCH (05:05)
[2025-03-08 05:22] LABS: BASOPHILS % 0.2 % (0.0-1.0); EOSINOPHILS % 1.7 % (0.0-6.0); LYMPHOCYTES % 8.0 % (18.0-39.1); MONOCYTES % 6.1 % (4.4-11.3); NEUTROPHILS % 82.9 % (38.7-80.0); RED CELL DISTRIBUTION WIDTH 15.7 % (11.7-14.4)
[2025-03-08 05:48] LABS: EST GLOMERULAR FILTRATION RATE 32.0 ML/MIN (>=60)
[2025-03-08] MEDS: SODIUM CHLORIDE 0.9% 250ML 250 ML ONE (07:18)
[2025-03-08] MEDS: D5NS/KCL 20MEQ 1,000 ML IV SCH (17:22)
[2025-03-08 17:26] LABS: BASOPHILS % 0.2 % (0.0-1.0); EOSINOPHILS % 1.9 % (0.0-6.0); LYMPHOCYTES % 9.0 % (18.0-39.1); MONOCYTES % 6.4 % (4.4-11.3); NEUTROPHILS % 81.5 % (38.7-80.0); RED CELL DISTRIBUTION WIDTH 15.5 % (11.7-14.4)
[2025-03-09] VITALS (12 sets, daily range): BP systolic 86–133; BP diastolic 35–103; PULSE 75–93; RESP 14–22; TEMP 97.9–98.5; O2SAT 95–98
[2025-03-09 06:38] LABS: BASOPHILS % 0.3 % (0.0-1.0); EOSINOPHILS % 2.2 % (0.0-6.0); LYMPHOCYTES % 12.3 % (18.0-39.1); MONOCYTES % 5.5 % (4.4-11.3); NEUTROPHILS % 79.0 % (38.7-80.0); RED CELL DISTRIBUTION WIDTH 15.5 % (11.7-14.4)
[2025-03-09 07:05] LABS: EST GLOMERULAR FILTRATION RATE 33.0 ML/MIN (>=60)
[2025-03-10] VITALS (11 sets, daily range): BP systolic 99–153; BP diastolic 51–88; PULSE 80–98; RESP 17–24; TEMP 98.2–98.5; O2SAT 93–99
[2025-03-10 05:50] LABS: BASOPHILS % 0.3 % (0.0-1.0); EOSINOPHILS % 1.8 % (0.0-6.0); LYMPHOCYTES % 10.4 % (18.0-39.1); MONOCYTES % 6.3 % (4.4-11.3); NEUTROPHILS % 80.4 % (38.7-80.0); RED CELL DISTRIBUTION WIDTH 15.3 % (11.7-14.4)
[2025-03-10 06:23] LABS: EST GLOMERULAR FILTRATION RATE 41.0 ML/MIN (>=60)
[2025-03-11] VITALS (10 sets, daily range): BP systolic 100–131; BP diastolic 52–82; PULSE 57–93; RESP 18–25; TEMP 97.7–98.9; O2SAT 95–100
[2025-03-11 06:56] LABS: BASOPHILS % 0.3 % (0.0-1.0); EOSINOPHILS % 1.8 % (0.0-6.0); LYMPHOCYTES % 14.8 % (18.0-39.1); MONOCYTES % 6.2 % (4.4-11.3); NEUTROPHILS % 75.4 % (38.7-80.0); RED CELL DISTRIBUTION WIDTH 15.1 % (11.7-14.4)
[2025-03-11 07:19] LABS: EST GLOMERULAR FILTRATION RATE 48.0 ML/MIN (>=60)
[2025-03-11] MEDS: DIPHENHYDRAMINE HCL 25 MG CAP PO PRN (10:17)
[2025-03-12] VITALS (11 sets, daily range): BP systolic 103–131; BP diastolic 61–79; PULSE 70–99; RESP 9–21; TEMP 97.4–98.2; O2SAT 97–100
[2025-03-12 06:23] LABS: BASOPHILS % 0.4 % (0.0-1.0); EOSINOPHILS % 1.9 % (0.0-6.0); LYMPHOCYTES % 18.5 % (18.0-39.1); MONOCYTES % 7.4 % (4.4-11.3); NEUTROPHILS % 69.5 % (38.7-80.0); RED CELL DISTRIBUTION WIDTH 15.1 % (11.7-14.4)
[2025-03-12 06:37] LABS: EST GLOMERULAR FILTRATION RATE 51.0 ML/MIN (>=60)
[2025-03-12 11:32] LABS: BASOPHILS % (MANUAL) 1 % (0-1.5); LYMPHOCYTES % (MANUAL) 18 % (19-48); METAMYELOCYTES % (MANUAL) 1 % (0-0); MONOCYTES % (MANUAL) 7 % (3.4-9.0); NEUTROPHILS % (MANUAL) 72 % (40-74); PLATELET ESTIMATE ADEQUATE; PLATELET MORPHOLOGY COMMENT NORMAL; REACTIVE LYMPHOCYTES 1
[2025-03-12 11:33] LABS: RBC MORPHOLOGY COMMENT NORMAL
[2025-03-13] VITALS (11 sets, daily range): BP systolic 113–153; BP diastolic 55–82; PULSE 70–94; RESP 6–20; TEMP 97.4–98.6; O2SAT 95–100
[2025-03-13 07:42] LABS: BASOPHILS % 0.4 % (0.0-1.0); EOSINOPHILS % 1.6 % (0.0-6.0); LYMPHOCYTES % 17.8 % (18.0-39.1); MONOCYTES % 6.7 % (4.4-11.3); NEUTROPHILS % 71.0 % (38.7-80.0); RED CELL DISTRIBUTION WIDTH 15.1 % (11.7-14.4)
[2025-03-13 08:04] LABS: EST GLOMERULAR FILTRATION RATE 51.0 ML/MIN (>=60)
[2025-03-13] MEDS: POTASSIUM CHLORIDE 20 MEQ TAB CR PO PRN (12:25)
[2025-03-13] MEDS: Morphine 4mg INJECTION 4 MG/ML INJ IV PRN (14:49)
[2025-03-13] MEDS: CHOLESTYRAMINE 4 GM PACKET PO SCH (17:00)
[2025-03-13] MEDS: MELATONIN 5 MG TABLET PO PRN (21:35)
[2025-03-14] VITALS (10 sets, daily range): BP systolic 63–132; BP diastolic 59–90; PULSE 63–83; RESP 18–20; TEMP 97.7–98.4; O2SAT 95–100
[2025-03-14 08:45] LABS: BASOPHILS % 0.5 % (0.0-1.0); EOSINOPHILS % 2.1 % (0.0-6.0); LYMPHOCYTES % 18.9 % (18.0-39.1); MONOCYTES % 6.0 % (4.4-11.3); NEUTROPHILS % 70.3 % (38.7-80.0); RED CELL DISTRIBUTION WIDTH 15.2 % (11.7-14.4)
[2025-03-14 08:52] LABS: EST GLOMERULAR FILTRATION RATE 45.0 ML/MIN (>=60)
[2025-03-14] MEDS: LOPERAMIDE HCL 2 MG CAP PO ONE (16:44)
[2025-03-14] MEDS: SODIUM BICARBONATE 650 MG TAB PO SCH (16:45)
[2025-03-15] VITALS (9 sets, daily range): BP systolic 99–132; BP diastolic 56–95; PULSE 61–82; RESP 16–19; TEMP 97.8–98.9; O2SAT 93–99
[2025-03-15 05:46] LABS: BASOPHILS % 0.3 % (0.0-1.0); EOSINOPHILS % 1.3 % (0.0-6.0); LYMPHOCYTES % 16.8 % (18.0-39.1); MONOCYTES % 6.6 % (4.4-11.3); NEUTROPHILS % 73.6 % (38.7-80.0); RED CELL DISTRIBUTION WIDTH 15.2 % (11.7-14.4)
[2025-03-15 06:21] LABS: EST GLOMERULAR FILTRATION RATE 53.0 ML/MIN (>=60)
[2025-03-15] MEDS: LACTOBACILLUS ACIDOPHILUS CAPSULE PO SCH (17:28)
[2025-03-15] MEDS: LOPERAMIDE HCL 2 MG CAP PO SCH (17:28)
[2025-03-16] VITALS (7 sets, daily range): BP systolic 107–135; BP diastolic 56–66; PULSE 61–79; RESP 18–20; TEMP 97.7–98.2; O2SAT 96–98
== END 2025-03-16 15:45 | disposition home or self-care (01) | DRG 394 ==
LOC: ER 07:17 → ERHOLD 10:22 → ICU 12:10 → MED/SURG3 03-12 19:23
PROVIDERS: ADMIT Internal Medicine; ATTEND Internal Medicine
DX: K55.039 Acute (reversible) ischemia of large intestine, extent unspecified (principal); D62 Acute posthemorrhagic anemia; E87.21 Acute metabolic acidosis; I50.22 Chronic systolic (congestive) heart failure; N17.9 Acute kidney failure, unspecified; R65.10 Systemic inflammatory response syndrome (SIRS) of non-infectious origin without acute organ dysfunction; I13.0 Hypertensive heart and chronic kidney disease with heart failure and stage 1 through stage 4 chronic kidney disease, or unspecified chronic kidney disease; I45.2 Bifascicular block; D68.32 Hemorrhagic disorder due to extrinsic circulating anticoagulants; T45.515A Adverse effect of anticoagulants, initial encounter; T39.015A Adverse effect of aspirin, initial encounter; T45.525A Adverse effect of antithrombotic drugs, initial encounter; R31.9 Hematuria, unspecified; E11.40 Type 2 diabetes mellitus with diabetic neuropathy, unspecified; E11.22 Type 2 diabetes mellitus with diabetic chronic kidney disease; I25.10 Atherosclerotic heart disease of native coronary artery without angina pectoris; C44.201 Unspecified malignant neoplasm of skin of unspecified ear and external auricular canal; K21.9 Gastro-esophageal reflux disease without esophagitis; E66.01 Morbid (severe) obesity due to excess calories; G47.33 Obstructive sleep apnea (adult) (pediatric); I89.0 Lymphedema, not elsewhere classified; I87.2 Venous insufficiency (chronic) (peripheral); K57.90 Diverticulosis of intestine, part unspecified, without perforation or abscess without bleeding; E78.00 Pure hypercholesterolemia, unspecified; E11.51 Type 2 diabetes mellitus with diabetic peripheral angiopathy without gangrene; N18.30 Chronic kidney disease, stage 3 unspecified; K80.20 Calculus of gallbladder without cholecystitis without obstruction; F41.8 Other specified anxiety disorders; G89.29 Other chronic pain; I35.0 Nonrheumatic aortic (valve) stenosis; D72.829 Elevated white blood cell count, unspecified; R00.0 Tachycardia, unspecified; Y92.009 Unspecified place in unspecified non-institutional (private) residence as the place of occurrence of the external cause; Z95.1 Presence of aortocoronary bypass graft; Z95.828 Presence of other vascular implants and grafts; I25.2 Old myocardial infarction; Z86.73 Personal history of transient ischemic attack (TIA), and cerebral infarction without residual deficits; Z92.3 Personal history of irradiation; Z89.029 Acquired absence of unspecified finger(s); Z89.429 Acquired absence of other toe(s), unspecified side; Z79.891 Long term (current) use of opiate analgesic; Z95.5 Presence of coronary angioplasty implant and graft; Z68.35 Body mass index [BMI] 35.0-35.9, adult
CPT/HCPCS: 36415; 71045; 74176; 80048; 80053; 81001; 82550; 82948; 83036; 83605; 83630; 83690; 83735; 83880; 83993; 84100; 84443; 84484; 85025; 85610; 85730; 87040; 87045; 87086; 87177; 87324; 87449; 93005; 94799; 96372; 99284; J2270; J2405; J2470; J2543; J7030; J7050